=== PATIENT | female | born 1970 | race Two or more races ===

== ENCOUNTER 2024-07-10 20:30 | Inpatient (IN) | payer MEDICAID, SELFPAY ==
[2024-07-10 20:35] VITALS: PULSE 102; RESP 16; O2SAT 95
--- NOTE | 2024-07-10 20:35 | EKG_ITS ---
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1970 Requested By: ED Temporary Provider Order Number: [id number] Reading MD: ED Temporary Provider Measurements Intervals [place] Rate: 113 P: 130 [place]: 96 QRS: 246 QRSD: 108 T: 100 QT: 320 QTc: 439 Interpretive Statements SINUS TACHYCARDIA WITH SHORT [place] INTERVAL WITH OCCASIONAL VENTRICULAR PREMATURE COMPLEXES MARKED RIGHT AXIS DEVIATION [QRS AXIS > 100] LOW QRS VOLTAGE [QRS DEFLECTION < 0.5/1.0 mV IN LIMB/CHEST LEADS] POSSIBLE RIGHT VENTRICULAR CONDUCTION DELAY [RSR (QR) IN V1/V2] ANTEROLATERAL MYOCARDIAL INFARCTION , OF INDETERMINATE AGE [40+ ms Q WAVE IN I/aVL/V3-V6] Compared to ECG 06/23/2024 19:41:25 Short [place] interval now present Right-axis deviation now present Low QRS voltage now present First degree AV block no longer present Right bundle-branch block no longer present Myocardial infarct finding still present /store/S0/[id number].pdf
[2024-07-10 20:36] VITALS: BP 91/63; PULSE 102; RESP 20; TEMP 37.8; O2SAT 90
--- NOTE | 2024-07-10 20:39 | EKG_ITS ---
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1970 Requested By: Zeny Hernandez Order Number: [id number] Reading MD: Zeny Hernandez Measurements Intervals [place] Rate: 114 P: [place]: QRS: -76 QRSD: 146 T: 33 QT: 350 QTc: 482 Interpretive Statements ATRIAL FLUTTER/TACHYCARDIA WITH RAPID VENTRICULAR RESPONSE MARKED LEFT AXIS DEVIATION [QRS AXIS < -30] RIGHT BUNDLE BRANCH BLOCK [120+ ms QRS DURATION, UPRIGHT V1, 40+ ms S IN I/aVL/V4/V5/V6] ANTEROSEPTAL MYOCARDIAL INFARCTION , OF INDETERMINATE AGE [40+ ms Q WAVE IN V1-V4] Compared to ECG 07/10/2024 20:37:43 Left-axis deviation now present Right bundle-branch block now present Sinus tachycardia no longer present Ventricular premature complex(es) no longer present Short [place] interval no longer present Right-axis deviation no longer present Myocardial infarct finding still present /store/S0/[id number].pdf
[2024-07-10 20:40] VITALS: BMI 20.3
--- NOTE | 2024-07-10 20:40 | XR_ITS ---
Examination: AP chest single view Technique: AP portable upright chest single view Exam date and time: July 10, 2024 0906 hrs. Comparison 06/23/2024 Indications: Sepsis Findings: Significant CHF Enlarged cardiac contour with prominent vascular congestion Perihilar edema Superimposed bilateral pneumonia especially right upper lobe Prominent osteopenia Impression: Significant CHF Bilateral significant pneumonia
--- NOTE | 2024-07-10 20:40 | PC.NURSE ---
Pt BIB EMS with chief c/o of rectal bleeding that started today. Per EMT-P Adrian reports that family reported to him that they were cleaning the Pt after she has an episode of BM and noticed that the Pt was bleeding from the rectum. On assessment the Pt has a knowles catheter, +3 pitting edema noted to bilat lower extremities with good petal pules, and edema noted to Pt willy area. There are multiple bruises noted to Pt forearm bilat. Pt is a GCS of 15, A&O X3. Pt placed on cardiac cath lab radiology technologist. call light within reach.
[2024-07-10 20:41] VITALS: PULSE 104; PULSE 113; RESP 20; RESP 90; O2SAT 95
--- NOTE | 2024-07-10 20:45 | PD.EDGIBLD ---
ED GI Bleed RME/HPI General Chief complaint: GI Bleed Stated complaint: RECTAL BLEED Time Seen by Provider: 07/10/24 20:38 Arrival date/time: 07/10/24 20:30 RME / HPI RME / HPI Narrative: 53-year-old female patient with significant history of hypertension, diabetes mellitus, multiple embolic infarct, mural thrombus, anasarca, pleural effusion, choledocholithiasis, metabolic dysfunction associated steatotic liver disease, pneumonia, urinary retention was brought in by EMS for evaluation regarding bright red blood in the rectum. Onset of symptoms earlier today while changing the diaper. Patient is physically bedbound due to chronic debility after patient was hospitalized for 2 weeks.. She had a chronic Hernandez catheter also. She was initially seen here last June 24, and was transferred to [facility] for acute hepatic failure. In the triage patient was noted to be tachycardic and a fever of 100.1 sepsis alert was initiated right away. Related Data Home Medications ?Medication ?Instructions ?Recorded ?Confirmed calcium carbonate 600 mg-vitamin 1 tab PO QDAY 05/18/24 05/18/24 D3 20 mcg (800 unit) tablet (Caltrate with Vitamin D3) lisinopril 20 1 tab PO QDAY 05/18/24 05/18/24 mg-hydrochlorothiazide 25 mg tablet metformin 1,000 mg tablet 1,000 mg PO QDAY 05/18/24 05/18/24 amlodipine 10 mg tablet (Norvasc) 10 mg PO QDAY 05/19/24 05/19/24 Previous Rx's ?Medication ?Instructions ?Recorded blood sugar diagnostic (Blood #50 ea 05/22/24 Glucose Test strips) blood-glucose meter #1 ea 05/22/24 lancets 21 gauge #100 ea 05/22/24 methylprednisolone 4 mg tablets in 4 mg PO QDAY #21 tabs 05/22/24 a dose pack (Medrol (Sim)) midodrine 10 mg tablet 10 mg PO TID #10 tabs 05/22/24 Allergies Allergy/AdvReac Type Severity Reaction Status Date / Time No Known Allergies Allergy Verified 06/23/24 18:49 Review of Systems Review of Systems Narrative Review of Systems: Review of system reviewed and within normal limits except mentioned in HPI ED Exam Narrative Physical exam: VITAL SIGNS: Reviewed. GENERAL APPEARANCE: Alert and oriented x 2, slightly confused, no acute distress, HEAD AND FACE: Non-traumatic. ENT: PERRL, pale conjunctiva eyelid no trauma, Mucous membrane moist. NECK: Supple, nontender, no nuchal rigidity. CHEST: No tenderness, no crepitus, no paradoxical movement, no retractions. LUNGS: Clear, well ventilated, symmetric, no rales, no wheezing, no ronchi, no stridor, good breath sounds bilaterally. HEART: Regular rate, regular rhythm, no murmur, no gallops. ABDOMEN: Soft, positive bowel sounds, globular, no guarding, nontender, no rebound, no masses,+ +2 edema also noted on the lower abdomen and flank area RECTAL: Rectal exam was done by me. Female nurse around all the time, I did not notice any tarry stool or blood in the examining finger except that there is some abrasion excoriation on the perianal opening. At 12 o'clock position GENITAL: Deferred. NEUROLOGICAL: Gross motor function intact sensory function intact, Appropriate for age. MUSCULOSKELETAL: low back nontender, full range of motion. EXTREMITIES: Bilateral lower extremity edema,, full range of motion. SKIN: Color pale, dry, no rash, no lacerations, multiple bruising noted on the upper extremities LYMPHATICS: Deferred. Course Quality Measures none Orders Category Date Time Status Bedside COVID-19 Antigen Test NOW Care 07/10/24 23:21 Completed COVID-19 Screening Questionnaire NOW Care 07/10/24 23:01 Completed International Relations Teacher STAT Care 07/10/24 20:39 Active Continuous Pulse Oximetry STAT Care 07/10/24 20:39 Completed Decision to Admit X1 Care 07/10/24 23:01 Completed EKG (ED ONLY) *Do not use* NOW Care 07/10/24 20:35 Completed EKG (ED ONLY) *Do not use* NOW Care 07/10/24 20:39 Completed Insert IV NOW Care 07/10/24 20:39 Active NPO STAT Care 07/10/24 20:39 Active Occult Blood,Stool (Nursing) NOW Care 07/10/24 21:11 Active Strict Intake and Output Routine Care 07/10/24 20:39 Ordered EKG (ED Only) Stat Exams 07/10/24 20:35 Draft EKG (ED Only) Stat Exams 07/10/24 20:39 Draft XR chest 1V SEPSIS PROTOCOL Stat Exams 07/10/24 20:40 Completed Ammonia Stat Lab 07/10/24 23:17 Ordered B-Type Natriuretic Peptide Stat Lab 07/10/24 20:45 Completed Blood Culture (Lab) Stat Lab 07/10/24 20:45 Received CBC Stat Lab 07/10/24 20:45 Completed Comprehensive Metabolic Panel Stat Lab 07/10/24 20:45 Completed LDH (Lactate Dehydrogenase) Stat Lab 07/10/24 20:45 Completed Lactate (Lactic Acid) Stat Lab 07/10/24 20:45 Results Lipase Stat Lab 07/10/24 20:45 Completed Magnesium Stat Lab 07/10/24 20:45 Completed Occult Blood, Stool (LAB) Stat Lab 07/10/24 21:11 Completed Partial Thromboplastin Time Stat Lab 07/10/24 20:45 Completed Phosphorous Stat Lab 07/10/24 20:45 Completed Procalcitonin Stat Lab 07/10/24 20:45 Completed Prothrombin Time with INR Stat Lab 07/10/24 20:45 Completed Troponin I Stat Lab 07/10/24 20:45 Completed Type and Screen Stat Lab 07/10/24 20:52 Completed Urinalysis Stat Lab 07/10/24 21:21 Completed Urine Culture Stat Lab 07/10/24 21:21 Received Piper/Tazo 3.375 gm [Zosyn] Med 07/10/24 23:27 Active 3.375 gm in 50 ml IV X1 Ringers Lactated 500 ml [Lactated Ringers] 500 ml Med 07/10/24 21:51 Active IV 250 mls/hr Vancomycin/Ns 1 gm Ivpb 200 ml Med 07/10/24 23:27 Active IV X1 Oxygen Delivery NOW RT 07/10/24 20:39 Active Vital Signs Vital signs: Vital Signs Temperature 100.1 F 07/10/24 20:36 Pulse Rate 102 H 07/10/24 20:36 Respiratory Rate 20 07/10/24 20:36 Blood Pressure 91/63 07/10/24 20:36 Pulse Oximetry (%) 90 L 07/10/24 20:36 Oxygen Delivery Method Room Air 07/10/24 20:36 GI Bleed MDM Narrative MDM Narrative:: I did a rectal exam, with a female nurse around all the time, I did not notice any blood in the examining finger except for excoriation, on the perianal area which could be the reason for bleeding. Plan of care discussed with the family, and told me that they wanted the patient to be place in SNF or acute rehab hospital post admission. Discussed this case with Dr. Raymond, hospitalist, and admitted the patient. Patient data External records reviewed:: None Clinical information provided by:: patient and family Social determinants that could affect healthcare access:: none Patient has the following chronic illnesses:: Diabetes mellitus, hypertension, acute renal retention on chronic Hernandez catheter, anasarca, liver disease, pleural effusion, pneumonia, acute kidney injury, cholithiasis, mural thrombus, multiple embolic infarcts, recently discharged from the hospital 2 days ago. How is presenting disease/condition affected by chronic disease/condition?: exacerbated by Evaluation data The following diagnostics were reviewed and interpreted by me:: lab results, radiology exam(s) and EKG tracing(s) Lab and/or radiology exams considered but not ordered:: None Interpretation Summary: EKG as interpreted by me showed sinus tachycardia, ventricular to 114 bpm, no ST segment elevation depression noted. Chest x-ray showed as interpreted by me as significant congestive heart failure and bilateral pneumonia. CBC with no leukocytosis however patient's hemoglobin is noted to be 8.7 hematocrit of 28.1 creatinine was noted to be 1.8 BUN 47 lactic acid 3.9 total bili 2.4 AST 40 alkaline phosphatase of 131 lactic dehydrogenase of 397, patient's troponin was noted to be 0.22. None Medications / Prescriptions Medications or Prescriptions considered but not ordered:: None Medication administrations:: Medication Administration History Lactated Ringer's (Lactated Ringers) 500 mls @ 250 mls/hr IV .Q2H ONE Stop: 07/10/24 23:50 Last Admin: 07/10/24 21:58 Dose: 250 mls/hr Documented By: JOSE Vancomycin/Sodium Chloride (Vancomycin/Ns 1 Gm Ivpb) 200 mls @ 120 mls/hr IV X1 ONE Stop: 07/11/24 01:06 Piperacillin/Tazobactam/Dextrose (Zosyn) 3.375 gm in 50 mls @ 100 mls/hr IV X1 ONE Stop: 07/10/24 23:56 IV fluids for hydration, IV vancomycin and Zosyn was given Consultations Consultation(s) initiated? (list below): No Diagnosis GI bleed differential diagnosis: Lower gastrointestinal hemorrhage, hematochezia and other (Pneumonia, UTI, anasarca, liver disease, PHILL,) Most likely diagnosis given after review of the tests above:: Sepsis, rectal bleeding, pneumonia, anasarca, UTI, liver disease, cholithiasis, Admission Indicated Admission indicated?: indicated Explain why admission is indicated or not indicated:: For further management Admission Request Was there a request for admission?: Yes Admission Attestation Admission request attestation: Discussed case with [ Dr Raymond] from Hospitalist service regarding admission. Discussed patients ED course, exam findings, labs, and radiology results. The Hospitalist [agrees,] to accept the patient for admission. Disposition Plan Disposition Plan: Admit Discharge Plan Plan Patient Disposition: Admit Acute Care w/in Hospital Disposition Comment: Stable Prescriptions/Referrals Prescriptions/Med Rec: No Action metformin 1,000 mg Tablet 1,000 mg PO QDAY Hold Instructions: Resume on 06/30/24. Hold until evaluated by PCP to restart Rx Instructions: with meal lisinopril-hydrochlorothiazide 20-25 mg Tablet 1 tab PO QDAY Hold Instructions: Resume on 06/18/24. Hold until further evaluation by PCP calcium carbonate-vitamin D3 [Caltrate with Vitamin D3] 600 mg-20 mcg (800 unit) Tablet 1 tab PO QDAY amlodipine [Norvasc] 10 mg Tablet 10 mg PO QDAY Hold Instructions: Resume on 06/18/24. Hold until further evaluation by PCP (DME) blood-glucose meter Kit See Rx Instructions .Route Qty: 1 0RF Rx Instructions: Use once daily (DME) lancets 21 gauge misc See Rx Instructions .Route Qty: 100 2RF Rx Instructions: Use once daily (DME) Blood Glucose Test Strip See Rx Instructions .Route Qty: 50 2RF Rx Instructions: Use once daily midodrine 10 mg tablet 10 mg PO TID Qty: 10 0RF Rx Instructions: do not give last dose of day after 6PM or within 4 hrs of bedtime methylprednisolone [Medrol (Sim)] 4 mg tablets,dose pack 4 mg PO QDAY Qty: 21 0RF Rx Instructions: Take as directed Referrals: Chon Longo PA-C [Primary Care Provider] - In 1 week Problem List Clinical Impression: Rectal bleed, Pneumonia, Anasarca, History of multiple strokes, Mural thrombus of heart, Sepsis Patient/Caregiver Discharge Instructions Print Language: [place] Leone[place] Stand Alone Forms: [employer] Info., Patient Portal Info Letter
[2024-07-10 21:16] LABS: Lactate (Lactic Acid) 3.9 mMol/L (0.4-2.0)
[2024-07-10 21:27] LABS: Basophils % (Auto) 0 % (0-2.5); Eosinophils % (Auto) 0 % (0-10); Hematocrit 28.1 % (36.0-46.0); Immature Granulocytes % (Auto) 0 % (0-0); Immature Granulocytes Auto 0.04 Thou/mm3 (0.00-0.00); Lymphocytes # (Auto) 1.1 Thou/mm3 (1.0-4.8); Lymphocytes % (Auto) 10 % (10-50); Mean Corpuscular Hemoglobin 28.1 pg (25.0-35.0); Mean Corpuscular Volume 91 fL (80-100); Monocytes # (Auto) 0.4 Thou/mm3 (0.0-0.8); Monocytes % (Auto) 4 % (0-12); Neutrophils % (Auto) 86 % (37-80); Nucleated Red Blood Cell # 0.09 Thou/mm3 (0.00-0.00); Nucleated Red Blood Cell % 1 /100 WBC (0); Platelet Count 124 Thou/mm3 (140-440); RDW Standard Deviation 57.8 fL (36.4-46.3); White Blood Count 10.5 Thou/mm3 (3.6-11.0)
[2024-07-10 21:35] LABS: Hemoglobin 8.7 g/dL (12.0-16.0)
[2024-07-10 21:37] LABS: Collection Type, Urine Clean Catch
[2024-07-10 21:37] LABS: OBS Card Lot # 23001; OBS Developer Lot # 23003; OBS Performed By boted; OBS QC OK? Yes; Occult Blood, Stool Negative (Negative)
[2024-07-10 21:46] LABS: Bacteria,Urine 4+; Bilirubin,Urine Negative (Negative); Blood,Urine 3+ (Negative); Budding Yeast,Urine Present; Color,Urine Yellow (Lt Yel-Yel); Glucose, Urine Trace (Negative); Hyaline Casts,Urine 3 /hpf (0-1); Ketones,Urine Negative (Negative); Leukocyte Esterase,Urine Positive (Negative); Nitrite,Urine Negative (Negative); Protein,Urine 1+ (Neg - Trace); RBC,Urine 349 /hpf (0-3); Specific Gravity,Urine 1.017 (1.001-1.035); Squamous Epithelial Cell,Urine 4 /hpf (0-5); Urobilinogen,Urine Negative mg/dL (0.0-1.0); WBC,Urine 358 /hpf (0-5)
[2024-07-10 21:47] LABS: Clarity,Urine Turbid (Clear/Hazy)
[2024-07-10 21:54] LABS: INR 2.9 (0.9-1.3); Partial Thromboplastin Time 49.9 Seconds (22.0-36.0); Prothrombin Time 29.2 Seconds (9.0-12.2)
[2024-07-10] MEDS: RINGERS LACTATED 500 ML 500 ML 250 ML IV (21:58)
[2024-07-10 22:17] LABS: B-Type Natriuretic Peptide 740 pg/mL (0-100)
[2024-07-10 22:22] LABS: Alanine Aminotransferase 36 U/L (10-49); Albumin, Serum 3.1 gm/dL (3.5-5.0); Alkaline Phosphatase 131 U/L (46-116); Anion Gap 9 (7-16); Aspartate Amino Transferase 40 U/L (0-34); BUN/Creatinine Ratio 26 Ratio (12-20); Bilirubin,Total 2.4 mg/dL (0.3-1.2); Blood Urea Nitrogen 47 mg/dL (9-23); Calcium (Corrected) 9.7 mg/dL (8.5-10.1); Carbon Dioxide 21.6 mMol/L (20.0-31.0); Chloride 101 mMol/L (98-107); Creatinine (Component) 1.8 mg/dL (0.6-1.3); Estimated Creatinine Clearance 29.1 mL/min (>60); Globulin 3.1 gm/dL (2.3-3.5); Glucose 130 mg/dL (74-106); Lipase 88 U/L (12-53); Magnesium 1.9 mg/dL (1.6-2.6); Osmolality,Calculated 278 (275-295); Potassium 4.3 mMol/L (3.4-5.1); Procalcitonin 7.21 ng/ml (0.0-0.49); Sodium 132 mMol/L (136-145); Total Protein 6.2 gm/dL (5.7-8.2); eGFR 33 See Note
[2024-07-10 22:41] LABS: LDH (Lactate Dehydrogenase) 396 U/L (120-246)
[2024-07-10 22:51] LABS: Troponin I 0.222 ng/mL (0.0-0.045)
[2024-07-10 23:00] VITALS: BP 94/61; PULSE 113; RESP 18; TEMP 36.6; O2SAT 95
--- NOTE | 2024-07-10 23:47 | PD.EVENT ---
Documentation for date of: 07/10/24 Event Note Event Note: The patient was admitted to [facility] on 06/24 and discharged on 07/08. Discharge diagnoses included acute embolic stroke, acute kidney injury, amyloidosis, left ventricular mural thrombus, anasarca, choledocholithiasis, liver cirrhosis, pleural effusion, pneumonia, sepsis, diabetes mellitus, and urinary retention. She was discharged on Eliquis, empagliflozin, furosemide, and metoprolol. Her creatinine at discharge was 1.6, and bilirubin was 1.9. The patient presented to the emergency room today because her daughter was unable to care for her, as the patient is now almost fully dependent. The daughter noticed some blood while changing the patient's diaper today. Due to these concerns, the patient was brought in by ambulance. In the ER, her vital signs were: temperature 100.1?F, heart rate 102 bpm, respiratory rate 20 breaths/min, and blood pressure 91/63 mmHg. Laboratory results indicated significant congestive heart failure and bilateral pneumonia. Hemoglobin was 8.7 g/dL, platelets 124 x10^9/L, creatinine 1.8 mg/dL, lactic acid 3.9 mmol/L, total bilirubin 2.4 mg/dL, troponin 0.222 ng/mL, BNP 740 pg/mL, procalcitonin 7.21 ng/mL, and INR 2.9. The patient will be admitted for further treatment and will need nursing home facility placement. The family has requested full code status. Hold BP meds now.
--- NOTE | 2024-07-10 23:53 | ESHP_ITS ---
Documentation for date of: 07/10/24 HPI History of Present Illness History of present illness: 53-year-old female patient with significant medical history for DM2, left ventricle mural thrombus, embolic infarct, metabolic dysfunction associated steatotic liver disease (MASLD), liver cirrhosis, choledocholithiasis, urinary retention and amyloidosis was BIBA when daughter noticed blood per rectum while changing patient's diaper. Patient was transferred from [facility] to [facility] on 06/24/2024 for stroke and ERCP. Patient was discharged from [facility] on 07/08/2024 home on Eliquis, empagliflozin, Lasix and metoprolol. In May 2024 patient was admitted and upgraded to ICU at [facility] for hyponatremia and hypotension. Per daughter, patient started losing weight and become weak and hypotensive since the beginning of this year. Today, daughter states she is no longer able to care for her mother. In ED vitals were significant for HR 102, temp 100.1 F, RR 20 and BP of 91/63. Occult blood test was negative, chest x-ray is indicative of significant CHF and bilateral pneumonia. Urinalysis is indicative of UTI. CBC showed a Hgb of 8.7, PLT 124, THREAD DRESSER 1.8 (baseline 1.1), lactic acid 3.9, T. bili 2.4, Trope 0.222, BNP 740, Pro-Justice 7.21 and INR 2.9. Patient admitted for further management and SNF placement. Medical Hx: As HPI above Medication: Eliquis, empagliflozin, Lasix, metoprolol, Jardiance, midodrine Surgical Hx: Social Hx: Patient denies drinking alcohol, smoking tobacco or using illicit drugs Family Hx: Sister of liver cancer at age 55, other sister and child have thyroid cancer Allergies: NKDA CODE STATUS: Full code Review of Systems Review of Systems Systems Reviewed: All systems reviewed, normal except as documented Exam Vital Signs Temp Pulse Resp BP Pulse Ox O2 Del Method O2 Flow Rate 97.8 F 113 H 18 94/61 95 Nasal Cannula 2 07/10/24 23:00 07/10/24 23:00 07/10/24 23:00 07/10/24 23:00 07/10/24 23:00 07/10/24 23:00 07/10/24 23:00 Narrative Exam Constitutional: Fragile, older looking than chronological age female, in no acute distress, lying in bed. HEENT: NCAT, EOMI, reactive round pupils b/l, patent nares b/l, moist mucous membranes. Lung: Crackles of the lung bilaterally, no wheezing, no rhonchi, on 2 L nasal cannula. Heart: Regular S1S2, no murmurs, gallops, or rubs. Abdomen: Soft, non-distended, non-tender, bowel sounds present throughout. Extremities: No cyanosis or clubbing, anasarca present, 3+ LE edema, pulses present b/l. Neurologic: No focal sensory or motor deficits noted, AOx3, appropriate affect. Skin: Warm, dry, no lesions or rashes noted. Results: Labs 07/10/24 20:45 07/10/24 20:45 Labs: Short CBC 07/10/24 Range/Units 20:45 WBC 10.5 (3.6-11.0) Thou/mm3 Hgb 8.7 L (12.0-16.0) g/dL Hct 28.1 L (36.0-46.0) % Plt Count 124 L D (140-440) Thou/mm3 BMP 07/10/24 20:45 Sodium 132 L Potassium 4.3 Chloride 101 Carbon Dioxide 21.6 BUN 47 H Creatinine 1.8 H Glucose 130 H Calcium 9.0 Cardiac Enzymes 07/10/24 Range/Units 20:45 Troponin I 0.222 H* (0.0-0.045) ng/mL Liver Function 07/10/24 Range/Units 20:45 Total Bilirubin 2.4 H (0.3-1.2) mg/dL AST 40 H (0-34) U/L ALT 36 (10-49) U/L Alkaline Phosphatase 131 H (46-116) U/L Albumin 3.1 L (3.5-5.0) gm/dL Urine 07/10/24 Range/Units 21:21 Urine Color Yellow (Lt Yel-Yel) Urine Clarity Turbid A (Clear/Hazy) Urine pH 6.0 (5.0-7.0) Ur Specific [place] 1.017 (1.001-1.035) Urine Protein 1+ A (Neg - Trace) Urine Glucose (UA) Trace (Negative) Quality Measures Quality Measures none Medications Home Medications and Allergies Home Medications ?Medication ?Instructions ?Recorded ?Confirmed ?Type calcium carbonate 600 mg-vitamin 1 tab PO QDAY 05/18/24 05/18/24 History D3 20 mcg (800 unit) tablet (Caltrate with Vitamin D3) lisinopril 20 1 tab PO QDAY 05/18/24 05/18/24 History mg-hydrochlorothiazide 25 mg tablet metformin 1,000 mg tablet 1,000 mg PO QDAY 05/18/24 05/18/24 History amlodipine 10 mg tablet (Norvasc) 10 mg PO QDAY 05/19/24 05/19/24 History Allergies Allergy/AdvReac Type Severity Reaction Status Date / Time No Known Allergies Allergy Verified 06/23/24 18:49 Visit Medications Furosemide (Furosemide Inj 10 Mg/Ml Vial 2 Ml) 20 mg IVP QDAY SAVANNAH Stop: 08/10/24 08:59 Vancomycin/Sodium Chloride (Vancomycin/Ns 1 Gm Ivpb) 200 mls @ 120 mls/hr IV X1 ONE Stop: 07/11/24 01:06 Piperacillin/Tazobactam/Dextrose (Zosyn) 3.375 gm in 50 mls @ 100 mls/hr IV X1 ONE Stop: 07/10/24 23:56 Piperacillin Sod/Tazobactam (Sod 2.25 gm/ Sodium Chloride) 50 mls @ 100 mls/hr IV Q6HR SAVANNAH Stop: 07/17/24 23:34 Midodrine (Midodrine 5 Mg Tablet) 10 mg PO TID SAVANNAH Stop: 08/10/24 05:59 Pharmacy Consult (Pharmacy To Dose Vancomycin) 1 each IV QDAY SAVANNAH Stop: 08/10/24 08:59 Discontinued Medications Lactated Ringer's (Lactated Ringers) 500 mls @ 250 mls/hr IV .Q2H ONE Stop: 07/10/24 23:50 Last Infusion: 07/10/24 23:37 Dose: 0 mls/hr Assessment & Plan Plan 53-year-old female patient with significant medical history for DM2, left ventricle mural thrombus, embolic infarct, metabolic dysfunction associated steatotic liver disease (MASLD), liver cirrhosis, choledocholithiasis, urinary retention and amyloidosis was BIBA when daughter noticed blood per rectum while changing patient's diaper. FOBT negative, patient found to have moderate CHF, bilateral pneumonia, PHILL and UTI. #Bilateral pneumonia, hospital-acquired #Pleural effusion Patient recently discharged from [facility] on 07/08/2024 Chest x-ray indicative of pleural effusion/bilateral pneumonia Per daughter, patient has been having dry cough for the last few days Plan: ? Start Vanco and Zosyn ? Acetaminophen for fevers ? Cultures collected ? DuoNebs every 4 hours as needed ? Maintain oxygen saturation > 94% #Anasarca #Moderate CHF On admission patient with anasarca Patient requiring supplemental oxygen Chest x-ray indicative of mild to moderate CHF with BNP of 740 Physical exam significant for bilateral crackles Echocardiogram on 05/19/2024 indicative of mild to moderate TR with EF of 55% Plan: ? Strict ins and outs ? Lasix 20 mg daily ? 1800 cc fluid restrictions ? Low-salt diet ? Consider restarting home meds: Metoprolol and empagliflozin ? Keep Mag > 2 and K > 4 ? Cardiology Dr. Malone consulted, recommendations are greatly appreciated #Left ventricular mural thrombus #History of embolic stroke Patient with recent embolic stroke most likely secondary to mural thrombus Patient discharged from [facility] on Eliquis On admission patient complaining of blood per rectum with negative occult test in ED Admission labs significant for INR 2.9 Plan: ? Withhold Eliquis in setting of elevated INR and per rectum blood ? Cardiology Dr. Lico Morales consulted, recs are greatly appreciated ? ED sent request for full [facility] report ? Order echo if none was done at [facility] ? Consider consulting neurology #PHILL Most likely prerenal in setting of urinary retention, UTI, CHF exacerbation and pneumonia On admission patient with creatinine 1.8 (baseline 1.1, on discharge from [facility] THREAD DRESSER 1.6) Plan: ? Treat underlying illnesses ? Continue Zosyn and bank antibiotics ? No fluids in setting of moderate CHF and elevated BNP ? If no improvement consider consulting nephrology ? Follow-up CMP #Urinary tract infection Patient with history of urinary retention requiring Hernandez catheter On admission urinalysis indicative of UTI Plan: ? Hernandez catheter in place ? Continue antibiotics ? Urine cultures pending #Elevated troponin, most likely type II On admission labs indicated troponin of 0.222 Patient denies chest pain/pressure Plan: ? Trend troponin #Diabetes type 2 Most recent A1c of 5 on May 2024 Patient on multiple home med including Jardiance and metformin On admission patient with glucose of 130 Plan: ? Withhold home meds ? No medical management at this point ? Consider ISS if elevated glucose ? Maintain blood glucose of 140-180 #History of choledocholithiasis #Cirrhosis #Metabolic dysfunction associated steatotic liver disease (MASLD) #Hyperbilirubinemia, most likely secondary to hypovolemia Patient was transferred to [facility] where she underwent ERCP Admission labs significant for T. bili 2.4, ALP 131 and AST 40 Patient not complaining of abdominal pain Plan: ? Treat underlying illnesses ? Follow-up [facility] Health Maintenance Dispo: Patient admitted for further management of pneumonia, UTI, PHILL, on IV antibiotics and cardiology consulted Diet: Low-sodium, fluid restricted cardiac diet DVT/PPx: None GI ppx: Protonix Lines: PIV and Hernandez catheter Code Status: Full code This patient care was discussed with my attending Dr. Segundo Morales MD PGY-2 Disclaimer: Minor errors in support specialist may be present since this note was dictated by speech recognition software. Attending Provider Attestation/Addendum Pt was evaluated and plan formulated together with the housestaff team. I have reviewed the residents note above and agree with most of its content. Please refer to the residents note for additional details.
[2024-07-10] MEDS: PIPER/TAZO 3.375 GM 3.375 GM/50 ML BAG IV (23:57)
[2024-07-10] MEDS: VANCOMYCIN/NS 1 GM IVPB 200 ML IV (23:59)
[2024-07-11] VITALS (53 sets, daily range): BP systolic 64–108; BP diastolic 51–88; PULSE 67–116; RESP 7–88; TEMP 36.1–36.6; O2SAT 76–100
[2024-07-11 00:14] LABS: Reflex Lactate? Y
[2024-07-11 01:10] LABS: Ammonia < 10 uMol/L (11-32)
[2024-07-11 04:56] LABS: Basophils % (Auto) 0 % (0-2.5); Eosinophils % (Auto) 0 % (0-10); Hematocrit 26.8 % (36.0-46.0); Immature Granulocytes % (Auto) 1 % (0-0); Immature Granulocytes Auto 0.05 Thou/mm3 (0.00-0.00); Lymphocytes # (Auto) 1.1 Thou/mm3 (1.0-4.8); Lymphocytes % (Auto) 11 % (10-50); Mean Corpuscular HGB Conc 31.3 g/dl (31.0-37.0); Mean Corpuscular Hemoglobin 28.5 pg (25.0-35.0); Mean Corpuscular Volume 91 fL (80-100); Monocytes # (Auto) 0.4 Thou/mm3 (0.0-0.8); Monocytes % (Auto) 4 % (0-12); Neutrophils # (Auto) 8.4 Thou/mm3 (1.8-7.7); Neutrophils % (Auto) 85 % (37-80); Nucleated Red Blood Cell # 0.07 Thou/mm3 (0.00-0.00); Nucleated Red Blood Cell % 1 /100 WBC (0); Platelet Count 118 Thou/mm3 (140-440); RDW Standard Deviation 57.8 fL (36.4-46.3); Red Blood Count 2.95 Miln/mm3 (4.00-5.20); White Blood Count 9.9 Thou/mm3 (3.6-11.0)
[2024-07-11 05:02] LABS: Hemoglobin 8.4 g/dL (12.0-16.0)
[2024-07-11 05:23] LABS: Anion Gap 9 (7-16); BUN/Creatinine Ratio 29 Ratio (12-20); Blood Urea Nitrogen 53 mg/dL (9-23); Calcium 8.7 mg/dL (8.3-10.6); Carbon Dioxide 25.9 mMol/L (20.0-31.0); Chloride 99 mMol/L (98-107); Creatinine (Component) 1.8 mg/dL (0.6-1.3); Estimated Creatinine Clearance 29.1 mL/min (>60); Glucose 110 mg/dL (74-106); Osmolality,Calculated 283 (275-295); Potassium 4.2 mMol/L (3.4-5.1); Sodium 134 mMol/L (136-145); eGFR 33 See Note
[2024-07-11 05:26] LABS: Troponin I 0.253 ng/mL (0.0-0.045)
[2024-07-11] MEDS: MIDODRINE 5 MG TABLET 10 MG PO (06:06)
[2024-07-11] MEDS: PIPER/TAZO 3.375 GM 50 ML IV ×2 (08:05→22:51)
--- NOTE | 2024-07-11 08:42 | XR_ITS ---
Examination: Abdomen sonogram, complete Date and time of exam: July 11, 2024 0924 hrs. Indications: Elevated bilirubin on laboratory examination yesterday. Technique: Multiple real-time grayscale transabdominal sonographic images of the abdomen have been obtained. Findings: Contracted gallbladder with multiple stones Common bile duct 0.7 cm no definite stones Pancreatic head 2.4 cm Aorta not enlarged Fatty liver 12.9 cm Normal hepatopedal portal venous flow Patent IVC Right kidney 11.8 x 3.9 x 4.7 cm renal cortex 1.8 cm Mild right hydronephrosis Left kidney 8.2 x 3.6 x 4.7 cm cortex 1.4 cm Spleen 8.3 cm Impression: Cholelithiasis Enlarged common bile duct 0.7 cm, consider MRCP follow-up to exclude common bile duct stones and/or stricture Mild right hydronephrosis
[2024-07-11] MEDS: HYDROCORTISONE SOD SUCC INJ 100 MG VIAL IV ×3 (09:08→23:53)
[2024-07-11] MEDS: HEPARIN SOD INJ 5000 UNIT/ML VIAL 1550 UNIT IV (09:10)
[2024-07-11] MEDS: Heparin/D5w 25K 250 ML Ivpb 25,000 UNIT/250 ML BAG 6.26 UNIT IV ×2 (09:11→19:45)
[2024-07-11 10:03] LABS: Lactate (Lactic Acid) 2.1 mMol/L (0.4-2.0)
[2024-07-11 10:25] LABS: Basophils % (Auto) 0 % (0-2.5); Eosinophils % (Auto) 0 % (0-10); Hematocrit 27.3 % (36.0-46.0); Immature Granulocytes % (Auto) 1 % (0-0); Immature Granulocytes Auto 0.05 Thou/mm3 (0.00-0.00); Lymphocytes # (Auto) 1.1 Thou/mm3 (1.0-4.8); Lymphocytes % (Auto) 11 % (10-50); Mean Corpuscular HGB Conc 31.1 g/dl (31.0-37.0); Mean Corpuscular Hemoglobin 28.2 pg (25.0-35.0); Mean Corpuscular Volume 91 fL (80-100); Monocytes # (Auto) 0.4 Thou/mm3 (0.0-0.8); Monocytes % (Auto) 4 % (0-12); Neutrophils # (Auto) 8.8 Thou/mm3 (1.8-7.7); Neutrophils % (Auto) 85 % (37-80); Nucleated Red Blood Cell # 0.04 Thou/mm3 (0.00-0.00); Nucleated Red Blood Cell % 0 /100 WBC (0); Platelet Count 113 Thou/mm3 (140-440); RDW Standard Deviation 58.6 fL (36.4-46.3); Red Blood Count 3.01 Miln/mm3 (4.00-5.20); White Blood Count 10.3 Thou/mm3 (3.6-11.0)
[2024-07-11 10:26] LABS: Hemoglobin 8.5 g/dL (12.0-16.0)
[2024-07-11 10:36] LABS: Alanine Aminotransferase 25 U/L (10-49); Albumin, Serum 2.8 gm/dL (3.5-5.0); Albumin/Globulin Ratio 0.9 (1.2-2.2); Alkaline Phosphatase 119 U/L (46-116); Anion Gap 10 (7-16); Aspartate Amino Transferase 30 U/L (0-34); BUN/Creatinine Ratio 29 Ratio (12-20); Bilirubin,Total 2.4 mg/dL (0.3-1.2); Blood Urea Nitrogen 53 mg/dL (9-23); Calcium 8.5 mg/dL (8.3-10.6); Calcium (Corrected) 9.5 mg/dL (8.5-10.1); Carbon Dioxide 22.7 mMol/L (20.0-31.0); Chloride 100 mMol/L (98-107); Creatinine (Component) 1.8 mg/dL (0.6-1.3); Estimated Creatinine Clearance 29.1 mL/min (>60); Globulin 3.2 gm/dL (2.3-3.5); Glucose 134 mg/dL (74-106); Osmolality,Calculated 282 (275-295); Sodium 133 mMol/L (136-145); eGFR 33 See Note
[2024-07-11 10:38] LABS: Troponin I 0.254 ng/mL (0.0-0.045)
--- NOTE | 2024-07-11 10:46 | ECHO_ITS ---
Transthoracic Echo Report Ht (in): 63 Wt (lb): 115 Exam Location: Echo Lab Status: Inpatient Breakfast Server: Lizy Serrano Indications: Procedure Performed: BP: 89 / 69 HR: 67 MEASUREMENTS (Male / Female) Normal Values 2D ECHO LV Diastolic Diameter PLAX 3.7 cm 4.2 - 5.9 / 3.9 - 5.3 cm LV Systolic Diameter PLAX 3.2 cm IVS Diastolic Thickness 1.3 cm 0.6 - 1.0 / 0.6 - 0.9 cm LVPW Diastolic Thickness 1.3 cm 0.6 - 1.0 / 0.6 - 0.9 cm LV Relative Wall Thickness 0.7 LVOT Diameter 1.7 cm Aortic Root Diameter 2.2 cm LA Systolic Diameter LX 4.1 cm 3.0 - 4.0 / 2.7 - 3.8 cm LV Ejection Fraction MOD BP 57.8 % >= 55 % LV Cardiac Index MOD BP 2439.4 cm?/min?m? LV Ejection Fraction MOD 4C 67.5 % LV Cardiac Index MOD 4C 3240.8 cm?/min?m? LV Ejection Fraction 4C AL 68.6 % LV Cardiac Index 4C AL 3428.6 cm?/min?m? LV Ejection Fraction MOD 2C 30.7 % LV Cardiac Index MOD 2C 942.3 cm?/min?m? LV Ejection Fraction 2C AL 29.3 % LV Cardiac Index 2C AL 938.9 cm?/min?m? LA Volume Index 53.7 cm?/m? 16 - 28 cm?/m? DOPPLER AV Peak Velocity 96.1 cm/s AV Peak Gradient 3.7 mmHg AV Mean Gradient 2.0 mmHg AV Velocity Time Integral 11.4 cm AI Peak Velocity 229.0 cm/s AI Peak Gradient 21.0 mmHg AI Pressure Half Time 707.0 ms LVOT Peak Velocity 85.0 cm/s LVOT Peak Gradient 2.9 mmHg LVOT Velocity Time Integral 12.0 cm LVOT Cardiac Index 1199.3 cm?/min?m? AV Area Cont Eq vti 2.4 cm? AV Area Cont Eq pk 2.0 cm? MV Area PHT 5.2 cm? MR Peak Velocity 433.0 cm/s MR Peak Gradient 75.0 mmHg Mitral E Point Velocity 79.5 cm/s Mitral A Point Velocity 32.0 cm/s Mitral E to A Ratio 2.5 LV E' Lateral Velocity 10.7 cm/s Mitral E to LV E' Lateral Ratio 7.4 LV E' Septal Velocity 4.5 cm/s Mitral E to LV E' Septal Ratio 17.8 TR Peak Velocity 239.0 cm/s TR Peak Gradient 22.8 mmHg PV Peak Velocity 77.4 cm/s PV Peak Gradient 2.4 mmHg FINDINGS Left Ventricle Normal left ventricular size. Mild LVH. Global left ventricular systolic function is severely decrea sed. Normal left ventricular diastolic filling pattern for age. The ejection fraction is visually estimat ed at 25-30 %. A possible left ventricular mural thrombus is present. Right Ventricle The right ventricle is normal in size. The right ventricular systolic function is severely decreased . The estimated right ventricular systolic pressure, 39 mmHg including RAP 15mmHg. Left Atrium The left atrial cavity size is mildly increased. Right Atrium The right atrial cavity size is mildly increased. Atrial Septum The interatrial septum appears normal with no evidence of a shunt. Aorta The aorta is normal by two-dimensional, color flow and Doppler interrogation. Mitral Valve Mild mitral regurgitation. Aortic Valve Mild aortic valve regurgitation. Tricuspid Valve There is moderate tricuspid regurgitation. Pulmonic Valve The pulmonic valve is not well visualized. There is no significant pulmonic valve regurgitation. Vessels Dilated inferior vena cava. Pericardium Moderate sized pleural effusion visualized. CONCLUSIONS Indication: Hx Thrombus Normal LV size. Global LV systolic function is severely decreased. Estimated EF < 20%. Possible LV m ural thrombus is present 2.51 cm x 1.71 cm. Moderate hypertrophy with ground glass appearence - need ot r /o amyloid or other infiltartative diseases. diastolic dysfunction present but unable to grade as there is no E/A. atleast grade 2 and grade 3 RV is normal in size. RV systolic function is severely decreased. Estimated RVSP, 39 mmHg including RAP 15mmHg. Moderately dilated LA and RA. Mild to moderate MR. mild AI and Severe TR Dilated IVC and moderatre size pleural effusion. Lico Malone (Electronically Signed) Final Date: 12 July 2024 17:53
--- NOTE | 2024-07-11 11:50 | CHAP ---
Patient was visited by the Spiritual Care Volunteer who prayed for them. (Volunteer was in the hospital from 10:13-11:50).
[2024-07-11 12:35] LABS: Lactate (Lactic Acid) 3.1 mMol/L (0.4-2.0)
[2024-07-11 13:00] LABS: Reflex Lactate? Y
--- NOTE | 2024-07-11 13:57 | EVENTNT_ITS ---
<Statement entered by Khanh Wall MD - 07/12/24 17:48> Attending attestation: I reviewed above note and agree with findings and plans. I have also personally examined the patient with medicine team and went over assessment and plan with medical team including internet marketing manager and resident physician. Documentation for date of: 07/11/24 Event Note Event Note: Ms. 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 Patient was chronically hypotensive, with elevated lactate and acute kidney injury, and was started on hydrocortisone with no improvement in blood pressure, ICU team was consulted and patient was started on IV Albumin 3 times daily, Lasix drip to achieve the goal of urine output of 200 cc/h and octreotide GGT due to underlying concern of hepatorenal syndrome. Case was discussed in detail with ICU attending and team and patient will be upgraded to ICU for management of fluid overload and hepatorenal syndrome. Case discussed with Attending Dr. Wall. Micah Christopher PGY1
--- NOTE | 2024-07-11 14:17 | ESCONSULT_ITS ---
HPI Data of Consult Requesting Physician: Slade Raymond MD Admitting Provider: Slade Raymond MD Attending Provider: Slade Raymond MD Primary Care Provider: Chon Longo PA-C Consult Narrative History of present illness: Patient is a 53-year-old female with a past medical history of diabetes mellitus type 2, embolic CVA, LV mural thrombus, liver cirrhosis, and amyloidosis, who was brought into the emergency room due to concern for bright red bleeding per rectum. Patient started noted spots of bright red blood when changing the patient's diaper. Daughter reported, patient has become progressively too weak and bedbound following the stroke. They noted some bright red spots when changing the patient's diaper, and when cleaning her noticed bright light blood oozing out of her rectum. Denied having any black stools, or blood mixed with stools. Denied history of diarrhea, vomiting, fever. Patient was initially admitted to the medical floor, but later upgraded to ICU due to concern for hypotension, MAP in the low 60s. There was concern for adrenal insufficiency, patient was started on hydrocortisone with no improvement of blood pressure. Patient had normal cortisol and ACTH level on previous admission. Patient was transferred to [facility] recently for possible ERCP due to choledocholithiasis, pending medical records from [facility], unsure if ERCP was done, but discharge documents show that patient was discharged with Eliquis, empagliflozin, furosemide and metoprolol. ED course: Initial labs pertinent for normocytic anemia, mild hyponatremia sodium 132, PHILL, BUN 47, creatinine 1.8, EGFR 33, baseline GFR seems to be around 53, BUN/creatinine ratio more than 20, lactic acid 3.9, T. bili 2.4, AST 40, ALT 36, alk phos 131, ammonia less than 10, mild troponin elevation 0.222, BNP 740, elevated Pro-Justice 7.21, lipase 88. Urinalysis consistent with UTI, stool occult was negative. Imaging studies include chest x-ray which shows bilateral significant pneumonia, EKG shows a flutter with RVR and right bundle branch block, ultrasound abdomen shows cholelithiasis and enlarged common bile duct 0.7, of note patient has no abdominal/right upper quadrant symptoms including pain or tenderness. The patient was admitted to the medical floor, with upgraded to ICU. cc:: cc: Slade Raymond MD Review of Systems Review of Systems Systems Reviewed: All systems reviewed, normal except as documented Past Medical History Past Medical History NEUROLOGIC: Positive Cerebrovascular Accident CARDIAC: Positive Cardiac Disorders (Left ventricular mural thrombus) and Edema; Negative Congestive Heart Failure RESPIRATORY: Positive Respiratory Disorders (Pleural effusion) and Pneumonia; Negative Chronic Obstructive Pulmonary Disease (COPD) GASTROINTESTINAL: Positive Cirrhosis and Gall Bladder Disease GENITOURINARY: Positive Genitourinary Disorders (PHILL); Negative Renal Disease REPRODUCTIVE: Positive Previous Pregnancies ENDOCRINE: Positive Diabetes Mellitus Type 2; Negative Diabetes Mellitus Type 1 Social History SMOKING STATUS: Never smoker Exam Vital Signs Temp Pulse Resp BP Pulse Ox O2 Del Method O2 Flow Rate 97.3 F 115 H 22 H 83/62 L 85 L Room Air 2 07/11/24 10:13 07/11/24 10:13 07/11/24 10:13 07/11/24 10:13 07/11/24 10:13 07/11/24 10:13 07/11/24 10:13 Results Labs 07/11/24 22:23 07/11/24 09:58 Labs: Short CBC 07/10/24 07/11/24 07/11/24 Range/Units 20:45 04:41 09:58 WBC 10.5 9.9 10.3 (3.6-11.0) Thou/mm3 Hgb 8.7 L 8.4 L 8.5 L (12.0-16.0) g/dL Hct 28.1 L 26.8 L 27.3 L (36.0-46.0) % Plt Count 124 L D 118 L 113 L (140-440) Thou/mm3 BMP 07/10/24 07/11/24 07/11/24 20:45 04:41 09:58 Sodium 132 L 134 L 133 L Potassium 4.3 4.2 4.0 Chloride 101 99 100 Carbon Dioxide 21.6 25.9 22.7 BUN 47 H 53 H 53 H Creatinine 1.8 H 1.8 H 1.8 H Glucose 130 H 110 H 134 H Calcium 9.0 8.7 8.5 Cardiac Enzymes 07/10/24 07/11/24 07/11/24 Range/Units 20:45 02:06 04:41 Troponin I 0.222 H* 0.230 H* 0.253 H* (0.0-0.045) ng/mL 07/11/24 Range/Units 09:58 Troponin I 0.254 H* (0.0-0.045) ng/mL Liver Function 07/10/24 07/11/24 Range/Units 20:45 09:58 Total Bilirubin 2.4 H 2.4 H (0.3-1.2) mg/dL AST 40 H 30 (0-34) U/L ALT 36 25 (10-49) U/L Alkaline Phosphatase 131 H 119 H (46-116) U/L Albumin 3.1 L 2.8 L (3.5-5.0) gm/dL Urine 07/10/24 Range/Units 21:21 Urine Color Yellow (Lt Yel-Yel) Urine Clarity Turbid A (Clear/Hazy) Urine pH 6.0 (5.0-7.0) Ur Specific [place] 1.017 (1.001-1.035) Urine Protein 1+ A (Neg - Trace) Urine Glucose (UA) Trace (Negative) Quality Measures Quality Measures none Medications Home Medications and Allergies Home Medications ?Medication ?Instructions ?Recorded ?Confirmed ?Type apixaban 5 mg tablet (Eliquis) 5 mg PO BID 07/11/24 07/11/24 History furosemide 20 mg tablet 20 mg PO BID 07/11/24 07/11/24 History metoprolol succinate 25 mg 25 mg PO DAILY 07/11/24 07/11/24 History tablet,extended release 24 hr Allergies Allergy/AdvReac Type Severity Reaction Status Date / Time No Known Allergies Allergy Verified 06/23/24 18:49 Visit Medications Albuterol/Ipratropium (Albuterol/Ipratropium (Duoneb) Rt Dorcas 3 Ml Nebu) 3 ml INH Q4HRRT PRN PRN Reason: sob Stop: 08/10/24 02:59 Hydrocortisone Sodium Succinate (Hydrocortisone Sod Succ Inj 100 Mg Vial) 100 mg IV Q8H [facility] Stop: 08/10/24 08:44 Last Admin: 07/11/24 09:08 Dose: 100 mg Piperacillin/Tazobactam/Dextrose (Zosyn) 50 mls @ 12.5 mls/hr IV Q8HR [facility]; Protocol Stop: 07/18/24 06:29 Last Admin: 07/11/24 08:05 Dose: 12.5 mls/hr Vancomycin/Sodium Chloride (Vancomycin/Ns 750 Mg Ivpb) 750 mg in 150 mls @ 120 mls/hr IV QPM@2200 [facility]; Protocol Stop: 07/18/24 21:59 Azithromycin 500 mg/ Sodium (Chloride) 250 mls @ 250 mls/hr IV QDAY [facility] Stop: 07/18/24 08:34 Heparin Sodium/Dextrose (Heparin In D5w Ivpb) 25,000 unit in 250 mls @ 6.26 mls/hr IV .Q24H [facility]; Protocol Stop: 07/25/24 08:44 Last Admin: 07/11/24 09:11 Dose: 12 units/kg/hr, 6.26 mls/hr Furosemide 200 mg/ Sodium (Chloride) 100 mls @ 5 mls/hr IV .Q20H [facility] Stop: 08/10/24 12:45 Albumin Human (Albuminar-25 Ivpb) 25 gm in 100 mls @ 100 mls/hr IV TID [facility] Stop: 07/14/24 13:59 Octreotide Acetate 1,000 mcg/ (Sodium Chloride) 252 mls @ 12.6 mls/hr IV .Q20H [facility]; Protocol Stop: 07/16/24 12:48 Furosemide 200 mg/ Sodium (Chloride) 100 mls @ 5 mls/hr IV .Q20H [facility] Stop: 07/12/24 08:59 Octreotide Acetate 1,000 mcg/ (Sodium Chloride) 252 mls @ 12.6 mls/hr IV .Q20H [facility]; Protocol Stop: 07/12/24 08:59 Midodrine (Midodrine 5 Mg Tablet) 10 mg PO TID [facility] Stop: 08/10/24 05:59 Last Admin: 07/11/24 06:06 Dose: 10 mg Pantoprazole Sodium (Pantoprazole 20 Mg Tablet) 20 mg PO QDAY [facility] Stop: 08/10/24 08:59 Pharmacy Consult (Pharmacy To Dose Vancomycin) 1 each IV QDAY PRN PRN Reason: PROTOCOL Stop: 08/10/24 08:59 Discontinued Medications Furosemide (Furosemide Inj 10 Mg/Ml Vial 2 Ml) 20 mg IVP QDAY [facility] Stop: 08/10/24 08:59 Heparin Sodium (Porcine) (Heparin Sod Inj 5000 Unit/Ml Vial) 2,100 unit 40 unit/kg (2100 unit) IV X1 ONE; Protocol Stop: 07/11/24 08:38 Last Admin: 07/11/24 09:41 Dose: Not Given Heparin Sodium (Porcine) (Heparin Sod Inj 5000 Unit/Ml Vial) 1,550 unit 30 unit/kg (1550 unit) IV X1 ONE; Protocol Stop: 07/11/24 08:40 Last Admin: 07/11/24 09:10 Dose: 1,550 unit Lactated Ringer's (Lactated Ringers) 500 mls @ 250 mls/hr IV .Q2H ONE Stop: 07/10/24 23:50 Last Infusion: 07/10/24 23:37 Dose: 0 mls/hr Vancomycin/Sodium Chloride (Vancomycin/Ns 1 Gm Ivpb) 200 mls @ 120 mls/hr IV X1 ONE Stop: 07/11/24 01:06 Last Infusion: 07/11/24 01:44 Dose: Infused Piperacillin/Tazobactam/Dextrose (Zosyn) 3.375 gm in 50 mls @ 100 mls/hr IV X1 ONE Stop: 07/10/24 23:56 Last Infusion: 07/11/24 00:24 Dose: Infused Piperacillin Sod/Tazobactam (Sod 2.25 gm/ Sodium Chloride) 50 mls @ 100 mls/hr IV Q6HR [facility] Stop: 07/17/24 23:34 Last Admin: 07/11/24 06:25 Dose: Not Given Azithromycin 500 mg/ Sodium (Chloride) 250 mls @ 250 mls/hr IV X1 ONE Stop: 07/11/24 09:44 Assessment & Plan Plan Patient is a Latvian only speaker, 53-year-old female with a past medical history of diabetes mellitus type 2, embolic CVA, LV mural thrombus, liver cirrhosis, and amyloidosis, who was brought into the emergency room due to concern for bright red bleeding per rectum. Patient started noted spots of bright red blood when changing the patient's diaper. Daughter reported, patient has become progressively too weak and bedbound following the stroke. They noted some bright red spots when changing the patient's diaper, and when cleaning her noticed bright light blood oozing out of her rectum. Denied having any black stools, or blood mixed with stools. Denied history of diarrhea, vomiting, fever. Patient was initially admitted to the medical floor, but later upgraded to ICU due to concern for hypotension, MAP in the low 60s. There was concern for adrenal insufficiency, patient was started on hydrocortisone with no improvement of blood pressure. Patient had normal cortisol and ACTH level on previous admission. Patient was transferred to [facility] recently for possible ERCP due to choledocholithiasis, pending medical records from [facility], unsure if ERCP was done, but discharge documents show that patient was discharged with Eliquis, empagliflozin, furosemide and metoprolol. ED course: Initial labs pertinent for normocytic anemia, mild hyponatremia sodium 132, PHILL, BUN 47, creatinine 1.8, EGFR 33, baseline GFR seems to be around 53, BUN/creatinine ratio more than 20, lactic acid 3.9, T. bili 2.4, AST 40, ALT 36, alk phos 131, ammonia less than 10, mild troponin elevation 0.222, BNP 740, elevated Pro-Justice 7.21, lipase 88. Urinalysis consistent with UTI, stool occult was negative. Imaging studies include chest x-ray which shows bilateral significant pneumonia, EKG shows a flutter with RVR and right bundle branch block, ultrasound abdomen shows cholelithiasis and enlarged common bile duct 0.7, of note patient has no abdominal/right upper quadrant symptoms including pain or tenderness. The patient was admitted to the medical floor, with upgraded to ICU. 1.NEURO: #Encephalopathy #History of embolic stroke Patient is alert but disoriented, currently at baseline mental status per family, responding No to most questions about her symptoms. Possibly due to history of previous stroke leading to vascular dementia as well as concurrent pneumonia leading to encephalopathy. ? Currently on IV antibiotics Zosyn, azithromycin and vancomycin ? Continue heparin gtt. 2.CVS: #Hypotension #Concern for adrenal insufficiency #Differentials: Septic shock, hypovolemic shock, cirrhosis leading to third spacing of fluid, adrenal insufficiency, Patient had a history of low blood pressure, was on home midodrine 10 mg 3 times daily, there was also concern for Colt's disease, but patient cortisol and ACTH levels were normal during previous workup, she was given IV steroids during prior hospital stay and discharged on Medrol dose pack. Of note patient had a previous echocardiogram, EF more than 50%. ? IV fluid bolus 500 x 1 was given, avoided giving sepsis bolus due to anasarca and diastolic CHF ? midodrine 15 mg 3 times daily ? Hydrocortisone 100 mg every 8 hourly #A-fib/flutter?currently rate controlled #LV thrombus EKG shows a flutter with RVR, [id number] score 4, 4.8% annualized risk of stroke. ? Currently started on IV heparin gtt. ? Currently rate controlled, we will hold off on home medication metoprolol due to low blood pressure ? Netsuite Consultant Dr. Malone is consulted, appreciate recommendations #Type II NSTEMI Minimal troponin elevation 0.2030, currently on heparin drip but 3.PULM: #Pneumonia Chest x-ray shows pneumonia, procalcitonin 7.21, saturating well on 5 L O2 ? IV Zosyn ? IV vancomycin ? IV azithromycin 4.GI: #Concern for lower GI bleed Bright red bleeding per rectum, currently hemoglobin 8.5, hypotensive on arrival, stool occult was negative in the ER. Patient started on heparin drip due to LV mural thrombus and A-fib and was probably on anticoagulation with Eliquis at home. ? Cardiology is consulted, currently no evidence of active bleeding, will continue to monitor H&H, consider gastroenterology consult if active GI bleed or drop in hemoglobin ? Type and screen, transfuse if hemoglobin more than 7 #Cirrhosis Likely secondary to nonalcoholic steatohepatitis Associated hypoalbuminemia, and concern for hepatorenal syndrome, contributing to PHILL and anasarca. - See renal for details #Choledocholithiasis #Hyperbilirubinemia Prior medical history of Choledocholithiasis and transferred to [facility] for possible ERCP, pending medical records if ERCP with stenting was actually done, as patient was found to have LV mural thrombus and started on anticoagulation at [facility]. Currently patient has no right upper quadrant abdominal symptoms, but noted hyperbilirubinemia, T. bili 2.4, but normal AST and ALT, mild elevation of alkaline phosphatase 119. Ultrasound shows cholelithiasis with Enlarged common bile duct 0.7 cm Clinically no evidence of cholecystitis or acute cholangitis. ? Requesting medical records from [facility] 5.Renal: #PHILL, possibly hepatorenal syndrome #Anasarca Differential diagnosis include hepatorenal syndrome versus prerenal azotemia Baseline creatinine seems to be around 1.2, currently serum creatinine 1.8, BUN/creatinine ratio more than 20 Patient also has fluid overload anasarca likely secondary to hypoalbuminemia ? IV Albumin 3 times daily, ? Lasix drip, started 5 mg/h, uptitrate 2 mg/h to achieve the goal of urine output of 200 cc/h and ? Octreotide gtt. due to underlying concern of hepatorenal syndrome. ? Midodrine 15mg TID 6.ENDOCRINE: #Concern for adrenal insufficiency Patient had a history of low blood pressure, was on home midodrine 10 mg 3 times daily, there was also concern for Colt's disease, but patient cortisol and ACTH levels were normal during previous workup, she was given IV steroids during prior hospital stay and discharged on Medrol dose pack. Of note patient had a previous echocardiogram, EF more than 50%. ? IV fluid bolus 500 x 1 was given ? midodrine 15 mg 3 times daily ? Hydrocortisone 100 mg every 8 hourly #History of diabetes mellitus type 2 ? Sliding scale insulin, A1c level ? Hypoglycemia protocol in place 7.Infectious: #Sepsis with possible septic shock Secondary to pneumonia Chest x-ray shows pneumonia, procalcitonin 7.21, saturating well on room air ? IV Zosyn ? IV vancomycin ? IV azithromycin 8.Heme: #Normocytic anemia Disposition: DVT prophylaxis: Heparin gtt GI prophylaxis: protonix Diet: Clear liquid Lines: PIV CODE STATUS: Full Patient case discussed with attending Dr. Chaim Schwab PGY2
[2024-07-11 15:29] LABS: Reflex Lactate? Y
[2024-07-11] MEDS: FUROSEMIDE INJ 200 MG in SODIUM CHLORIDE 0.9% 80 ML IV (16:15)
[2024-07-11] MEDS: SODIUM CHLORIDE 0.9% IV (16:16)
[2024-07-11] MEDS: OCTREOTIDE ACET IV (16:16)
--- NOTE | 2024-07-11 17:13 | PD.IMPROG ---
Documentation for date of: 07/11/24 Exam Vital Signs Temp Pulse Resp BP Pulse Ox O2 Del Method O2 Flow Rate 97.5 F 96 20 91/67 97 Room Air 2 07/11/24 14:52 07/11/24 14:52 07/11/24 14:52 07/11/24 14:52 07/11/24 14:52 07/11/24 14:52 07/11/24 10:13 Objective Labs 07/11/24 09:58 07/11/24 09:58 Labs: Laboratory Results - last 24 hr 07/10/24 07/10/24 07/10/24 20:45 20:52 21:11 WBC 10.5 RBC 3.10 L Hgb 8.7 L Hct 28.1 L MCV 91 MCH 28.1 MCHC 31.0 RDW Std Deviation 57.8 H Plt Count 124 L D Neut % (Auto) 86 H Lymph % (Auto) 10 [place] % (Auto) 4 Eos % (Auto) 0 Baso % (Auto) 0 Neut # (Auto) 9.0 H Lymph # (Auto) 1.1 [place] # (Auto) 0.4 Eos # (Auto) 0.0 Baso # (Auto) 0.0 Immature Gran # (Auto) 0.04 H Absolute Nucleated RBC 0.09 H Immature Gran % 0 Nucleated RBC % 1 H PT 29.2 H D INR 2.9 H APTT 49.9 H D Sodium 132 L Potassium 4.3 Chloride 101 Carbon Dioxide 21.6 Anion Gap 9 BUN 47 H Creatinine 1.8 H Estim Creat Clear Calc 29.1 L eGFR 33 L BUN/Creatinine Ratio 26 H Glucose 130 H Calculated Osmolality 278 Lactic Acid 3.9 H Calcium 9.0 Corrected Calcium 9.7 Phosphorus 4.0 Magnesium 1.9 Total Bilirubin 2.4 H AST 40 H ALT 36 Alkaline Phosphatase 131 H Ammonia Lactate Dehydrogenase 396 H Troponin I 0.222 H* B-Natriuretic Peptide 740 H* Total Protein 6.2 Albumin 3.1 L Globulin 3.1 Albumin/Globulin Ratio 1.0 L Lipase 88 H Procalcitonin 7.21 H Ur Collection Type Urine Color Urine Clarity Urine pH Ur Specific [place] Urine Protein Urine Glucose (UA) Urine Ketones Urine Blood Urine Nitrite Urine Bilirubin Urine Urobilinogen (Auto) Ur Leukocyte Esterase Urine RBC Urine WBC Ur Squamous Epith Cells Urine Bacteria Hyaline Casts Urine Yeast (Budding) Stool Occult Blood Negative Blood Type A Positive Antibody Screen NEGATIVE Blood Bank Wristband ID Yes 07/10/24 07/11/24 07/11/24 21:21 00:15 00:32 WBC RBC Hgb Hct MCV MCH MCHC RDW Std Deviation Plt Count Neut % (Auto) Lymph % (Auto) [place] % (Auto) Eos % (Auto) Baso % (Auto) Neut # (Auto) Lymph # (Auto) [place] # (Auto) Eos # (Auto) Baso # (Auto) Immature Gran # (Auto) Absolute Nucleated RBC Immature Gran % Nucleated RBC % PT INR APTT Sodium Potassium Chloride Carbon Dioxide Anion Gap BUN Creatinine Estim Creat Clear Calc eGFR BUN/Creatinine Ratio Glucose Calculated Osmolality Lactic Acid 2.0 Calcium Corrected Calcium Phosphorus Magnesium Total Bilirubin AST ALT Alkaline Phosphatase Ammonia < 10 L Lactate Dehydrogenase Troponin I B-Natriuretic Peptide Total Protein Albumin Globulin Albumin/Globulin Ratio Lipase Procalcitonin Ur Collection Type Clean Catch Urine Color Yellow Urine Clarity Turbid A Urine pH 6.0 Ur Specific [place] 1.017 Urine Protein 1+ A Urine Glucose (UA) Trace Urine Ketones Negative Urine Blood 3+ A Urine Nitrite Negative Urine Bilirubin Negative Urine Urobilinogen (Auto) Negative Ur Leukocyte Esterase Positive Urine RBC 349 H Urine WBC 358 H Ur Squamous Epith Cells 4 Urine Bacteria 4+ A Hyaline Casts 3 H Urine Yeast (Budding) Present A Stool Occult Blood Blood Type Antibody Screen Blood Bank Wristband ID 07/11/24 07/11/24 07/11/24 02:06 04:41 09:58 WBC 9.9 10.3 RBC 2.95 L 3.01 L Hgb 8.4 L 8.5 L Hct 26.8 L 27.3 L MCV 91 91 MCH 28.5 28.2 MCHC 31.3 31.1 RDW Std Deviation 57.8 H 58.6 H Plt Count 118 L 113 L Neut % (Auto) 85 H 85 H Lymph % (Auto) 11 11 [place] % (Auto) 4 4 Eos % (Auto) 0 0 Baso % (Auto) 0 0 Neut # (Auto) 8.4 H 8.8 H Lymph # (Auto) 1.1 1.1 [place] # (Auto) 0.4 0.4 Eos # (Auto) 0.0 0.0 Baso # (Auto) 0.0 0.0 Immature Gran # (Auto) 0.05 H 0.05 H Absolute Nucleated RBC 0.07 H 0.04 H Immature Gran % 1 H 1 H Nucleated RBC % 1 H 0 PT INR APTT Sodium 134 L 133 L Potassium 4.2 4.0 Chloride 99 100 Carbon Dioxide 25.9 22.7 Anion Gap 9 10 BUN 53 H 53 H Creatinine 1.8 H 1.8 H Estim Creat Clear Calc 29.1 L 29.1 L eGFR 33 L 33 L BUN/Creatinine Ratio 29 H 29 H Glucose 110 H 134 H Calculated Osmolality 283 282 Lactic Acid 2.1 H Calcium 8.7 8.5 Corrected Calcium 9.5 Phosphorus Magnesium Total Bilirubin 2.4 H AST 30 ALT 25 Alkaline Phosphatase 119 H Ammonia Lactate Dehydrogenase Troponin I 0.230 H* 0.253 H* 0.254 H* B-Natriuretic Peptide Total Protein 6.0 Albumin 2.8 L Globulin 3.2 Albumin/Globulin Ratio 0.9 L Lipase Procalcitonin Ur Collection Type Urine Color Urine Clarity Urine pH Ur Specific [place] Urine Protein Urine Glucose (UA) Urine Ketones Urine Blood Urine Nitrite Urine Bilirubin Urine Urobilinogen (Auto) Ur Leukocyte Esterase Urine RBC Urine WBC Ur Squamous Epith Cells Urine Bacteria Hyaline Casts Urine Yeast (Budding) Stool Occult Blood Blood Type Antibody Screen Blood Bank Wristband ID 07/11/24 07/11/24 12:05 15:39 WBC RBC Hgb Hct MCV MCH MCHC RDW Std Deviation Plt Count Neut % (Auto) Lymph % (Auto) [place] % (Auto) Eos % (Auto) Baso % (Auto) Neut # (Auto) Lymph # (Auto) [place] # (Auto) Eos # (Auto) Baso # (Auto) Immature Gran # (Auto) Absolute Nucleated RBC Immature Gran % Nucleated RBC % PT INR APTT Sodium Potassium Chloride Carbon Dioxide Anion Gap BUN Creatinine Estim Creat Clear Calc eGFR BUN/Creatinine Ratio Glucose Calculated Osmolality Lactic Acid 3.1 H 2.0 Calcium Corrected Calcium Phosphorus Magnesium Total Bilirubin AST ALT Alkaline Phosphatase Ammonia Lactate Dehydrogenase Troponin I B-Natriuretic Peptide Total Protein Albumin Globulin Albumin/Globulin Ratio Lipase Procalcitonin Ur Collection Type Urine Color Urine Clarity Urine pH Ur Specific [place] Urine Protein Urine Glucose (UA) Urine Ketones Urine Blood Urine Nitrite Urine Bilirubin Urine Urobilinogen (Auto) Ur Leukocyte Esterase Urine RBC Urine WBC Ur Squamous Epith Cells Urine Bacteria Hyaline Casts Urine Yeast (Budding) Stool Occult Blood Blood Type Antibody Screen Blood Bank Wristband ID Assessment & Plan Time Spent With Patient Time: Total time spent is greater than 50% in coordination of care (as documented) at patient's floor/unit and/or counseling patient:
--- NOTE | 2024-07-11 18:54 | ESCONSULT_ITS ---
HPI Data of Consult Patient: new to practice Consult date: 07/11/24 Requesting Physician: Slade Raymond MD Primary Care Provider: Chon Longo PA-C Consult Narrative Reason for consult: LV thrombus, possible CHF and elevated troponins. 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 Patient does not provide much history but the niece is at the bedside and is only providing limited history. Most of the history was obtained from the chart review. Recommend the primary team to obtain the complete records from the [facility] in [place]. Patient actually was admitted twice here in May 2024 as well as in June 2024. Initially in May 2020 the patient was admitted after fall and weakness and was found to have hyponatremia and hypotension which was thought secondary to hydrochlorothiazide versus adrenal insufficiency and was sent home. Patient presented again in June with acute stroke with dysarthria and also with abdominal pain and was found to have choledocholithiasis. Patient was emergently transferred to [facility] and was just discharged on 07/08/2024 from the hospital less than 36 hours since discharge. Patient apparently was on home Eliquis along with Farxiga, Lasix and metoprolol. Patient was found to have fever along with tachycardia in the emergency department 800 1.1F as well as a heart rate of RN to per minute, blood pressure was 91/63 mmHg, respiratory rate 20/min, saturations of 90% on room air initial EKG showed sinus tachycardia with PVCs along with right bundle branch block and also occasional PACs. Rate was 130 bpm. Labs showed hemoglobin of 8.1, WBC of 10.5, platelets of 144, INR of 2.9 on arrival with a PT of 29.2 and a PTT of 49.9 sodium was 132 and a BUN of 47 creatinine was 1.8 glucose 130, lactic was 3.9 on arrival and bilirubin is 2.4 AST of 40 compared to levels in May and 1.5. June. Troponin was 0.22 and repeat troponins were flat at 0.25 and 0.23 BNP elevated at 440, mild lipase was elevated at 88 and procalcitonin was 1.21 In the emergency room the patient's blood patient was low and hypotensive at 80/40 mmHg and lactate was elevated along with a procalcitonin and acute kidney injury and hence ICU was consulted and patient being admitted to the ICU. Cardiology consulted LV thrombus, possible CHF and elevated troponins. PMH and PSH: As noted above Family history: Significant for significant liver disease in the family including her father, brother as well as sister. 20 sister with liver cirrhosis diagnosed recently as per the niece was at the bedside. They do not know of any significant family history of any liver disease previously. Family history of stroke present but denied any kind of heart disease. Hospitalizations: Recent multiple [place]24[place] [facility] [place] [facility] in July 2024 and discharged 2 days ago. Travel history: None recently Allergies: NKDA Social history: Lives with the family and denies any kind of alcohol fracture or any kind of smoking abuse. Daughter takes care of her. Niece at the bedside. cc:: cc: Slade Raymond MD Review of Systems Review of Systems Systems Reviewed: All systems reviewed, normal except as documented Past Medical History Past Medical History CARDIAC: Negative Congestive Heart Failure RESPIRATORY: Negative Chronic Obstructive Pulmonary Disease (COPD) GENITOURINARY: Negative Renal Disease ENDOCRINE: Positive Diabetes Mellitus Type 2; Negative Diabetes Mellitus Type 1 Social History SMOKING STATUS: Never smoker Meds Home Medications and Allergies Home Medications ?Medication ?Instructions ?Recorded ?Confirmed ?Type apixaban 5 mg tablet (Eliquis) 5 mg PO BID 07/11/24 07/11/24 History furosemide 20 mg tablet 20 mg PO BID 07/11/24 07/11/24 History metoprolol succinate 25 mg 25 mg PO DAILY 07/11/24 07/11/24 History tablet,extended release 24 hr Allergies Allergy/AdvReac Type Severity Reaction Status Date / Time No Known Allergies Allergy Verified 06/23/24 18:49 Exam Vital Signs Temp Pulse Resp BP Pulse Ox O2 Del Method O2 Flow Rate 97.5 F 96 20 91/67 97 Room Air 2 07/11/24 14:52 07/11/24 14:52 07/11/24 14:52 07/11/24 14:52 07/11/24 14:52 07/11/24 14:52 07/11/24 10:13 Narrative Exam General: Alert and oriented x3. Appears cachectic with significant loss of muscle and even in the temporal areas bilaterally Eyes: Pupils are equal and reactive to light bilaterally. HEENT: Atraumatic, normocephalic. No JVD noted. Mucosa moist. Cardiovascular: Normal S1 and S2. Tachycardic, occasionally irregular, 2 or 6 systolic murmur noted, 4+ peripheral leg edema noted Respiratory: No respiratory distress. Lungs are clear to auscultation bilaterally. No wheezing or crackles heard. Abdomen: Abdomen soft but distended, nontender Skin: No rash. Slightly cold to touch. Musculoskeletal: No gross injuries. Able to move all 4 extremities. Neuro: Alert and oriented x3. No focal neuro deficits. Psych: Normal affect and mood Results Labs 07/11/24 09:58 07/11/24 09:58 Labs: Short CBC 07/10/24 07/11/24 07/11/24 Range/Units 20:45 04:41 09:58 WBC 10.5 9.9 10.3 (3.6-11.0) Thou/mm3 Hgb 8.7 L 8.4 L 8.5 L (12.0-16.0) g/dL Hct 28.1 L 26.8 L 27.3 L (36.0-46.0) % Plt Count 124 L D 118 L 113 L (140-440) Thou/mm3 BMP 07/10/24 07/11/24 07/11/24 20:45 04:41 09:58 Sodium 132 L 134 L 133 L Potassium 4.3 4.2 4.0 Chloride 101 99 100 Carbon Dioxide 21.6 25.9 22.7 BUN 47 H 53 H 53 H Creatinine 1.8 H 1.8 H 1.8 H Glucose 130 H 110 H 134 H Calcium 9.0 8.7 8.5 Cardiac Enzymes 07/10/24 07/11/24 07/11/24 Range/Units 20:45 02:06 04:41 Troponin I 0.222 H* 0.230 H* 0.253 H* (0.0-0.045) ng/mL 07/11/24 07/11/24 Range/Units 09:58 15:39 Troponin I 0.254 H* 0.230 H* (0.0-0.045) ng/mL Liver Function 07/10/24 07/11/24 Range/Units 20:45 09:58 Total Bilirubin 2.4 H 2.4 H (0.3-1.2) mg/dL AST 40 H 30 (0-34) U/L ALT 36 25 (10-49) U/L Alkaline Phosphatase 131 H 119 H (46-116) U/L Albumin 3.1 L 2.8 L (3.5-5.0) gm/dL Urine 07/10/24 Range/Units 21:21 Urine Color Yellow (Lt Yel-Yel) Urine Clarity Turbid A (Clear/Hazy) Urine pH 6.0 (5.0-7.0) Ur Specific [place] 1.017 (1.001-1.035) Urine Protein 1+ A (Neg - Trace) Urine Glucose (UA) Trace (Negative) Assessment and Plan Additional Assessment & Plan Additional Plan: A 53-year-old female with a past medical history of recent acute stroke on 06/24/2024 thought to be secondary to embolic stroke from left ventricular mural thrombus diagnosed at [facility] and is on Eliquis, history of choledocholithiasis status post MRCP in June 2024, metabolic dysfunction 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 Cardiology consulted LV thrombus, possible CHF and elevated troponins. 1. Anasarca-mostly secondary to advanced liver disease and less likely from the CHF. 2. Mildly elevated troponins-NSTEMI type II in the setting of supply/demand mismatch 3. LV thrombus diagnosed at [facility] troponin 2023- 4. Likely secondary to possible bilateral pneumonia from HCAP 5. Acute hypoxic respiratory failure in the setting of pneumonia versus bilateral pleural effusions right greater than left and large 6. Cirrhosis of the liver secondary to CRAWFORD or MASLD 7. History of recent stroke in June 2024 secondary to possible embolic cardiac etiology and thought to be tubular thrombus diagnosed at [facility] 8. Acute kidney injury 9. Elevated lactate 10. Dabetes mellitus, uncontrolled 11. Choledocholithiasis 12. Cachexia with severe recent weight loss Patient presented with questionable blood staining on the diaper as per the daughter and the niece. Stool occult here was negative and hemoglobin appears to be stable at 8.7 on admission. Primary team to call GI for further evaluation as the patient also has hepatorenal syndrome with severe sepsis and possible septic shock. Patient is hypotensive as well as her high lactate and procalcitonin was elevated. Possible sepsis secondary to bilateral pneumonia versus UTI. Patient. To the ICU and further recommendations as per GI as well as ICU team. Patient is anasarca and is mostly secondary to her cirrhosis and liver disease but there could be some diastolic CHF component. Albumin was only 3.1 and HDL below normal. Bili is elevated at 2.4. Recent echocardiogram from May 2024 was reviewed which showed normal LV size and function with an approximate EF-60% and mild to moderate TR with no evidence of any regional wall motion abnormalities. Recommend to start the patient Lasix drip at at least 5 mg/h and continue strict control, daily weights and 2 g odium diet for now. Patient is mildly hypotensive and might need pressor support if required and hence patient transferred to the ICU. Patient troponins were mildly elevated at 0.222 and were flat between 0.25 as well as 0.23. Troponin elevation mostly secondary to supply/demand mismatch and or recommend no further troponins for now. Will check echocardiogram to rule out any kind of regional wall motion abnormalities and reevaluate the EF. EKG showed sinus tachycardia with nonspecific ST changes and frequent PVCs. Patient evidently had LV thrombus that was documented in [facility] and recommend obtaining the report from detail including the SANDIE, cardiac CT and MRI results. Patient should be on heparin drip as the patient also has a history of LV thrombus and there is no evidence of any GI bleed for now. Will need to review all the records and obtain all the records from the outside hospital-[facility]. Recommend to check TSH A1c as well as lipid panel for further cardiac risk stratification. Recommend potassium greater than 4 and magnesium greater than 2.0 at all times. Patient appears to have lost significant weight in the last 8 to 10 months and has significant temporal wasting and overall prognosis appears to be poor and this was explained to the family. There is a high probability of sudden, clinically significant or life threatening deterioration in the patient condition which required the highest level of physician preparedness to intervene urgently. I have personally spent 65 minutes of critical care time, exclusive of time spent on any procedures, in evaluation and management of this critically ill patient. Management of rest of the medical conditions as per primary team and other consultants. Thank you for the consult and allowing me to participate in the care of the patient. Cardiology will continue to follow. Lico Malone M.D. Interventional Cardiology
[2024-07-11] MEDS: PANTOPRAZOLE 20 MG TABLET PO (19:01)
[2024-07-11] MEDS: ALBUMIN HUMAN 25% IVPB 25 GM/100 ML BTL IV (19:45)
[2024-07-11] MEDS: AZITHROMYCIN INJ 500 MG in SODIUM CHLORIDE 0.9% 250 ML 250 ML 250 MG IV (20:06)
[2024-07-11] MEDS: MIDODRINE 5 MG TABLET 15 MG PO (20:14)
[2024-07-11] MEDS: HYDROmorphone INJ 2 MG/ML VIAL 1 MG IVP (21:34)
--- NOTE | 2024-07-11 22:02 | XR_ITS ---
Examination: AP chest single view Technique: AP portable semiupright chest single view Exam date and time: July 11, 2000 2410 0 8:00 PM Comparison July 10, 2024 Findings: Extensive bilateral lung opacity, edema and/or pneumonia Right internal jugular central line tip right atrium Mild enlargement cardiac contour Prominent osteopenia Impression: Right internal jugular central line tip right atrium No pneumothorax
--- NOTE | 2024-07-11 22:13 | ESOP_ITS ---
Procedures Procedure Date / Time 07/11/24 0331 Central Line Placement Right IJ: Indication(s): shock and poor, or inadequate peripheral venous access Informed consent obtained: from patient and obtained from surrogate decision maker Time out done, and the following verified: correct patient, side and site, procedure, patient position and implants and/or equipment Patient placed on monitor/pulse ox: Yes Hand Hygiene: soap & water Max Sterile Barrier Techniques used: cap, mask, sterile gown, sterile gloves and sterile full body drape Central line prep: Chlorhexidine scrub Local anesthesia used: lidocaine 1% Amount of anesthesia used (mL): 5 Ultrasound used for placement: Yes Sterile Technique if Ultrasound used, including sterile gel: yes Central line lumen inserted: triple Post procedure: sutured in place, good blood return, all ports aspirated, flushed, capped and sterile dressing applied Post procedure x-ray: tip of catheter in good position Patient tolerated procedure: well and no complications Procedure comment: Due to patient's MAP under [address] decision was made to place central line to start pressors. Consent obtained both from patient and daughter and bedside. Consent signed, nurse witness. The patient was placed in Trendelenburg position. The Right neck was prepped using chlorhexidine scrub and draped in sterile fashion. Using real-time ultrasound, with sterile probe cover and sterile gel, the introducer needle was inserted into the vein under direct ultrasound visualization. Venous blood was withdrawn. The syringe was removed and a guidewire was advanced into the intro ducer needle. The guidewire was visualized in the appropriate vein by ultrasound. A small incision was made at the skin surface with a scalpel and the introducer needle was exchanged for a dilator over the guidewire. After appropriate dilation was obtained, the dilator was exchanged over the wire for a central venous catheter. The wire was removed and the catheter was sutured in place. A biopatch was placed at the insertion site. A sterile op-site was placed over the catheter and biopatch. The patient tolerated the procedure without any hemodynamic compromise. At time of procedure completion, all ports aspirated and flushed properly. Chest X Ray afterwards, catheter in good position.
[2024-07-11] MEDS: INSULIN LISPRO (AdmeLOG) 1 UNIT/0.01 ML UNIT SC (22:19)
[2024-07-11 22:59] LABS: Allen Test Performed/OK; Base Excess -5 (-3-3); HCO3 23 mEq/L (20-26); Inspired O2, VO2 Liters 4 L/min; O2 Saturation 97 % (91-98); PCO2 53 mmHg (32.0-48.0); PO2 101 mmHg (83-108); Puncture Site Right Radial; pH, Arterial 7.24 (7.35-7.45)
[2024-07-11 23:19] LABS: Hematocrit 28.3 % (36.0-46.0)
[2024-07-11 23:28] LABS: Hemoglobin 8.6 g/dL (12.0-16.0)
[2024-07-12] VITALS (106 sets, daily range): BP systolic 77–108; BP diastolic 54–82; PULSE 36–124; RESP 4–33; TEMP 36–37; O2SAT 96–100; BMI 22.6
[2024-07-12 00:07] LABS: Partial Thromboplastin Time > 139.0 Seconds (22.0-36.0)
[2024-07-12] MEDS: VANCOMYCIN/NS 750 MG IVPB 750 MG/150 ML BAG 120 MG IV (00:19)
[2024-07-12 01:15] LABS: Base Excess -7 (-3-3); HCO3 22 mEq/L (20-26); Inspired O2, VO2 Liters 4 L/min; O2 Saturation 84 % (91-98); PCO2 61 mmHg (32.0-48.0); PO2 64 mmHg (83-108)
[2024-07-12 01:19] LABS: Allen Test Performed/OK; Puncture Site Right Radial; pH, Arterial 7.16 (7.35-7.45)
[2024-07-12] MEDS: ETOMIDATE INJ 2 MG/ML VIAL 10 ML 20 MG IVP (01:50)
[2024-07-12] MEDS: ROCURONIUM INJ 10 MG/ML VIAL 10 ML 25 MG IVP (01:51)
--- NOTE | 2024-07-12 01:55 | XR_ITS ---
Examination: AP chest single view TECHNIQUE: AP portable semiupright chest single view Exam date and time: July 12, 2024 0208 hours Comparison July 11, 2024 INDICATIONS: Hypoxic respiratory failure FINDINGS: Mild enlargement cardiac contour Prominent vascular congestion Extensive perihilar edema and pneumonia with layered pleural fluid Orogastric tube in the stomach satisfactory position Tracheal tube tip 3.5 cm above sophia Right internal jugular central line tip SVC satisfactory position IMPRESSION: Significant heart failure Bilateral significant pneumonia
--- NOTE | 2024-07-12 01:59 | PD.RESPROC ---
Procedures Procedure Date / Time 07/12/24 0159 Intubation Indication(s): acute Resp Failure and inability to protect airway Informed consent obtained: procedure done urgently Time out done, and the following verified: correct patient, side and site, procedure, patient position and implants and/or equipment Sedative: etomidate Mg given: 20 Paralytic: rocuronium Mg given: 20 Laryngoscope: fiber optic video scope Assist device used: fiber optic device ET tube size: 7 ET tube uncuffed: Yes Tube secured depth (cm): 22 Tube secured location: lips Tube placement confirmation: visualized tube passing through cords, equal breath sounds bilaterally, no breath sounds over epigastrium and confirmation by capnometry Patient tolerated procedure: well and no complications
--- NOTE | 2024-07-12 02:01 | PD.RESEVENT ---
Documentation for date of: 07/12/24 Event Note Event Note: Patient's RR droped to around 7, minimally responsive, ABG done which showed pH of 7.16, PCO2 61 and PO2 64, decision was made to emergenly intubate. Minimal urine output Patient's care discussed with attending physician, Dr Segundo Garay MD PGY3
[2024-07-12] MEDS: fentaNYL 2,500 MCG/250 ML BAG 2,500 MCG/250 ML BAG IV (02:10)
[2024-07-12] MEDS: PROPOFOL 1,000 MG IVPB 1,000 MG/100 ML VIAL 1.565 MG IV (02:10)
[2024-07-12 03:52] LABS: Base Excess -1 (-3-3); HCO3 24 mEq/L (20-26); Inspired Oxygen, FIO2 21 %; O2 Saturation 102 % (91-98); PCO2 34 mmHg (32.0-48.0); PO2 426 mmHg (83-108); pH, Arterial 7.44 (7.35-7.45)
[2024-07-12 04:02] LABS: Allen Test Performed/OK; Puncture Site Right Brachial
[2024-07-12] MEDS: PIPER/TAZO 3.375 GM 50 ML IV ×3 (05:06→22:06)
[2024-07-12] MEDS: ALBUMIN HUMAN 25% IVPB 25 GM/100 ML BTL IV ×3 (05:09→21:48)
[2024-07-12] MEDS: MIDODRINE 5 MG TABLET 15 MG PO ×3 (05:14→22:05)
[2024-07-12 06:34] LABS: Anion Gap 11 (7-16); BUN/Creatinine Ratio 28 Ratio (12-20); Blood Urea Nitrogen 51 mg/dL (9-23); Calcium 8.7 mg/dL (8.3-10.6); Carbon Dioxide 23.2 mMol/L (20.0-31.0); Chloride 100 mMol/L (98-107); Creatinine (Component) 1.8 mg/dL (0.6-1.3); Estimated Creatinine Clearance 29.2 mL/min (>60); Glucose 183 mg/dL (74-106); Osmolality,Calculated 286 (275-295); Potassium 3.7 mMol/L (3.4-5.1); Sodium 134 mMol/L (136-145); eGFR 33 See Note
[2024-07-12 06:45] LABS: Basophils % (Auto) 0 % (0-2.5); Eosinophils % (Auto) 0 % (0-10); Hematocrit 22.9 % (36.0-46.0); Immature Granulocytes % (Auto) 1 % (0-0); Immature Granulocytes Auto 0.05 Thou/mm3 (0.00-0.00); Lymphocytes # (Auto) 0.7 Thou/mm3 (1.0-4.8); Lymphocytes % (Auto) 8 % (10-50); Mean Corpuscular HGB Conc 30.6 g/dl (31.0-37.0); Mean Corpuscular Volume 92 fL (80-100); Monocytes # (Auto) 0.3 Thou/mm3 (0.0-0.8); Monocytes % (Auto) 4 % (0-12); Neutrophils # (Auto) 7.9 Thou/mm3 (1.8-7.7); Neutrophils % (Auto) 88 % (37-80); Nucleated Red Blood Cell # 0.05 Thou/mm3 (0.00-0.00); Nucleated Red Blood Cell % 1 /100 WBC (0); Platelet Count 85 Thou/mm3 (140-440); RDW Standard Deviation 59.6 fL (36.4-46.3)
[2024-07-12 06:59] LABS: Partial Thromboplastin Time > 139.0 Seconds (22.0-36.0)
[2024-07-12 07:10] LABS: Glucose Estimated Average 123 mg/dL (80-131); Hemoglobin A1C 5.9 % Hgb (4.8-6.0)
--- NOTE | 2024-07-12 07:16 | PC.NURSE ---
At around 2200 MD Raymond stated we can use central line. At 0130, patient has episodes of apnea and desaturation to low 80's. Patient became obtunded at this time. reported ABG 2nd result to oncall resident Garay. Patient got intubated at 0154 ET 7.0/21cm on teeth. MD Garay unable to call patient's point of contact Ladan.
[2024-07-12] MEDS: PANTOPRAZOLE INJ 40 MG VIAL IVP (08:52)
[2024-07-12] MEDS: HYDROCORTISONE SOD SUCC INJ 100 MG VIAL IV (08:52)
[2024-07-12] MEDS: ALBUMIN HUMAN 25% IVPB 12.5 GM/50 ML BTL IV (08:52)
--- NOTE | 2024-07-12 10:01 | ESPR_ITS ---
Documentation for date of: 07/12/24 Subjective Subjective Interval history: 07/12/2024: Patient examined in hospital bed; prognosis remains very poor patient had a echo done which showed presence of the left ventricular thrombus along with infiltrative disease as noted by thickened and characteristic left ventricular doe. Continue to treat patient with IV Bumex for anasarca secondary to likely advanced liver disease (infiltrative disease?) versus CHF. Continue treating with IV Zosyn for the patient's underlying pneumonia and acute hypoxic respiratory failure requiring mechanical ventilation. Exam Vital Signs Temp Pulse Resp BP Pulse Ox O2 Del Method O2 Flow Rate 97.3 F 67 18 89/69 L 100 Mechanical Ventilation 4 07/12/24 04:00 07/12/24 06:33 07/12/24 06:33 07/12/24 06:00 07/12/24 06:33 07/12/24 06:00 07/11/24 23:45 FiO2 40 07/12/24 06:33 Narrative Exam General: Ventilated and sedated. Appears cachectic with significant loss of muscle and even in the temporal areas bilaterally Eyes: Pupils are equal and reactive to light bilaterally. HEENT: Atraumatic, normocephalic. No JVD noted. Mucosa moist. Cardiovascular: Normal S1 and S2. Tachycardic, occasionally irregular, 2 or 6 systolic murmur noted, 4+ peripheral leg edema noted Respiratory: On mechanical ventilation lungs are clear to auscultation bilaterally. No wheezing or crackles heard. Abdomen: Abdomen soft but distended, nontender Skin: No rash. Slightly cold to touch. Musculoskeletal: No gross injuries. Neuro: Ventilated and sedated; unable to assess neurologic function Objective Labs 07/12/24 05:58 07/12/24 05:58 Labs: Laboratory Results - last 24 hr 07/11/24 07/11/24 07/11/24 09:58 12:05 15:39 WBC 10.3 RBC 3.01 L Hgb 8.5 L Hct 27.3 L MCV 91 MCH 28.2 MCHC 31.1 RDW Std Deviation 58.6 H Plt Count 113 L Neut % (Auto) 85 H Lymph % (Auto) 11 Cloud % (Auto) 4 Eos % (Auto) 0 Baso % (Auto) 0 Neut # (Auto) 8.8 H Lymph # (Auto) 1.1 Cloud # (Auto) 0.4 Eos # (Auto) 0.0 Baso # (Auto) 0.0 Immature Gran # (Auto) 0.05 H Absolute Nucleated RBC 0.04 H Immature Gran % 1 H Nucleated RBC % 0 APTT Puncture Site ABG pH ABG pCO2 ABG pO2 ABG HCO3 ABG O2 Saturation ABG Base Excess Oxygen Liter Flow FiO2 Sodium 133 L Potassium 4.0 Chloride 100 Carbon Dioxide 22.7 Anion Gap 10 BUN 53 H Creatinine 1.8 H Estim Creat Clear Calc 29.1 L eGFR 33 L BUN/Creatinine Ratio 29 H Glucose [address] Glu mg/dL Hemoglobin A1c Calculated Osmolality 282 Lactic Acid 2.1 H 3.1 H 2.0 Calcium 8.5 Corrected Calcium 9.5 Total Bilirubin 2.4 H AST 30 ALT 25 Alkaline Phosphatase 119 H Troponin I 0.254 H* 0.230 H* Total Protein 6.0 Albumin 2.8 L Globulin 3.2 Albumin/Globulin Ratio 0.9 L 07/11/24 07/11/24 07/12/24 22:23 22:53 01:05 WBC RBC Hgb 8.6 L Hct 28.3 L MCV MCH MCHC RDW Std Deviation Plt Count Neut % (Auto) Lymph % (Auto) Cloud % (Auto) Eos % (Auto) Baso % (Auto) Neut # (Auto) Lymph # (Auto) Cloud # (Auto) Eos # (Auto) Baso # (Auto) Immature Gran # (Auto) Absolute Nucleated RBC Immature Gran % Nucleated RBC % APTT > 139.0 H* D Puncture Site Right Radial Right Radial ABG pH 7.24 L 7.16 L* ABG pCO2 53 H 61 H ABG pO2 101 64 L D ABG HCO3 23 22 ABG O2 Saturation 97 84 L ABG Base Excess -5 L -7 L Oxygen Liter Flow 4 4 FiO2 Sodium Potassium Chloride Carbon Dioxide Anion Gap BUN Creatinine Estim Creat Clear Calc eGFR BUN/Creatinine Ratio Glucose Estimated Ave Glu mg/dL Hemoglobin A1c Calculated Osmolality Lactic Acid Calcium Corrected Calcium Total Bilirubin AST ALT Alkaline Phosphatase Troponin I Total Protein Albumin Globulin Albumin/Globulin Ratio 07/12/24 07/12/24 03:33 05:58 WBC 9.0 RBC 2.50 L Hgb 7.0 L Hct 22.9 L MCV 92 MCH 28.0 MCHC 30.6 L RDW Std Deviation 59.6 H Plt Count 85 L D Neut % (Auto) 88 H Lymph % (Auto) 8 L Cloud % (Auto) 4 Eos % (Auto) 0 Baso % (Auto) 0 Neut # (Auto) 7.9 H Lymph # (Auto) 0.7 L Cloud # (Auto) 0.3 Eos # (Auto) 0.0 Baso # (Auto) 0.0 Immature Gran # (Auto) 0.05 H Absolute Nucleated RBC 0.05 H Immature Gran % 1 H Nucleated RBC % 1 H APTT > 139.0 H* Puncture Site Right Brachial ABG pH 7.44 D ABG pCO2 34 D ABG pO2 426 H D ABG HCO3 24 ABG O2 Saturation 102 H ABG Base Excess -1 Oxygen Liter Flow FiO2 21 Sodium 134 L Potassium 3.7 Chloride 100 Carbon Dioxide 23.2 Anion Gap 11 BUN 51 H Creatinine 1.8 H Estim Creat Clear Calc 29.2 L eGFR 33 L BUN/Creatinine Ratio 28 H Glucose [address] Glu mg/dL 123 Hemoglobin A1c 5.9 Calculated Osmolality 286 Lactic Acid Calcium 8.7 Corrected Calcium Total Bilirubin AST ALT Alkaline Phosphatase Troponin I Total Protein Albumin Globulin Albumin/Globulin Ratio ABG Interpretation ABG results: 07/11/24 07/12/24 07/12/24 22:53 01:05 03:33 ABG pH 7.24 L 7.16 L* 7.44 D ABG pCO2 53 H 61 H 34 D ABG pO2 101 64 L D 426 H D ABG HCO3 23 22 24 ABG O2 Saturation 97 84 L 102 H ABG Base Excess -5 L -7 L -1 Quality Measures Quality Measures none Assessment & Plan Assessment Current Active Medications: Generic Name Dose Route Start Last Admin Trade Name Freq PRN Reason Stop Dose Admin Albuterol/Ipratropium 3 ml 07/11/24 00:55 Albuterol/Ipratropium (Duoneb) Rt Dorcas 3 Ml Nebu INH 08/10/24 02:59 Q4HRRT PRN sob Dextrose 25 ml 07/11/24 19:55 Dextrose 50%-Water Inj 50 Ml Syringe IV 08/10/24 19:54 Q15MIN PRN BG 50-70 responsive npo pt Dextrose 50 ml 07/11/24 19:55 Dextrose 50%-Water Inj 50 Ml Syringe IV 08/10/24 19:54 Q15MIN PRN BG <50 OR BG <70 & pt unresponsive Glucagon 1 mg 07/11/24 19:55 Glucagon Inj 1 Mg Vial IM Q15MIN PRN BG <70, and no IV access Piperacillin/Tazobactam/Dextrose 50 mls @ 12.5 mls/hr 07/11/24 06:30 07/12/24 05:06 Zosyn IV 07/18/24 06:29 12.5 mls/hr Q8HR SAVANNAH Administration Protocol Heparin Sodium/Dextrose 25,000 unit in 250 mls @ 6.26 mls/hr 07/11/24 08:45 07/12/24 09:04 Heparin In D5w Ivpb IV 07/25/24 08:44 6 units/kg/hr .Q24H SAVANNAH 3.13 mls/hr Titration Protocol 12 UNITS/KG/HR Octreotide Acetate 1,000 mcg/ 252 mls @ 12.6 mls/hr 07/12/24 09:00 Sodium Chloride IV 08/11/24 08:59 .Q20H SAVANNAH Protocol 50 MCG/HR Albumin Human 25 gm in 100 mls @ 100 mls/hr 07/11/24 18:45 07/12/24 05:09 Albuminar-25 Ivpb IV 07/14/24 18:44 100 mls/hr TID SAVANNAH Administration Fentanyl Citrate 2,500 mcg in 250 mls @ 2.5 mls/hr 07/12/24 01:57 07/12/24 09:00 Sublimaze Inj 2,500 Mcg/250 Ml Bag IV 07/17/24 01:56 25 mcg/hr .Q24H PRN 2.5 mls/hr PER PROTOCOL Titration Protocol 25 MCG/HR Propofol 1,000 mg in 100 mls @ 1.565 mls/hr 07/12/24 01:57 07/12/24 09:00 Diprivan Ivpb IV 08/11/24 01:56 5 mcg/kg/min .Q24H PRN 1.565 mls/hr PER PROTOCOL Titration Protocol 5 MCG/KG/MIN Norepinephrine/Dextrose 8 mg in 250 mls @ 4.89 mls/hr 07/12/24 03:56 Levophed In D5w 8mg/250ml IV 08/11/24 03:55 .Q24H PRN PER PROTOCOL Protocol 0.05 MCG/KG/MIN Bumetanide 20 mg/ IV 80 mls @ 8 mls/hr 07/12/24 09:00 Miscellaneous Supplies IV 07/13/24 04:59 .Q10H SAVANNAH 2 MG/HR Dobutamine HCl/Dextrose 500 mg in 250 mls @ 4.358 mls/hr 07/12/24 09:48 Dobutrex/D5w Ivpb IV 08/11/24 09:32 .Q24H PRN PER PROTOCOL Protocol 2.5 MCG/KG/MIN Insulin Human Lispro 0 unit 07/12/24 12:00 Insulin Lispro (Admelog) 1 Unit/0.01 Ml Unit SC 08/11/24 11:59 Q6HR SAVANNAH Protocol Midodrine 15 mg 07/11/24 19:00 07/12/24 05:14 Midodrine 5 Mg Tablet PO 08/10/24 18:59 15 mg TID SAVANNAH Administration Pantoprazole Sodium 40 mg 07/12/24 09:00 07/12/24 08:52 Pantoprazole Inj 40 Mg Vial IVP 08/11/24 08:59 40 mg QDAY SAVANNAH Administration Plan 53-year-old female with a past medical history of recent acute stroke on 06/24/2024 thought to be secondary to embolic stroke from left ventricular mural thrombus diagnosed at [facility] and is on Eliquis, history of choledocholithiasis status post MRCP in June 2024, metabolic dysfunction 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 Upgraded to ICU level of care. #Anasarca secondary to advanced liver disease and less likely from the CHF. Albumin was only 3.1 and HDL below normal Bili is elevated at 2.4. Echocardiogram from May 2024 was reviewed which showed normal LV size and function EF-60% and mild to moderate TR with no evidence of any regional wall motion abnormalities. Plan: Recommend to continue Bumex drip Strict I's and O's 2 g sodium diet when applicable Pressor support if required; dobutamine on #Possible infiltrative disease #NSTEMI type II in the setting of supply/demand mismatch Troponins plateaued at 0.2 EKG shows sinus tachycardia with nonspecific ST changes and frequent PVCs Plan: No further troponin trend Echo to reevaluate Keep potassium greater than 4 and magnesium greater than 2.0 at all times. Order lipid panel for restratification Echo shows thickened left ventricular wall characteristic of infiltrative disease Workup possible amyloidosis versus other infiltrative disease #LV thrombus As seen at [facility] Echo confirmed presence of left ventricular thrombus Plan: Obtain the study reports Patient on heparin drip; no evidence of GI bleed #Acute hypoxic respiratory failure #Severe sepsis #HCAP Patient is hypotensive as well as her high lactate and procalcitonin was elevated Secondary to pneumonia versus bilateral pleural effusions Plan: Continue Zosyn Vent management per ICU team #History of CVA June 2024 secondary to possible embolic cardiac etiology #Cirrhosis of the liver secondary to CRAWFORD or MASLD #Acute kidney injury #Type 2 diabetes, [id number] A1c of 5.9 #Choledocholithiasis #Cachexia with severe recent weight loss Rest of medical problems to be managed by the hospitalist team; cardiology following and will give recommendations. There is a high probability of sudden, clinically significant or life threatening deterioration in the patient condition which required the highest level of physician preparedness to intervene urgently. I have personally spent 65 minutes of critical care time, exclusive of time spent on any procedures, in evaluation and management of this critically ill patient. Patient seen and examined with attending Dr. Kira Jacobo, PGY-1 Attending Provider Attestation/Addendum I have personally seen and examined the patient separately on the above date of service and discussed the plan of care with the resident. I reviewed the resident consultation progress note and agree with the resident findings and plan in the note above and have also edited the documentation to reflect my findings and plan. Lico Malone M.D. Interventional Cardiology
[2024-07-12] MEDS: DOBUTamine/D5w 500 MG IVPB 500 MG/250 ML BAG IV (10:05)
[2024-07-12] MEDS: BUMETANIDE INJ 0.25 MG/ML VIAL 4 ML 2 MG IVP (10:15)
[2024-07-12] MEDS: BUMETANIDE INJ 20 MG in CONTAINER,EMPTY 50 ML 1 BAG 8 MG IV ×2 (10:22→17:24)
--- NOTE | 2024-07-12 10:31 | PC.DIETICIAN ---
Nutrition prescription Glucerna 1.2 at 20 ml/hr via OG tube by pump. Advance 10 ml every 8 hrs to goal rate of 50 ml/hr x 24 hrs. If no IV fluids, water flushes of 25 ml/hr (or per MD).
--- NOTE | 2024-07-12 11:06 | PC.SS ---
[employer] met with patient's daughter's Rachel Hunter and Gricelda Hunter . Both daughter's agreed that Gricelda Hunter is the patient's surrogate medical decision maker. Bedside nurse and ammunition storage superintendent updated.
--- NOTE | 2024-07-12 11:22 | ESPR_ITS ---
<Statement entered by Michelle Rucker MD - 07/13/24 13:21> TOTAL CC TIME: 45 MIN I saw and evaluated the patient. I reviewed the resident?s note and agree with findings and plan as documented in the resident?s note. Upon my evaluation, this patient had a high probability of imminent or life- threatening deterioration due to A-fib with RVR, multifactorial shock, hypoxic respiratory failure which required my direct attention, intervention, and personal management. This time is exclusive of time spent on procedures, which are documented separately if performed. Bilateral moderate to large pleural effusions progressively worse and likely related to severe hypoalbuminemia anemia as well as RV dysfunction from pulmonary hypertension Start albumin and Lasix drip if that does not help changed to Bumex Bedside echo performed by ICU team identifies severe reduction in left ventricular ejection fraction. Start low-dose dobutamine monitor for worsening A-fib Overall prognosis is poor Will have to continue anticoagulation due to the left ventricular thrombus Documentation for date of: 07/12/24 Subjective Subjective Interval history: Patient is a Lithuanian only speaker, 53-year-old female with a past medical history of diabetes mellitus type 2, embolic CVA, LV mural thrombus, liver cirrhosis, and amyloidosis, who was brought into the emergency room due to concern for bright red bleeding per rectum. Patient started noted spots of bright red blood when changing the patient's diaper. Daughter reported, patient has become progressively too weak and bedbound following the stroke. They noted some bright red spots when changing the patient's diaper, and when cleaning her noticed bright light blood oozing out of her rectum. Denied having any black stools, or blood mixed with stools. Denied history of diarrhea, vomiting, fever. Patient was initially admitted to the medical floor, but later upgraded to ICU due to concern for hypotension, MAP in the low 60s. There was concern for adrenal insufficiency, patient was started on hydrocortisone with no improvement of blood pressure. Patient had normal cortisol and ACTH level on previous admission. Patient was transferred to [facility] recently for possible ERCP due to choledocholithiasis, pending medical records from [facility], unsure if ERCP was done, but discharge documents show that patient was discharged with Eliquis, empagliflozin, furosemide and metoprolol. ED course: Initial labs pertinent for normocytic anemia, mild hyponatremia sodium 132, PHILL, BUN 47, creatinine 1.8, EGFR 33, baseline GFR seems to be around 53, BUN/creatinine ratio more than 20, lactic acid 3.9, T. bili 2.4, AST 40, ALT 36, alk phos 131, ammonia less than 10, mild troponin elevation 0.222, BNP 740, elevated Pro-Justice 7.21, lipase 88. Urinalysis consistent with UTI, stool occult was negative. Imaging studies include chest x-ray which shows bilateral significant pneumonia, EKG shows a flutter with RVR and right bundle branch block, ultrasound abdomen shows cholelithiasis and enlarged common bile duct 0.7, of note patient has no abdominal/right upper quadrant symptoms including pain or tenderness. The patient was admitted to the medical floor, with upgraded to ICU. 07/12/24 Patient evaluated bedside, labs unremarkable as reviewed, overnight patient was hypotensive and central line was placed for IV pressor support, but patient blood pressure improved, Levophed was withheld, patient also developed bradypnea following postprocedural sedation,, received 1 mg IV Dilaudid, respiratory rate decreased to 7/min along with hypoxia, requiring intubation and mechanical ventilation. This a.m. patient noted to be tolerating mechanical ventilation well, saturating at goal on 30% FiO2, PEEP of 5, will plan to continue with ventilation given patient's significant fluid overload, as patient may require reintubation due to significant pulmonary congestion in the setting of hepatorenal/cardiorenal syndrome. We will try to aggressively diurese the patient, last night patient had 1200 mL urine output despite Lasix drip, IV albumin 75 g and octreotide. Nephrology was consulted, nephro recommended switching to Bumex drip at 2 Mg per hour, vasopressor support to help with renal perfusion. Patient was started on dobutamine for inotropic support. Bedside echocardiogram was done which showed apical LV thrombus, global hypokinesis with severely reduced ejection fraction, cardiology recommended continuing heparin drip and continued aggressive IV diuresis. Repeat echocardiogram ordered. Exam Vital Signs Temp Pulse Resp BP Pulse Ox O2 Del Method O2 Flow Rate 98.6 F 78 18 97/71 100 Mechanical Ventilation 4 07/12/24 08:00 07/12/24 11:15 07/12/24 06:33 07/12/24 11:15 07/12/24 11:15 07/12/24 08:00 07/11/24 23:45 FiO2 30 07/12/24 10:43 Narrative Exam General: currently sedated and mechanically ventilated Skin: Intact, no cyanosis , anasarca noted. HEENT: Atraumatic/normocephalic, RUPINDER, neck supple Heart: irregular, S1 and S2 without clicks or murmurs Lungs: bilateral rhochi Abdomen: Soft, nontender. Bowel sounds present . Vascular: Peripheral pulses palpable Neuro: RAAS -2 Objective Labs 07/13/24 04:30 07/13/24 04:30 Labs: Laboratory Results - last 24 hr 07/11/24 07/11/24 07/11/24 12:05 15:39 22:23 WBC RBC Hgb 8.6 L Hct 28.3 L MCV MCH MCHC RDW Std Deviation Plt Count Neut % (Auto) Lymph % (Auto) [place] % (Auto) Eos % (Auto) Baso % (Auto) Neut # (Auto) Lymph # (Auto) [place] # (Auto) Eos # (Auto) Baso # (Auto) Immature Gran # (Auto) Absolute Nucleated RBC Immature Gran % Nucleated RBC % APTT > 139.0 H* D Puncture Site ABG pH ABG pCO2 ABG pO2 ABG HCO3 ABG O2 Saturation ABG Base Excess Oxygen Liter Flow FiO2 Sodium Potassium Chloride Carbon Dioxide Anion Gap BUN Creatinine Estim Creat Clear Calc eGFR BUN/Creatinine Ratio Glucose Estimated Ave Glu mg/dL Hemoglobin A1c Calculated Osmolality Lactic Acid 3.1 H 2.0 Calcium Troponin I 0.230 H* 07/11/24 07/12/24 07/12/24 22:53 01:05 03:33 WBC RBC Hgb Hct MCV MCH MCHC RDW Std Deviation Plt Count Neut % (Auto) Lymph % (Auto) [place] % (Auto) Eos % (Auto) Baso % (Auto) Neut # (Auto) Lymph # (Auto) [place] # (Auto) Eos # (Auto) Baso # (Auto) Immature Gran # (Auto) Absolute Nucleated RBC Immature Gran % Nucleated RBC % APTT Puncture Site Right Radial Right Radial Right Brachial ABG pH 7.24 L 7.16 L* 7.44 D ABG pCO2 53 H 61 H 34 D ABG pO2 101 64 L D 426 H D ABG HCO3 23 22 24 ABG O2 Saturation 97 84 L 102 H ABG Base Excess -5 L -7 L -1 Oxygen Liter Flow 4 4 FiO2 21 Sodium Potassium Chloride Carbon Dioxide Anion Gap BUN Creatinine Estim Creat Clear Calc eGFR BUN/Creatinine Ratio Glucose Estimated Ave Glu mg/dL Hemoglobin A1c Calculated Osmolality Lactic Acid Calcium Troponin I 07/12/24 05:58 WBC 9.0 RBC 2.50 L Hgb 7.0 L Hct 22.9 L MCV 92 MCH 28.0 MCHC 30.6 L RDW Std Deviation 59.6 H Plt Count 85 L D Neut % (Auto) 88 H Lymph % (Auto) 8 L [place] % (Auto) 4 Eos % (Auto) 0 Baso % (Auto) 0 Neut # (Auto) 7.9 H Lymph # (Auto) 0.7 L [place] # (Auto) 0.3 Eos # (Auto) 0.0 Baso # (Auto) 0.0 Immature Gran # (Auto) 0.05 H Absolute Nucleated RBC 0.05 H Immature Gran % 1 H Nucleated RBC % 1 H APTT > 139.0 H* Puncture Site ABG pH ABG pCO2 ABG pO2 ABG HCO3 ABG O2 Saturation ABG Base Excess Oxygen Liter Flow FiO2 Sodium 134 L Potassium 3.7 Chloride 100 Carbon Dioxide 23.2 Anion Gap 11 BUN 51 H Creatinine 1.8 H Estim Creat Clear Calc 29.2 L eGFR 33 L BUN/Creatinine Ratio 28 H Glucose [address] Glu mg/dL 123 Hemoglobin A1c 5.9 Calculated Osmolality 286 Lactic Acid Calcium 8.7 Troponin I ABG Interpretation ABG results: 07/11/24 07/12/24 07/12/24 22:53 01:05 03:33 ABG pH 7.24 L 7.16 L* 7.44 D ABG pCO2 53 H 61 H 34 D ABG pO2 101 64 L D 426 H D ABG HCO3 23 22 24 ABG O2 Saturation 97 84 L 102 H ABG Base Excess -5 L -7 L -1 Quality Measures Quality Measures none Assessment & Plan Assessment Current Active Medications: Generic Name Dose Route Start Last Admin Trade Name Freq PRN Reason Stop Dose Admin Albuterol/Ipratropium 3 ml 07/11/24 00:55 Albuterol/Ipratropium (Duoneb) Rt Dorcas 3 Ml Nebu INH 08/10/24 02:59 Q4HRRT PRN sob Dextrose 25 ml 07/11/24 19:55 Dextrose 50%-Water Inj 50 Ml Syringe IV 08/10/24 19:54 Q15MIN PRN BG 50-70 responsive npo pt Dextrose 50 ml 07/11/24 19:55 Dextrose 50%-Water Inj 50 Ml Syringe IV 08/10/24 19:54 Q15MIN PRN BG <50 OR BG <70 & pt unresponsive Glucagon 1 mg 07/11/24 19:55 Glucagon Inj 1 Mg Vial IM Q15MIN PRN BG <70, and no IV access Piperacillin/Tazobactam/Dextrose 50 mls @ 12.5 mls/hr 07/11/24 06:30 07/12/24 05:06 Zosyn IV 07/18/24 06:29 12.5 mls/hr Q8HR SAVANNAH Administration Protocol Heparin Sodium/Dextrose 25,000 unit in 250 mls @ 6.26 mls/hr 07/11/24 08:45 07/12/24 09:04 Heparin In D5w Ivpb IV 07/25/24 08:44 6 units/kg/hr .Q24H SAVANNAH 3.13 mls/hr Titration Protocol 12 UNITS/KG/HR Octreotide Acetate 1,000 mcg/ 252 mls @ 12.6 mls/hr 07/12/24 09:00 Sodium Chloride IV 08/11/24 08:59 .Q20H SAVANNAH Protocol 50 MCG/HR Albumin Human 25 gm in 100 mls @ 100 mls/hr 07/11/24 18:45 07/12/24 05:09 Albuminar-25 Ivpb IV 07/14/24 18:44 100 mls/hr TID SAVANNAH Administration Fentanyl Citrate 2,500 mcg in 250 mls @ 2.5 mls/hr 07/12/24 01:57 07/12/24 11:07 Sublimaze Inj 2,500 Mcg/250 Ml Bag IV 07/17/24 01:56 125 mcg/hr .Q24H PRN 12.5 mls/hr PER PROTOCOL Titration Protocol 25 MCG/HR Propofol 1,000 mg in 100 mls @ 1.565 mls/hr 07/12/24 01:57 07/12/24 09:04 Diprivan Ivpb IV 08/11/24 01:56 0 mcg/kg/min .Q24H PRN 0 mls/hr PER PROTOCOL Titration Protocol 5 MCG/KG/MIN Norepinephrine/Dextrose 8 mg in 250 mls @ 4.89 mls/hr 07/12/24 03:56 Levophed In D5w 8mg/250ml IV 08/11/24 03:55 .Q24H PRN PER PROTOCOL Protocol 0.05 MCG/KG/MIN Bumetanide 20 mg/ IV 80 mls @ 8 mls/hr 07/12/24 09:00 07/12/24 10:22 Miscellaneous Supplies IV 07/13/24 04:59 2 mg/hr .Q10H SAVANNAH 8 mls/hr Administration 2 MG/HR Dobutamine HCl/Dextrose 500 mg in 250 mls @ 4.358 mls/hr 07/12/24 09:48 07/12/24 10:05 Dobutrex/D5w Ivpb IV 08/11/24 09:32 2.5 mcg/kg/min .Q24H PRN 4.358 mls/hr PER PROTOCOL Administration Protocol 2.5 MCG/KG/MIN Dexmedetomidine/Sodium Chloride 400 mcg in 100 mls @ 2.905 mls/hr 07/12/24 10:35 Precedex Ivpb IV 08/11/24 10:34 .Q24H PRN Per PROTOCOL Protocol 0.2 MCG/KG/HR Insulin Human Lispro 0 unit 07/12/24 12:00 Insulin Lispro (Admelog) 1 Unit/0.01 Ml Unit SC 08/11/24 11:59 Q6HR SAVANNAH Protocol Midodrine 15 mg 07/11/24 19:00 07/12/24 05:14 Midodrine 5 Mg Tablet PO 08/10/24 18:59 15 mg TID SAVANNAH Administration Pantoprazole Sodium 40 mg 07/12/24 09:00 07/12/24 08:52 Pantoprazole Inj 40 Mg Vial IVP 08/11/24 08:59 40 mg QDAY SAVANNAH Administration Plan Patient is a Lithuanian only speaker, 53-year-old female with a past medical history of diabetes mellitus type 2, embolic CVA, LV mural thrombus, liver cirrhosis, and amyloidosis, who was brought into the emergency room due to concern for bright red bleeding per rectum. Patient started noted spots of bright red blood when changing the patient's diaper. Daughter reported, patient has become progressively too weak and bedbound following the stroke. They noted some bright red spots when changing the patient's diaper, and when cleaning her noticed bright light blood oozing out of her rectum. Denied having any black stools, or blood mixed with stools. Denied history of diarrhea, vomiting, fever. Patient was initially admitted to the medical floor, but later upgraded to ICU due to concern for hypotension, MAP in the low 60s. There was concern for adrenal insufficiency, patient was started on hydrocortisone with no improvement of blood pressure. Patient had normal cortisol and ACTH level on previous admission. Patient was transferred to [facility] recently for possible ERCP due to choledocholithiasis, pending medical records from [facility], unsure if ERCP was done, but discharge documents show that patient was discharged with Eliquis, empagliflozin, furosemide and metoprolol. 07/12/24 Patient evaluated bedside, labs unremarkable as reviewed, overnight patient was hypotensive and central line was placed for IV pressor support, but patient blood pressure improved, Levophed was withheld, patient also developed bradypnea following postprocedural sedation,, received 1 mg IV Dilaudid, respiratory rate decreased to 7/min along with hypoxia, requiring intubation and mechanical ventilation. This a.m. patient noted to be tolerating mechanical ventilation well, saturating at goal on 30% FiO2, PEEP of 5, will plan to continue with ventilation given patient's significant fluid overload, as patient may require reintubation due to significant pulmonary congestion in the setting of hepatorenal/cardiorenal syndrome. We will try to aggressively diurese the patient, last night patient had 1200 mL urine output despite Lasix drip, IV albumin 75 g and octreotide. Nephrology was consulted, nephro recommended switching to Bumex drip at 2 Mg per hour, vasopressor support to help with renal perfusion. Patient was started on dobutamine for inotropic support. Bedside echocardiogram was done which showed apical LV thrombus, global hypokinesis with severely reduced ejection fraction, cardiology recommended continuing heparin drip and continued aggressive IV diuresis. Repeat echocardiogram ordered. 1.NEURO: #Encephalopathy #History of embolic stroke Patient is alert but disoriented, currently at baseline mental status per family, responding No to most questions about her symptoms. Possibly due to history of previous stroke leading to vascular dementia as well as concurrent pneumonia leading to encephalopathy. ? Currently on IV antibiotics Zosyn, ? Continue heparin gtt. for Afib and LV thrombus 2.CVS: #Hypotension, Cardiogenic Shock #Differentials: Septic shock, Cardiogenic shock, cirrhosis leading to third spacing of fluid, adrenal insufficiency, Of note patient had a previous echocardiogram, estimated EF more than 55%, no intracardiac thrombus at that time, but now at the bedside echo, findings are concerning for Global hypokinesis, poor RV and LV contractility is evident with an apical LV thrombus, noted IVC at 2.0 cm and no change in size with cardiac contraction, congested portal and hepatic veins with reversal of flow in hepatic veins, VExUS scoe 3 shows severe congestion. ? IV fluid bolus 500 x 1 was given, avoided giving sepsis bolus due to anasarca and diastolic CHF ? midodrine 15 mg 3 times daily - Dobutamine 2.5 mcg started for inotropic support #Concern for adrenal insufficiency - ruled out Patient had a history of low blood pressure, was on home midodrine 10 mg 3 times daily, there was also concern for Marianna's disease, but patient cortisol and ACTH levels were normal during previous workup, she was given IV steroids during prior hospital stay and discharged on Medrol dose pack. Cortisol levels around 12, wnl, Hydrocortisone is discontinued. #A-fib/flutter?currently rate controlled #LV thrombus EKG shows a flutter with RVR, [id number] score 4, 4.8% annualized risk of stroke, LV thrombus now found when pt was transferred to [facility] recently, possibly Post silent myocardial infarction LV thrombus formation. ? Currently started on IV heparin gtt. ? Currently rate controlled, with transient bradycaradia, we will hold off on home medication metoprolol due to low blood pressure ? Therapeutic Program Worker Dr. Malone is consulted, appreciate recommendations #Type II NSTEMI Minimal troponin elevation 0.2030, currently on heparin drip 3.PULM: #Mechanical Ventilation #Possible Pneumonia vs Pulmonary edema Chest x-ray shows pneumonia, procalcitonin 7.21, saturating well on 5 L O2 ? Continue IV Zosyn ? IV Diuresis on bumex drip . 4.GI: #Concern for lower GI bleed Bright red bleeding per rectum, currently hemoglobin 8.5, hypotensive on arrival, stool occult was negative in the ER. Patient started on heparin drip due to LV mural thrombus and A-fib and was probably on anticoagulation with Eliquis at home. ? Cardiology is consulted, currently no evidence of active bleeding, will continue to monitor H&H, consider gastroenterology consult if active GI bleed or drop in hemoglobin ? Type and screen, transfuse if hemoglobin more than 7 #Cirrhosis Likely secondary to nonalcoholic steatohepatitis Associated hypoalbuminemia, and concern for hepatorenal syndrome, contributing to PHILL and anasarca. - See renal for details #Choledocholithiasis #Hyperbilirubinemia Prior medical history of Choledocholithiasis and transferred to [facility] for possible ERCP, pending medical records if ERCP with stenting was actually done, as patient was found to have LV mural thrombus and started on anticoagulation at [facility]. Currently patient has no right upper quadrant abdominal symptoms, but noted hyperbilirubinemia, T. bili 2.4, but normal AST and ALT, mild elevation of alkaline phosphatase 119. Ultrasound shows cholelithiasis with Enlarged common bile duct 0.7 cm Clinically no evidence of cholecystitis or acute cholangitis. ? Requesting medical records from [facility] 5.Renal: #PHILL, hepatorenal syndrome vs cardiorenal syndrome #Anasarca Differential diagnosis include hepatorenal syndrome versus cardiorenal syndrome Baseline creatinine seems to be around 1.2, currently serum creatinine 1.8, BUN/creatinine ratio more than 20 Patient also has fluid overload anasarca likely secondary to hypoalbuminemia ? IV Albumin 3 times daily, ? Bumex drip at 2 Mg per hour, vasopressor support to help with renal perfusion. Patient was started on dobutamine for inotropic support. ? Octreotide gtt. due to underlying concern of hepatorenal syndrome. ? Midodrine 15mg TID 6.ENDOCRINE: #Concern for adrenal insufficiency- ruled out #History of diabetes mellitus type 2 ? Sliding scale insulin, A1c level ? Hypoglycemia protocol in place 7.Infectious: #Possible Pneumonia Chest x-ray shows pneumonia, procalcitonin 7.21, saturating well on room air ? IV Zosyn 8.Heme: #Normocytic anemia Disposition: DVT prophylaxis: Heparin gtt GI prophylaxis: protonix Diet: Tube feeds Lines: PIV CODE STATUS: DNR Patient case discussed with attending Dr. Chaim Schwab PGY2
[2024-07-12] MEDS: MIDAZOLAM INJ 1 MG/ML VIAL 2 ML 2 MG IV (12:22)
[2024-07-12] MEDS: INSULIN LISPRO (AdmeLOG) 1 UNIT/0.01 ML UNIT SC ×2 (12:23→17:29)
[2024-07-12] MEDS: SODIUM CHLORIDE 0.9% IV (14:16)
[2024-07-12] MEDS: OCTREOTIDE ACET IV (14:16)
--- NOTE | 2024-07-12 16:03 | PD.RESCONSUL ---
[facility] Data of Consult Consult date: 07/12/24 Requesting Physician: Slade Raymond MD Admitting Provider: Slade Raymond MD Attending Provider: Slade Raymond MD Primary Care Provider: Chon Longo PA-C Consult Narrative Reason for consult: ARF History of present illness: RE: Aidee Atkins : 1970 Date of Consultation: 07/12/2024 Location of this patient is 257 bed A REASON FOR CONSULTATION: Hepato-renal syndrome ESTABLISHED DIAGNOSES: 1. History of Non insulin dependent diabetes mellitus type 2 2. History of embolic CVA. 3. History of LV mural thrombus 4. [facility] HISTORY OF PRESENT ILLNESS : Patient is currently intubated and mechanically ventilated. History obtained from chart review Patient is a 53-year-old female with a past medical history of NIDDM, embolic CVA, LV mural thrombus and decompensated cirrhosis with portal hypertension. Patient was BIBA by her daughter who noticed bright red blood per rectum upon changing her diaper. Patient was admitted for workup and management of hypotension and generalized weakness. Last month patient presented to the ED with difficulty standing, slurred speech, facial droop and was diagnosed with an embolic stroke. Incidentally a CBD stone was identified on imaging. Patient was transferred from the ED to [facility] for possible ERCP. Patient also had previous admission to [facility] for hyponatremia and hypotension with ICU stay. Patient's baseline is bedbound, but able to verbalize. ED course: Patient was hypotensive and tachycardic on presentation BP 86/65, MAP 72 HR 102. Labs were significant for normocytic anemia, CR 1.8, BUN 47. Urinalysis was significant for 1+ protein, 3+ blood, LE positive, WBC 358 On imaging Abd US: Fatty liver 12.9 cm Nephrology was consulted for anasarca secondary to hepatorenal syndrome. HOME MEDICATIONS: 1. Apixaban 5 mg p.o. twice daily 2. Furosemide 20 mg p.o. twice daily 3. Medrol pack 4. Metoprolol succinate 25 mg p.o. daily 5. Midodrine 10 mg p.o. 3 times daily PHYSICAL EXAMINATION Constitutional Intubated and mechanically ventilated. Anasarca HEENT Trachea midline. Respiratory Right IJ catheter insitu. B/L crackles auscultated Cardiovascular S1 and S2 audible, RRR. No murmurs or carotid bruit. No gross JVD. Abdominal Distended and edematous. Musculoskeletal Decreased tone throughout. 2+ LE pitting edema Neurological Patient sedated and mechanically ventillated LABS: Labs were significant for normocytic anemia, CR 1.8, BUN 47. Urinalysis was significant for 1+ protein, 3+ blood, LE positive, WBC 358. Albumin 2.8 IMAGING : Abd US: Fatty liver 12.9 cm IMPRESSION: 1. 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 Hepatorenal syndrome-most likely 3. PHILL 4. Normocytic anemia 5. Thrombocytopenia 6. GI bleed for investigation 7. UTI 8. NIDDM 9. History of embolic CVA 10. LV mural thrombus RECOMMENDATION: Bumex infusion. IV vasopressors. Midodrine. Octreotide infusion. Albumin replacement Thank you for allowing us to participate in patient's care. Plan of care discussed with attending [employer], Dr Caren Egan MD PGY 1 cc:: cc: Slade Raymond MD Exam Vital Signs Temp Pulse Resp BP Pulse Ox O2 Del Method O2 Flow Rate 96.8 F 100 18 89/72 L 99 Mechanical Ventilation 4 07/12/24 12:01 07/12/24 15:45 07/12/24 06:33 07/12/24 15:45 07/12/24 15:45 07/12/24 08:00 07/11/24 23:45 FiO2 25 07/12/24 12:00 Results Labs 07/12/24 05:58 07/12/24 05:58 Labs: Short CBC 07/11/24 07/12/24 Range/Units 22:23 05:58 WBC 9.0 (3.6-11.0) Thou/mm3 Hgb 8.6 L 7.0 L (12.0-16.0) g/dL Hct 28.3 L 22.9 L (36.0-46.0) % Plt Count 85 L D (140-440) Thou/mm3 BMP 07/12/24 05:58 Sodium 134 L Potassium 3.7 Chloride 100 Carbon Dioxide 23.2 BUN 51 H Creatinine 1.8 H Glucose 183 H Calcium 8.7 Cardiac Enzymes 07/11/24 Range/Units 15:39 Troponin I 0.230 H* (0.0-0.045) ng/mL ABG Interpretation ABG results: 07/11/24 07/12/24 07/12/24 22:53 01:05 03:33 ABG pH 7.24 L 7.16 L* 7.44 D ABG pCO2 53 H 61 H 34 D ABG pO2 101 64 L D 426 H D ABG HCO3 23 22 24 ABG O2 Saturation 97 84 L 102 H ABG Base Excess -5 L -7 L -1 Quality Measures Quality Measures none Medications Home Medications and Allergies Home Medications ?Medication ?Instructions ?Recorded ?Confirmed ?Type apixaban 5 mg tablet (Eliquis) 5 mg PO BID 07/11/24 07/11/24 History furosemide 20 mg tablet 20 mg PO BID 07/11/24 07/11/24 History metoprolol succinate 25 mg 25 mg PO DAILY 07/11/24 07/11/24 History tablet,extended release 24 hr Allergies Allergy/AdvReac Type Severity Reaction Status Date / Time No Known Allergies Allergy Verified 06/23/24 18:49 Visit Medications Albuterol/Ipratropium (Albuterol/Ipratropium (Duoneb) Rt Dorcas 3 Ml Nebu) 3 ml INH Q4HRRT PRN PRN Reason: sob Stop: 08/10/24 02:59 Dextrose (Dextrose 50%-Water Inj 50 Ml Syringe) 25 ml IV Q15MIN PRN PRN Reason: BG 50-70 responsive npo pt Stop: 08/10/24 19:54 Dextrose (Dextrose 50%-Water Inj 50 Ml Syringe) 50 ml IV Q15MIN PRN PRN Reason: BG <50 OR BG <70 & pt unresponsive Stop: 08/10/24 19:54 Glucagon (Glucagon Inj 1 Mg Vial) 1 mg IM Q15MIN PRN PRN Reason: BG <70, and no IV access Piperacillin/Tazobactam/Dextrose (Zosyn) 50 mls @ 12.5 mls/hr IV Q8HR [facility]; Protocol Stop: 07/18/24 06:29 Last Admin: 07/12/24 14:17 Dose: 12.5 mls/hr Heparin Sodium/Dextrose (Heparin In D5w Ivpb) 25,000 unit in 250 mls @ 6.26 mls/hr IV .Q24H [facility]; Protocol Stop: 07/25/24 08:44 Last Titration: 07/12/24 09:04 Dose: 6 units/kg/hr, 3.13 mls/hr Octreotide Acetate 1,000 mcg/ (Sodium Chloride) 252 mls @ 12.6 mls/hr IV .Q20H [facility]; Protocol Stop: 08/11/24 08:59 Last Admin: 07/12/24 14:16 Dose: 50 mcg/hr, 12.6 mls/hr Albumin Human (Albuminar-25 Ivpb) 25 gm in 100 mls @ 100 mls/hr IV TID [facility] Stop: 07/14/24 18:44 Last Admin: 07/12/24 14:17 Dose: 100 mls/hr Fentanyl Citrate (Sublimaze Inj 2,500 Mcg/250 Ml Bag) 2,500 mcg in 250 mls @ 2.5 mls/hr IV .Q24H PRN; Protocol PRN Reason: PER PROTOCOL Stop: 07/17/24 01:56 Last Titration: 07/12/24 14:35 Dose: 125 mcg/hr, 12.5 mls/hr Propofol (Diprivan Ivpb) 1,000 mg in 100 mls @ 1.565 mls/hr IV .Q24H PRN; Protocol PRN Reason: PER PROTOCOL Stop: 08/11/24 01:56 Last Titration: 07/12/24 09:04 Dose: 0 mcg/kg/min, 0 mls/hr Norepinephrine/Dextrose (Levophed In D5w 8mg/250ml) 8 mg in 250 mls @ 4.89 mls/hr IV .Q24H PRN; Protocol PRN Reason: PER PROTOCOL Stop: 08/11/24 03:55 Bumetanide 20 mg/ IV (Miscellaneous Supplies) 80 mls @ 8 mls/hr IV .Q10H [facility] Stop: 07/13/24 04:59 Last Admin: 07/12/24 10:22 Dose: 2 mg/hr, 8 mls/hr Dobutamine HCl/Dextrose (Dobutrex/D5w Ivpb) 500 mg in 250 mls @ 4.358 mls/hr IV .Q24H PRN; Protocol PRN Reason: PER PROTOCOL Stop: 08/11/24 09:32 Last Admin: 07/12/24 10:05 Dose: 2.5 mcg/kg/min, 4.358 mls/hr Dexmedetomidine/Sodium Chloride (Precedex Ivpb) 400 mcg in 100 mls @ 2.905 mls/hr IV .Q24H PRN; Protocol PRN Reason: Per PROTOCOL Stop: 08/11/24 10:34 Insulin Human Lispro (Insulin Lispro (Admelog) 1 Unit/0.01 Ml Unit) 0 unit SC Q6HR [facility]; Protocol Stop: 08/11/24 11:59 Last Admin: 07/12/24 12:23 Dose: 1 unit Midazolam HCl (Midazolam Inj 1 Mg/Ml Vial 2 Ml) 2 mg IV Q1HR PRN PRN Reason: AGITATION OR ANXIETY Stop: 07/17/24 12:02 Last Admin: 07/12/24 12:22 Dose: 2 mg Midodrine (Midodrine 5 Mg Tablet) 15 mg PO TID [facility] Stop: 08/10/24 18:59 Last Admin: 07/12/24 14:16 Dose: 15 mg Pantoprazole Sodium (Pantoprazole Inj 40 Mg Vial) 40 mg IVP QDAY [facility] Stop: 08/11/24 08:59 Last Admin: 07/12/24 08:52 Dose: 40 mg Discontinued Medications Bumetanide (Bumetanide Inj 0.25 Mg/Ml Vial 4 Ml) 2 mg IVP X1 ONE Stop: 07/12/24 08:59 Last Admin: 07/12/24 10:15 Dose: 2 mg Etomidate (Etomidate Inj 2 Mg/Ml Vial 10 Ml) 20 mg IVP X1 ONE Stop: 07/12/24 01:59 Last Admin: 07/12/24 01:50 Dose: 20 mg Furosemide (Furosemide Inj 10 Mg/Ml Vial 2 Ml) 20 mg IVP QDAY [facility] Stop: 08/10/24 08:59 Heparin Sodium (Porcine) (Heparin Sod Inj 5000 Unit/Ml Vial) 2,100 unit 40 unit/kg (2100 unit) IV X1 ONE; Protocol Stop: 07/11/24 08:38 Last Admin: 07/11/24 09:41 Dose: Not Given Heparin Sodium (Porcine) (Heparin Sod Inj 5000 Unit/Ml Vial) 1,550 unit 30 unit/kg (1550 unit) IV X1 ONE; Protocol Stop: 07/11/24 08:40 Last Admin: 07/11/24 09:10 Dose: 1,550 unit Hydrocortisone Sodium Succinate (Hydrocortisone Sod Succ Inj 100 Mg Vial) 100 mg IV Q8H [facility] Stop: 08/10/24 08:44 Last Admin: 07/12/24 08:52 Dose: 100 mg Hydrocortisone Sodium Succinate (Hydrocortisone Sod Succ Inj 100 Mg Vial) 50 mg IV Q6HR [facility] Stop: 08/11/24 11:59 Hydromorphone HCl (Hydromorphone Inj 2 Mg/Ml Vial) 1 mg IVP X1 ONE Stop: 07/11/24 21:11 Last Admin: 07/11/24 21:34 Dose: 1 mg Lactated Ringer's (Lactated Ringers) 500 mls @ 250 mls/hr IV .Q2H ONE Stop: 07/10/24 23:50 Last Infusion: 07/10/24 23:37 Dose: 0 mls/hr Vancomycin/Sodium Chloride (Vancomycin/Ns 1 Gm Ivpb) 200 mls @ 120 mls/hr IV X1 ONE Stop: 07/11/24 01:06 Last Infusion: 07/11/24 01:44 Dose: Infused Piperacillin/Tazobactam/Dextrose (Zosyn) 3.375 gm in 50 mls @ 100 mls/hr IV X1 ONE Stop: 07/10/24 23:56 Last Infusion: 07/11/24 00:24 Dose: Infused Piperacillin Sod/Tazobactam (Sod 2.25 gm/ Sodium Chloride) 50 mls @ 100 mls/hr IV Q6HR [facility] Stop: 07/17/24 23:34 Last Admin: 07/11/24 06:25 Dose: Not Given Vancomycin/Sodium Chloride (Vancomycin/Ns 750 Mg Ivpb) 750 mg in 150 mls @ 120 mls/hr IV QPM@2200 [facility]; Protocol Stop: 07/18/24 21:59 Last Admin: 07/12/24 00:19 Dose: 120 mls/hr Azithromycin 500 mg/ Sodium (Chloride) 250 mls @ 250 mls/hr IV QD@2000 [facility] Stop: 07/19/24 19:59 Furosemide 200 mg/ Sodium (Chloride) 100 mls @ 5 mls/hr IV .Q20H [facility] Stop: 08/11/24 08:59 Furosemide 200 mg/ Sodium (Chloride) 100 mls @ 5 mls/hr IV .Q20H [facility] Stop: 07/12/24 08:59 Last Infusion: 07/12/24 09:04 Dose: 0 mls/hr Octreotide Acetate 1,000 mcg/ (Sodium Chloride) 252 mls @ 12.6 mls/hr IV .Q20H [facility]; Protocol Stop: 07/12/24 08:59 Last Admin: 07/11/24 16:16 Dose: 50 mcg/hr, 12.6 mls/hr Azithromycin 500 mg/ Sodium (Chloride) 250 mls @ 250 mls/hr IV X1 ONE Stop: 07/11/24 19:44 Last Admin: 07/11/24 20:06 Dose: 250 mls/hr Norepinephrine Bitartrate (Levophed In Ns 16mg/250ml) 16 mg in 250 mls @ 2.445 mls/hr IV .Q24H PRN; Protocol PRN Reason: PER protocol Stop: 08/11/24 03:50 Albumin Human (Albuminar-25 Ivpb) 12.5 gm in 50 mls @ 50 mls/hr IV X1 ONE Stop: 07/12/24 08:47 Last Admin: 07/12/24 08:52 Dose: 50 mls/hr Vasopressin/Sodium Chloride (Vasostrict/Ns Ivpb) 20 unit in 100 mls @ 9 mls/hr IV .Q11H7M PRN; Protocol PRN Reason: PER PROTOCOL Stop: 08/11/24 09:01 Dobutamine HCl/Dextrose (Dobutrex/D5w Ivpb) 500 mg in 250 mls @ 1.743 mls/hr IV .Q24H PRN; Protocol PRN Reason: PER PROTOCOL Stop: 08/11/24 09:32 Dobutamine HCl/Dextrose (Dobutrex/D5w Ivpb) 500 mg in 250 mls @ 1.743 mls/hr IV .Q24H PRN; Protocol PRN Reason: PER PROTOCOL Stop: 08/11/24 09:32 Insulin Human Lispro (Insulin Lispro (Admelog) 1 Unit/0.01 Ml Unit) 0 unit SC ACHS [facility]; Protocol Stop: 08/10/24 20:59 Last Admin: 07/12/24 12:58 Dose: Not Given Midodrine (Midodrine 5 Mg Tablet) 10 mg PO TID [facility] Stop: 08/10/24 05:59 Last Admin: 07/11/24 06:06 Dose: 10 mg Pantoprazole Sodium (Pantoprazole 20 Mg Tablet) 20 mg PO QDAY [facility] Stop: 08/10/24 18:44 Last Admin: 07/11/24 19:01 Dose: 20 mg Pharmacy Consult (Pharmacy To Dose Vancomycin) 1 each IV QDAY PRN PRN Reason: PROTOCOL Stop: 08/10/24 08:59 Rocuronium [place] (Rocuronium Inj 10 Mg/Ml Vial 10 Ml) 25 mg IVP X1 ONE Stop: 07/12/24 01:59 Last Admin: 07/12/24 01:51 Dose: 25 mg Assessment & Plan Plan Patient is a 53-year-old female with a past medical history of NIDDM, embolic CVA, LV mural thrombus and decompensated cirrhosis with portal hypertension. Patient was BIBA by her daughter who noticed bright red blood per rectum upon changing her diaper. Patient was admitted for workup and management of hypotension and generalized weakness. Nephrology was consulted for anasarca secondary to hepatorenal syndrome. 1. Hepatorenal syndrome Likely type II as patient has diuretic resistant ascites Patient has history of decompensated cirrhosis with ascites. On presentation patient was hypotensive with MAP in low 60s and required upgrade to ICU for vaso pressors Abdo ultrasound confirms fatty liver 12.9 cm Plan: - Strict I/O ? Continue albumin infusion ? Continue Bumex infusion for diuresis ? Continue vasopressor support [terlipressin not available in [place]] ? Continue midodrine for blood pressure support ? Continue octreotide infusion for splanchnic vasoconstriction ? Thank you for the opportunity to participate in patient's care. ? Nephrology will closely monitor this case. 2. PHILL Likely prerenal secondary to hypoperfusion Patient was hypotensive on admission with MAP in low 60s Plan: ? Blood pressure support to maintain adequate perfusion of kidney 3. 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 bili 2.4 Normocytic anemia Thrombocytopenia GI bleed for investigation UTI History of embolic CVA NIDDM LV mural thrombus Plan: ? Continue management as per primary team Plan of care discussed with attending [employer], Dr Caren Egan MD PGY 1 Attending Provider Attestation/Addendum Patient seen and examined with resident physician Dr. Sinanan. Note reviewed, agree with findings and recommendations. Patient currently seen in ICU. Patient looks older than her stated age. Significant anasarca noted. No improvement in urine output with the Lasix drip. Will try albumin, midodrine, octreotide, Bumex drip. Hope urine output trial starts to improve. Will monitor closely. No need for renal replacement therapy at this point. Thank you Dr. Rucker for allowing me to participate in the care of Ms. Atkins.
[2024-07-12 16:41] LABS: Partial Thromboplastin Time 106.8 Seconds (22.0-36.0)
[2024-07-13] VITALS (112 sets, daily range): BP systolic 75–109; BP diastolic 57–80; PULSE 75–148; RESP 5–33; TEMP 35.7–36.9; O2SAT 59–100
[2024-07-13 01:49] LABS: Partial Thromboplastin Time 81.5 Seconds (22.0-36.0)
[2024-07-13] MEDS: INSULIN LISPRO (AdmeLOG) 1 UNIT/0.01 ML UNIT SC ×4 (02:03→17:27)
[2024-07-13] MEDS: fentaNYL 2,500 MCG/250 ML BAG 2,500 MCG/250 ML BAG 12.5 MCG IV (04:22)
[2024-07-13] MEDS: MIDAZOLAM INJ 1 MG/ML VIAL 2 ML 2 MG IV ×2 (05:06→15:31)
--- NOTE | 2024-07-13 05:11 | EKG_ITS ---
[facility] Test Date: 2024-07-13 Pat Name: VALENTINE CUMMINGS [facility] Preparation Supervisor Freezing: JOHNNY : 1970 Requested By: Cat Garay Order Number: [id number] Reading MD: Cat Garay Measurements Intervals Roberta Rate: 135 P: VT: QRS: -88 QRSD: 139 T: 42 QT: 332 QTc: 499 Interpretive Statements ATRIAL FIBRILLATION WITH RAPID VENTRICULAR RESPONSE WITH ABERRANT CONDUCTION OR VENTRICULAR PREMATURE COMPLEXES MARKED LEFT AXIS DEVIATION RIGHT BUNDLE BRANCH BLOCK POSSIBLE ANTERIOR MYOCARDIAL INFARCTION , OF INDETERMINATE AGE Compared to ECG 07/10/2024 21:07:11 Ventricular premature complex(es) now present Aberrant conduction of supraventricular beat(s) now present Atrial flutter no longer present Myocardial infarct finding still present /store/S0/[id number].pdf
--- NOTE | 2024-07-13 05:30 | PC.RT ---
as I was going to attempt abg, pt started waking up, shaking her left arm, started bitting on ett tube stopped attempt, became tachycardic, spo2 dropped to the 50s, increased fio2 to 100% and started titrating down to 25%, spo2 improved to 100%, hr in the 100s, RT Lou made aware.
[2024-07-13 05:32] LABS: Base Excess 3 (-3-3); HCO3 27 mEq/L (20-26); Inspired Oxygen, FIO2 25 %; O2 Saturation 99 % (91-98); PCO2 38 mmHg (32.0-48.0); PO2 100 mmHg (83-108); pH, Arterial 7.46 (7.35-7.45)
[2024-07-13 05:33] LABS: Puncture Site Left Radial
[2024-07-13 05:34] LABS: Allen Test Performed/OK
[2024-07-13] MEDS: ALBUMIN HUMAN 25% IVPB 25 GM/100 ML BTL IV ×3 (05:36→21:26)
[2024-07-13 05:38] LABS: Basophils % (Auto) 0 % (0-2.5); Eosinophils % (Auto) 0 % (0-10); Hematocrit 22.4 % (36.0-46.0); Immature Granulocytes % (Auto) 0 % (0-0); Immature Granulocytes Auto 0.02 Thou/mm3 (0.00-0.00); Lymphocytes # (Auto) 0.4 Thou/mm3 (1.0-4.8); Lymphocytes % (Auto) 5 % (10-50); Mean Corpuscular HGB Conc 31.3 g/dl (31.0-37.0); Mean Corpuscular Hemoglobin 28.1 pg (25.0-35.0); Mean Corpuscular Volume 90 fL (80-100); Monocytes # (Auto) 0.2 Thou/mm3 (0.0-0.8); Monocytes % (Auto) 2 % (0-12); Neutrophils # (Auto) 7.1 Thou/mm3 (1.8-7.7); Neutrophils % (Auto) 92 % (37-80); Nucleated Red Blood Cell # 0.03 Thou/mm3 (0.00-0.00); Nucleated Red Blood Cell % 0 /100 WBC (0); RDW Standard Deviation 57.8 fL (36.4-46.3); Red Blood Count 2.49 Miln/mm3 (4.00-5.20); White Blood Count 7.7 Thou/mm3 (3.6-11.0)
[2024-07-13 05:49] LABS: Platelet Count 77 Thou/mm3 (140-440)
[2024-07-13 06:21] LABS: Anion Gap 11 (7-16); BUN/Creatinine Ratio 31 Ratio (12-20); Blood Urea Nitrogen 49 mg/dL (9-23); Calcium 8.6 mg/dL (8.3-10.6); Chloride 99 mMol/L (98-107); Creatinine (Component) 1.6 mg/dL (0.6-1.3); Estimated Creatinine Clearance 31.4 mL/min (>60); Glucose 171 mg/dL (74-106); Osmolality,Calculated 290 (275-295); Sodium 137 mMol/L (136-145); eGFR 38 See Note
[2024-07-13 06:25] LABS: Potassium 2.7 mMol/L (3.4-5.1)
[2024-07-13] MEDS: MIDODRINE 5 MG TABLET 15 MG PO (06:40)
[2024-07-13] MEDS: PIPER/TAZO 3.375 GM 50 ML IV (06:40)
[2024-07-13] MEDS: POTASSIUM CHL 20 mEq IVPB 20 MEQ/100 ML BAG 50 MEQ IV ×3 (06:52→10:48)
[2024-07-13] MEDS: POTASSIUM CHL 20 mEq IVPB 20 MEQ/100 ML BAG 100 MEQ IV (08:14)
[2024-07-13] MEDS: POTASSIUM CHLORIDE 10% 20 MEQ/15 ML UDC 40 MEQ GT (08:15)
[2024-07-13] MEDS: PANTOPRAZOLE INJ 40 MG VIAL IVP (08:15)
--- NOTE | 2024-07-13 08:27 | ESPR_ITS ---
Documentation for date of: 07/13/24 Subjective Subjective Interval history: 07/13/2024: Patient examined in hospital bed; ICU team is starting process to wean patient off ventilator; however, prognosis remains very poor patient had a echo done which showed presence of the left ventricular thrombus along with infiltrative disease as noted by thickened and characteristic left ventricular doe. Patient developed atrial fibrillation when started on dobutamine gtt for cardiorenal sydrome; gtt was discontinued and patient was started on levophed. Patient did not pass SBT and ICU team will reattempt to wean off sedation at a later day. Continue to treat patient with IV Bumex for anasarca secondary to likely advanced liver disease (infiltrative disease?) versus CHF. Patient's family made aware of likely infiltrative disease; which will need workup is she ever makes recovery and is extubated. Exam Vital Signs Temp Pulse Resp BP Pulse Ox O2 Del Method O2 Flow Rate 97.1 F 86 18 101/74 99 Mechanical Ventilation 4 07/13/24 05:30 07/13/24 07:30 07/12/24 18:56 07/13/24 07:30 07/13/24 07:30 07/13/24 04:00 07/11/24 23:45 FiO2 25 07/13/24 06:44 Narrative Exam General: Ventilated and sedated. Appears cachectic with significant loss of muscle and even in the temporal areas bilaterally Eyes: Pupils are equal and reactive to light bilaterally. HEENT: Atraumatic, normocephalic. No JVD noted. Mucosa moist. Cardiovascular: Normal S1 and S2. Tachycardic, occasionally irregular, 2 or 6 systolic murmur noted, 4+ peripheral leg edema noted Respiratory: On mechanical ventilation lungs are clear to auscultation bilaterally. No wheezing or crackles heard. Abdomen: Abdomen soft but distended, nontender Skin: No rash. Slightly cold to touch. Musculoskeletal: No gross injuries. Neuro: Ventilated and sedated; unable to assess neurologic function Objective Labs 07/13/24 04:30 07/13/24 11:33 Labs: Laboratory Results - last 24 hr 07/12/24 07/13/24 07/13/24 15:30 00:33 04:30 WBC 7.7 RBC 2.49 L Hgb 7.0 L Hct 22.4 L MCV 90 MCH 28.1 MCHC 31.3 RDW Std Deviation 57.8 H Plt Count 77 L Neut % (Auto) 92 H Lymph % (Auto) 5 L Laurel % (Auto) 2 Eos % (Auto) 0 Baso % (Auto) 0 Neut # (Auto) 7.1 Lymph # (Auto) 0.4 L [place] # (Auto) 0.2 Eos # (Auto) 0.0 Baso # (Auto) 0.0 Immature Gran # (Auto) 0.02 H Absolute Nucleated RBC 0.03 H Immature Gran % 0 Nucleated RBC % 0 APTT 106.8 H* D 81.5 H D Puncture Site ABG pH ABG pCO2 ABG pO2 ABG HCO3 ABG O2 Saturation ABG Base Excess FiO2 Sodium 137 Potassium 2.7 L* D Chloride 99 Carbon Dioxide 27.0 Anion Gap 11 BUN 49 H Creatinine 1.6 H Estim Creat Clear Calc 31.4 L eGFR 38 L BUN/Creatinine Ratio 31 H Glucose 171 H Calculated Osmolality 290 Calcium 8.6 07/13/24 05:22 WBC RBC Hgb Hct MCV MCH MCHC RDW Std Deviation Plt Count Neut % (Auto) Lymph % (Auto) Laurel % (Auto) Eos % (Auto) Baso % (Auto) Neut # (Auto) Lymph # (Auto) Laurel # (Auto) Eos # (Auto) Baso # (Auto) Immature Gran # (Auto) Absolute Nucleated RBC Immature Gran % Nucleated RBC % APTT Puncture Site Left Radial ABG pH 7.46 H ABG pCO2 38 ABG pO2 100 D ABG HCO3 27 H ABG O2 Saturation 99 H ABG Base Excess 3 FiO2 25 Sodium Potassium Chloride Carbon Dioxide Anion Gap BUN Creatinine Estim Creat Clear Calc eGFR BUN/Creatinine Ratio Glucose Calculated Osmolality Calcium ABG Interpretation ABG results: 07/11/24 07/12/24 07/12/24 22:53 01:05 03:33 ABG pH 7.24 L 7.16 L* 7.44 D ABG pCO2 53 H 61 H 34 D ABG pO2 101 64 L D 426 H D ABG HCO3 23 22 24 ABG O2 Saturation 97 84 L 102 H ABG Base Excess -5 L -7 L -1 07/13/24 05:22 ABG pH 7.46 H ABG pCO2 38 ABG pO2 100 D ABG HCO3 27 H ABG O2 Saturation 99 H ABG Base Excess 3 Quality Measures Quality Measures none Assessment & Plan Assessment Current Active Medications: Generic Name Dose Route Start Last Admin Trade Name Freq PRN Reason Stop Dose Admin Dextrose 25 ml 07/11/24 19:55 Dextrose 50%-Water Inj 50 Ml Syringe IV 08/10/24 19:54 Q15MIN PRN BG 50-70 responsive npo pt Dextrose 50 ml 07/11/24 19:55 Dextrose 50%-Water Inj 50 Ml Syringe IV 08/10/24 19:54 Q15MIN PRN BG <50 OR BG <70 & pt unresponsive Glucagon 1 mg 07/11/24 19:55 Glucagon Inj 1 Mg Vial IM Q15MIN PRN BG <70, and no IV access Piperacillin/Tazobactam/Dextrose 50 mls @ 12.5 mls/hr 07/11/24 06:30 07/13/24 06:40 Zosyn IV 07/18/24 06:29 12.5 mls/hr Q8HR SAVANNAH Administration Protocol Heparin Sodium/Dextrose 25,000 unit in 250 mls @ 6.26 mls/hr 07/11/24 08:45 07/13/24 06:45 Heparin In D5w Ivpb IV 07/25/24 08:44 1 units/kg/hr .Q24H SAVANNAH 0.522 mls/hr Titration Protocol 12 UNITS/KG/HR Octreotide Acetate 1,000 mcg/ 252 mls @ 12.6 mls/hr 07/12/24 09:00 07/13/24 04:16 Sodium Chloride IV 08/11/24 08:59 50 mcg/hr .Q20H SAVANNAH 12.6 mls/hr Infusion Protocol 50 MCG/HR Albumin Human 25 gm in 100 mls @ 100 mls/hr 07/11/24 18:45 07/13/24 05:36 Albuminar-25 Ivpb IV 07/14/24 18:44 100 mls/hr TID SAVANNAH Administration Fentanyl Citrate 2,500 mcg in 250 mls @ 2.5 mls/hr 07/12/24 01:57 07/13/24 06:00 Sublimaze Inj 2,500 Mcg/250 Ml Bag IV 07/17/24 01:56 175 mcg/hr .Q24H PRN 17.5 mls/hr PER PROTOCOL Titration Protocol 25 MCG/HR Propofol 1,000 mg in 100 mls @ 1.565 mls/hr 07/12/24 01:57 07/12/24 09:04 Diprivan Ivpb IV 08/11/24 01:56 0 mcg/kg/min .Q24H PRN 0 mls/hr PER PROTOCOL Titration Protocol 5 MCG/KG/MIN Norepinephrine/Dextrose 8 mg in 250 mls @ 4.89 mls/hr 07/12/24 03:56 Levophed In D5w 8mg/250ml IV 08/11/24 03:55 .Q24H PRN PER PROTOCOL Protocol 0.05 MCG/KG/MIN Dobutamine HCl/Dextrose 500 mg in 250 mls @ 4.358 mls/hr 07/12/24 09:48 07/13/24 06:00 Dobutrex/D5w Ivpb IV 08/11/24 09:32 2.5 mcg/kg/min .Q24H PRN 4.358 mls/hr PER PROTOCOL Titration Protocol 2.5 MCG/KG/MIN Dexmedetomidine/Sodium Chloride 400 mcg in 100 mls @ 2.905 mls/hr 07/12/24 10:35 Precedex Ivpb IV 08/11/24 10:34 .Q24H PRN Per PROTOCOL Protocol 0.2 MCG/KG/HR Potassium Chloride 20 meq in 100 mls @ 50 mls/hr 07/13/24 08:30 Kcl Ivpb IV 07/13/24 12:29 Q2H SAVANNAH Insulin Human Lispro 0 unit 07/12/24 12:00 07/13/24 06:42 Insulin Lispro (Admelog) 1 Unit/0.01 Ml Unit SC 08/11/24 11:59 2 unit Q6HR SAVANNAH Administration Protocol Midazolam HCl 2 mg 07/12/24 12:03 07/13/24 05:06 Midazolam Inj 1 Mg/Ml Vial 2 Ml IV 07/17/24 12:02 2 mg Q1HR PRN Administration AGITATION OR ANXIETY Midodrine 15 mg 07/11/24 19:00 07/13/24 06:40 Midodrine 5 Mg Tablet PO 08/10/24 18:59 15 mg TID SAVANNAH Administration Pantoprazole Sodium 40 mg 07/12/24 09:00 07/13/24 08:15 Pantoprazole Inj 40 Mg Vial IVP 08/11/24 08:59 40 mg QDAY SAVANNAH Administration Plan 53-year-old female with a past medical history of recent acute stroke on 06/24/2024 thought to be secondary to embolic stroke from left ventricular mural thrombus diagnosed at [facility] and is on Eliquis, history of choledocholithiasis status post MRCP in June 2024, metabolic dysfunction 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 Upgraded to ICU level of care. #Anasarca secondary to advanced liver disease and less likely from the CHF. Albumin was only 3.1 and HDL below normal Bili is elevated at 2.4. Echocardiogram from May 2024 was reviewed which showed normal LV size and function EF-60% and mild to moderate TR with no evidence of any regional wall motion abnormalities Plan: Recommend to continue Bumex drip Strict I's and O's 2 g sodium diet when applicable Pressor support if required; dobutamine on #Likely infiltrative disease #NSTEMI type II in the setting of supply/demand mismatch Troponins plateaued at 0.2 EKG shows sinus tachycardia with nonspecific ST changes and frequent PVCs Plan: No further troponin trend Echo to reevaluate Keep potassium greater than 4 and magnesium greater than 2.0 at all times. Order lipid panel for restratification Echo shows thickened left ventricular wall characteristic of infiltrative disease Workup possible amyloidosis versus other infiltrative disease #LV thrombus As seen at [facility] Echo confirmed presence of left ventricular thrombus Plan: Obtain the study reports Patient on heparin drip; no evidence of GI bleed #Atrial Fibrillation Nonsustained Developed afib when started on Dobutamine for cardiorenal syndrome Dobutamine discontinued Patient put on levophed Plan: Continue to monitor; patient sinus currently #Acute hypoxic respiratory failure #Severe sepsis #HCAP Patient is hypotensive as well as her high lactate and procalcitonin was elevated Secondary to pneumonia versus bilateral pleural effusions Plan: Continue Zosyn Vent management per ICU team #History of CVA June 2024 secondary to possible embolic cardiac etiology #Cirrhosis of the liver secondary to CRAWFORD or MASLD #Acute kidney injury #Type 2 diabetes, [id number] A1c of 5.9 #Choledocholithiasis #Cachexia with severe recent weight loss Rest of medical problems to be managed by the hospitalist team; cardiology following and will give recommendations. There is a high probability of sudden, clinically significant or life threatening deterioration in the patient condition which required the highest level of physician preparedness to intervene urgently. I have personally spent 65 minutes of critical care time, exclusive of time spent on any procedures, in evaluation and management of this critically ill patient. Patient seen and examined with attending Dr. Kira Jacobo, PGY-1 Attending Provider Attestation/Addendum I have personally seen and examined the patient separately on the above date of service and discussed the plan of care with the resident. I reviewed the resident consultation progress note and agree with the resident findings and plan in the note above and have also edited the documentation to reflect my findings and plan. 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 Cardiology consulted LV thrombus, possible CHF and elevated troponins. 1. Anasarca-mostly secondary to advanced liver disease and less likely from the CHF. 2. Acute hypoxic respiratory failure s/p mechanical ventilation is mostly secondary to the volume overload and possible pneumonia 3. Acute on chronic severe biventricular failure with an LVEF less than 20% along with severe RV dysfunction and stage III diastolic dysfunction 4. Mildly elevated troponins-NSTEMI type II in the setting of supply/demand mismatch 5. LV thrombus diagnosed at [facility] troponin 2023- 6. Cirrhosis of the liver secondary to CRAWFORD or MASLD 7. History of recent stroke in June 2024 secondary to possible embolic cardiac etiology and thought to be tubular thrombus diagnosed at [facility] 8. Acute kidney injury 9. Elevated lactate 10. Dabetes mellitus, uncontrolled 11. Choledocholithiasis 12. Cachexia with severe recent weight loss Patient presented with questionable blood staining on the diaper as per the daughter and the niece. Stool occult here was negative and hemoglobin appears to be stable at 8.7 on admission. Primary team to call GI for further evaluation as the patient also has hepatorenal syndrome with severe sepsis and possible septic shock. Patient is hypotensive as well as her high lactate and procalcitonin was elevated. Possible sepsis secondary to bilateral pneumonia versus UTI. Patient. To the ICU and further recommendations as per GI as well as ICU team. Patient is anasarca and is mostly secondary to her cirrhosis and liver disease but there could be some diastolic CHF component. Albumin was only 3.1 and HDL below normal. Bili is elevated at 2.4. Recent echocardiogram from May 2024 was reviewed which showed normal LV size and function with an approximate EF-60% and mild to moderate TR with no evidence of any regional wall motion abnormalities. Recommend to start the patient Lasix drip at at least 5 mg/h and continue strict control, daily weights and 2 g odium diet for now. Patient is mildly hypotensive and might need pressor support if required and hence patient transferred to the ICU. Patient troponins were mildly elevated at 0.222 and were flat between 0.25 as well as 0.23. Troponin elevation mostly secondary to supply/demand mismatch and or recommend no further troponins for now. Will check echocardiogram to rule out any kind of regional wall motion abnormalities and reevaluate the EF. EKG showed sinus tachycardia with nonspecific ST changes and frequent PVCs. Patient evidently had LV thrombus that was documented in [facility] and recommend obtaining the report from detail including the SANDIE, cardiac CT and MRI results. Patient should be on heparin drip as the patient also has a history of LV thrombus and there is no evidence of any GI bleed for now. Will need to review all the records and obtain all the records from the outside hospital-[facility]. Recommend to check TSH A1c as well as lipid panel for further cardiac risk stratification. Recommend potassium greater than 4 and magnesium greater than 2.0 at all times. Patient appears to have lost significant weight in the last 8 to 10 months and has significant temporal wasting and overall prognosis appears to be poor and this was explained to the family. 07/13/2024: Echo performed on 07/12/2024 showed Normal LV size. Global LV systolic function is severely decreased. Estimated EF < 20%. LV mural thrombus is present 2.51 cm x 1.71 cm. Moderate hypertrophy with ground glass appearence - need ot r/o amyloid or other infiltartative diseases. diastolic dysfunction present but unable to grade as there is no E/A. atleast grade 2 and grade 3 RV is normal in size. RV systolic function is severely decreased. Estimated RVSP, 39 mmHg including RAP 15mmHg. Moderately dilated LA and RA. Mild to moderate MR. mild AI and Severe TR. Dilated IVC and moderatre size pleural effusion Patient was unable to protect airway and was intubated and mechanically ventilated overnight on 07/11/2024. Given the patient fluid overload patient was started on Bumex IV drip at as she has been tolerating well and diuresing well with the Bumex drip. Patient started on dobutamine drip for inotropic support given her borderline low blood pressure in the setting of severe LV and RV dysfunction. Also on IV amiodarone for paroxysmal atrial fibrillation continue to check QTc. Keep potassium greater than 4 magnesium greater than 2.0. Explained echocardiogram findings with the family and the severe LV as well as RV dysfunction and possible end-stage heart disease with the presence of LV thrombus to the family in detail. Daughter was at the bedside today and also previously yesterday and were the possibility of infiltrative disease of heart possibly also liver but the patient appears to be end-stage at the present point of time with severe temporal wasting as noted above. Patient is not a good candidate for any advanced heart failure therapies including LVAD given the presence of LV thrombus and is not a transplant candidate. Overall poor prognosis and patient still is continues to be in critical condition at the present point of time. There is a high probability of sudden, clinically significant or life threatening deterioration in the patient condition which required the highest level of physician preparedness to intervene urgently. I have personally spent 65 minutes of critical care time, exclusive of time spent on any procedures, in evaluation and management of this critically ill patient. Management of rest of the medical conditions as per primary team and other consultants. Thank you for the consult and allowing me to participate in the care of the patient. Cardiology will continue to follow. Lico Malone M.D. Interventional Cardiology
[2024-07-13 09:11] LABS: Partial Thromboplastin Time 65.4 Seconds (22.0-36.0)
[2024-07-13 09:51] LABS: Slide Review Platelets confirmed
[2024-07-13] MEDS: Heparin/D5w 25K 250 ML Ivpb 25,000 UNIT/250 ML BAG 0.522 UNIT IV (09:54)
[2024-07-13] MEDS: OCTREOTIDE ACET IV (09:54)
[2024-07-13] MEDS: SODIUM CHLORIDE 0.9% IV ×2 (09:54→15:24)
[2024-07-13] MEDS: AMIODARONE 150 MG IVPB 150 MG/100 ML BAG 600 MG IV (10:48)
[2024-07-13] MEDS: AMIODARONE 360 MG IVPB 360 MG/200 ML BAG 33.333 MG IV (11:00)
[2024-07-13] MEDS: BUMETANIDE INJ 10 MG in CONTAINER,EMPTY 50 ML 1 BAG 2 MG IV (11:37)
[2024-07-13 12:00] LABS: Albumin, Serum 3.9 gm/dL (3.5-5.0); Anion Gap 11 (7-16); BUN/Creatinine Ratio 31 Ratio (12-20); Blood Urea Nitrogen 50 mg/dL (9-23); Calcium 8.5 mg/dL (8.3-10.6); Calcium (Corrected) 8.6 mg/dL (8.5-10.1); Carbon Dioxide 24.7 mMol/L (20.0-31.0); Chloride 99 mMol/L (98-107); Creatinine (Component) 1.6 mg/dL (0.6-1.3); Estimated Creatinine Clearance 31.4 mL/min (>60); Glucose 213 mg/dL (74-106); Osmolality,Calculated 289 (275-295); Phosphorous 3.5 mg/dL (2.4-5.1); Potassium 4.6 mMol/L (3.4-5.1); Sodium 135 mMol/L (136-145); eGFR 38 See Note
--- NOTE | 2024-07-13 12:02 | ESPR_ITS ---
<Statement entered by Michelle Rucker MD - 07/14/24 13:51> TOTAL CC TIME: 45 MIN I saw and evaluated the patient. I reviewed the resident?s note and agree with findings and plan as documented in the resident?s note. Upon my evaluation, this patient had a high probability of imminent or life- threatening deterioration due to multisystem organ failure due to advanced cirrhosis, possible hepatorenal syndrome, severe systolic congestive heart failure which required my direct attention, intervention, and personal management. This time is exclusive of time spent on procedures, which are documented separately if performed. Documentation for date of: 07/13/24 Subjective Subjective Interval history: Patient is a Citizen Of [place] only speaker, 53-year-old female with a past medical history of diabetes mellitus type 2, embolic CVA, LV mural thrombus, liver cirrhosis, and amyloidosis, who was brought into the emergency room due to concern for bright red bleeding per rectum. Patient started noted spots of bright red blood when changing the patient's diaper. Daughter reported, patient has become progressively too weak and bedbound following the stroke. They noted some bright red spots when changing the patient's diaper, and when cleaning her noticed bright light blood oozing out of her rectum. Denied having any black stools, or blood mixed with stools. Denied history of diarrhea, vomiting, fever. Patient was initially admitted to the medical floor, but later upgraded to ICU due to concern for hypotension, MAP in the low 60s. There was concern for adrenal insufficiency, patient was started on hydrocortisone with no improvement of blood pressure. Patient had normal cortisol and ACTH level on previous admission. Patient was transferred to [facility] recently for possible ERCP due to choledocholithiasis, pending medical records from [facility], unsure if ERCP was done, but discharge documents show that patient was discharged with Eliquis, empagliflozin, furosemide and metoprolol. ED course: Initial labs pertinent for normocytic anemia, mild hyponatremia sodium 132, PHILL, BUN 47, creatinine 1.8, EGFR 33, baseline GFR seems to be around 53, BUN/creatinine ratio more than 20, lactic acid 3.9, T. bili 2.4, AST 40, ALT 36, alk phos 131, ammonia less than 10, mild troponin elevation 0.222, BNP 740, elevated Pro-Justice 7.21, lipase 88. Urinalysis consistent with UTI, stool occult was negative. Imaging studies include chest x-ray which shows bilateral significant pneumonia, EKG shows a flutter with RVR and right bundle branch block, ultrasound abdomen shows cholelithiasis and enlarged common bile duct 0.7, of note patient has no abdominal/right upper quadrant symptoms including pain or tenderness. The patient was admitted to the medical floor, with upgraded to ICU. 07/12/24 Patient evaluated bedside, labs and overnight events as reviewed, overnight patient was hypotensive and central line was placed for IV pressor support, but patient blood pressure improved, Levophed was withheld, patient also developed bradypnea following postprocedural sedation,, received 1 mg IV Dilaudid, respiratory rate decreased to 7/min along with hypoxia, requiring intubation and mechanical ventilation. This a.m. patient noted to be tolerating mechanical ventilation well, saturating at goal on 30% FiO2, PEEP of 5, will plan to continue with ventilation given patient's significant fluid overload, as patient may require reintubation due to significant pulmonary congestion in the setting of hepatorenal/cardiorenal syndrome. We will try to aggressively diurese the patient, last night patient had 1200 mL urine output despite Lasix drip, IV albumin 75 g and octreotide. Nephrology was consulted, nephro recommended switching to Bumex drip at 2 Mg per hour, vasopressor support to help with renal perfusion. Patient was started on dobutamine for inotropic support. Bedside echocardiogram was done which showed apical LV thrombus, global hypokinesis with severely reduced ejection fraction, cardiology recommended continuing heparin drip and continued aggressive IV diuresis. Repeat echocardiogram ordered. 07/13/24 patient evaluated bedside, RASS of -2, sedation was titrated down patient was able to wake up and move both upper limbs spontaneously, but unable to comply with instructions also respiratory rate low, continued on sedation for continued mechanical ventilation, patient not ready for extubation today. Patient was started on dobutamine for cardiorenal syndrome, but developed tachycardia heart rate in the 140s A-fib RVR, dobutamine was discontinued. Started on IV phenylephrine, but due to continued hypotension, vasopressor was changed to Levophed to help with improving blood pressure as well as renal perfusion, as patient is currently on Bumex drip but urine output less than goal 100 cc an hour. IV amiodarone started for A-fib RVR. Family updated about guarded prognosis. Exam Vital Signs Temp Pulse Resp BP Pulse Ox O2 Del Method O2 Flow Rate 98.2 F 105 H 18 93/68 96 Mechanical Ventilation 4 07/13/24 08:00 07/13/24 11:37 07/12/24 18:56 07/13/24 11:37 07/13/24 11:00 07/13/24 04:00 07/11/24 23:45 FiO2 25 07/13/24 08:00 Narrative Exam General: currently sedated and mechanically ventilated Skin: Intact, no cyanosis , anasarca noted. HEENT: Atraumatic/normocephalic, RUPINDER, neck supple Heart: irregular, S1 and S2 without clicks or murmurs Lungs: bilateral rhochi Abdomen: Soft, nontender. Bowel sounds present . Vascular: Peripheral pulses palpable Neuro: RAAS -2 Objective Labs 07/13/24 04:30 07/13/24 11:33 Labs: Laboratory Results - last 24 hr 07/12/24 07/13/24 07/13/24 15:30 00:33 04:30 WBC 7.7 RBC 2.49 L Hgb 7.0 L Hct 22.4 L MCV 90 MCH 28.1 MCHC 31.3 RDW Std Deviation 57.8 H Plt Count 77 L Neut % (Auto) 92 H Lymph % (Auto) 5 L Callaway % (Auto) 2 Eos % (Auto) 0 Baso % (Auto) 0 Neut # (Auto) 7.1 Lymph # (Auto) 0.4 L Callaway # (Auto) 0.2 Eos # (Auto) 0.0 Baso # (Auto) 0.0 Immature Gran # (Auto) 0.02 H Absolute Nucleated RBC 0.03 H Immature Gran % 0 Nucleated RBC % 0 APTT 106.8 H* D 81.5 H D Puncture Site ABG pH ABG pCO2 ABG pO2 ABG HCO3 ABG O2 Saturation ABG Base Excess FiO2 Sodium 137 Potassium 2.7 L* D Chloride 99 Carbon Dioxide 27.0 Anion Gap 11 BUN 49 H Creatinine 1.6 H Estim Creat Clear Calc 31.4 L eGFR 38 L BUN/Creatinine Ratio 31 H Glucose 171 H Calculated Osmolality 290 Calcium 8.6 Misc Test Result Platelets confirmed 07/13/24 07/13/24 05:22 08:16 WBC RBC Hgb Hct MCV MCH MCHC RDW Std Deviation Plt Count Neut % (Auto) Lymph % (Auto) Callaway % (Auto) Eos % (Auto) Baso % (Auto) Neut # (Auto) Lymph # (Auto) Callaway # (Auto) Eos # (Auto) Baso # (Auto) Immature Gran # (Auto) Absolute Nucleated RBC Immature Gran % Nucleated RBC % APTT 65.4 H D Puncture Site Left Radial ABG pH 7.46 H ABG pCO2 38 ABG pO2 100 D ABG HCO3 27 H ABG O2 Saturation 99 H ABG Base Excess 3 FiO2 25 Sodium Potassium Chloride Carbon Dioxide Anion Gap BUN Creatinine Estim Creat Clear Calc eGFR BUN/Creatinine Ratio Glucose Calculated Osmolality Calcium Misc Test Result ABG Interpretation ABG results: 07/11/24 07/12/24 07/12/24 22:53 01:05 03:33 ABG pH 7.24 L 7.16 L* 7.44 D ABG pCO2 53 H 61 H 34 D ABG pO2 101 64 L D 426 H D ABG HCO3 23 22 24 ABG O2 Saturation 97 84 L 102 H ABG Base Excess -5 L -7 L -1 07/13/24 05:22 ABG pH 7.46 H ABG pCO2 38 ABG pO2 100 D ABG HCO3 27 H ABG O2 Saturation 99 H ABG Base Excess 3 Quality Measures Quality Measures none Assessment & Plan Assessment Current Active Medications: Generic Name Dose Route Start Last Admin Trade Name Freq PRN Reason Stop Dose Admin Dextrose 25 ml 07/11/24 19:55 Dextrose 50%-Water Inj 50 Ml Syringe IV 08/10/24 19:54 Q15MIN PRN BG 50-70 responsive npo pt Dextrose 50 ml 07/11/24 19:55 Dextrose 50%-Water Inj 50 Ml Syringe IV 08/10/24 19:54 Q15MIN PRN BG <50 OR BG <70 & pt unresponsive Glucagon 1 mg 07/11/24 19:55 Glucagon Inj 1 Mg Vial IM Q15MIN PRN BG <70, and no IV access Heparin Sodium/Dextrose 25,000 unit in 250 mls @ 6.26 mls/hr 07/11/24 08:45 07/13/24 09:54 Heparin In D5w Ivpb IV 07/25/24 08:44 1 units/kg/hr .Q24H SAVANNAH 0.522 mls/hr Administration Protocol 12 UNITS/KG/HR Albumin Human 25 gm in 100 mls @ 100 mls/hr 07/11/24 18:45 07/13/24 05:36 Albuminar-25 Ivpb IV 07/14/24 18:44 100 mls/hr TID SAVANNAH Administration Fentanyl Citrate 2,500 mcg in 250 mls @ 2.5 mls/hr 07/12/24 01:57 07/13/24 06:00 Sublimaze Inj 2,500 Mcg/250 Ml Bag IV 07/17/24 01:56 175 mcg/hr .Q24H PRN 17.5 mls/hr PER PROTOCOL Titration Protocol 25 MCG/HR Propofol 1,000 mg in 100 mls @ 1.565 mls/hr 07/12/24 01:57 07/12/24 09:04 Diprivan Ivpb IV 08/11/24 01:56 0 mcg/kg/min .Q24H PRN 0 mls/hr PER PROTOCOL Titration Protocol 5 MCG/KG/MIN Norepinephrine/Dextrose 8 mg in 250 mls @ 4.89 mls/hr 07/12/24 03:56 Levophed In D5w 8mg/250ml IV 08/11/24 03:55 .Q24H PRN PER PROTOCOL Protocol 0.05 MCG/KG/MIN Dobutamine HCl/Dextrose 500 mg in 250 mls @ 4.358 mls/hr 07/12/24 09:48 07/13/24 06:00 Dobutrex/D5w Ivpb IV 08/11/24 09:32 2.5 mcg/kg/min .Q24H PRN 4.358 mls/hr PER PROTOCOL Titration Protocol 2.5 MCG/KG/MIN Dexmedetomidine/Sodium Chloride 400 mcg in 100 mls @ 2.905 mls/hr 07/12/24 10:35 Precedex Ivpb IV 08/11/24 10:34 .Q24H PRN Per PROTOCOL Protocol 0.2 MCG/KG/HR Potassium Chloride 20 meq in 100 mls @ 50 mls/hr 07/13/24 08:30 07/13/24 10:48 Kcl Ivpb IV 07/13/24 12:29 50 mls/hr Q2H SAVANNAH Administration Octreotide Acetate 1,000 mcg/ 252 mls @ 12.6 mls/hr 07/13/24 09:15 07/13/24 09:54 Sodium Chloride IV 08/12/24 09:14 50 mcg/hr .Q20H SAVANNAH 12.6 mls/hr Administration Protocol 50 MCG/HR Amiodarone HCl/Dextrose 360 mg in 200 mls @ 33.333 mls/hr 07/13/24 10:40 07/13/24 11:00 Nexterone Ivpb IV 07/13/24 16:39 33.333 mls/hr .Q6H ONE Administration Amiodarone HCl/Dextrose 360 mg in 200 mls @ 16.667 mls/hr 07/13/24 16:40 Nexterone Ivpb IV 07/14/24 16:39 .Q12H SAVANNAH Bumetanide 10 mg/ IV 40 mls @ 2 mls/hr 07/13/24 11:00 07/13/24 11:37 Miscellaneous Supplies IV 07/14/24 06:59 0.5 mg/hr .Q20H SAVANNAH 2 mls/hr Administration 0.5 MG/HR Insulin Human Lispro 0 unit 07/12/24 12:00 07/13/24 06:42 Insulin Lispro (Admelog) 1 Unit/0.01 Ml Unit SC 08/11/24 11:59 2 unit Q6HR SAVANNAH Administration Protocol Midazolam HCl 2 mg 07/12/24 12:03 07/13/24 05:06 Midazolam Inj 1 Mg/Ml Vial 2 Ml IV 07/17/24 12:02 2 mg Q1HR PRN Administration AGITATION OR ANXIETY Midodrine 10 mg 07/13/24 14:00 Midodrine 5 Mg Tablet PO 08/12/24 13:59 TID SAVANNAH Pantoprazole Sodium 40 mg 07/12/24 09:00 07/13/24 08:15 Pantoprazole Inj 40 Mg Vial IVP 08/11/24 08:59 40 mg QDAY SAVANNAH Administration Plan Patient is a Citizen Of [place] only speaker, 53-year-old female with a past medical history of diabetes mellitus type 2, embolic CVA, LV mural thrombus, liver cirrhosis, and amyloidosis, who was brought into the emergency room due to concern for bright red bleeding per rectum. Patient started noted spots of bright red blood when changing the patient's diaper. Daughter reported, patient has become progressively too weak and bedbound following the stroke. They noted some bright red spots when changing the patient's diaper, and when cleaning her noticed bright light blood oozing out of her rectum. Denied having any black stools, or blood mixed with stools. Denied history of diarrhea, vomiting, fever. Patient was initially admitted to the medical floor, but later upgraded to ICU due to concern for hypotension, MAP in the low 60s. There was concern for adrenal insufficiency, patient was started on hydrocortisone with no improvement of blood pressure. Patient had normal cortisol and ACTH level on previous admission. Patient was transferred to [facility] recently for possible ERCP due to choledocholithiasis, pending medical records from [facility], unsure if ERCP was done, but discharge documents show that patient was discharged with Eliquis, empagliflozin, furosemide and metoprolol. 1.NEURO: #Encephalopathy #History of embolic stroke Patient is alert but disoriented, currently at baseline mental status per family, responding No to most questions about her symptoms. Possibly due to history of previous stroke leading to vascular dementia as well as concurrent pneumonia leading to encephalopathy. RASS of -2, sedation was titrated down patient was able to wake up and move both upper limbs spontaneously, but unable to comply with instructions also respiratory rate low, continued on sedation for continued mechanical ventilation, patient not ready for extubation today. 2.CVS: #A-fib/flutter with RVR #LV thrombus EKG shows a flutter with RVR, [id number] score 4, 4.8% annualized risk of stroke, LV thrombus now found when pt was transferred to [facility] recently, possibly Post silent myocardial infarction LV thrombus formation. Patient was started on dobutamine for cardiorenal syndrome, but developed tachycardia heart rate in the 140s A-fib RVR, dobutamine was discontinued. ? IV heparin gtt. ? IV amiodarone gtt. ? Screen Printing Press Operator Dr. Malone is consulted, appreciate recommendations #Hypotension, Cardiogenic Shock #Differentials: Septic shock, Cardiogenic shock, cirrhosis leading to third spacing of fluid, adrenal insufficiency, Of note patient had a previous echocardiogram, estimated EF more than 55%, no intracardiac thrombus at that time, but now at the bedside echo, findings are concerning for Global hypokinesis, poor RV and LV contractility is evident with an apical LV thrombus, noted IVC at 2.0 cm and no change in size with cardiac contraction, congested portal and hepatic veins with reversal of flow in hepatic veins, VExUS scoe 3 shows severe congestion. ? IV fluid bolus 500 x 1 was given, avoided giving sepsis bolus due to anasarca and diastolic CHF ? midodrine 15 mg 3 times daily ? Initiated Levophed as patient developed A-fib RVR from dobutamine drip, and was hypotensive on phenylephrine #Concern for adrenal insufficiency - ruled out Patient had a history of low blood pressure, was on home midodrine 10 mg 3 times daily, there was also concern for Walker's disease, but patient cortisol and ACTH levels were normal during previous workup, she was given IV steroids during prior hospital stay and discharged on Medrol dose pack. Cortisol levels around 12, wnl, Hydrocortisone is discontinued. #Type II NSTEMI Minimal troponin elevation 0.2030, currently on heparin drip 3.PULM: #Mechanical Ventilation Patient has fairly low oxygen requirements FiO2 25%, 5, driving pressure 14, peak pressure 29. But when sedation stopped transiently, and she failed spontaneous breathing trial, plan to continue with mechanical ventilation and continue with IV diuresis to relieve pulmonary congestion . ?Spontaneous breathing tomorrow # Pulmonary edema In the setting of severely low EF 20% and cardiomyopathy, we discontinued antibiotics as pulmonary imaging and clinical condition shows consolidation and congestion more suggestive of fluid overload than infectious process. ? IV Diuresis on bumex drip . 4.GI: #Concern for lower GI bleed Bright red bleeding per rectum, stable hemoglobin at 7 hypotensive on arrival, stool occult was negative in the ER. Patient started on heparin drip due to LV mural thrombus and A-fib and was probably on anticoagulation with Eliquis at home. ? Cardiology is consulted, currently no evidence of active bleeding, will continue to monitor H&H, consider gastroenterology consult if active GI bleed or drop in hemoglobin ? Type and screen, transfuse if hemoglobin less than 7 #Cirrhosis, Likely secondary to metabolic dysfunction associated steatotic liver disease, MSLT Associated hypoalbuminemia, and concern for hepatorenal syndrome, contributing to PHILL and anasarca. - See renal for details #Choledocholithiasis #Hyperbilirubinemia Prior medical history of Choledocholithiasis and transferred to [facility] for possible ERCP, medical records from [facility] were obtained, reported patient had a repeat MRCP at [facility] which showed no stones in the bile duct, possibly passage of stones had already occurred. No ERCP was performed. ? Imaging findings concerning for CBD dilation, but given extensive workup at [facility] no further intervention is indicated at this point ?Continue supportive treatment 5.Renal: #PHILL, hepatorenal syndrome vs cardiorenal syndrome #Anasarca Differential diagnosis include hepatorenal syndrome versus cardiorenal syndrome Baseline creatinine seems to be around 1.2, currently serum creatinine 1.8, BUN/creatinine ratio more than 20 Patient also has fluid overload anasarca likely secondary to hypoalbuminemia ? IV Albumin 25 g 3 times daily, ? Bumex drip at 1 Mg per hour, vasopressor support to help with renal perfusion. Patient was started on Levophed for inotropic support. ? Octreotide gtt. due to underlying concern of hepatorenal syndrome. ? Midodrine 15mg TID 6.ENDOCRINE: #Concern for adrenal insufficiency- ruled out #History of diabetes mellitus type 2 ? Sliding scale insulin, A1c level ? Hypoglycemia protocol in place 7.Infectious: Stable 8.Heme: #Normocytic anemia Hemoglobin stable at 7.0, concern for GI bleed, continue to monitor H&H Disposition: Guarded prognosis explained to family, will continue with IV diuresis, patient has fairly low ventilatory requirements, will give patient trial with aggressive diuresis in the setting of end-stage heart failure, if possible to wean off ventilator. DVT prophylaxis: Heparin gtt GI prophylaxis: protonix Diet: Tube feeds Lines: PIV CODE STATUS: DNR Patient case discussed with attending Dr. Chaim Schwab PGY2
[2024-07-13] MEDS: MIDODRINE 5 MG TABLET 10 MG PO ×2 (13:05→21:26)
[2024-07-13] MEDS: DOBUTamine/D5w 500 MG IVPB 500 MG/250 ML BAG IV (14:41)
--- NOTE | 2024-07-13 14:44 | CHAP ---
9:30 AM Visited by spiritual care volunteer Provided prayer for Patient.
--- NOTE | 2024-07-13 14:50 | XR_ITS ---
Examination: AP chest single view Technique one AP portable supine chest single view Exam date and time: July 13, 2024 1503 hours Comparison July 12, 2024 INDICATIONS: Hypoxia this week hypoxic respiratory failure postintubation FINDINGS: Again noted heart failure pattern with cardiomegaly vascular congestion and perihilar edema Consider superimposed significant bilateral pneumonia Tracheal tube tip 5.3 cm above sophia Orogastric tube tip distal stomach Right internal jugular central line tip right atrium IMPRESSION: Significant heart failure Likely superimposed bilateral pneumonia
[2024-07-13] MEDS: PHENYLEPHRINE HCL IV (15:24)
--- NOTE | 2024-07-13 16:02 | PC.SS ---
ETL DEVELOPER conducted initial assessment with patient?s daughter, Rachel Hunter. Patient currently in ICU and intubated. Patient resides at home with family. Prior to admission patient utilized a walker to assist with ambulation. Patient did not utilize home oxygen. Patient requires assistance with completion of ADL?s. Patient?s medical surrogate decision maker is daughter, Gricelda Hunter . Patient?s PCP is Chon Longo. Patient recently discharged from [facility] approximately 3 days prior. creative services manager will discuss discharge needs at an appropriate future time. No further intervention required at this time, social security assessor will be available to address any further concerns. Next of Kin: Gricelda Dale D/C Plan: Pending
[2024-07-13 16:08] LABS: Partial Thromboplastin Time 58.1 Seconds (22.0-36.0)
[2024-07-13] MEDS: Norepinephrine/D5W 8mg/250ml 8 MG/250 ML BAG 5.456 MG IV (17:04)
--- NOTE | 2024-07-13 17:32 | ESPR_ITS ---
Documentation for date of: 07/13/24 Subjective Subjective Interval history: Patient is a 53-year-old female with a past medical history of NIDDM, embolic CVA, LV mural thrombus and decompensated cirrhosis with portal hypertension. Patient was BIBA by her daughter who noticed bright red blood per rectum upon changing her diaper. Patient was admitted for workup and management of hypotension and generalized weakness. Last month patient presented to the ED with difficulty standing, slurred speech, facial droop and was diagnosed with an embolic stroke. Incidentally a CBD stone was identified on imaging. Patient was transferred from the ED to [facility] for possible ERCP. Patient also had previous admission to [facility] for hyponatremia and hypotension with ICU stay. Patient's baseline is bedbound, but able to verbalize. ED course: Patient was hypotensive and tachycardic on presentation BP 86/65, MAP 72 HR 102. Labs were significant for normocytic anemia, CR 1.8, BUN 47. Urinalysis was significant for 1+ protein, 3+ blood, LE positive, WBC 358 On imaging Abd US: Fatty liver 12.9 cm Nephrology was consulted for anasarca secondary to likely hepatorenal syndrome. 07/13/2024 Patient seen and examined in ICU this a.m. Patient's sedated, intubated and mechanically ventilated. Patient is on dobutamine, noradrenaline infusion, albumin IV, octreotide infusion. I 1536 cc O 2155 cc Balance -618 cc Recommend Bumex IV. Guarded prognosis Exam Vital Signs Temp Pulse Resp BP Pulse Ox O2 Del Method O2 Flow Rate 98.5 F 98 18 80/63 L 98 Mechanical Ventilation 4 07/13/24 12:00 07/13/24 17:04 07/12/24 18:56 07/13/24 17:04 07/13/24 17:00 07/13/24 17:00 07/11/24 23:45 FiO2 40 07/13/24 17:00 Narrative Exam Constitutional Intubated and mechanically ventilated. Anasarca HEENT Trachea midline. Respiratory Right IJ catheter insitu. B/L crackles auscultated Cardiovascular S1 and S2 audible, RRR. No murmurs or carotid bruit. No gross JVD. Abdominal Distended and edematous. Musculoskeletal Decreased tone throughout. Neurological Patient sedated and mechanically ventillated Objective Labs 07/14/24 04:54 07/13/24 11:33 Labs: Laboratory Results - last 24 hr 07/13/24 07/13/24 07/13/24 00:33 04:30 05:22 WBC 7.7 RBC 2.49 L Hgb 7.0 L Hct 22.4 L MCV 90 MCH 28.1 MCHC 31.3 RDW Std Deviation 57.8 H Plt Count 77 L Neut % (Auto) 92 H Lymph % (Auto) 5 L [place] % (Auto) 2 Eos % (Auto) 0 Baso % (Auto) 0 Neut # (Auto) 7.1 Lymph # (Auto) 0.4 L [place] # (Auto) 0.2 Eos # (Auto) 0.0 Baso # (Auto) 0.0 Immature Gran # (Auto) 0.02 H Absolute Nucleated RBC 0.03 H Immature Gran % 0 Nucleated RBC % 0 APTT 81.5 H D Puncture Site Left Radial ABG pH 7.46 H ABG pCO2 38 ABG pO2 100 D ABG HCO3 27 H ABG O2 Saturation 99 H ABG Base Excess 3 FiO2 25 Sodium 137 Potassium 2.7 L* D Chloride 99 Carbon Dioxide 27.0 Anion Gap 11 BUN 49 H Creatinine 1.6 H Estim Creat Clear Calc 31.4 L eGFR 38 L BUN/Creatinine Ratio 31 H Glucose 171 H Calculated Osmolality 290 Calcium 8.6 Corrected Calcium Phosphorus Albumin Misc Test Result Platelets confirmed 07/13/24 07/13/24 07/13/24 08:16 11:33 15:18 WBC RBC Hgb Hct MCV MCH MCHC RDW Std Deviation Plt Count Neut % (Auto) Lymph % (Auto) [place] % (Auto) Eos % (Auto) Baso % (Auto) Neut # (Auto) Lymph # (Auto) [place] # (Auto) Eos # (Auto) Baso # (Auto) Immature Gran # (Auto) Absolute Nucleated RBC Immature Gran % Nucleated RBC % APTT 65.4 H D 58.1 H Puncture Site ABG pH ABG pCO2 ABG pO2 ABG HCO3 ABG O2 Saturation ABG Base Excess FiO2 Sodium 135 L Potassium 4.6 D Chloride 99 Carbon Dioxide 24.7 Anion Gap 11 BUN 50 H Creatinine 1.6 H Estim Creat Clear Calc 31.4 L eGFR 38 L BUN/Creatinine Ratio 31 H Glucose 213 H Calculated Osmolality 289 Calcium 8.5 Corrected Calcium 8.6 Phosphorus 3.5 Albumin 3.9 D Misc Test Result ABG Interpretation ABG results: 07/11/24 07/12/24 07/12/24 22:53 01:05 03:33 ABG pH 7.24 L 7.16 L* 7.44 D ABG pCO2 53 H 61 H 34 D ABG pO2 101 64 L D 426 H D ABG HCO3 23 22 24 ABG O2 Saturation 97 84 L 102 H ABG Base Excess -5 L -7 L -1 07/13/24 05:22 ABG pH 7.46 H ABG pCO2 38 ABG pO2 100 D ABG HCO3 27 H ABG O2 Saturation 99 H ABG Base Excess 3 Quality Measures Quality Measures none Assessment & Plan Assessment Current Active Medications: Generic Name Dose Route Start Last Admin Trade Name Freq PRN Reason Stop Dose Admin Dextrose 25 ml 07/11/24 19:55 Dextrose 50%-Water Inj 50 Ml Syringe IV 08/10/24 19:54 Q15MIN PRN BG 50-70 responsive npo pt Dextrose 50 ml 07/11/24 19:55 Dextrose 50%-Water Inj 50 Ml Syringe IV 08/10/24 19:54 Q15MIN PRN BG <50 OR BG <70 & pt unresponsive Glucagon 1 mg 07/11/24 19:55 Glucagon Inj 1 Mg Vial IM Q15MIN PRN BG <70, and no IV access Heparin Sodium/Dextrose 25,000 unit in 250 mls @ 6.26 mls/hr 07/11/24 08:45 07/13/24 16:21 Heparin In D5w Ivpb IV 07/25/24 08:44 1 units/kg/hr .Q24H SAVANNAH 0.522 mls/hr Titration Protocol 12 UNITS/KG/HR Albumin Human 25 gm in 100 mls @ 100 mls/hr 07/11/24 18:45 07/13/24 13:08 Albuminar-25 Ivpb IV 07/14/24 18:44 100 mls/hr TID SAVANNAH Administration Fentanyl Citrate 2,500 mcg in 250 mls @ 2.5 mls/hr 07/12/24 01:57 07/13/24 16:00 Sublimaze Inj 2,500 Mcg/250 Ml Bag IV 07/17/24 01:56 25 mcg/hr .Q24H PRN 2.5 mls/hr PER PROTOCOL Titration Protocol 25 MCG/HR Propofol 1,000 mg in 100 mls @ 1.565 mls/hr 07/12/24 01:57 07/12/24 09:04 Diprivan Ivpb IV 08/11/24 01:56 0 mcg/kg/min .Q24H PRN 0 mls/hr PER PROTOCOL Titration Protocol 5 MCG/KG/MIN Norepinephrine/Dextrose 8 mg in 250 mls @ 4.89 mls/hr 07/12/24 03:56 Levophed In D5w 8mg/250ml IV 08/11/24 03:55 .Q24H PRN PER PROTOCOL Protocol 0.05 MCG/KG/MIN Dobutamine HCl/Dextrose 500 mg in 250 mls @ 4.358 mls/hr 07/12/24 09:48 07/13/24 15:00 Dobutrex/D5w Ivpb IV 08/11/24 09:32 0 mcg/kg/min .Q24H PRN 0 mls/hr PER PROTOCOL Titration Protocol 2.5 MCG/KG/MIN Dexmedetomidine/Sodium Chloride 400 mcg in 100 mls @ 2.905 mls/hr 07/12/24 10:35 Precedex Ivpb IV 08/11/24 10:34 .Q24H PRN Per PROTOCOL Protocol 0.2 MCG/KG/HR Octreotide Acetate 1,000 mcg/ 252 mls @ 12.6 mls/hr 07/13/24 09:15 07/13/24 09:54 Sodium Chloride IV 08/12/24 09:14 50 mcg/hr .Q20H SAVANNAH 12.6 mls/hr Administration Protocol 50 MCG/HR Amiodarone HCl/Dextrose 360 mg in 200 mls @ 16.667 mls/hr 07/13/24 16:40 Nexterone Ivpb IV 07/14/24 16:39 .Q12H SAVANNAH Bumetanide 10 mg/ IV 40 mls @ 4 mls/hr 07/13/24 18:00 Miscellaneous Supplies IV 07/14/24 03:59 .Q10H SAVANNAH 1 MG/HR Norepinephrine/Dextrose 8 mg in 250 mls @ 5.456 mls/hr 07/13/24 16:53 07/13/24 17:16 Levophed In D5w 8mg/250ml IV 08/12/24 16:52 0.07 mcg/kg/min .Q24H PRN 7.639 mls/hr PER PROTOCOL Titration Protocol 0.05 MCG/KG/MIN Insulin Human Lispro 0 unit 07/12/24 12:00 07/13/24 17:27 Insulin Lispro (Admelog) 1 Unit/0.01 Ml Unit SC 08/11/24 11:59 2 unit Q6HR SAVANNAH Administration Protocol Midazolam HCl 2 mg 07/12/24 12:03 07/13/24 15:31 Midazolam Inj 1 Mg/Ml Vial 2 Ml IV 07/17/24 12:02 2 mg Q1HR PRN Administration AGITATION OR ANXIETY Midodrine 10 mg 07/13/24 14:00 07/13/24 13:05 Midodrine 5 Mg Tablet PO 08/12/24 13:59 10 mg TID SAVANNAH Administration Pantoprazole Sodium 40 mg 07/12/24 09:00 07/13/24 08:15 Pantoprazole Inj 40 Mg Vial IVP 08/11/24 08:59 40 mg QDAY SAVANNAH Administration Plan Patient is a 53-year-old female with a past medical history of NIDDM, embolic CVA, LV mural thrombus and decompensated cirrhosis with portal hypertension. Patient was BIBA by her daughter who noticed bright red blood per rectum upon changing her diaper. Patient was admitted for workup and management of hypotension and generalized weakness. Nephrology was consulted for anasarca secondary to hepatorenal syndrome. 1. Hepatorenal syndrome Likely type II as patient has diuretic resistant ascites Patient has history of decompensated cirrhosis with ascites. On presentation patient was hypotensive with MAP in low 60s and required upgrade to ICU for vaso pressors Echocardiogram showed ejection fraction 20%- Dr. Yunier Sorto. Patient was started on dobutamine after improvement in urine output Currently BP 80/63 MAP 68 on Dobutamine and Norad Infusion Abdo ultrasound confirms fatty liver 12.9 cm I 1536 cc O 2155 cc Balance -618 cc Plan: - Strict I/O ? Continue albumin infusion ? Continue Bumex infusion for diuresis ? Continue vasopressor support [terlipressin not available in [place]] ? Continue midodrine for blood pressure support ? Continue octreotide infusion for splanchnic vasoconstriction ? Thank you for the opportunity to participate in patient's care. ? Nephrology will closely monitor this case. 2. PHILL - improving Likely prerenal secondary to hypoperfusion Patient was hypotensive on admission with MAP in low 60s [07/12] Cr 1.8 BUN 51 ----> [07/12 Cr 1.6 BUN 50 Plan: ? Blood pressure support to maintain adequate perfusion of kidney 3. 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 bili 2.4 Normocytic anemia Thrombocytopenia GI bleed for investigation UTI History of embolic CVA NIDDM LV mural thrombus-on heparin drip. Plan: ? Continue management as per primary team Thank you for allowing us to participate in this patient's care. Plan of care discussed with attending Watch Technician, Dr Caren Egan MD PGY 1 Attending Provider Attestation/Addendum Patient seen and examined with resident physician Dr. Egan. Note reviewed, agree with findings and recommendations. Patient currently seen in ICU Continue with Bumex today along with dobutamine and pressors. Critical care time spent more than 35 minutes regarding plan of care and disease management. Spoke to family. Plan of care discussed with ICU team. Prognosis still remains guarded.
[2024-07-13] MEDS: BUMETANIDE INJ 10 MG in CONTAINER,EMPTY 50 ML 1 BAG 4 MG IV (17:37)
[2024-07-13] MEDS: AMIODARONE 360 MG IVPB 360 MG/200 ML BAG 16.667 MG IV (18:10)
--- NOTE | 2024-07-13 18:16 | PC.NURSE ---
Dr. Roman aware of low U/O. 10 ml last two hours
--- NOTE | 2024-07-13 19:01 | PC.NURSE ---
1700 Md Carey made aware that the patient output dropped to 30 cc and less an hour. stated he will review the patients chart and make changes
--- NOTE | 2024-07-13 22:26 | PC.NURSE ---
MD MARK made aware of low urine output. is already aware of the trending low urine output and no new orders were given at this time.
[2024-07-14] VITALS (103 sets, daily range): BP systolic 87–111; BP diastolic 63–75; PULSE 69–113; RESP 12–94; TEMP 36.6–37.2; O2SAT 94–100; BMI 22.9
[2024-07-14] MEDS: INSULIN LISPRO (AdmeLOG) 1 UNIT/0.01 ML UNIT SC ×2 (00:24→05:32)
[2024-07-14] MEDS: BUMETANIDE INJ 10 MG in CONTAINER,EMPTY 50 ML 1 BAG 2 MG IV (04:45)
[2024-07-14 04:47] LABS: Base Excess -2 (-3-3); HCO3 23 mEq/L (20-26); Inspired Oxygen, FIO2 30 %; O2 Saturation 89 % (91-98); PCO2 37 mmHg (32.0-48.0)
[2024-07-14 04:50] LABS: Allen Test Performed/OK; PO2 58 mmHg (83-108); Puncture Site Right Radial
[2024-07-14] MEDS: MIDODRINE 5 MG TABLET 10 MG PO ×3 (05:07→21:04)
[2024-07-14] MEDS: ALBUMIN HUMAN 25% IVPB 25 GM/100 ML BTL IV ×2 (05:08→14:37)
[2024-07-14 05:24] LABS: Basophils % (Auto) 0 % (0-2.5); Eosinophils % (Auto) 0 % (0-10); Hematocrit 25.9 % (36.0-46.0); Immature Granulocytes % (Auto) 1 % (0-0); Immature Granulocytes Auto 0.06 Thou/mm3 (0.00-0.00); Lymphocytes # (Auto) 1.2 Thou/mm3 (1.0-4.8); Lymphocytes % (Auto) 9 % (10-50); Mean Corpuscular HGB Conc 29.7 g/dl (31.0-37.0); Mean Corpuscular Volume 94 fL (80-100); Monocytes # (Auto) 0.7 Thou/mm3 (0.0-0.8); Monocytes % (Auto) 6 % (0-12); Neutrophils # (Auto) 10.4 Thou/mm3 (1.8-7.7); Neutrophils % (Auto) 84 % (37-80); Nucleated Red Blood Cell # 0.16 Thou/mm3 (0.00-0.00); Nucleated Red Blood Cell % 1 /100 WBC (0); Platelet Count 100 Thou/mm3 (140-440); Red Blood Count 2.75 Miln/mm3 (4.00-5.20); White Blood Count 12.3 Thou/mm3 (3.6-11.0)
[2024-07-14 05:25] LABS: Hemoglobin 7.7 g/dL (12.0-16.0)
[2024-07-14 05:51] LABS: Partial Thromboplastin Time 57.1 Seconds (22.0-36.0)
--- NOTE | 2024-07-14 06:00 | XR_ITS ---
Examination: AP chest single view Technique one AP portable supine chest single view Exam date and time: July 14, 2024 0605 hrs. Comparison July 13, 2024 Indications: Hypoxic respiratory failure, pneumonia ARDS this week post intubation Findings: Enlarged cardiac contour with prominent vascular congestion and extensive edema and/or pneumonia bilaterally Layered significant right pleural fluid Endotracheal tube tip 5 cm above sophia Orogastric tube in the stomach Right internal jugular central line tip SVC no pneumothorax Impression: Prominent heart failure Extensive pneumonia and edema bilaterally with layered right pleural fluid
[2024-07-14 06:19] LABS: Alanine Aminotransferase 17 U/L (10-49); Albumin/Globulin Ratio 1.8 (1.2-2.2); Alkaline Phosphatase 93 U/L (46-116); Anion Gap 16 (7-16); Aspartate Amino Transferase 15 U/L (0-34); BUN/Creatinine Ratio 28 Ratio (12-20); Bilirubin,Total 1.9 mg/dL (0.3-1.2); Blood Urea Nitrogen 50 mg/dL (9-23); Calcium 8.6 mg/dL (8.3-10.6); Calcium (Corrected) 8.6 mg/dL (8.5-10.1); Carbon Dioxide 19.5 mMol/L (20.0-31.0); Chloride 100 mMol/L (98-107); Creatinine (Component) 1.8 mg/dL (0.6-1.3); Estimated Creatinine Clearance 29.2 mL/min (>60); Globulin 2.2 gm/dL (2.3-3.5); Glucose 176 mg/dL (74-106); Magnesium 1.8 mg/dL (1.6-2.6); Osmolality,Calculated 287 (275-295); Potassium 4.8 mMol/L (3.4-5.1); Sodium 135 mMol/L (136-145); Total Protein 6.2 gm/dL (5.7-8.2); eGFR 33 See Note
[2024-07-14] MEDS: OCTREOTIDE ACET IV (08:19)
[2024-07-14] MEDS: SODIUM CHLORIDE 0.9% IV (08:19)
[2024-07-14] MEDS: AMIODARONE 360 MG IVPB 360 MG/200 ML BAG 16.667 MG IV (08:20)
[2024-07-14] MEDS: PANTOPRAZOLE INJ 40 MG VIAL IVP (08:20)
--- NOTE | 2024-07-14 08:41 | ESPR_ITS ---
Documentation for date of: 07/14/24 Subjective Subjective Interval history: Patient is a 53-year-old female with a past medical history of NIDDM, embolic CVA, LV mural thrombus and decompensated cirrhosis with portal hypertension. Patient was BIBA by her daughter who noticed bright red blood per rectum upon changing her diaper. Patient was admitted for workup and management of hypotension and generalized weakness. Last month patient presented to the ED with difficulty standing, slurred speech, facial droop and was diagnosed with an embolic stroke. Incidentally a CBD stone was identified on imaging. Patient was transferred from the ED to [facility] for possible ERCP. Patient also had previous admission to [facility] for hyponatremia and hypotension with ICU stay. Patient's baseline is bedbound, but able to verbalize. ED course: Patient was hypotensive and tachycardic on presentation BP 86/65, MAP 72 HR 102. Labs were significant for normocytic anemia, CR 1.8, BUN 47. Urinalysis was significant for 1+ protein, 3+ blood, LE positive, WBC 358 On imaging Abd US: Fatty liver 12.9 cm Nephrology was consulted for anasarca secondary to likely hepatorenal syndrome. 07/13/2024 Patient seen and examined in ICU this a.m. Patient's sedated, intubated and mechanically ventilated. Patient is on dobutamine, noradrenaline infusion, albumin IV, octreotide infusion. I 1536 cc O 2155 cc Balance -618 cc Recommend Bumex IV. Guarded prognosis 07/14/2024 Patient seen and examined in ICU this a.m. Patient's sedated, intubated and mechanically ventilated. Patient is on dobutamine, noradrenaline infusion, albumin IV, octreotide infusion. I 2397 cc O 980 cc Balance +1417 cc For Goals of care discussion with family today. Guarded prognosis To continue Diuretic Challenge, Can possibly attempt Low flow Dialysis. Exam Vital Signs Temp Pulse Resp BP Pulse Ox O2 Del Method O2 Flow Rate 98.6 F 106 H 18 94/70 99 Mechanical Ventilation 4 07/14/24 08:00 07/14/24 08:30 07/12/24 18:56 07/14/24 08:30 07/14/24 08:30 07/13/24 18:00 07/11/24 23:45 FiO2 30 07/14/24 07:50 Narrative Exam Constitutional Intubated and mechanically ventilated. HEENT Trachea midline. Respiratory Right IJ catheter insitu. B/L crackles auscultated Cardiovascular S1 and S2 audible, RRR. No murmurs or carotid bruit. No gross JVD. Abdominal Distended and edematous - improving Musculoskeletal Decreased tone throughout. 3+ LE edema Neurological Patient sedated and mechanically ventillated Objective Labs 07/15/24 05:00 07/15/24 05:00 Labs: Laboratory Results - last 24 hr 07/13/24 07/13/24 07/13/24 04:30 08:16 11:33 WBC RBC Hgb Hct MCV MCH MCHC RDW Std Deviation Plt Count Neut % (Auto) Lymph % (Auto) [place] % (Auto) Eos % (Auto) Baso % (Auto) Neut # (Auto) Lymph # (Auto) [place] # (Auto) Eos # (Auto) Baso # (Auto) Immature Gran # (Auto) Absolute Nucleated RBC Immature Gran % Nucleated RBC % APTT 65.4 H D Puncture Site ABG pH ABG pCO2 ABG pO2 ABG HCO3 ABG O2 Saturation ABG Base Excess FiO2 Sodium 135 L Potassium 4.6 D Chloride 99 Carbon Dioxide 24.7 Anion Gap 11 BUN 50 H Creatinine 1.6 H Estim Creat Clear Calc 31.4 L eGFR 38 L BUN/Creatinine Ratio 31 H Glucose 213 H Calculated Osmolality 289 Calcium 8.5 Corrected Calcium 8.6 Phosphorus 3.5 Magnesium Total Bilirubin AST ALT Alkaline Phosphatase Total Protein Albumin 3.9 D Globulin Albumin/Globulin Ratio Misc Test Result Platelets confirmed 07/13/24 07/14/24 07/14/24 15:18 04:33 04:54 WBC 12.3 H D RBC 2.75 L Hgb 7.7 L Hct 25.9 L MCV 94 MCH 28.0 MCHC 29.7 L RDW Std Deviation 63.0 H Plt Count 100 L D Neut % (Auto) 84 H Lymph % (Auto) 9 L [place] % (Auto) 6 Eos % (Auto) 0 Baso % (Auto) 0 Neut # (Auto) 10.4 H Lymph # (Auto) 1.2 [place] # (Auto) 0.7 Eos # (Auto) 0.0 Baso # (Auto) 0.0 Immature Gran # (Auto) 0.06 H Absolute Nucleated RBC 0.16 H Immature Gran % 1 H Nucleated RBC % 1 H APTT 58.1 H 57.1 H Puncture Site Right Radial ABG pH 7.40 ABG pCO2 37 ABG pO2 58 L* D ABG HCO3 23 ABG O2 Saturation 89 L ABG Base Excess -2 FiO2 30 Sodium 135 L Potassium 4.8 Chloride 100 Carbon Dioxide 19.5 L Anion Gap 16 BUN 50 H Creatinine 1.8 H Estim Creat Clear Calc 29.2 L eGFR 33 L BUN/Creatinine Ratio 28 H Glucose 176 H Calculated Osmolality 287 Calcium 8.6 Corrected Calcium 8.6 Phosphorus 4.0 Magnesium 1.8 Total Bilirubin 1.9 H D AST 15 ALT 17 Alkaline Phosphatase 93 D Total Protein 6.2 Albumin 4.0 Globulin 2.2 L Albumin/Globulin Ratio 1.8 Misc Test Result ABG Interpretation ABG results: 07/11/24 07/12/24 07/12/24 22:53 01:05 03:33 ABG pH 7.24 L 7.16 L* 7.44 D ABG pCO2 53 H 61 H 34 D ABG pO2 101 64 L D 426 H D ABG HCO3 23 22 24 ABG O2 Saturation 97 84 L 102 H ABG Base Excess -5 L -7 L -1 07/13/24 07/14/24 05:22 04:33 ABG pH 7.46 H 7.40 ABG pCO2 38 37 ABG pO2 100 D 58 L* D ABG HCO3 27 H 23 ABG O2 Saturation 99 H 89 L ABG Base Excess 3 -2 Quality Measures Quality Measures none Assessment & Plan Assessment Current Active Medications: Generic Name Dose Route Start Last Admin Trade Name Freddieq PRN Reason Stop Dose Admin Dextrose 25 ml 07/11/24 19:55 Dextrose 50%-Water Inj 50 Ml Syringe IV 08/10/24 19:54 Q15MIN PRN BG 50-70 responsive npo pt Dextrose 50 ml 07/11/24 19:55 Dextrose 50%-Water Inj 50 Ml Syringe IV 08/10/24 19:54 Q15MIN PRN BG <50 OR BG <70 & pt unresponsive Glucagon 1 mg 07/11/24 19:55 Glucagon Inj 1 Mg Vial IM Q15MIN PRN BG <70, and no IV access Heparin Sodium/Dextrose 25,000 unit in 250 mls @ 6.26 mls/hr 07/11/24 08:45 07/14/24 08:31 Heparin In D5w Ivpb IV 07/25/24 08:44 Not Given .Q24H SAVANNAH Protocol 12 UNITS/KG/HR Albumin Human 25 gm in 100 mls @ 100 mls/hr 07/11/24 18:45 07/14/24 05:08 Albuminar-25 Ivpb IV 07/14/24 18:44 100 mls/hr TID SAVANNAH Administration Fentanyl Citrate 2,500 mcg in 250 mls @ 2.5 mls/hr 07/12/24 01:57 07/14/24 06:45 Sublimaze Inj 2,500 Mcg/250 Ml Bag IV 07/17/24 01:56 0 mcg/hr .Q24H PRN 0 mls/hr PER PROTOCOL Titration Protocol 25 MCG/HR Propofol 1,000 mg in 100 mls @ 1.565 mls/hr 07/12/24 01:57 07/12/24 09:04 Diprivan Ivpb IV 08/11/24 01:56 0 mcg/kg/min .Q24H PRN 0 mls/hr PER PROTOCOL Titration Protocol 5 MCG/KG/MIN Dobutamine HCl/Dextrose 500 mg in 250 mls @ 4.358 mls/hr 07/12/24 09:48 07/13/24 15:00 Dobutrex/D5w Ivpb IV 08/11/24 09:32 0 mcg/kg/min .Q24H PRN 0 mls/hr PER PROTOCOL Titration Protocol 2.5 MCG/KG/MIN Dexmedetomidine/Sodium Chloride 400 mcg in 100 mls @ 2.905 mls/hr 07/12/24 10:35 Precedex Ivpb IV 08/11/24 10:34 .Q24H PRN Per PROTOCOL Protocol 0.2 MCG/KG/HR Octreotide Acetate 1,000 mcg/ 252 mls @ 12.6 mls/hr 07/13/24 09:15 07/14/24 08:19 Sodium Chloride IV 08/12/24 09:14 50 mcg/hr .Q20H SAVANNAH 12.6 mls/hr Administration Protocol 50 MCG/HR Amiodarone HCl/Dextrose 360 mg in 200 mls @ 16.667 mls/hr 07/13/24 16:40 07/14/24 08:20 Nexterone Ivpb IV 07/14/24 16:39 16.667 mls/hr .Q12H SAVANNAH Administration Norepinephrine/Dextrose 8 mg in 250 mls @ 5.456 mls/hr 07/13/24 16:53 07/14/24 06:00 Levophed In D5w 8mg/250ml IV 08/12/24 16:52 0.05 mcg/kg/min .Q24H PRN 5.456 mls/hr PER PROTOCOL Titration Protocol 0.05 MCG/KG/MIN Bumetanide 10 mg/ IV 40 mls @ 2 mls/hr 07/14/24 04:21 07/14/24 04:45 Miscellaneous Supplies IV 07/15/24 00:20 0.5 mg/hr .Q20H SAVANNAH 2 mls/hr Administration 0.5 MG/HR Insulin Human Lispro 0 unit 07/12/24 12:00 07/14/24 05:32 Insulin Lispro (Admelog) 1 Unit/0.01 Ml Unit SC 08/11/24 11:59 2 unit Q6HR SAVANNAH Administration Protocol Midazolam HCl 2 mg 07/12/24 12:03 07/13/24 15:31 Midazolam Inj 1 Mg/Ml Vial 2 Ml IV 07/17/24 12:02 2 mg Q1HR PRN Administration AGITATION OR ANXIETY Midodrine 10 mg 07/13/24 14:00 07/14/24 05:07 Midodrine 5 Mg Tablet PO 08/12/24 13:59 10 mg TID SAVANNAH Administration Pantoprazole Sodium 40 mg 07/12/24 09:00 07/14/24 08:20 Pantoprazole Inj 40 Mg Vial IVP 08/11/24 08:59 40 mg QDAY SAVANNAH Administration Plan Patient is a 53-year-old female with a past medical history of NIDDM, embolic CVA, LV mural thrombus and decompensated cirrhosis with portal hypertension. Patient was BIBA by her daughter who noticed bright red blood per rectum upon changing her diaper. Patient was admitted for workup and management of hypotension and generalized weakness. Nephrology was consulted for anasarca secondary to hepatorenal syndrome. 1. Hepatorenal syndrome Likely type II as patient has diuretic resistant ascites Patient has history of decompensated cirrhosis with ascites. On presentation patient was hypotensive with MAP in low 60s and required upgrade to ICU for vaso pressors Echocardiogram showed ejection fraction 20%- Dr. Yunier Sorto. Patient was started on dobutamine after improvement in urine output Currently BP 87/67 MAP 73 on Dobutamine and Norad Infusion Ddx : Cardiorenal syndrome Abdo ultrasound confirms fatty liver 12.9 cm I 2397 cc O 980 cc Balance +1417 cc Plan: - Strict I/O ? Continue albumin infusion ? Continue Bumex infusion for diuresis ? Continue vasopressor support [terlipressin not available in [place]] ? Continue midodrine for blood pressure support ? Continue octreotide infusion for splanchnic vasoconstriction - Possible Low flow dialysis pending goals of care discussion with family ? Thank you for the opportunity to participate in patient's care. ? Nephrology will closely monitor this case. 2. PHILL - worsening Likely prerenal secondary to hypoperfusion Patient was hypotensive on admission with MAP in low 60s [07/12] Cr 1.8 BUN 51 ----> [07/13] Cr 1.8 BUN 50 Plan: ? Blood pressure support to maintain adequate perfusion of kidney 3. 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 bili 2.4 Normocytic anemia Thrombocytopenia GI bleed for investigation UTI History of embolic CVA NIDDM LV mural thrombus-on heparin drip. Plan: ? Continue management as per primary team Thank you for allowing us to participate in this patient's care. Plan of care discussed with attending [place] Press Operator, Dr Caren Egan MD PGY 1 Attending Provider Attestation/Addendum Patient seen and examined with resident physician Dr. Egan. Note reviewed, agree with findings and recommendations. Despite Bumex drip her urine output seems to be declining. Noted family discussion for goals of care scheduled today. Prognosis remains poor. Family requesting all aggressive measures-will try low flow dialysis/ultrafiltration as patient remains in fluid overload/anasarca.
--- NOTE | 2024-07-14 09:36 | ESPR_ITS ---
<Statement entered by Michelle Rucker MD - 07/15/24 13:59> TOTAL CC TIME: 45 MIN I saw and evaluated the patient. I reviewed the resident?s note and agree with findings and plan as documented in the resident?s note. Upon my evaluation, this patient had a high probability of imminent or life- threatening deterioration due to multisystem organ dysfunction including cirrhosis, renal failure, respiratory failure, pulmonary edema, severe systolic congestive heart failure which required my direct attention, intervention, and personal management. This time is exclusive of time spent on procedures, which are documented separately if performed. Critical care interventions include mechanical ventilation, Bumex drip, vasopressor medication delivery Documentation for date of: 07/14/24 Subjective Subjective Interval history: Patient is a Andorran only speaker, 53-year-old female with a past medical history of diabetes mellitus type 2, embolic CVA, LV mural thrombus, liver cirrhosis, and amyloidosis, who was brought into the emergency room due to concern for bright red bleeding per rectum. Patient started noted spots of bright red blood when changing the patient's diaper. Daughter reported, patient has become progressively too weak and bedbound following the stroke. They noted some bright red spots when changing the patient's diaper, and when cleaning her noticed bright light blood oozing out of her rectum. Denied having any black stools, or blood mixed with stools. Denied history of diarrhea, vomiting, fever. Patient was initially admitted to the medical floor, but later upgraded to ICU due to concern for hypotension, MAP in the low 60s. There was concern for adrenal insufficiency, patient was started on hydrocortisone with no improvement of blood pressure. Patient had normal cortisol and ACTH level on previous admission. Patient was transferred to [facility] recently for possible ERCP due to choledocholithiasis, pending medical records from [facility], unsure if ERCP was done, but discharge documents show that patient was discharged with Eliquis, empagliflozin, furosemide and metoprolol. ED course: Initial labs pertinent for normocytic anemia, mild hyponatremia sodium 132, PHILL, BUN 47, creatinine 1.8, EGFR 33, baseline GFR seems to be around 53, BUN/creatinine ratio more than 20, lactic acid 3.9, T. bili 2.4, AST 40, ALT 36, alk phos 131, ammonia less than 10, mild troponin elevation 0.222, BNP 740, elevated Pro-Justice 7.21, lipase 88. Urinalysis consistent with UTI, stool occult was negative. Imaging studies include chest x-ray which shows bilateral significant pneumonia, EKG shows a flutter with RVR and right bundle branch block, ultrasound abdomen shows cholelithiasis and enlarged common bile duct 0.7, of note patient has no abdominal/right upper quadrant symptoms including pain or tenderness. The patient was admitted to the medical floor, with upgraded to ICU. 07/12/24 Patient evaluated bedside, labs and overnight events as reviewed, overnight patient was hypotensive and central line was placed for IV pressor support, but patient blood pressure improved, Levophed was withheld, patient also developed bradypnea following postprocedural sedation,, received 1 mg IV Dilaudid, respiratory rate decreased to 7/min along with hypoxia, requiring intubation and mechanical ventilation. This a.m. patient noted to be tolerating mechanical ventilation well, saturating at goal on 30% FiO2, PEEP of 5, will plan to continue with ventilation given patient's significant fluid overload, as patient may require reintubation due to significant pulmonary congestion in the setting of hepatorenal/cardiorenal syndrome. We will try to aggressively diurese the patient, last night patient had 1200 mL urine output despite Lasix drip, IV albumin 75 g and octreotide. Nephrology was consulted, nephro recommended switching to Bumex drip at 2 Mg per hour, vasopressor support to help with renal perfusion. Patient was started on dobutamine for inotropic support. Bedside echocardiogram was done which showed apical LV thrombus, global hypokinesis with severely reduced ejection fraction, cardiology recommended continuing heparin drip and continued aggressive IV diuresis. Repeat echocardiogram ordered. 07/13/24 patient evaluated bedside, RASS of -2, sedation was titrated down patient was able to wake up and move both upper limbs spontaneously, but unable to comply with instructions also respiratory rate low, continued on sedation for continued mechanical ventilation, patient not ready for extubation today. Patient was started on dobutamine for cardiorenal syndrome, but developed tachycardia heart rate in the 140s A-fib RVR, dobutamine was discontinued. Started on IV phenylephrine, but due to continued hypotension, vasopressor was changed to Levophed to help with improving blood pressure as well as renal perfusion, as patient is currently on Bumex drip but urine output less than goal 100 cc an hour. IV amiodarone started for A-fib RVR. Family updated about guarded prognosis. 07/14/24 Sedation was turned off, spontaneous breathing trial was done, goals of care discussion with family was done in the setting of end-stage liver disease and severe cardiomyopathy with inadequete urine production. Guarded prognosis of patient, possibility of aggressive intervention with hemodialysis/ultrafiltration, risks of prolonged sedation with intubation and mechanical ventilation, risk of line infections and discomfort, were explained. Their questions and concerns were answered. Family was explained that patient may be able to be weaned off ventilator, but risk of immediate reintubation is high due to end-stage organ failures, and complications of treatment. Patient's daughter Rachel was decided to be the decision-maker by the family, and new POLST form was signed. Patient continues to be DNR status, selective treatment only no chest compressions. Family decided that they would like to wait on their son who was in the and will be here on Friday, before extubation. Family's wishes were respected and patient is resumed on sedation and mechanical ventilation. Family decided against Hemodialysis, Will continue with Bumex drip for continued diuresis as possible, continue with amiodarone for rate control and Levophed to improve cardiac output. Exam Vital Signs Temp Pulse Resp BP Pulse Ox O2 Del Method O2 Flow Rate 98.6 F 106 H 18 91/66 99 Mechanical Ventilation 4 07/14/24 08:00 07/14/24 09:00 07/12/24 18:56 07/14/24 09:00 07/14/24 09:00 07/13/24 18:00 07/11/24 23:45 FiO2 30 07/14/24 07:50 Narrative Exam General: currently sedated and mechanically ventilated Skin: Intact, no cyanosis , anasarca noted. HEENT: Atraumatic/normocephalic, RUPINDER, neck supple Heart: irregular, S1 and S2 without clicks or murmurs Lungs: bilateral rhochi Abdomen: Soft, nontender. Bowel sounds present . Vascular: Peripheral pulses palpable Neuro: RAAS -2 Objective Labs 07/14/24 04:54 07/14/24 04:54 Labs: Laboratory Results - last 24 hr 07/13/24 07/13/24 07/13/24 04:30 11:33 15:18 WBC RBC Hgb Hct MCV MCH MCHC RDW Std Deviation Plt Count Neut % (Auto) Lymph % (Auto) [place] % (Auto) Eos % (Auto) Baso % (Auto) Neut # (Auto) Lymph # (Auto) [place] # (Auto) Eos # (Auto) Baso # (Auto) Immature Gran # (Auto) Absolute Nucleated RBC Immature Gran % Nucleated RBC % APTT 58.1 H Puncture Site ABG pH ABG pCO2 ABG pO2 ABG HCO3 ABG O2 Saturation ABG Base Excess FiO2 Sodium 135 L Potassium 4.6 D Chloride 99 Carbon Dioxide 24.7 Anion Gap 11 BUN 50 H Creatinine 1.6 H Estim Creat Clear Calc 31.4 L eGFR 38 L BUN/Creatinine Ratio 31 H Glucose 213 H Calculated Osmolality 289 Calcium 8.5 Corrected Calcium 8.6 Phosphorus 3.5 Magnesium Total Bilirubin AST ALT Alkaline Phosphatase Total Protein Albumin 3.9 D Globulin Albumin/Globulin Ratio Misc Test Result Platelets confirmed 07/14/24 07/14/24 04:33 04:54 WBC 12.3 H D RBC 2.75 L Hgb 7.7 L Hct 25.9 L MCV 94 MCH 28.0 MCHC 29.7 L RDW Std Deviation 63.0 H Plt Count 100 L D Neut % (Auto) 84 H Lymph % (Auto) 9 L [place] % (Auto) 6 Eos % (Auto) 0 Baso % (Auto) 0 Neut # (Auto) 10.4 H Lymph # (Auto) 1.2 [place] # (Auto) 0.7 Eos # (Auto) 0.0 Baso # (Auto) 0.0 Immature Gran # (Auto) 0.06 H Absolute Nucleated RBC 0.16 H Immature Gran % 1 H Nucleated RBC % 1 H APTT 57.1 H Puncture Site Right Radial ABG pH 7.40 ABG pCO2 37 ABG pO2 58 L* D ABG HCO3 23 ABG O2 Saturation 89 L ABG Base Excess -2 FiO2 30 Sodium 135 L Potassium 4.8 Chloride 100 Carbon Dioxide 19.5 L Anion Gap 16 BUN 50 H Creatinine 1.8 H Estim Creat Clear Calc 29.2 L eGFR 33 L BUN/Creatinine Ratio 28 H Glucose 176 H Calculated Osmolality 287 Calcium 8.6 Corrected Calcium 8.6 Phosphorus 4.0 Magnesium 1.8 Total Bilirubin 1.9 H D AST 15 ALT 17 Alkaline Phosphatase 93 D Total Protein 6.2 Albumin 4.0 Globulin 2.2 L Albumin/Globulin Ratio 1.8 Misc Test Result ABG Interpretation ABG results: 07/11/24 07/12/24 07/12/24 22:53 01:05 03:33 ABG pH 7.24 L 7.16 L* 7.44 D ABG pCO2 53 H 61 H 34 D ABG pO2 101 64 L D 426 H D ABG HCO3 23 22 24 ABG O2 Saturation 97 84 L 102 H ABG Base Excess -5 L -7 L -1 07/13/24 07/14/24 05:22 04:33 ABG pH 7.46 H 7.40 ABG pCO2 38 37 ABG pO2 100 D 58 L* D ABG HCO3 27 H 23 ABG O2 Saturation 99 H 89 L ABG Base Excess 3 -2 Quality Measures Quality Measures none Assessment & Plan Assessment Current Active Medications: Generic Name Dose Route Start Last Admin Trade Name Freq PRN Reason Stop Dose Admin Dextrose 25 ml 07/11/24 19:55 Dextrose 50%-Water Inj 50 Ml Syringe IV 08/10/24 19:54 Q15MIN PRN BG 50-70 responsive npo pt Dextrose 50 ml 07/11/24 19:55 Dextrose 50%-Water Inj 50 Ml Syringe IV 08/10/24 19:54 Q15MIN PRN BG <50 OR BG <70 & pt unresponsive Glucagon 1 mg 07/11/24 19:55 Glucagon Inj 1 Mg Vial IM Q15MIN PRN BG <70, and no IV access Heparin Sodium/Dextrose 25,000 unit in 250 mls @ 6.26 mls/hr 07/11/24 08:45 07/14/24 08:31 Heparin In D5w Ivpb IV 07/25/24 08:44 Not Given .Q24H SAVANNAH Protocol 12 UNITS/KG/HR Albumin Human 25 gm in 100 mls @ 100 mls/hr 07/11/24 18:45 07/14/24 05:08 Albuminar-25 Ivpb IV 07/14/24 18:44 100 mls/hr TID SAVANNAH Administration Fentanyl Citrate 2,500 mcg in 250 mls @ 2.5 mls/hr 07/12/24 01:57 07/14/24 06:45 Sublimaze Inj 2,500 Mcg/250 Ml Bag IV 07/17/24 01:56 0 mcg/hr .Q24H PRN 0 mls/hr PER PROTOCOL Titration Protocol 25 MCG/HR Propofol 1,000 mg in 100 mls @ 1.565 mls/hr 07/12/24 01:57 07/12/24 09:04 Diprivan Ivpb IV 08/11/24 01:56 0 mcg/kg/min .Q24H PRN 0 mls/hr PER PROTOCOL Titration Protocol 5 MCG/KG/MIN Dobutamine HCl/Dextrose 500 mg in 250 mls @ 4.358 mls/hr 07/12/24 09:48 07/13/24 15:00 Dobutrex/D5w Ivpb IV 08/11/24 09:32 0 mcg/kg/min .Q24H PRN 0 mls/hr PER PROTOCOL Titration Protocol 2.5 MCG/KG/MIN Dexmedetomidine/Sodium Chloride 400 mcg in 100 mls @ 2.905 mls/hr 07/12/24 10:35 Precedex Ivpb IV 08/11/24 10:34 .Q24H PRN Per PROTOCOL Protocol 0.2 MCG/KG/HR Octreotide Acetate 1,000 mcg/ 252 mls @ 12.6 mls/hr 07/13/24 09:15 07/14/24 08:19 Sodium Chloride IV 08/12/24 09:14 50 mcg/hr .Q20H SAVANNAH 12.6 mls/hr Administration Protocol 50 MCG/HR Amiodarone HCl/Dextrose 360 mg in 200 mls @ 16.667 mls/hr 07/13/24 16:40 07/14/24 08:20 Nexterone Ivpb IV 07/14/24 16:39 16.667 mls/hr .Q12H SAVANNAH Administration Norepinephrine/Dextrose 8 mg in 250 mls @ 5.456 mls/hr 07/13/24 16:53 07/14/24 06:00 Levophed In D5w 8mg/250ml IV 08/12/24 16:52 0.05 mcg/kg/min .Q24H PRN 5.456 mls/hr PER PROTOCOL Titration Protocol 0.05 MCG/KG/MIN Bumetanide 10 mg/ IV 40 mls @ 2 mls/hr 07/14/24 04:21 07/14/24 04:45 Miscellaneous Supplies IV 07/15/24 00:20 0.5 mg/hr .Q20H SAVANNAH 2 mls/hr Administration 0.5 MG/HR Insulin Human Lispro 0 unit 07/12/24 12:00 07/14/24 05:32 Insulin Lispro (Admelog) 1 Unit/0.01 Ml Unit SC 08/11/24 11:59 2 unit Q6HR SAVANNAH Administration Protocol Midazolam HCl 2 mg 07/12/24 12:03 07/13/24 15:31 Midazolam Inj 1 Mg/Ml Vial 2 Ml IV 07/17/24 12:02 2 mg Q1HR PRN Administration AGITATION OR ANXIETY Midodrine 10 mg 07/13/24 14:00 07/14/24 05:07 Midodrine 5 Mg Tablet PO 08/12/24 13:59 10 mg TID SAVANNAH Administration Pantoprazole Sodium 40 mg 07/12/24 09:00 07/14/24 08:20 Pantoprazole Inj 40 Mg Vial IVP 08/11/24 08:59 40 mg QDAY SAVANNAH Administration Plan Patient is a Andorran only speaker, 53-year-old female with a past medical history of diabetes mellitus type 2, embolic CVA, LV mural thrombus, liver cirrhosis, and amyloidosis, who was brought into the emergency room due to concern for bright red bleeding per rectum. Patient started noted spots of bright red blood when changing the patient's diaper. Daughter reported, patient has become progressively too weak and bedbound following the stroke. They noted some bright red spots when changing the patient's diaper, and when cleaning her noticed bright light blood oozing out of her rectum. Denied having any black stools, or blood mixed with stools. Denied history of diarrhea, vomiting, fever. Patient was initially admitted to the medical floor, but later upgraded to ICU due to concern for hypotension, MAP in the low 60s. There was concern for adrenal insufficiency, patient was started on hydrocortisone with no improvement of blood pressure. Patient had normal cortisol and ACTH level on previous admission. Patient was transferred to [facility] recently for possible ERCP due to choledocholithiasis, pending medical records from [facility], unsure if ERCP was done, but discharge documents show that patient was discharged with Eliquis, empagliflozin, furosemide and metoprolol. GOALS OF CARE: Sedation was turned off, spontaneous breathing trial was done, goals of care discussion with family was done in the setting of end-stage liver disease and severe cardiomyopathy with inadequete urine production. Guarded prognosis of patient, possibility of aggressive intervention with hemodialysis/ultrafiltration, risks of prolonged sedation with intubation and mechanical ventilation, risk of line infections and discomfort, were explained. Their questions and concerns were answered. Family was explained that patient may be able to be weaned off ventilator, but risk of immediate reintubation is high due to end-stage organ failures, and complications of treatment. Patient's daughter Rachel was decided to be the decision-maker by the family, and new POLST form was signed. Patient continues to be DNR status, selective treatment only no chest compressions. Family decided that they would like to wait on their son who was in the and will be here on Friday, before extubation. Family's wishes were respected and patient is resumed on sedation and mechanical ventilation. Family decided against Hemodialysis, Will continue with Bumex drip for continued diuresis as possible, continue with amiodarone for rate control and Levophed to improve cardiac output. 1.NEURO: #Encephalopathy #History of embolic stroke Sedation was down-titrated and discontinued for a while, patient was arousable, but uncomfortable due to ET tube, unable to follow commands, after goals of care discussion with the family, sedation was resumed, patient will have Next Spontaneous breathing trial and sedation ordered on Friday. 2.CVS: #A-fib/flutter -rate controlled #LV thrombus EKG shows a flutter with RVR, [id number] score 4, 4.8% annualized risk of stroke, LV thrombus now found when pt was transferred to [facility] recently, possibly Post silent myocardial infarction LV thrombus formation. Patient was started on dobutamine for cardiorenal syndrome, but developed tachycardia heart rate in the 140s A-fib RVR, dobutamine was discontinued. ? IV heparin gtt. ? IV amiodarone gtt. ? Link Trainer Maintenance Man Dr. Malone is consulted, appreciate recommendations #Hypotension, Cardiogenic Shock #Differentials: Septic shock, Cardiogenic shock, cirrhosis leading to third spacing of fluid, adrenal insufficiency, Of note patient had a previous echocardiogram, estimated EF more than 55%, no intracardiac thrombus at that time, but now at the bedside echo, findings are concerning for Global hypokinesis, poor RV and LV contractility is evident with an apical LV thrombus, noted IVC at 2.0 cm and no change in size with cardiac contraction, congested portal and hepatic veins with reversal of flow in hepatic veins, VExUS scoe 3 shows severe congestion. ? IV fluid bolus 500 x 1 was given, avoided giving sepsis bolus due to anasarca and diastolic CHF ? midodrine 15 mg 3 times daily ? Initiated Levophed as patient developed A-fib RVR from dobutamine drip, and was hypotensive on phenylephrine #Concern for adrenal insufficiency - ruled out Patient had a history of low blood pressure, was on home midodrine 10 mg 3 times daily, there was also concern for [place]'s disease, but patient cortisol and ACTH levels were normal during previous workup, she was given IV steroids during prior hospital stay and discharged on Medrol dose pack. Cortisol levels around 12, wnl, Hydrocortisone is discontinued. #Type II NSTEMI Minimal troponin elevation 0.2030, currently on heparin drip 3.PULM: #Mechanical Ventilation Patient has fairly low oxygen requirements FiO2 25%, PEEP 5, pt is matching her Ventilation and oxygenation goals. SBT was done ? To be continued on mechanical ventilation until Friday, as per Goals of care discussion, pt is high risk for extubation failure and reintubation, respecting family's wishes we would continue sedation and mechanical ventilation until Friday, and proceed with extubation # Pulmonary edema In the setting of severely low EF 20% and cardiomyopathy, we discontinued antibiotics as pulmonary imaging and clinical condition shows consolidation and congestion more suggestive of fluid overload than infectious process. ? IV Diuresis on bumex drip at 1mg/hr , urine output below goal, proir attempts to increase cardiac output with dobutamine resulted in afib with rvr. currently on levophed. 4.GI: #Concern for lower GI bleed- ruled out Bright red bleeding per rectum, stable hemoglobin at 7 hypotensive on arrival, stool occult was negative in the ER. Patient started on heparin drip due to LV mural thrombus and A-fib and was probably on anticoagulation with Eliquis at home. No per rectal bleed noted during ICU stay ? Cardiology is consulted, currently no evidence of active bleeding, will continue to monitor H&H, consider gastroenterology consult if active GI bleed or drop in hemoglobin ? Type and screen, transfuse if hemoglobin less than 7 #Cirrhosis, Likely secondary to metabolic dysfunction associated steatotic liver disease, MASLD Associated hypoalbuminemia, and hepatorenal syndrome, contributing to PHILL and anasarca. - See renal for details #Choledocholithiasis #Hyperbilirubinemia Prior medical history of Choledocholithiasis and transferred to [facility] for possible ERCP, medical records from [facility] were obtained, reported patient had a repeat MRCP at [facility] which showed no stones in the bile duct, possibly passage of stones had already occurred. No ERCP was performed. ? Imaging findings concerning for CBD dilation, but given extensive workup at [facility] no further intervention is indicated at this point ? Continue supportive treatment 5.Renal: #PHILL, hepatorenal syndrome vs cardiorenal syndrome #Anasarca Differential diagnosis include hepatorenal syndrome versus cardiorenal syndrome Baseline creatinine seems to be around 1.2, currently serum creatinine 1.8, BUN/creatinine ratio more than 20 Patient also has fluid overload anasarca likely secondary to hypoalbuminemia ? IV Albumin 25 g 3 times daily, ? Bumex drip at 1 Mg per hour, vasopressor support to help with renal perfusion. Patient was started on Levophed for inotropic support. ? Octreotide gtt. due to underlying concern of hepatorenal syndrome. ? Midodrine 15mg TID 6.ENDOCRINE: #Concern for adrenal insufficiency- ruled out #History of diabetes mellitus type 2 ? Sliding scale insulin, A1c level ? Hypoglycemia protocol in place 7.Infectious: Stable 8.Heme: #Normocytic anemia Hemoglobin stable at 7.7, continue to monitor H&H, transfuse if Hb <7 Disposition: see goals of care discussion DVT prophylaxis: Heparin gtt GI prophylaxis: protonix Diet: Tube feeds Lines: PIV CODE STATUS: DNR Patient case discussed with attending Dr. Chaim Schwab PGY2
--- NOTE | 2024-07-14 10:43 | PC.SS ---
LOWERATOR OPERATOR met with patient's daughters, Rachel and Gricelda; at patient's bedside. Daughters want to switch medical surrogate decision maker to patient's daughter, Rachel Hunter. Resident confirmed request. POLST form completed confirming patient's DNR status. POLST signed by patient's daughter, Rachel Hunter.
--- NOTE | 2024-07-14 13:26 | ESPR_ITS ---
Documentation for date of: 07/14/24 Subjective Subjective Interval history: 07/14/2024: Patient examined in hospital bed; ICU team turned off sedation for attempted spontaneous breathing trial which was not successful. Patient's family had goals of care discussion ICU team explained that there is high likelihood of reintubation as the patient has pretty extensive endorgan damage. During discussions, patient's daughter Rachel was decided to be the decision- maker by the family, and new POLST form was signed. Family would like to wait for patient's son to be present before taking any further decisions; he is expected to be at the hospital Friday. Family decided against hemodialysis; will continue treatment with IV Bumex for anasarca secondary to likely advanced liver disease. Cardiology continue to follow the case; continue to control atrial fibrillation with rhythm control IV amiodarone, and pressor support. Exam Vital Signs Temp Pulse Resp BP Pulse Ox O2 Del Method O2 Flow Rate 97.8 F 69 18 87/67 L 99 Mechanical Ventilation 4 07/14/24 12:00 07/14/24 12:00 07/12/24 18:56 07/14/24 12:00 07/14/24 12:00 07/13/24 18:00 07/11/24 23:45 FiO2 25 07/14/24 10:07 Narrative Exam General: Ventilated and sedated. Appears cachectic with significant loss of muscle and even in the temporal areas bilaterally Eyes: PERRLA, EOMI, anicteric sclera HEENT: Atraumatic, normocephalic. No JVD noted. MMM Cardiovascular: Normal S1 and S2. +2 pitting peripheral edema to lower extremities Respiratory: On mechanical ventilation lungs are clear to auscultation bilaterally. No wheezing or crackles heard. Abdomen: Abdomen soft but distended, nontender Skin: No rash. Slightly cold to touch. Neuro: Ventilated and sedated; unable to assess neurologic function Objective Labs 07/14/24 04:54 07/14/24 04:54 Labs: Laboratory Results - last 24 hr 07/13/24 07/14/24 07/14/24 15:18 04:33 04:54 WBC 12.3 H D RBC 2.75 L Hgb 7.7 L Hct 25.9 L MCV 94 MCH 28.0 MCHC 29.7 L RDW Std Deviation 63.0 H Plt Count 100 L D Neut % (Auto) 84 H Lymph % (Auto) 9 L [place] % (Auto) 6 Eos % (Auto) 0 Baso % (Auto) 0 Neut # (Auto) 10.4 H Lymph # (Auto) 1.2 [place] # (Auto) 0.7 Eos # (Auto) 0.0 Baso # (Auto) 0.0 Immature Gran # (Auto) 0.06 H Absolute Nucleated RBC 0.16 H Immature Gran % 1 H Nucleated RBC % 1 H APTT 58.1 H 57.1 H Puncture Site Right Radial ABG pH 7.40 ABG pCO2 37 ABG pO2 58 L* D ABG HCO3 23 ABG O2 Saturation 89 L ABG Base Excess -2 FiO2 30 Sodium 135 L Potassium 4.8 Chloride 100 Carbon Dioxide 19.5 L Anion Gap 16 BUN 50 H Creatinine 1.8 H Estim Creat Clear Calc 29.2 L eGFR 33 L BUN/Creatinine Ratio 28 H Glucose 176 H Calculated Osmolality 287 Calcium 8.6 Corrected Calcium 8.6 Phosphorus 4.0 Magnesium 1.8 Total Bilirubin 1.9 H D AST 15 ALT 17 Alkaline Phosphatase 93 D Total Protein 6.2 Albumin 4.0 Globulin 2.2 L Albumin/Globulin Ratio 1.8 ABG Interpretation ABG results: 07/11/24 07/12/24 07/12/24 22:53 01:05 03:33 ABG pH 7.24 L 7.16 L* 7.44 D ABG pCO2 53 H 61 H 34 D ABG pO2 101 64 L D 426 H D ABG HCO3 23 22 24 ABG O2 Saturation 97 84 L 102 H ABG Base Excess -5 L -7 L -1 07/13/24 07/14/24 05:22 04:33 ABG pH 7.46 H 7.40 ABG pCO2 38 37 ABG pO2 100 D 58 L* D ABG HCO3 27 H 23 ABG O2 Saturation 99 H 89 L ABG Base Excess 3 -2 Quality Measures Quality Measures none Assessment & Plan Assessment Current Active Medications: Generic Name Dose Route Start Last Admin Trade Name Freq PRN Reason Stop Dose Admin Dextrose 25 ml 07/11/24 19:55 Dextrose 50%-Water Inj 50 Ml Syringe IV 08/10/24 19:54 Q15MIN PRN BG 50-70 responsive npo pt Dextrose 50 ml 07/11/24 19:55 Dextrose 50%-Water Inj 50 Ml Syringe IV 08/10/24 19:54 Q15MIN PRN BG <50 OR BG <70 & pt unresponsive Glucagon 1 mg 07/11/24 19:55 Glucagon Inj 1 Mg Vial IM Q15MIN PRN BG <70, and no IV access Heparin Sodium/Dextrose 25,000 unit in 250 mls @ 6.26 mls/hr 07/11/24 08:45 07/14/24 08:31 Heparin In D5w Ivpb IV 07/25/24 08:44 Not Given .Q24H SAVANNAH Protocol 12 UNITS/KG/HR Albumin Human 25 gm in 100 mls @ 100 mls/hr 07/11/24 18:45 07/14/24 05:08 Albuminar-25 Ivpb IV 07/14/24 18:44 100 mls/hr TID SAVANNAH Administration Fentanyl Citrate 2,500 mcg in 250 mls @ 2.5 mls/hr 07/12/24 01:57 07/14/24 10:30 Sublimaze Inj 2,500 Mcg/250 Ml Bag IV 07/17/24 01:56 25 mcg/hr .Q24H PRN 2.5 mls/hr PER PROTOCOL Titration Protocol 25 MCG/HR Propofol 1,000 mg in 100 mls @ 1.565 mls/hr 07/12/24 01:57 07/12/24 09:04 Diprivan Ivpb IV 08/11/24 01:56 0 mcg/kg/min .Q24H PRN 0 mls/hr PER PROTOCOL Titration Protocol 5 MCG/KG/MIN Dobutamine HCl/Dextrose 500 mg in 250 mls @ 4.358 mls/hr 07/12/24 09:48 07/13/24 15:00 Dobutrex/D5w Ivpb IV 08/11/24 09:32 0 mcg/kg/min .Q24H PRN 0 mls/hr PER PROTOCOL Titration Protocol 2.5 MCG/KG/MIN Dexmedetomidine/Sodium Chloride 400 mcg in 100 mls @ 2.905 mls/hr 07/12/24 10:35 Precedex Ivpb IV 08/11/24 10:34 .Q24H PRN Per PROTOCOL Protocol 0.2 MCG/KG/HR Octreotide Acetate 1,000 mcg/ 252 mls @ 12.6 mls/hr 07/13/24 09:15 07/14/24 08:19 Sodium Chloride IV 08/12/24 09:14 50 mcg/hr .Q20H SAVANNAH 12.6 mls/hr Administration Protocol 50 MCG/HR Amiodarone HCl/Dextrose 360 mg in 200 mls @ 16.667 mls/hr 07/13/24 16:40 07/14/24 08:20 Nexterone Ivpb IV 07/14/24 16:39 16.667 mls/hr .Q12H SAVANNAH Administration Norepinephrine/Dextrose 8 mg in 250 mls @ 5.456 mls/hr 07/13/24 16:53 07/14/24 12:00 Levophed In D5w 8mg/250ml IV 08/12/24 16:52 0.05 mcg/kg/min .Q24H PRN 5.456 mls/hr PER PROTOCOL Titration Protocol 0.05 MCG/KG/MIN Bumetanide 10 mg/ IV 40 mls @ 2 mls/hr 07/14/24 04:21 07/14/24 04:45 Miscellaneous Supplies IV 07/15/24 00:20 0.5 mg/hr .Q20H SAVANNAH 2 mls/hr Administration 0.5 MG/HR Insulin Human Lispro 0 unit 07/12/24 12:00 07/14/24 12:43 Insulin Lispro (Admelog) 1 Unit/0.01 Ml Unit SC 08/11/24 11:59 Not Given Q6HR SAVANNAH Protocol Midazolam HCl 2 mg 07/12/24 12:03 07/13/24 15:31 Midazolam Inj 1 Mg/Ml Vial 2 Ml IV 07/17/24 12:02 2 mg Q1HR PRN Administration AGITATION OR ANXIETY Midodrine 10 mg 07/13/24 14:00 07/14/24 05:07 Midodrine 5 Mg Tablet PO 08/12/24 13:59 10 mg TID SAVANNAH Administration Pantoprazole Sodium 40 mg 07/12/24 09:00 07/14/24 08:20 Pantoprazole Inj 40 Mg Vial IVP 08/11/24 08:59 40 mg QDAY SAVANNAH Administration Plan 53-year-old female with a past medical history of recent acute stroke on 06/24/2024 thought to be secondary to embolic stroke from left ventricular mural thrombus diagnosed at [facility] and is on Eliquis, history of choledocholithiasis status post MRCP in June 2024, metabolic dysfunction 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 Upgraded to ICU level of care. #Atrial Fibrillation #QTc prolongation Nonsustained Developed afib when started on Dobutamine for cardiorenal syndrome Dobutamine discontinued Patient put on levophed QTc 499 Plan: Continue to monitor; patient sinus currently Continue IV amiodarone Serial EKGs, QTc prolongation Keep potassium greater than 4 magnesium greater than 2.0 #Systolic and Diastolic Acute Heart Failure (EF >20%) #Likely infiltrative disease #Anasarca #NSTEMI type II in the setting of supply/demand mismatch Troponins plateaued at 0.2 EKG shows sinus tachycardia with nonspecific ST changes and frequent PVCs Echo from 07/12 shows Normal LV size. Global LV systolic function is severely decreased. Estimated EF < 20%. LV mural Moderate hypertrophy with ground glass appearance of the left ventricular wall RV systolic function is severely decreased. Estimated RVSP, 39 mmHg including RAP 15mmHg. Moderately dilated LA and RA. Mild to moderate MR. mild AI and Severe TR. Dilated IVC Plan: Recommend to continue Bumex drip Strict I's and O's 2 g sodium diet when applicable Continue Levophed No further troponin trend Keep potassium greater than 4 and magnesium greater than 2.0 at all times. Workup possible amyloidosis versus other infiltrative disease, if patient makes any substantial recovery #LV thrombus As seen at [facility] Echo confirmed presence of left ventricular thrombus Plan: Obtain the study reports Patient on heparin drip; no evidence of GI bleed #Acute respiratory failure #Mechanically Ventilated for Airway Protection Patient unable to protect airway due to disease progression; end-organ dysfunction Intubated and sedated Plan: Vent management per ICU team #History of CVA June 2024 secondary to possible embolic cardiac etiology #Cirrhosis of the liver secondary to CRAWFORD or MASLD #Acute kidney injury #Type 2 diabetes, [id number] A1c of 5.9 #Choledocholithiasis #Cachexia with severe recent weight loss Rest of medical problems to be managed by the hospitalist team; cardiology following and will give recommendations. Patient seen and examined with attending Dr. Kira Jacobo, PGY-1 There is a high probability of sudden, clinically significant or life threatening deterioration in the patient condition which required the highest level of physician preparedness to intervene urgently. I have personally spent 38 minutes of critical care time, exclusive of time spent on any procedures, in evaluation and management of this critically ill patient. Attending Provider Attestation/Addendum I have personally seen and examined the patient separately on the above date of service and discussed the plan of care with the resident. I reviewed the resident consultation progress note and agree with the resident findings and plan in the note above and have also edited the documentation to reflect my findings and plan. Lico Malone M.D. Interventional Cardiology
--- NOTE | 2024-07-14 13:28 | CHAP ---
10:30 AM Visited by spiritual care volunteer Provided prayer for Patient.
[2024-07-14 16:42] LABS: Ammonia 14 uMol/L (11-32)
[2024-07-14] MEDS: LACTULOSE SYRUP 20 GM/30 ML UDC PO ×2 (17:20→21:04)
[2024-07-14] MEDS: Heparin/D5w 25K 250 ML Ivpb 25,000 UNIT/250 ML BAG 0.522 UNIT IV (21:46)
[2024-07-15] VITALS (105 sets, daily range): BP systolic 71–112; BP diastolic 54–77; PULSE 50–110; RESP 7–98; TEMP 36.2–37.1; O2SAT 91–100
[2024-07-15] MEDS: BUMETANIDE INJ 10 MG in CONTAINER,EMPTY 50 ML 1 BAG 2 MG IV (02:26)
--- NOTE | 2024-07-15 05:32 | PC.RT ---
ETT bite block put in place due to pt biting on tube. Pt is awake and alert. Anchorfast also changed out. RN Yfn aware. Pt michelle well.
[2024-07-15 05:34] LABS: Basophils % (Auto) 0 % (0-2.5); Eosinophils % (Auto) 0 % (0-10); Hematocrit 22.8 % (36.0-46.0); Immature Granulocytes % (Auto) 0 % (0-0); Immature Granulocytes Auto 0.02 Thou/mm3 (0.00-0.00); Lymphocytes # (Auto) 0.8 Thou/mm3 (1.0-4.8); Lymphocytes % (Auto) 9 % (10-50); Mean Corpuscular HGB Conc 32.5 g/dl (31.0-37.0); Mean Corpuscular Hemoglobin 28.6 pg (25.0-35.0); Mean Corpuscular Volume 88 fL (80-100); Monocytes # (Auto) 0.1 Thou/mm3 (0.0-0.8); Monocytes % (Auto) 2 % (0-12); Neutrophils # (Auto) 7.3 Thou/mm3 (1.8-7.7); Neutrophils % (Auto) 89 % (37-80); Nucleated Red Blood Cell # 0.06 Thou/mm3 (0.00-0.00); Nucleated Red Blood Cell % 1 /100 WBC (0); Platelet Count 83 Thou/mm3 (140-440); RDW Standard Deviation 58.3 fL (36.4-46.3); Red Blood Count 2.59 Miln/mm3 (4.00-5.20); White Blood Count 8.2 Thou/mm3 (3.6-11.0)
[2024-07-15 05:37] LABS: Hemoglobin 7.4 g/dL (12.0-16.0)
[2024-07-15 06:00] LABS: Partial Thromboplastin Time 60.7 Seconds (22.0-36.0)
[2024-07-15] MEDS: LACTULOSE SYRUP 20 GM/30 ML UDC PO ×3 (06:03→21:15)
[2024-07-15] MEDS: MIDODRINE 5 MG TABLET 10 MG PO ×3 (06:03→21:15)
[2024-07-15 06:23] LABS: Alanine Aminotransferase 19 U/L (10-49); Albumin, Serum 3.7 gm/dL (3.5-5.0); Albumin/Globulin Ratio 1.9 (1.2-2.2); Alkaline Phosphatase 86 U/L (46-116); Anion Gap 14 (7-16); Aspartate Amino Transferase 14 U/L (0-34); BUN/Creatinine Ratio 34 Ratio (12-20); Bilirubin,Total 2.2 mg/dL (0.3-1.2); Blood Urea Nitrogen 62 mg/dL (9-23); Calcium 8.7 mg/dL (8.3-10.6); Calcium (Corrected) 8.9 mg/dL (8.5-10.1); Carbon Dioxide 22.9 mMol/L (20.0-31.0); Chloride 102 mMol/L (98-107); Creatinine (Component) 1.8 mg/dL (0.6-1.3); Estimated Creatinine Clearance 29.2 mL/min (>60); Glucose 104 mg/dL (74-106); Magnesium 1.7 mg/dL (1.6-2.6); Osmolality,Calculated 295 (275-295); Phosphorous 3.6 mg/dL (2.4-5.1); Sodium 139 mMol/L (136-145); Total Protein 5.7 gm/dL (5.7-8.2); eGFR 33 See Note
[2024-07-15] MEDS: OCTREOTIDE ACET IV (07:40)
[2024-07-15] MEDS: SODIUM CHLORIDE 0.9% IV (07:40)
--- NOTE | 2024-07-15 08:39 | PD.RESPRO ---
Documentation for date of: 07/15/24 Subjective Subjective Interval history: 07/15/2024: No acute overnight events to report. Patient and examined this a.m. remains intubated; however, sedation was weaned off and the patient able to track with eyes and respond with some head motion/nodding. Patient remains volume overloaded as evidenced by +2 pitting edema up to shins bilaterally. Patient has 24 hour urine output of 1.6 L; net fluid balance since hospital stay is +500 cc. Continue treating with IV Bumex drip, and patient has been transitioned to p.o. Amio 200 mg for atrial fibrillation. Blood pressures remains soft; patient is on Levophed drip and midodrine p.o. cardiology will continue following patient and provide recommendations. Patient's long-term prognosis remains poor and goals of care discussions are ongoing with the family. Exam Vital Signs Temp Pulse Resp BP Pulse Ox O2 Del Method O2 Flow Rate 98.0 F 83 18 96/61 100 Mechanical Ventilation 4 07/15/24 00:00 07/15/24 07:45 07/12/24 18:56 07/15/24 07:45 07/15/24 07:45 07/15/24 07:00 07/11/24 23:45 FiO2 25 07/15/24 08:00 Narrative Exam General: Ventilated and sedated. Appears cachectic with significant loss of muscle and even in the temporal areas bilaterally Eyes: PERRLA, EOMI, anicteric sclera HEENT: Atraumatic, normocephalic. No JVD noted. MMM Cardiovascular: Normal S1 and S2. +2 pitting peripheral edema to lower extremities Respiratory: On mechanical ventilation lungs are clear to auscultation bilaterally. No wheezing or crackles heard. Abdomen: Abdomen soft but distended, nontender Skin: No rash. Slightly cold to touch. Neuro: Ventilated and sedated; unable to assess neurologic function Objective Labs 07/15/24 05:00 07/15/24 05:00 Labs: Laboratory Results - last 24 hr 07/14/24 07/15/24 16:11 05:00 WBC 8.2 RBC 2.59 L Hgb 7.4 L Hct 22.8 L MCV 88 MCH 28.6 MCHC 32.5 RDW Std Deviation 58.3 H Plt Count 83 L Neut % (Auto) 89 H Lymph % (Auto) 9 L [place] % (Auto) 2 Eos % (Auto) 0 Baso % (Auto) 0 Neut # (Auto) 7.3 Lymph # (Auto) 0.8 L [place] # (Auto) 0.1 Eos # (Auto) 0.0 Baso # (Auto) 0.0 Immature Gran # (Auto) 0.02 H Absolute Nucleated RBC 0.06 H Immature Gran % 0 Nucleated RBC % 1 H APTT 60.7 H Sodium 139 Potassium 3.0 L D Chloride 102 Carbon Dioxide 22.9 Anion Gap 14 BUN 62 H Creatinine 1.8 H Estim Creat Clear Calc 29.2 L eGFR 33 L BUN/Creatinine Ratio 34 H Glucose 104 D Calculated Osmolality 295 Calcium 8.7 Corrected Calcium 8.9 Phosphorus 3.6 Magnesium 1.7 Total Bilirubin 2.2 H AST 14 ALT 19 Alkaline Phosphatase 86 Ammonia 14 Total Protein 5.7 Albumin 3.7 Globulin 2.0 L Albumin/Globulin Ratio 1.9 ABG Interpretation ABG results: 07/11/24 07/12/24 07/12/24 22:53 01:05 03:33 ABG pH 7.24 L 7.16 L* 7.44 D ABG pCO2 53 H 61 H 34 D ABG pO2 101 64 L D 426 H D ABG HCO3 23 22 24 ABG O2 Saturation 97 84 L 102 H ABG Base Excess -5 L -7 L -1 07/13/24 07/14/24 05:22 04:33 ABG pH 7.46 H 7.40 ABG pCO2 38 37 ABG pO2 100 D 58 L* D ABG HCO3 27 H 23 ABG O2 Saturation 99 H 89 L ABG Base Excess 3 -2 Quality Measures Quality Measures none Assessment & Plan Assessment Current Active Medications: Generic Name Dose Route Start Last Admin Trade Name Freq PRN Reason Stop Dose Admin Amiodarone HCl 200 mg 07/15/24 09:00 Amiodarone Hcl 200 Mg Tablet PO 08/14/24 08:59 BID SAVANNAH Dextrose 25 ml 07/11/24 19:55 Dextrose 50%-Water Inj 50 Ml Syringe IV 08/10/24 19:54 Q15MIN PRN BG 50-70 responsive npo pt Dextrose 50 ml 07/11/24 19:55 Dextrose 50%-Water Inj 50 Ml Syringe IV 08/10/24 19:54 Q15MIN PRN BG <50 OR BG <70 & pt unresponsive Glucagon 1 mg 07/11/24 19:55 Glucagon Inj 1 Mg Vial IM Q15MIN PRN BG <70, and no IV access Heparin Sodium/Dextrose 25,000 unit in 250 mls @ 6.26 mls/hr 07/11/24 08:45 07/14/24 21:46 Heparin In D5w Ivpb IV 07/25/24 08:44 1 units/kg/hr .Q24H SAVANNAH 0.522 mls/hr Administration Protocol 12 UNITS/KG/HR Fentanyl Citrate 2,500 mcg in 250 mls @ 2.5 mls/hr 07/12/24 01:57 07/15/24 06:45 Sublimaze Inj 2,500 Mcg/250 Ml Bag IV 07/17/24 01:56 75 mcg/hr .Q24H PRN 7.5 mls/hr PER PROTOCOL Titration Protocol 25 MCG/HR Propofol 1,000 mg in 100 mls @ 1.565 mls/hr 07/12/24 01:57 07/12/24 09:04 Diprivan Ivpb IV 08/11/24 01:56 0 mcg/kg/min .Q24H PRN 0 mls/hr PER PROTOCOL Titration Protocol 5 MCG/KG/MIN Dexmedetomidine/Sodium Chloride 400 mcg in 100 mls @ 2.905 mls/hr 07/12/24 10:35 Precedex Ivpb IV 08/11/24 10:34 .Q24H PRN Per PROTOCOL Protocol 0.2 MCG/KG/HR Octreotide Acetate 1,000 mcg/ 252 mls @ 12.6 mls/hr 07/13/24 09:15 07/15/24 07:40 Sodium Chloride IV 08/12/24 09:14 50 mcg/hr .Q20H SAVANNAH 12.6 mls/hr Administration Protocol 50 MCG/HR Norepinephrine/Dextrose 8 mg in 250 mls @ 5.456 mls/hr 07/13/24 16:53 07/15/24 06:00 Levophed In D5w 8mg/250ml IV 08/12/24 16:52 0.01 mcg/kg/min .Q24H PRN 1.091 mls/hr PER PROTOCOL Titration Protocol 0.05 MCG/KG/MIN Bumetanide 10 mg/ IV 40 mls @ 2 mls/hr 07/15/24 02:08 07/15/24 02:26 Miscellaneous Supplies IV 07/15/24 22:07 0.5 mg/hr .Q20H SAVANNAH 2 mls/hr Administration 0.5 MG/HR Insulin Human Lispro 0 unit 07/12/24 12:00 07/15/24 05:07 Insulin Lispro (Admelog) 1 Unit/0.01 Ml Unit SC 08/11/24 11:59 Not Given Q6HR SAVANNAH Protocol Lactulose 20 gm 07/14/24 15:45 07/15/24 06:03 Lactulose Syrup 20 Gm/30 Ml Udc PO 08/13/24 15:44 20 gm TID SAVANNAH Administration Protocol Midazolam HCl 2 mg 07/12/24 12:03 07/13/24 15:31 Midazolam Inj 1 Mg/Ml Vial 2 Ml IV 07/17/24 12:02 2 mg Q1HR PRN Administration AGITATION OR ANXIETY Midodrine 10 mg 07/13/24 14:00 07/15/24 06:03 Midodrine 5 Mg Tablet PO 08/12/24 13:59 10 mg TID SAVANNAH Administration Pantoprazole Sodium 40 mg 07/12/24 09:00 07/14/24 08:20 Pantoprazole Inj 40 Mg Vial IVP 08/11/24 08:59 40 mg QDAY SAVANNAH Administration Plan 53-year-old female with a past medical history of recent acute stroke on 06/24/2024 thought to be secondary to embolic stroke from left ventricular mural thrombus diagnosed at [facility] and is on Eliquis, history of choledocholithiasis status post MRCP in June 2024, metabolic dysfunction 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 Upgraded to ICU level of care. 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 Global LV systolic function is severely decreased. Estimated EF < 20%. LV mural Moderate hypertrophy with ground glass appearance of the left ventricular wall RV systolic function is severely decreased. Estimated RVSP, 39 mmHg including RAP 15mmHg. Moderately dilated LA and RA. Mild to moderate MR. mild AI and Severe TR. Dilated IVC Plan: Recommend to change to bumex IV 1 mg bid or 2 mg daily creatinine increased to 1.8 and BUN is rising at 62 output 1.5 liters and net negative at 500 ml Strict I's and O's 2 g sodium diet when applicable Continue Levophed No further troponin trend Keep potassium greater than 4 and magnesium greater than 2.0 at all times. Workup possible amyloidosis versus other infiltrative disease, if patient makes any substantial recovery #LV thrombus As seen at [facility] Echo confirmed presence of left ventricular thrombus Plan: Obtain the study reports Patient on heparin drip; no evidence of GI bleed #Acute respiratory failure #Mechanically Ventilated for Airway Protection Patient unable to protect airway due to disease progression; end-organ dysfunction Intubated and sedated Plan: Vent management per ICU team #History of CVA June 2024 secondary to possible embolic cardiac etiology #Cirrhosis of the liver secondary to CRAWFORD or MASLD #Acute kidney injury #Type 2 diabetes, [id number] A1c of 5.9 #Choledocholithiasis #Cachexia with severe recent weight loss #Ebony tropicalis in urine Rest of medical problems to be managed by the ICU team; cardiology following and will give recommendations. Patient seen and examined with attending Dr. Kira Jacobo, PGY-1 There is a high probability of sudden, clinically significant or life threatening deterioration in the patient condition which required the highest level of physician preparedness to intervene urgently. I have personally spent 38 minutes of critical care time, exclusive of time spent on any procedures, in evaluation and management of this critically ill patient. Attending Provider Attestation/Addendum I have personally seen and examined the patient separately on the above date of service and discussed the plan of care with the resident. I reviewed the resident consultation progress note and agree with the resident findings and plan in the note above and have also edited the documentation to reflect my findings and plan. Lico Malone M.D. Interventional Cardiology
[2024-07-15] MEDS: AMIODARONE HCL 200 MG TABLET PO ×2 (08:44→21:15)
[2024-07-15] MEDS: PANTOPRAZOLE INJ 40 MG VIAL IVP (08:45)
[2024-07-15] MEDS: fentaNYL 2,500 MCG/250 ML BAG 2,500 MCG/250 ML BAG 12.5 MCG IV (09:01)
--- NOTE | 2024-07-15 09:42 | PD.RESPRO ---
Documentation for date of: 07/15/24 Subjective Subjective Interval history: Patient is a 53-year-old female with a past medical history of NIDDM, embolic CVA, LV mural thrombus and decompensated cirrhosis with portal hypertension. Patient was BIBA by her daughter who noticed bright red blood per rectum upon changing her diaper. Patient was admitted for workup and management of hypotension and generalized weakness. Last month patient presented to the ED with difficulty standing, slurred speech, facial droop and was diagnosed with an embolic stroke. Incidentally a CBD stone was identified on imaging. Patient was transferred [facility] the [facility]. Patient also had previous admission to [facility] for hyponatremia and hypotension with ICU stay. Patient's baseline is bedbound, but able to verbalize. ED course: Patient was hypotensive and tachycardic on presentation BP 86/65, MAP 72 HR 102. Labs were significant for normocytic anemia, CR 1.8, BUN 47. Urinalysis was significant for 1+ protein, 3+ blood, LE positive, WBC 358 On imaging Abd US: Fatty liver 12.9 cm Nephrology was consulted for anasarca secondary to likely hepatorenal syndrome. 07/13/2024 Patient seen and examined in ICU this a.m. Patient's sedated, intubated and mechanically ventilated. Patient is on dobutamine, noradrenaline infusion, albumin IV, octreotide infusion. I 1536 cc O 2155 cc Balance -618 cc Recommend Bumex IV. Guarded prognosis 07/14/2024 Patient seen and examined in ICU this a.m. Patient's sedated, intubated and mechanically ventilated. Patient is on dobutamine, noradrenaline infusion, albumin IV, octreotide infusion. I 2397 cc O 980 cc Balance +1417 cc For Goals of care discussion with family today. Guarded prognosis To continue Diuretic Challenge, Can possibly attempt Low flow Dialysis. 07/15/2024 Patient seen and examined in ICU this a.m. Patient is more active today, intubated and mechanically ventilated. Patient is on noradrenaline infusion @ 1ml/hr, octreotide infusion and Bumex Infusion I 1092 cc O 1750 cc Balance -657 cc Rest of patient's family to visit tomorrow 07/16, to decide on comfort vs hospice .Guarded prognosis Blood pressure is improved with MAP in 70's on Norad @ 1ml/hr, can discontinue pressors and continue Midodrine Patient is now producing urine, will hold on dialysis for now Exam Vital Signs Temp Pulse Resp BP Pulse Ox O2 Del Method O2 Flow Rate 98.0 F 75 18 98/61 100 Mechanical Ventilation 4 07/15/24 08:00 07/15/24 09:27 07/12/24 18:56 07/15/24 09:27 07/15/24 09:27 07/15/24 09:00 07/11/24 23:45 FiO2 25 07/15/24 09:27 Narrative Exam Constitutional Intubated and mechanically ventilated. HEENT Trachea midline. Respiratory Right IJ catheter insitu. B/L crackles auscultated Cardiovascular S1 and S2 audible, RRR. No murmurs or carotid bruit. No gross JVD. Abdominal Distended and edematous - improving Musculoskeletal Decreased tone throughout. 3+ LE edema Neurological Patient sedated and mechanically ventillated Objective Labs 07/15/24 05:00 07/15/24 05:00 Labs: Laboratory Results - last 24 hr 07/14/24 07/15/24 16:11 05:00 WBC 8.2 RBC 2.59 L Hgb 7.4 L Hct 22.8 L MCV 88 MCH 28.6 MCHC 32.5 RDW Std Deviation 58.3 H Plt Count 83 L Neut % (Auto) 89 H Lymph % (Auto) 9 L Foster % (Auto) 2 Eos % (Auto) 0 Baso % (Auto) 0 Neut # (Auto) 7.3 Lymph # (Auto) 0.8 L Foster # (Auto) 0.1 Eos # (Auto) 0.0 Baso # (Auto) 0.0 Immature Gran # (Auto) 0.02 H Absolute Nucleated RBC 0.06 H Immature Gran % 0 Nucleated RBC % 1 H APTT 60.7 H Sodium 139 Potassium 3.0 L D Chloride 102 Carbon Dioxide 22.9 Anion Gap 14 BUN 62 H Creatinine 1.8 H Estim Creat Clear Calc 29.2 L eGFR 33 L BUN/Creatinine Ratio 34 H Glucose 104 D Calculated Osmolality 295 Calcium 8.7 Corrected Calcium 8.9 Phosphorus 3.6 Magnesium 1.7 Total Bilirubin 2.2 H AST 14 ALT 19 Alkaline Phosphatase 86 Ammonia 14 Total Protein 5.7 Albumin 3.7 Globulin 2.0 L Albumin/Globulin Ratio 1.9 ABG Interpretation ABG results: 07/11/24 07/12/24 07/12/24 22:53 01:05 03:33 ABG pH 7.24 L 7.16 L* 7.44 D ABG pCO2 53 H 61 H 34 D ABG pO2 101 64 L D 426 H D ABG HCO3 23 22 24 ABG O2 Saturation 97 84 L 102 H ABG Base Excess -5 L -7 L -1 07/13/24 07/14/24 05:22 04:33 ABG pH 7.46 H 7.40 ABG pCO2 38 37 ABG pO2 100 D 58 L* D ABG HCO3 27 H 23 ABG O2 Saturation 99 H 89 L ABG Base Excess 3 -2 Quality Measures Quality Measures none Assessment & Plan Assessment Current Active Medications: Generic Name Dose Route Start Last Admin Trade Name Freq PRN Reason Stop Dose Admin Amiodarone HCl 200 mg 07/15/24 09:00 07/15/24 08:44 Amiodarone Hcl 200 Mg Tablet PO 08/14/24 08:59 200 mg BID SAVANNAH Administration Dextrose 25 ml 07/11/24 19:55 Dextrose 50%-Water Inj 50 Ml Syringe IV 08/10/24 19:54 Q15MIN PRN BG 50-70 responsive npo pt Dextrose 50 ml 07/11/24 19:55 Dextrose 50%-Water Inj 50 Ml Syringe IV 08/10/24 19:54 Q15MIN PRN BG <50 OR BG <70 & pt unresponsive Glucagon 1 mg 07/11/24 19:55 Glucagon Inj 1 Mg Vial IM Q15MIN PRN BG <70, and no IV access Heparin Sodium/Dextrose 25,000 unit in 250 mls @ 6.26 mls/hr 07/11/24 08:45 07/14/24 21:46 Heparin In D5w Ivpb IV 07/25/24 08:44 1 units/kg/hr .Q24H SAVANNAH 0.522 mls/hr Administration Protocol 12 UNITS/KG/HR Fentanyl Citrate 2,500 mcg in 250 mls @ 2.5 mls/hr 07/12/24 01:57 07/15/24 09:01 Sublimaze Inj 2,500 Mcg/250 Ml Bag IV 07/17/24 01:56 125 mcg/hr .Q24H PRN 12.5 mls/hr PER PROTOCOL Administration Protocol 25 MCG/HR Propofol 1,000 mg in 100 mls @ 1.565 mls/hr 07/12/24 01:57 07/12/24 09:04 Diprivan Ivpb IV 08/11/24 01:56 0 mcg/kg/min .Q24H PRN 0 mls/hr PER PROTOCOL Titration Protocol 5 MCG/KG/MIN Dexmedetomidine/Sodium Chloride 400 mcg in 100 mls @ 2.905 mls/hr 07/12/24 10:35 Precedex Ivpb IV 08/11/24 10:34 .Q24H PRN Per PROTOCOL Protocol 0.2 MCG/KG/HR Octreotide Acetate 1,000 mcg/ 252 mls @ 12.6 mls/hr 07/13/24 09:15 07/15/24 07:40 Sodium Chloride IV 08/12/24 09:14 50 mcg/hr .Q20H SAVANNAH 12.6 mls/hr Administration Protocol 50 MCG/HR Norepinephrine/Dextrose 8 mg in 250 mls @ 5.456 mls/hr 07/13/24 16:53 07/15/24 06:00 Levophed In D5w 8mg/250ml IV 08/12/24 16:52 0.01 mcg/kg/min .Q24H PRN 1.091 mls/hr PER PROTOCOL Titration Protocol 0.05 MCG/KG/MIN Bumetanide 10 mg/ IV 40 mls @ 2 mls/hr 07/15/24 02:08 07/15/24 02:26 Miscellaneous Supplies IV 07/15/24 22:07 0.5 mg/hr .Q20H SAVANNAH 2 mls/hr Administration 0.5 MG/HR Insulin Human Lispro 0 unit 07/12/24 12:00 07/15/24 05:07 Insulin Lispro (Admelog) 1 Unit/0.01 Ml Unit SC 08/11/24 11:59 Not Given Q6HR SAVANNAH Protocol Lactulose 20 gm 07/14/24 15:45 07/15/24 06:03 Lactulose Syrup 20 Gm/30 Ml Udc PO 08/13/24 15:44 20 gm TID SAVANNAH Administration Protocol Midazolam HCl 2 mg 07/12/24 12:03 07/13/24 15:31 Midazolam Inj 1 Mg/Ml Vial 2 Ml IV 07/17/24 12:02 2 mg Q1HR PRN Administration AGITATION OR ANXIETY Midodrine 10 mg 07/13/24 14:00 07/15/24 06:03 Midodrine 5 Mg Tablet PO 08/12/24 13:59 10 mg TID SAVANNAH Administration Pantoprazole Sodium 40 mg 07/12/24 09:00 07/15/24 08:45 Pantoprazole Inj 40 Mg Vial IVP 08/11/24 08:59 40 mg QDAY SAVANNAH Administration Plan Patient is a 53-year-old female with a past medical history of NIDDM, embolic CVA, LV mural thrombus and decompensated cirrhosis with portal hypertension. Patient was BIBA by her daughter who noticed bright red blood per rectum upon changing her diaper. Patient was admitted for workup and management of hypotension and generalized weakness. Nephrology was consulted for anasarca secondary to hepatorenal syndrome. 1. Hepatorenal syndrome Likely type II as patient has diuretic resistant ascites Patient has history of decompensated cirrhosis with ascites. On presentation patient was hypotensive with MAP in low 60s and required upgrade to ICU for vaso pressors Echocardiogram showed ejection fraction 20%- Dr. Yunier Sorto. Patient was started on dobutamine after improvement in urine output Currently BP 96/64 MAP 74 on Norad Infusion @ 1 ml/hr Ddx : Cardiorenal syndrome Abdo ultrasound confirms fatty liver 12.9 cm I 1092 cc O 1750 cc Balance -657 cc Plan: - Strict I/O ? Continue albumin infusion ? Continue Bumex infusion for diuresis ? Consider discontinuing pressor support as MAP is improved ? Continue midodrine 10 mg po TID for blood pressure support ? Continue octreotide infusion for splanchnic vasoconstriction - For Goals of Care tomorrow with rest of family to decide on comfort care vs hospice. ? Thank you for the opportunity to participate in patient's care. ? Nephrology will closely monitor this case. 2. PHILL Likely prerenal secondary to hypoperfusion Patient was hypotensive on admission with MAP in low 60s [07/12] Cr 1.8 BUN 51 ----> [07/14] Cr 1.8 BUN 50 Plan: ? Blood pressure support to maintain adequate perfusion of kidney 3. 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 bili 2.4 Normocytic anemia Thrombocytopenia GI bleed for investigation UTI History of embolic CVA NIDDM LV mural thrombus-on heparin drip. Plan: ? Continue management as per primary team Thank you for allowing us to participate in this patient's care. Plan of care discussed with attending Compounding And Finishing Supervisor, Dr Caren Egan MD PGY 1 Attending Provider Attestation/Addendum Patient seen and examined with resident physician Dr. Egan. Note reviewed, agree with findings and recommendations. Noted family requested DNR. Today patient seems to be more alert and awake. Continue with Bumex drip. Hopefully can be extubated. Overall prognosis remains guarded
[2024-07-15] MEDS: POTASSIUM CHL 10 mEq IVPB 10 MEQ/100 ML BAG 100 MEQ IV ×4 (09:52→13:15)
[2024-07-15] MEDS: POTASSIUM CHLORIDE 10% 20 MEQ/15 ML UDC 40 MEQ GT (12:14)
--- NOTE | 2024-07-15 12:52 | PC.NURSE ---
NOTIFIED DR MENDIOLA PATIENT CONTINUOUSLY GOING APNEIC ON SPONTANEOUS, ORDERS GIVEN TO PLACE PATIENT BACK ON AC MODE. RT NOTIFIED
--- NOTE | 2024-07-15 13:12 | PC.RT ---
RT informed via phone call that pt was placed on spontaneous mode and is not tolerating, pt placed back on volume control by RT Gregorio.
[2024-07-15] MEDS: PROPOFOL 1,000 MG IVPB 1,000 MG/100 ML VIAL 1.565 MG IV (14:49)
--- NOTE | 2024-07-15 16:50 | ESPR_ITS ---
<Statement entered by Michelle Rucker MD - 08/01/24 12:12> TOTAL TIME: 45MINUTES ON DIRECT MEDICAL CARE, MANAGEMENT - COORDINATION AND COUNSELING > 50% OF TOTAL TIME I saw and evaluated the patient. I reviewed the resident?s note and agree with findings and plan as documented in the resident?s note. glad to see improved cognition limit to sedation to minimum required to keep comfortable on MV still hoping to extubate on friday - per family - no reintubation NIPPV may be of benefit cont to monitor renal fx closely Documentation for date of: 07/15/24 Subjective Subjective Interval history: 53-year-old female with a past medical history of diabetes mellitus type 2, embolic CVA, LV mural thrombus, liver cirrhosis, and amyloidosis, who was brought into the emergency room due to concern for bright red bleeding per rectum. Patient started noted spots of bright red blood when changing the patient's diaper. Daughter reported, patient has become progressively too weak and bedbound following the stroke. They noted some bright red spots when changing the patient's diaper, and when cleaning her noticed bright light blood oozing out of her rectum. Denied having any black stools, or blood mixed with stools. Denied history of diarrhea, vomiting, fever. Patient was initially admitted to the medical floor, but later upgraded to ICU due to concern for hypotension, MAP in the low 60s. There was concern for adrenal insufficiency, patient was started on hydrocortisone with no improvement of blood pressure. Patient had normal cortisol and ACTH level on previous admission. Patient was transferred to [facility] recently for possible ERCP due to choledocholithiasis, pending medical records from [facility], unsure if ERCP was done, but discharge documents show that patient was discharged with Eliquis, empagliflozin, furosemide and metoprolol. ED course: Initial labs pertinent for normocytic anemia, mild hyponatremia sodium 132, PHILL, BUN 47, creatinine 1.8, EGFR 33, baseline GFR seems to be around 53, BUN/creatinine ratio more than 20, lactic acid 3.9, T. bili 2.4, AST 40, ALT 36, alk phos 131, ammonia less than 10, mild troponin elevation 0.222, BNP 740, elevated Pro-Justice 7.21, lipase 88. Urinalysis consistent with UTI, stool occult was negative. Imaging studies include chest x-ray which shows bilateral significant pneumonia, EKG shows a flutter with RVR and right bundle branch block, ultrasound abdomen shows cholelithiasis and enlarged common bile duct 0.7, of note patient has no abdominal/right upper quadrant symptoms including pain or tenderness. The patient was admitted to the medical floor, with upgraded to ICU. 07/12/24 Patient evaluated bedside, labs and overnight events as reviewed, overnight patient was hypotensive and central line was placed for IV pressor support, but patient blood pressure improved, Levophed was withheld, patient also developed bradypnea following postprocedural sedation,, received 1 mg IV Dilaudid, respiratory rate decreased to 7/min along with hypoxia, requiring intubation and mechanical ventilation. This a.m. patient noted to be tolerating mechanical ventilation well, saturating at goal on 30% FiO2, PEEP of 5, will plan to continue with ventilation given patient's significant fluid overload, as patient may require reintubation due to significant pulmonary congestion in the setting of hepatorenal/cardiorenal syndrome. We will try to aggressively diurese the patient, last night patient had 1200 mL urine output despite Lasix drip, IV albumin 75 g and octreotide. Nephrology was consulted, nephro recommended switching to Bumex drip at 2 Mg per hour, vasopressor support to help with renal perfusion. Patient was started on dobutamine for inotropic support. Bedside echocardiogram was done which showed apical LV thrombus, global hypokinesis with severely reduced ejection fraction, cardiology recommended continuing heparin drip and continued aggressive IV diuresis. Repeat echocardiogram ordered. 07/13/24 patient evaluated bedside, RASS of -2, sedation was titrated down patient was able to wake up and move both upper limbs spontaneously, but unable to comply with instructions also respiratory rate low, continued on sedation for continued mechanical ventilation, patient not ready for extubation today. Patient was started on dobutamine for cardiorenal syndrome, but developed tachycardia heart rate in the 140s A-fib RVR, dobutamine was discontinued. Started on IV phenylephrine, but due to continued hypotension, vasopressor was changed to Levophed to help with improving blood pressure as well as renal perfusion, as patient is currently on Bumex drip but urine output less than goal 100 cc an hour. IV amiodarone started for A-fib RVR. Family updated about guarded prognosis. 07/14/24 Sedation was turned off, spontaneous breathing trial was done, goals of care discussion with family was done in the setting of end-stage liver disease and severe cardiomyopathy with inadequete urine production. Guarded prognosis of patient, possibility of aggressive intervention with hemodialysis/ultrafiltration, risks of prolonged sedation with intubation and mechanical ventilation, risk of line infections and discomfort, were explained. Their questions and concerns were answered. Family was explained that patient may be able to be weaned off ventilator, but risk of immediate reintubation is high due to end-stage organ failures, and complications of treatment. Patient's daughter Rachel was decided to be the decision-maker by the family, and new POLST form was signed. Patient continues to be DNR status, selective treatment only no chest compressions. Family decided that they would like to wait on their son who was in the and will be here on Friday, before extubation. Family's wishes were respected and patient is resumed on sedation and mechanical ventilation. Family decided against Hemodialysis, Will continue with Bumex drip for continued diuresis as possible, continue with amiodarone for rate control and Levophed to improve cardiac output. 07/15/2024: Patient seen today at the bedside. Vitals significant for BP of 88/58, on mechanical ventilation with a negative fluid balance. Sedation was weaned to off and provided spontaneous breathing trial. Patient became restless and sedation had to be turned back on. Continues on Bumex drip for diuresis as tolerated. Prognosis seems to be very poor. Family decided that they would like to wait on their son who was in the and will be here on Friday, before extubation. Family's wishes were respected and patient is resumed on sedation and mechanical ventilation. Exam Vital Signs Temp Pulse Resp BP Pulse Ox O2 Del Method O2 Flow Rate 98.1 F 75 18 88/58 L 100 Mechanical Ventilation 4 07/15/24 12:00 07/15/24 15:00 07/12/24 18:56 07/15/24 15:00 07/15/24 15:00 07/15/24 15:00 07/11/24 23:45 FiO2 25 07/15/24 15:00 Narrative Exam Physical Exam: General: currently sedated and mechanically ventilated Skin: Intact, no cyanosis , anasarca noted. HEENT: Atraumatic/normocephalic, RUPINDER, neck supple Heart: irregular, S1 and S2 without clicks or murmurs Lungs: bilateral rhochi Abdomen: Soft, nontender. Bowel sounds present . Vascular: Peripheral pulses palpable Neuro: RAAS -2 Objective Labs 07/15/24 05:00 07/15/24 05:00 Labs: Laboratory Results - last 24 hr 07/15/24 05:00 WBC 8.2 RBC 2.59 L Hgb 7.4 L Hct 22.8 L MCV 88 MCH 28.6 MCHC 32.5 RDW Std Deviation 58.3 H Plt Count 83 L Neut % (Auto) 89 H Lymph % (Auto) 9 L Ashley % (Auto) 2 Eos % (Auto) 0 Baso % (Auto) 0 Neut # (Auto) 7.3 Lymph # (Auto) 0.8 L Ashley # (Auto) 0.1 Eos # (Auto) 0.0 Baso # (Auto) 0.0 Immature Gran # (Auto) 0.02 H Absolute Nucleated RBC 0.06 H Immature Gran % 0 Nucleated RBC % 1 H APTT 60.7 H Sodium 139 Potassium 3.0 L D Chloride 102 Carbon Dioxide 22.9 Anion Gap 14 BUN 62 H Creatinine 1.8 H Estim Creat Clear Calc 29.2 L eGFR 33 L BUN/Creatinine Ratio 34 H Glucose 104 D Calculated Osmolality 295 Calcium 8.7 Corrected Calcium 8.9 Phosphorus 3.6 Magnesium 1.7 Total Bilirubin 2.2 H AST 14 ALT 19 Alkaline Phosphatase 86 Total Protein 5.7 Albumin 3.7 Globulin 2.0 L Albumin/Globulin Ratio 1.9 ABG Interpretation ABG results: 07/11/24 07/12/24 07/12/24 22:53 01:05 03:33 ABG pH 7.24 L 7.16 L* 7.44 D ABG pCO2 53 H 61 H 34 D ABG pO2 101 64 L D 426 H D ABG HCO3 23 22 24 ABG O2 Saturation 97 84 L 102 H ABG Base Excess -5 L -7 L -1 07/13/24 07/14/24 05:22 04:33 ABG pH 7.46 H 7.40 ABG pCO2 38 37 ABG pO2 100 D 58 L* D ABG HCO3 27 H 23 ABG O2 Saturation 99 H 89 L ABG Base Excess 3 -2 Quality Measures Quality Measures none Assessment & Plan Assessment Current Active Medications: Generic Name Dose Route Start Last Admin Trade Name Freq PRN Reason Stop Dose Admin Amiodarone HCl 200 mg 07/15/24 09:00 07/15/24 08:44 Amiodarone Hcl 200 Mg Tablet PO 08/14/24 08:59 200 mg BID SAVANNAH Administration Dextrose 25 ml 07/11/24 19:55 Dextrose 50%-Water Inj 50 Ml Syringe IV 08/10/24 19:54 Q15MIN PRN BG 50-70 responsive npo pt Dextrose 50 ml 07/11/24 19:55 Dextrose 50%-Water Inj 50 Ml Syringe IV 08/10/24 19:54 Q15MIN PRN BG <50 OR BG <70 & pt unresponsive Glucagon 1 mg 07/11/24 19:55 Glucagon Inj 1 Mg Vial IM Q15MIN PRN BG <70, and no IV access Heparin Sodium/Dextrose 25,000 unit in 250 mls @ 6.26 mls/hr 07/11/24 08:45 07/14/24 21:46 Heparin In D5w Ivpb IV 07/25/24 08:44 1 units/kg/hr .Q24H SAVANNAH 0.522 mls/hr Administration Protocol 12 UNITS/KG/HR Fentanyl Citrate 2,500 mcg in 250 mls @ 2.5 mls/hr 07/12/24 01:57 07/15/24 16:00 Sublimaze Inj 2,500 Mcg/250 Ml Bag IV 07/17/24 01:56 175 mcg/hr .Q24H PRN 17.5 mls/hr PER PROTOCOL Titration Protocol 25 MCG/HR Propofol 1,000 mg in 100 mls @ 1.565 mls/hr 07/12/24 01:57 07/15/24 16:00 Diprivan Ivpb IV 08/11/24 01:56 10 mcg/kg/min .Q24H PRN 3.13 mls/hr PER PROTOCOL Titration Protocol 5 MCG/KG/MIN Dexmedetomidine/Sodium Chloride 400 mcg in 100 mls @ 2.905 mls/hr 07/12/24 10:35 Precedex Ivpb IV 08/11/24 10:34 .Q24H PRN Per PROTOCOL Protocol 0.2 MCG/KG/HR Octreotide Acetate 1,000 mcg/ 252 mls @ 12.6 mls/hr 07/13/24 09:15 07/15/24 07:40 Sodium Chloride IV 08/12/24 09:14 50 mcg/hr .Q20H SAVANNAH 12.6 mls/hr Administration Protocol 50 MCG/HR Norepinephrine/Dextrose 8 mg in 250 mls @ 5.456 mls/hr 07/13/24 16:53 07/15/24 16:00 Levophed In D5w 8mg/250ml IV 08/12/24 16:52 0.05 mcg/kg/min .Q24H PRN 5.456 mls/hr PER PROTOCOL Titration Protocol 0.05 MCG/KG/MIN Bumetanide 10 mg/ IV 40 mls @ 2 mls/hr 07/15/24 02:08 07/15/24 02:26 Miscellaneous Supplies IV 07/15/24 22:07 0.5 mg/hr .Q20H SAVANNAH 2 mls/hr Administration 0.5 MG/HR Insulin Human Lispro 0 unit 07/12/24 12:00 07/15/24 11:19 Insulin Lispro (Admelog) 1 Unit/0.01 Ml Unit SC 08/11/24 11:59 Not Given Q6HR [facility] Protocol Lactulose 20 gm 07/14/24 15:45 07/15/24 13:55 Lactulose Syrup 20 Gm/30 Ml Udc PO 08/13/24 15:44 20 gm TID SAVANNAH Administration Protocol Midazolam HCl 2 mg 07/12/24 12:03 07/13/24 15:31 Midazolam Inj 1 Mg/Ml Vial 2 Ml IV 07/17/24 12:02 2 mg Q1HR PRN Administration AGITATION OR ANXIETY Midodrine 10 mg 07/13/24 14:00 07/15/24 13:55 Midodrine 5 Mg Tablet PO 08/12/24 13:59 10 mg TID SAVNANAH Administration Pantoprazole Sodium 40 mg 07/12/24 09:00 07/15/24 08:45 Pantoprazole Inj 40 Mg Vial IVP 08/11/24 08:59 40 mg QDAY SAVANNAH Administration Plan 53-year-old female with a past medical history of diabetes mellitus type 2, embolic CVA, LV mural thrombus, liver cirrhosis, and amyloidosis, who was brought into the emergency room due to concern for bright red bleeding per rectum. Patient started noted spots of bright red blood when changing the patient's diaper. Daughter reported, patient has become progressively too weak and bedbound following the stroke. They noted some bright red spots when changing the patient's diaper, and when cleaning her noticed bright light blood oozing out of her rectum. Denied having any black stools, or blood mixed with stools. Denied history of diarrhea, vomiting, fever. Patient was initially admitted to the medical floor, but later upgraded to ICU due to concern for hypotension, MAP in the low 60s. There was concern for adrenal insufficiency, patient was started on hydrocortisone with no improvement of blood pressure. Patient had normal cortisol and ACTH level on previous admission. Patient was transferred to [facility] recently for possible ERCP due to choledocholithiasis, pending medical records from [facility], unsure if ERCP was done, but discharge documents show that patient was discharged with Eliquis, empagliflozin, furosemide and metoprolol. GOALS OF CARE: Sedation was turned off, spontaneous breathing trial was done, goals of care discussion with family was done in the setting of end-stage liver disease and severe cardiomyopathy with inadequete urine production. Guarded prognosis of patient, possibility of aggressive intervention with hemodialysis/ultrafiltration, risks of prolonged sedation with intubation and mechanical ventilation, risk of line infections and discomfort, were explained. Their questions and concerns were answered. Family was explained that patient may be able to be weaned off ventilator, but risk of immediate reintubation is high due to end-stage organ failures, and complications of treatment. Patient's daughter Rachel was decided to be the decision-maker by the family, and new POLST form was signed. Patient continues to be DNR status, selective treatment only no chest compressions. Family decided that they would like to wait on their son who was in the and will be here on Friday, before extubation. Family's wishes were respected and patient is resumed on sedation and mechanical ventilation. Family decided against Hemodialysis, Will continue with Bumex drip for continued diuresis as possible, continue with amiodarone for rate control and Levophed to improve cardiac output. DOCUMENTATION IMPROVEMENT SPECIALIST: #Encephalopathy #History of embolic stroke Sedation was down-titrated and discontinued for a while, patient was arousable, but uncomfortable due to ET tube, unable to follow commands, after goals of care discussion with the family, sedation was resumed, patient will have Next Spontaneous breathing trial and sedation ordered on Friday. CVS: #Atrial fibrillation-rate controlled # Left ventricular thrombus EKG shows a flutter with RVR [id number] score 4, 4.8% annualized risk of stroke, LV thrombus now found when pt was transferred to [facility] recently, possibly Post silent myocardial infarction LV thrombus formation. Patient was started on dobutamine for cardiorenal syndrome, but developed tachycardia heart rate in the 140s A-fib RVR, dobutamine was discontinued. ? IV heparin gtt. ? IV amiodarone gtt. ? Account Manager Dr. Malone is consulted, appreciate recommendations #Hypotension, Cardiogenic Shock DDx: Septic shock, Cardiogenic shock, cirrhosis leading to third spacing of fluid, adrenal insufficiency, Of note patient had a previous echocardiogram, estimated EF more than 55%, no intracardiac thrombus at that time, but now at the bedside echo, findings are concerning for Global hypokinesis, poor RV and LV contractility is evident with an apical LV thrombus, noted IVC at 2.0 cm and no change in size with cardiac contraction, congested portal and hepatic veins with reversal of flow in hepatic veins, VExUS scoe 3 shows severe congestion. ? Avoided giving sepsis bolus due to anasarca and diastolic CHF ? Midodrine 15 mg TID ? Initiated Levophed as patient developed A-fib RVR from dobutamine drip, and was hypotensive on phenylephrine #Concern for adrenal insufficiency - ruled out Patient had a history of low blood pressure, was on home midodrine 10 mg 3 times daily, there was also concern for [place]'s disease, but patient cortisol and ACTH levels were normal during previous workup, she was given IV steroids during prior hospital stay and discharged on Medrol dose pack. Cortisol levels around 12, wnl, Hydrocortisone is discontinued. #Type II NSTEMI Minimal troponin elevation 0.2030, currently on heparin drip Resp: #Mechanical Ventilation Patient has fairly low oxygen requirements FiO2 25%, PEEP 5, pt is matching her Ventilation and oxygenation goals. SBT was done ? To be continued on mechanical ventilation until Friday, as per Goals of care discussion, pt is high risk for extubation failure and reintubation, respecting family's wishes we would continue sedation and mechanical ventilation until Friday, and proceed with extubation # Pulmonary edema In the setting of severely low EF 20% and cardiomyopathy, we discontinued antibiotics as pulmonary imaging and clinical condition shows consolidation and congestion more suggestive of fluid overload than infectious process. ? D/c bumex drip and started Bumex 2mg IV BID , urine output below goal, proir attempts to increase cardiac output with dobutamine resulted in afib with rvr. currently on levophed. GI: #Concern for lower GI bleed- ruled out Bright red bleeding per rectum, stable hemoglobin at 7 hypotensive on arrival, stool occult was negative in the ER. Patient started on heparin drip due to LV mural thrombus and A-fib and was probably on anticoagulation with Eliquis at home. No per rectal bleed noted during ICU stay ? Cardiology is consulted, currently no evidence of active bleeding, will continue to monitor H&H, consider gastroenterology consult if active GI bleed or drop in hemoglobin ? Type and screen, transfuse if hemoglobin less than 7 #Cirrhosis, Likely secondary to metabolic dysfunction associated steatotic liver disease, MASLD Associated hypoalbuminemia, and hepatorenal syndrome, contributing to PHILL and anasarca. - See renal for details #Choledocholithiasis #Hyperbilirubinemia Prior medical history of Choledocholithiasis and transferred to [facility] for possible ERCP, medical records from [facility] were obtained, reported patient had a repeat MRCP at [facility] which showed no stones in the bile duct, possibly passage of stones had already occurred. No ERCP was performed. ? Imaging findings concerning for CBD dilation, but given extensive workup at [facility] no further intervention is indicated at this point ? Continue supportive treatment Renal: #PHILL, hepatorenal syndrome vs cardiorenal syndrome #Anasarca DDx: Hepatorenal syndrome versus cardiorenal syndrome Baseline creatinine seems to be around 1.2, currently serum creatinine 1.8, BUN/creatinine ratio more than 20 Patient also has fluid overload anasarca likely secondary to hypoalbuminemia ? IV Albumin 25 g 3 times daily, ? Bumex drip discontiues, started Bumex 2mg IV BID, vasopressor support to help with renal perfusion. Patient was started on Levophed for inotropic support. ? Octreotide gtt. due to underlying concern of hepatorenal syndrome. ? Midodrine 15mg TID Endo: #Concern for adrenal insufficiency- ruled out #History of diabetes mellitus type 2 ? Sliding scale insulin, A1c level ? Hypoglycemia protocol in place ID: Stable Heme: #Normocytic anemia Hemoglobin stable at 7.7 continue to monitor H&H transfuse if Hb <7 Disposition: see goals of care discussion DVT prophylaxis: Heparin gtt GI prophylaxis: protonix Diet: Tube feeds Lines: PIV CODE STATUS: DNR Case discussed with attending Dr. Chaim Pichardo MD PGY-1
[2024-07-15] MEDS: Norepinephrine/D5W 8mg/250ml 8 MG/250 ML BAG 5.456 MG IV (17:20)
[2024-07-15] MEDS: INSULIN LISPRO (AdmeLOG) 1 UNIT/0.01 ML UNIT SC (17:49)
[2024-07-15] MEDS: BUMETANIDE INJ 0.25 MG/ML VIAL 4 ML 2 MG IVP (21:16)
[2024-07-16] VITALS (110 sets, daily range): BP systolic 77–107; BP diastolic 34–79; PULSE 72–122; RESP 0–56; TEMP 36.1–37.2; O2SAT 92–106; BMI 24.4
[2024-07-16] MEDS: fentaNYL 2,500 MCG/250 ML BAG 2,500 MCG/250 ML BAG 17.5 MCG IV (00:07)
[2024-07-16] MEDS: INSULIN LISPRO (AdmeLOG) 1 UNIT/0.01 ML UNIT SC ×3 (00:14→12:20)
[2024-07-16] MEDS: OCTREOTIDE ACET IV ×2 (03:40→18:14)
[2024-07-16] MEDS: SODIUM CHLORIDE 0.9% IV ×2 (03:40→18:14)
[2024-07-16] MEDS: PROPOFOL 1,000 MG IVPB 1,000 MG/100 ML VIAL 3.13 MG IV (03:59)
[2024-07-16] MEDS: LACTULOSE SYRUP 20 GM/30 ML UDC PO ×2 (05:12→21:08)
[2024-07-16] MEDS: MIDODRINE 5 MG TABLET 10 MG PO ×2 (05:13→21:07)
[2024-07-16 05:37] LABS: Partial Thromboplastin Time 48.1 Seconds (22.0-36.0)
[2024-07-16 06:07] LABS: Alanine Aminotransferase 20 U/L (10-49); Albumin, Serum 3.4 gm/dL (3.5-5.0); Albumin/Globulin Ratio 1.5 (1.2-2.2); Alkaline Phosphatase 109 U/L (46-116); Anion Gap 11 (7-16); Aspartate Amino Transferase 18 U/L (0-34); BUN/Creatinine Ratio 33 Ratio (12-20); Blood Urea Nitrogen 56 mg/dL (9-23); Calcium 8.8 mg/dL (8.3-10.6); Calcium (Corrected) 9.3 mg/dL (8.5-10.1); Carbon Dioxide 27.5 mMol/L (20.0-31.0); Chloride 103 mMol/L (98-107); Creatinine (Component) 1.7 mg/dL (0.6-1.3); Estimated Creatinine Clearance 30.9 mL/min (>60); Globulin 2.3 gm/dL (2.3-3.5); Glucose 140 mg/dL (74-106); Magnesium 1.6 mg/dL (1.6-2.6); Osmolality,Calculated 298 (275-295); Phosphorous 3.1 mg/dL (2.4-5.1); Potassium 2.8 mMol/L (3.4-5.1); Sodium 141 mMol/L (136-145); Total Protein 5.7 gm/dL (5.7-8.2); eGFR 35 See Note
--- NOTE | 2024-07-16 07:21 | XR_ITS ---
Examination: AP chest single view Technique one AP portable semiupright chest single view Exam date and time: July 16, 2024 0744 hours Comparison July 14, 2024 INDICATIONS: Inpatient with heart failure, hypoxic respiratory failure, pneumonia FINDINGS: [id number] heart failure Mild enlargement cardiac contour Prominent vascular congestion with perihilar edema Pneumonia in the right upper lobe Mild linear right pleural fluid Tracheal tube tip 5.6 cm above sophia Right internal jugular central line tip SVC, no pneumothorax Orogastric tube in the stomach, the tip below the level of the film IMPRESSION: [id number] heart failure Significant pneumonia right upper lobe
[2024-07-16 07:43] LABS: Basophils % (Auto) 0 % (0-2.5); Eosinophils # (Auto) 0.1 Thou/mm3 (0.0-0.5); Eosinophils % (Auto) 1 % (0-10); Hematocrit 25.1 % (36.0-46.0); Immature Granulocytes % (Auto) 0 % (0-0); Immature Granulocytes Auto 0.01 Thou/mm3 (0.00-0.00); Lymphocytes % (Auto) 13 % (10-50); Mean Corpuscular HGB Conc 31.5 g/dl (31.0-37.0); Mean Corpuscular Hemoglobin 28.5 pg (25.0-35.0); Mean Corpuscular Volume 91 fL (80-100); Monocytes # (Auto) 0.1 Thou/mm3 (0.0-0.8); Monocytes % (Auto) 2 % (0-12); Neutrophils # (Auto) 6.1 Thou/mm3 (1.8-7.7); Neutrophils % (Auto) 84 % (37-80); Nucleated Red Blood Cell # 0.05 Thou/mm3 (0.00-0.00); Nucleated Red Blood Cell % 1 /100 WBC (0); Platelet Count 74 Thou/mm3 (140-440); RDW Standard Deviation 63.9 fL (36.4-46.3); Red Blood Count 2.77 Miln/mm3 (4.00-5.20); White Blood Count 7.2 Thou/mm3 (3.6-11.0)
[2024-07-16 07:45] LABS: Base Excess 5 (-3-3); HCO3 28 mEq/L (20-26); Inspired Oxygen, FIO2 25 %; O2 Saturation 100 % (91-98); PCO2 38 mmHg (32.0-48.0); PO2 106 mmHg (83-108); pH, Arterial 7.49 (7.35-7.45)
[2024-07-16 07:45] LABS: Hemoglobin 7.9 g/dL (12.0-16.0)
[2024-07-16 07:46] LABS: Allen Test Not Performed; Puncture Site Left Radial
[2024-07-16] MEDS: HEPARIN SOD INJ 5000 UNIT/ML VIAL 1900 UNIT IVP (07:48)
[2024-07-16] MEDS: POTASSIUM CHLORIDE 10% 20 MEQ/15 ML UDC 40 MEQ GT (07:48)
[2024-07-16] MEDS: POTASSIUM CHL 20 mEq IVPB 20 MEQ/100 ML BAG 50 MEQ IV ×2 (07:50→10:16)
[2024-07-16 08:05] LABS: Alanine Aminotransferase 20 U/L (10-49); Albumin, Serum 3.3 gm/dL (3.5-5.0); Albumin/Globulin Ratio 1.4 (1.2-2.2); Alkaline Phosphatase 113 U/L (46-116); Anion Gap 10 (7-16); Aspartate Amino Transferase 24 U/L (0-34); BUN/Creatinine Ratio 32 Ratio (12-20); Bilirubin,Total 1.9 mg/dL (0.3-1.2); Blood Urea Nitrogen 55 mg/dL (9-23); Calcium 8.7 mg/dL (8.3-10.6); Calcium (Corrected) 9.3 mg/dL (8.5-10.1); Carbon Dioxide 28.4 mMol/L (20.0-31.0); Chloride 103 mMol/L (98-107); Creatinine (Component) 1.7 mg/dL (0.6-1.3); Estimated Creatinine Clearance 30.9 mL/min (>60); Globulin 2.4 gm/dL (2.3-3.5); Glucose 150 mg/dL (74-106); Magnesium 1.6 mg/dL (1.6-2.6); Osmolality,Calculated 299 (275-295); Potassium 2.8 mMol/L (3.4-5.1); Sodium 141 mMol/L (136-145); Total Protein 5.7 gm/dL (5.7-8.2); eGFR 35 See Note
[2024-07-16] MEDS: PANTOPRAZOLE INJ 40 MG VIAL IVP (08:32)
[2024-07-16] MEDS: BUMETANIDE INJ 0.25 MG/ML VIAL 4 ML 2 MG IVP ×3 (08:32→21:08)
[2024-07-16] MEDS: AMIODARONE HCL 200 MG TABLET PO ×2 (08:34→20:54)
--- NOTE | 2024-07-16 08:49 | ESPR_ITS ---
Documentation for date of: 07/16/24 Subjective Subjective Interval history: 07/16/2024: No acute overnight events to report. Patient seen and examined in hospital bed initially ventilated and sedated; however, extubation orders were put into place and patient was successfully extubated to 3L NC. Patient's bumex dose adjusted to 2mg every 8 hours to increase urine output as patient remained peripherally volume overloaded clinically. Patient's son arriving today and further goals of care discussions are ongoing. Patient's long-term prognosis remains very poor and the family is aware and all questions were answered. Exam Vital Signs Temp Pulse Resp BP Pulse Ox O2 Del Method O2 Flow Rate 97.0 F 81 18 77/58 L 100 Mechanical Ventilation 4 07/16/24 04:00 07/16/24 08:34 07/12/24 18:56 07/16/24 08:34 07/16/24 06:24 07/15/24 18:00 07/11/24 23:45 FiO2 29 07/16/24 06:24 Narrative Exam General: On 3L NC. Appears cachectic with significant loss of muscle and even in the temporal areas bilaterally Eyes: PERRLA, EOMI, anicteric sclera HEENT: Atraumatic, normocephalic. No JVD noted. MMM Cardiovascular: Normal S1 and S2. +2 pitting peripheral edema to lower extremities Respiratory: On mechanical ventilation lungs are clear to auscultation bilaterally. No wheezing or crackles heard. Abdomen: Abdomen soft but distended, nontender Skin: No rash. Slightly cold to touch. Neuro: Eyes tracking, nods head to questioning, moves extremities spontaneously Objective Labs 07/16/24 04:14 07/16/24 07:30 Labs: Laboratory Results - last 24 hr 07/16/24 07/16/24 07/16/24 04:14 07:30 07:35 WBC 7.2 RBC 2.77 L Hgb 7.9 L Hct 25.1 L MCV 91 MCH 28.5 MCHC 31.5 RDW Std Deviation 63.9 H Plt Count 74 L Neut % (Auto) 84 H Lymph % (Auto) 13 [place] % (Auto) 2 Eos % (Auto) 1 Baso % (Auto) 0 Neut # (Auto) 6.1 Lymph # (Auto) 1.0 [place] # (Auto) 0.1 Eos # (Auto) 0.1 Baso # (Auto) 0.0 Immature Gran # (Auto) 0.01 H Absolute Nucleated RBC 0.05 H Immature Gran % 0 Nucleated RBC % 1 H APTT 48.1 H D Puncture Site Left Radial ABG pH 7.49 H ABG pCO2 38 ABG pO2 106 D ABG HCO3 28 H ABG O2 Saturation 100 H ABG Base Excess 5 H FiO2 25 Sodium 141 141 Potassium 2.8 L 2.8 L Chloride 103 103 Carbon Dioxide 27.5 28.4 Anion Gap 11 10 BUN 56 H 55 H Creatinine 1.7 H 1.7 H Estim Creat Clear Calc 30.9 L 30.9 L eGFR 35 L 35 L BUN/Creatinine Ratio 33 H 32 H Glucose 140 H 150 H Calculated Osmolality 298 H 299 H Calcium 8.8 8.7 Corrected Calcium 9.3 9.3 Phosphorus 3.1 Magnesium 1.6 1.6 Total Bilirubin 2.0 H 1.9 H AST 18 24 ALT 20 20 Alkaline Phosphatase 109 D 113 Total Protein 5.7 5.7 Albumin 3.4 L 3.3 L Globulin 2.3 2.4 Albumin/Globulin Ratio 1.5 1.4 ABG Interpretation ABG results: 07/11/24 07/12/24 07/12/24 22:53 01:05 03:33 ABG pH 7.24 L 7.16 L* 7.44 D ABG pCO2 53 H 61 H 34 D ABG pO2 101 64 L D 426 H D ABG HCO3 23 22 24 ABG O2 Saturation 97 84 L 102 H ABG Base Excess -5 L -7 L -1 07/13/24 07/14/24 07/16/24 05:22 04:33 07:35 ABG pH 7.46 H 7.40 7.49 H ABG pCO2 38 37 38 ABG pO2 100 D 58 L* D 106 D ABG HCO3 27 H 23 28 H ABG O2 Saturation 99 H 89 L 100 H ABG Base Excess 3 -2 5 H Quality Measures Quality Measures none Assessment & Plan Assessment Current Active Medications: Generic Name Dose Route Start Last Admin Trade Name Freq PRN Reason Stop Dose Admin Amiodarone HCl 200 mg 07/15/24 09:00 07/16/24 08:34 Amiodarone Hcl 200 Mg Tablet PO 08/14/24 08:59 200 mg BID SAVANNAH Administration Bumetanide 2 mg 07/15/24 21:00 07/16/24 08:32 Bumetanide Inj 0.25 Mg/Ml Vial 4 Ml IVP 08/14/24 20:59 2 mg BID SAVANNAH Administration Dextrose 25 ml 07/11/24 19:55 Dextrose 50%-Water Inj 50 Ml Syringe IV 08/10/24 19:54 Q15MIN PRN BG 50-70 responsive npo pt Dextrose 50 ml 07/11/24 19:55 Dextrose 50%-Water Inj 50 Ml Syringe IV 08/10/24 19:54 Q15MIN PRN BG <50 OR BG <70 & pt unresponsive Glucagon 1 mg 07/11/24 19:55 Glucagon Inj 1 Mg Vial IM Q15MIN PRN BG <70, and no IV access Heparin Sodium/Dextrose 25,000 unit in 250 mls @ 6.26 mls/hr 07/11/24 08:45 07/16/24 08:26 Heparin In D5w Ivpb IV 07/25/24 08:44 Not Given .Q24H SAVANNAH Protocol 12 UNITS/KG/HR Fentanyl Citrate 2,500 mcg in 250 mls @ 2.5 mls/hr 07/12/24 01:57 07/16/24 06:00 Sublimaze Inj 2,500 Mcg/250 Ml Bag IV 07/17/24 01:56 175 mcg/hr .Q24H PRN 17.5 mls/hr PER PROTOCOL Titration Protocol 25 MCG/HR Propofol 1,000 mg in 100 mls @ 1.565 mls/hr 07/12/24 01:57 07/16/24 06:00 Diprivan Ivpb IV 08/11/24 01:56 10 mcg/kg/min .Q24H PRN 3.13 mls/hr PER PROTOCOL Titration Protocol 5 MCG/KG/MIN Dexmedetomidine/Sodium Chloride 400 mcg in 100 mls @ 2.905 mls/hr 07/12/24 10:35 Precedex Ivpb IV 08/11/24 10:34 .Q24H PRN Per PROTOCOL Protocol 0.2 MCG/KG/HR Octreotide Acetate 1,000 mcg/ 252 mls @ 12.6 mls/hr 07/13/24 09:15 07/16/24 03:40 Sodium Chloride IV 08/12/24 09:14 50 mcg/hr .Q20H SAVANNAH 12.6 mls/hr Administration Protocol 50 MCG/HR Norepinephrine/Dextrose 8 mg in 250 mls @ 5.456 mls/hr 07/13/24 16:53 07/16/24 06:00 Levophed In D5w 8mg/250ml IV 08/12/24 16:52 0.05 mcg/kg/min .Q24H PRN 5.456 mls/hr PER PROTOCOL Titration Protocol 0.05 MCG/KG/MIN Potassium Chloride 20 meq in 100 mls @ 50 mls/hr 07/16/24 07:43 07/16/24 07:50 Kcl Ivpb IV 07/16/24 11:42 50 mls/hr Q2H SAVANNAH Administration Insulin Human Lispro 0 unit 07/12/24 12:00 07/16/24 05:33 Insulin Lispro (Admelog) 1 Unit/0.01 Ml Unit SC 08/11/24 11:59 1 unit Q6HR SAVANNAH Administration Protocol Lactulose 20 gm 07/14/24 15:45 07/16/24 05:12 Lactulose Syrup 20 Gm/30 Ml Udc PO 08/13/24 15:44 20 gm TID SAVANNAH Administration Protocol Midazolam HCl 2 mg 07/12/24 12:03 07/13/24 15:31 Midazolam Inj 1 Mg/Ml Vial 2 Ml IV 07/17/24 12:02 2 mg Q1HR PRN Administration AGITATION OR ANXIETY Midodrine 10 mg 07/13/24 14:00 07/16/24 05:13 Midodrine 5 Mg Tablet PO 08/12/24 13:59 10 mg TID SAVANNAH Administration Pantoprazole Sodium 40 mg 07/12/24 09:00 07/16/24 08:32 Pantoprazole Inj 40 Mg Vial IVP 08/11/24 08:59 40 mg QDAY SAVANNAH Administration Plan 53-year-old female with a past medical history of recent acute stroke on 06/24/2024 thought to be secondary to embolic stroke from left ventricular mural thrombus diagnosed at [facility] and is on Eliquis, history of choledocholithiasis status post MRCP in June 2024, metabolic dysfunction 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 Upgraded to ICU level of care. 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 Global LV systolic function is severely decreased. Estimated EF < 20%. LV mural Moderate hypertrophy with ground glass appearance of the left ventricular wall RV systolic function is severely decreased. Estimated RVSP, 39 mmHg including RAP 15mmHg. Moderately dilated LA and RA. Mild to moderate MR. mild AI and Severe TR. Dilated IVC Plan: Continue Bumex 2mg at q8h creatinine downtrending to 1.7 and BUN 55 output 2.3 liters/24 hours and net negative even Strict I's and O's 2 g sodium diet when applicable Continue Levophed No further troponin trend Keep potassium greater than 4.0 and magnesium greater than 2.0 at all times. Workup possible amyloidosis versus other infiltrative disease, if patient makes any substantial recovery #LV thrombus As seen at [facility] Echo confirmed presence of left ventricular thrombus Plan: Obtain the study reports Patient on heparin drip; no evidence of GI bleed #Acute respiratory failure #Mechanically Ventilated for Airway Protection Patient unable to protect airway due to disease progression; end-organ dysfunction Intubated and sedated Plan: Vent management per ICU team #History of CVA June 2024 secondary to possible embolic cardiac etiology #Cirrhosis of the liver secondary to [place] or MASLD #Acute kidney injury #Type 2 diabetes, [id number] A1c of 5.9 #Choledocholithiasis #Cachexia with severe recent weight loss #Ebony tropicalis in urine Rest of medical problems to be managed by the ICU team; cardiology following and will give recommendations. Patient seen and examined with attending Dr. Kira Jacobo, PGY-1 There is a high probability of sudden, clinically significant or life threatening deterioration in the patient condition which required the highest level of physician preparedness to intervene urgently. I have personally spent 40 minutes of critical care time, exclusive of time spent on any procedures, in evaluation and management of this critically ill patient. Attending Provider Attestation/Addendum I have personally seen and examined the patient separately on the above date of service and discussed the plan of care with the resident. I reviewed the resident consultation progress note and agree with the resident findings and plan in the note above and have also edited the documentation to reflect my findings and plan. Lico Malone M.D. Interventional Cardiology
[2024-07-16 10:12] LABS: Slide Review Platelets confirmed
--- NOTE | 2024-07-16 11:26 | ESPR_ITS ---
Documentation for date of: 07/16/24 Subjective Subjective Interval history: 53-year-old female with a past medical history of diabetes mellitus type 2, embolic CVA, LV mural thrombus, liver cirrhosis, and amyloidosis, who was brought into the emergency room due to concern for bright red bleeding per rectum. Patient started noted spots of bright red blood when changing the patient's diaper. Daughter reported, patient has become progressively too weak and bedbound following the stroke. They noted some bright red spots when changing the patient's diaper, and when cleaning her noticed bright light blood oozing out of her rectum. Denied having any black stools, or blood mixed with stools. Denied history of diarrhea, vomiting, fever. Patient was initially admitted to the medical floor, but later upgraded to ICU due to concern for hypotension, MAP in the low 60s. There was concern for adrenal insufficiency, patient was started on hydrocortisone with no improvement of blood pressure. Patient had normal cortisol and ACTH level on previous admission. Patient was transferred to [facility] recently for possible ERCP due to choledocholithiasis, pending medical records from [facility], unsure if ERCP was done, but discharge documents show that patient was discharged with Eliquis, empagliflozin, furosemide and metoprolol. ED course: Initial labs pertinent for normocytic anemia, mild hyponatremia sodium 132, PHILL, BUN 47, creatinine 1.8, EGFR 33, baseline GFR seems to be around 53, BUN/creatinine ratio more than 20, lactic acid 3.9, T. bili 2.4, AST 40, ALT 36, alk phos 131, ammonia less than 10, mild troponin elevation 0.222, BNP 740, elevated Pro-Justice 7.21, lipase 88. Urinalysis consistent with UTI, stool occult was negative. Imaging studies include chest x-ray which shows bilateral significant pneumonia, EKG shows a flutter with RVR and right bundle branch block, ultrasound abdomen shows cholelithiasis and enlarged common bile duct 0.7, of note patient has no abdominal/right upper quadrant symptoms including pain or tenderness. The patient was admitted to the medical floor, with upgraded to ICU. 07/12/24 Patient evaluated bedside, labs and overnight events as reviewed, overnight patient was hypotensive and central line was placed for IV pressor support, but patient blood pressure improved, Levophed was withheld, patient also developed bradypnea following postprocedural sedation,, received 1 mg IV Dilaudid, respiratory rate decreased to 7/min along with hypoxia, requiring intubation and mechanical ventilation. This a.m. patient noted to be tolerating mechanical ventilation well, saturating at goal on 30% FiO2, PEEP of 5, will plan to continue with ventilation given patient's significant fluid overload, as patient may require reintubation due to significant pulmonary congestion in the setting of hepatorenal/cardiorenal syndrome. We will try to aggressively diurese the patient, last night patient had 1200 mL urine output despite Lasix drip, IV albumin 75 g and octreotide. Nephrology was consulted, nephro recommended switching to Bumex drip at 2 Mg per hour, vasopressor support to help with renal perfusion. Patient was started on dobutamine for inotropic support. Bedside echocardiogram was done which showed apical LV thrombus, global hypokinesis with severely reduced ejection fraction, cardiology recommended continuing heparin drip and continued aggressive IV diuresis. Repeat echocardiogram ordered. 07/13/24 patient evaluated bedside, RASS of -2, sedation was titrated down patient was able to wake up and move both upper limbs spontaneously, but unable to comply with instructions also respiratory rate low, continued on sedation for continued mechanical ventilation, patient not ready for extubation today. Patient was started on dobutamine for cardiorenal syndrome, but developed tachycardia heart rate in the 140s A-fib RVR, dobutamine was discontinued. Started on IV phenylephrine, but due to continued hypotension, vasopressor was changed to Levophed to help with improving blood pressure as well as renal perfusion, as patient is currently on Bumex drip but urine output less than goal 100 cc an hour. IV amiodarone started for A-fib RVR. Family updated about guarded prognosis. 07/14/24 Sedation was turned off, spontaneous breathing trial was done, goals of care discussion with family was done in the setting of end-stage liver disease and severe cardiomyopathy with inadequete urine production. Guarded prognosis of patient, possibility of aggressive intervention with hemodialysis/ultrafiltration, risks of prolonged sedation with intubation and mechanical ventilation, risk of line infections and discomfort, were explained. Their questions and concerns were answered. Family was explained that patient may be able to be weaned off ventilator, but risk of immediate reintubation is high due to end-stage organ failures, and complications of treatment. Patient's daughter Rachel was decided to be the decision-maker by the family, and new POLST form was signed. Patient continues to be DNR status, selective treatment only no chest compressions. Family decided that they would like to wait on their son who was in the and will be here on Friday, before extubation. Family's wishes were respected and patient is resumed on sedation and mechanical ventilation. Family decided against Hemodialysis, Will continue with Bumex drip for continued diuresis as possible, continue with amiodarone for rate control and Levophed to improve cardiac output. 07/15/2024: Patient seen today at the bedside. Vitals significant for BP of 88/58, on mechanical ventilation with a negative fluid balance. Sedation was weaned to off and provided spontaneous breathing trial. Patient became restless and sedation had to be turned back on. Continues on Bumex drip for diuresis as tolerated. Prognosis seems to be very poor. Family decided that they would like to wait on their son who was in the and will be here on Friday, before extubation. Family's wishes were respected and patient is resumed on sedation and mechanical ventilation. 07/16/2024: Patient seen today at the bedside. Vital signs significant for blood pressure 105/70, tachycardia 118 beats per minute, on mechanical ventilation. Patient is meeting's oxygenation and ventilation goals. Plan today is to wean off sedation and provide spontaneous breathing trial and extubate patient, will monitor for adequate toleration. Urine output has remained minimal and not to goal currently on Bumex 2 mg every 8 hours will add metolazone 5 mg twice daily. Plan was discussed with the family and POA and agreed that due to the patient's overall poor prognosis should patient's condition deteriorate we will not pursue reintubation. Patient is DNR/DNI. Exam Vital Signs Temp Pulse Resp BP Pulse Ox O2 Del Method O2 Flow Rate 97.3 F 118 H 18 105/70 100 Mechanical Ventilation 4 07/16/24 08:00 07/16/24 10:14 07/12/24 18:56 07/16/24 10:14 07/16/24 10:14 07/15/24 18:00 07/11/24 23:45 FiO2 25 07/16/24 10:14 Narrative Exam Physical Exam: General: frail, cachectic, temporal wasting HEENT: Atraumatic/normocephalic, RUPINDER, neck supple, able to open eyes, dry mucosa, Rt IJ CL, ETT in place Heart: irregular, S1 and S2 without clicks or murmurs Lungs: bilateral rhochi, on mechanical ventilation Abdomen: Soft, nontender. Bowel sounds present . Vascular: Peripheral pulses palpable Skin: Intact, no cyanosis, anasarca noted. Neuro: RAAS 0, Objective Labs 07/16/24 04:14 07/16/24 07:30 Labs: Laboratory Results - last 24 hr 07/16/24 07/16/24 07/16/24 04:14 07:30 07:35 WBC 7.2 RBC 2.77 L Hgb 7.9 L Hct 25.1 L MCV 91 MCH 28.5 MCHC 31.5 RDW Std Deviation 63.9 H Plt Count 74 L Neut % (Auto) 84 H Lymph % (Auto) 13 [place] % (Auto) 2 Eos % (Auto) 1 Baso % (Auto) 0 Neut # (Auto) 6.1 Lymph # (Auto) 1.0 [place] # (Auto) 0.1 Eos # (Auto) 0.1 Baso # (Auto) 0.0 Immature Gran # (Auto) 0.01 H Absolute Nucleated RBC 0.05 H Immature Gran % 0 Nucleated RBC % 1 H APTT 48.1 H D Puncture Site Left Radial ABG pH 7.49 H ABG pCO2 38 ABG pO2 106 D ABG HCO3 28 H ABG O2 Saturation 100 H ABG Base Excess 5 H FiO2 25 Sodium 141 141 Potassium 2.8 L 2.8 L Chloride 103 103 Carbon Dioxide 27.5 28.4 Anion Gap 11 10 BUN 56 H 55 H Creatinine 1.7 H 1.7 H Estim Creat Clear Calc 30.9 L 30.9 L eGFR 35 L 35 L BUN/Creatinine Ratio 33 H 32 H Glucose 140 H 150 H Calculated Osmolality 298 H 299 H Calcium 8.8 8.7 Corrected Calcium 9.3 9.3 Phosphorus 3.1 Magnesium 1.6 1.6 Total Bilirubin 2.0 H 1.9 H AST 18 24 ALT 20 20 Alkaline Phosphatase 109 D 113 Total Protein 5.7 5.7 Albumin 3.4 L 3.3 L Globulin 2.3 2.4 Albumin/Globulin Ratio 1.5 1.4 Misc Test Result Platelets confirmed ABG Interpretation ABG results: 07/11/24 07/12/24 07/12/24 22:53 01:05 03:33 ABG pH 7.24 L 7.16 L* 7.44 D ABG pCO2 53 H 61 H 34 D ABG pO2 101 64 L D 426 H D ABG HCO3 23 22 24 ABG O2 Saturation 97 84 L 102 H ABG Base Excess -5 L -7 L -1 07/13/24 07/14/24 07/16/24 05:22 04:33 07:35 ABG pH 7.46 H 7.40 7.49 H ABG pCO2 38 37 38 ABG pO2 100 D 58 L* D 106 D ABG HCO3 27 H 23 28 H ABG O2 Saturation 99 H 89 L 100 H ABG Base Excess 3 -2 5 H Quality Measures Quality Measures none Assessment & Plan Assessment Current Active Medications: Generic Name Dose Route Start Last Admin Trade Name Freq PRN Reason Stop Dose Admin Amiodarone HCl 200 mg 07/15/24 09:00 07/16/24 08:34 Amiodarone Hcl 200 Mg Tablet PO 08/14/24 08:59 200 mg BID SAVANNAH Administration Bumetanide 2 mg 07/16/24 14:00 Bumetanide Inj 0.25 Mg/Ml Vial 4 Ml IVP 08/15/24 13:59 Q8HR SAVANNAH Dextrose 25 ml 07/11/24 19:55 Dextrose 50%-Water Inj 50 Ml Syringe IV 08/10/24 19:54 Q15MIN PRN BG 50-70 responsive npo pt Dextrose 50 ml 07/11/24 19:55 Dextrose 50%-Water Inj 50 Ml Syringe IV 08/10/24 19:54 Q15MIN PRN BG <50 OR BG <70 & pt unresponsive Glucagon 1 mg 07/11/24 19:55 Glucagon Inj 1 Mg Vial IM Q15MIN PRN BG <70, and no IV access Heparin Sodium/Dextrose 25,000 unit in 250 mls @ 6.26 mls/hr 07/11/24 08:45 07/16/24 08:26 Heparin In D5w Ivpb IV 07/25/24 08:44 Not Given .Q24H SAVANNAH Protocol 12 UNITS/KG/HR Fentanyl Citrate 2,500 mcg in 250 mls @ 2.5 mls/hr 07/12/24 01:57 07/16/24 10:00 Sublimaze Inj 2,500 Mcg/250 Ml Bag IV 07/17/24 01:56 25 mcg/hr .Q24H PRN 2.5 mls/hr PER PROTOCOL Titration Protocol 25 MCG/HR Propofol 1,000 mg in 100 mls @ 1.565 mls/hr 07/12/24 01:57 07/16/24 08:22 Diprivan Ivpb IV 08/11/24 01:56 0 mcg/kg/min .Q24H PRN 0 mls/hr PER PROTOCOL Titration Protocol 5 MCG/KG/MIN Dexmedetomidine/Sodium Chloride 400 mcg in 100 mls @ 2.905 mls/hr 07/12/24 10:35 Precedex Ivpb IV 08/11/24 10:34 .Q24H PRN Per PROTOCOL Protocol 0.2 MCG/KG/HR Octreotide Acetate 1,000 mcg/ 252 mls @ 12.6 mls/hr 07/13/24 09:15 07/16/24 03:40 Sodium Chloride IV 08/12/24 09:14 50 mcg/hr .Q20H SAVANNAH 12.6 mls/hr Administration Protocol 50 MCG/HR Norepinephrine/Dextrose 8 mg in 250 mls @ 5.456 mls/hr 07/13/24 16:53 07/16/24 06:00 Levophed In D5w 8mg/250ml IV 08/12/24 16:52 0.05 mcg/kg/min .Q24H PRN 5.456 mls/hr PER PROTOCOL Titration Protocol 0.05 MCG/KG/MIN Potassium Chloride 20 meq in 100 mls @ 50 mls/hr 07/16/24 07:43 07/16/24 10:16 Kcl Ivpb IV 07/16/24 11:42 50 mls/hr Q2H SAVANNAH Administration Insulin Human Lispro 0 unit 07/12/24 12:00 07/16/24 05:33 Insulin Lispro (Admelog) 1 Unit/0.01 Ml Unit SC 08/11/24 11:59 1 unit Q6HR SAVANNAH Administration Protocol Lactulose 20 gm 07/14/24 15:45 07/16/24 05:12 Lactulose Syrup 20 Gm/30 Ml Udc PO 08/13/24 15:44 20 gm TID SAVANNAH Administration Protocol Midazolam HCl 2 mg 07/12/24 12:03 07/13/24 15:31 Midazolam Inj 1 Mg/Ml Vial 2 Ml IV 07/17/24 12:02 2 mg Q1HR PRN Administration AGITATION OR ANXIETY Midodrine 10 mg 07/13/24 14:00 07/16/24 05:13 Midodrine 5 Mg Tablet PO 08/12/24 13:59 10 mg TID SAVANNAH Administration Pantoprazole Sodium 40 mg 07/12/24 09:00 07/16/24 08:32 Pantoprazole Inj 40 Mg Vial IVP 08/11/24 08:59 40 mg QDAY SAVANNAH Administration Plan 53-year-old female with a past medical history of diabetes mellitus type 2, embolic CVA, LV mural thrombus, liver cirrhosis, and amyloidosis, who was brought into the emergency room due to concern for bright red bleeding per rectum. Patient started noted spots of bright red blood when changing the patient's diaper. Daughter reported, patient has become progressively too weak and bedbound following the stroke. They noted some bright red spots when changing the patient's diaper, and when cleaning her noticed bright light blood oozing out of her rectum. Denied having any black stools, or blood mixed with stools. Denied history of diarrhea, vomiting, fever. Patient was initially admitted to the medical floor, but later upgraded to ICU due to concern for hypotension, MAP in the low 60s. There was concern for adrenal insufficiency, patient was started on hydrocortisone with no improvement of blood pressure. Patient had normal cortisol and ACTH level on previous admission. Patient was transferred to [facility] recently for possible ERCP due to choledocholithiasis, pending medical records from [facility], unsure if ERCP was done, but discharge documents show that patient was discharged with Eliquis, empagliflozin, furosemide and metoprolol. GOALS OF CARE: Sedation was turned off, spontaneous breathing trial was done, goals of care discussion with family was done in the setting of end-stage liver disease and severe cardiomyopathy with inadequete urine production. Guarded prognosis of patient, possibility of aggressive intervention with hemodialysis/ultrafiltration, risks of prolonged sedation with intubation and mechanical ventilation, risk of line infections and discomfort, were explained. Their questions and concerns were answered. Family was explained that patient may be able to be weaned off ventilator, but risk of immediate reintubation is high due to end-stage organ failures, and complications of treatment. Patient's daughter Rachel was decided to be the decision-maker by the family, and new POLST form was signed. Patient continues to be DNR status, selective treatment only no chest compressions. Family decided that they would like to wait on their son who was in the and will be here on Friday, before extubation. Family's wishes were respected and patient is resumed on sedation and mechanical ventilation. Family decided against Hemodialysis, Will continue with Bumex drip for continued diuresis as possible, continue with amiodarone for rate control and Levophed to improve cardiac output. 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 Patient was started on dobutamine for cardiorenal syndrome, but developed tachycardia heart rate in the 140s A-fib RVR, dobutamine was discontinued. ? on IV heparin drip ? Amiodarone 200 mg p.o. twice daily ? [employer] Education Tutor Dr. Malone on case, appreciate recommendations #Hypotension, Cardiogenic Shock DDx: Septic shock, Cardiogenic shock, cirrhosis leading to third spacing of fluid Of note patient had a previous echocardiogram, estimated EF more than 55%, no intracardiac thrombus at that time, but now at the bedside echo, findings are concerning for Global hypokinesis, poor RV and LV contractility is evident with an apical LV thrombus, noted IVC at 2.0 cm and no change in size with cardiac contraction, congested portal and hepatic veins with reversal of flow in hepatic veins, VExUS scoe 3 shows severe congestion. ? Avoided giving sepsis bolus due to anasarca and diastolic CHF ? Midodrine 15 mg TID ?On Levophed as patient developed A-fib RVR from dobutamine drip, and was hypotensive on phenylephrine #Type II NSTEMI Minimal troponin elevation 0.2030, currently on heparin drip Resp: #Mechanical Ventilation-resolved Patient has fairly low oxygen requirements FiO2 25%, PEEP 5, pt is matching her Ventilation and oxygenation goals. ? Spontaneous breathing trial provided, after 1 hour patient successfully extubated, will monitor for toleration, of note patient is DNR/DNI and should patient condition deteriorate will not be reintubated # Pulmonary edema In the setting of severely low EF 20% and cardiomyopathy, we discontinued antibiotics as pulmonary imaging and clinical condition shows consolidation and congestion more suggestive of fluid overload than infectious process. ? D/c bumex drip and started Bumex 2mg IV BID, urine output below goal, added metolazone 5 mg twice daily GI: #Concern for lower GI bleed- ruled out Bright red bleeding per rectum, stable hemoglobin at 7 hypotensive on arrival, stool occult was negative in the ER. Patient started on heparin drip due to LV mural thrombus and A-fib and was probably on anticoagulation with Eliquis at home. No per rectal bleed noted during ICU stay ? Cardiology is consulted, currently no evidence of active bleeding, will continue to monitor H&H, consider gastroenterology consult if active GI bleed or drop in hemoglobin ? Type and screen, transfuse if hemoglobin less than 7 #Cirrhosis, Likely secondary to metabolic dysfunction associated steatotic liver disease, MASLD Associated hypoalbuminemia, and hepatorenal syndrome, contributing to PHILL and anasarca. - See renal for details #Choledocholithiasis #Hyperbilirubinemia Prior medical history of Choledocholithiasis and transferred to [facility] for possible ERCP, medical records from [facility] were obtained, reported patient had a repeat MRCP at [facility] which showed no stones in the bile duct, possibly passage of stones had already occurred. No ERCP was performed. ? Imaging findings concerning for CBD dilation, but given extensive workup at [facility] no further intervention is indicated at this point ? Continue supportive treatment Renal: #PHILL, hepatorenal syndrome vs cardiorenal syndrome #Anasarca DDx: Hepatorenal syndrome versus cardiorenal syndrome Baseline creatinine seems to be around 1.2, currently serum creatinine 1.8, BUN/creatinine ratio more than 20 Patient also has fluid overload anasarca likely secondary to hypoalbuminemia ? IV Albumin 25 g qday ? on Bumex 2mg IV BID, added metolazone 5mg BID, vasopressor support to help with renal perfusion. ? Octreotide drip, due to underlying concern of hepatorenal syndrome. ? Midodrine 15mg TID Endo: #Concern for adrenal insufficiency- ruled out #History of diabetes mellitus type 2 ? Sliding scale insulin, A1c level ? Hypoglycemia protocol in place ID: Stable Heme: #Normocytic anemia Hemoglobin stable at 7.7 continue to monitor H&H transfuse if Hb <7 Disposition: ICU, extubated possible downgrade in 24 hours DVT prophylaxis: Heparin gtt GI prophylaxis: protonix Diet: Tube feeds Lines: PIV CODE STATUS: DNR Case discussed with attending Dr. João Pichardo MD PGY-1
--- NOTE | 2024-07-16 11:45 | PC.SS ---
Update: Plan is to extubate patient today. Patient's son arriving today.
--- NOTE | 2024-07-16 11:50 | CHAP ---
Patient was visited by the Spiritual Care Volunteer who also prayed for them. (Volunteer was in the hospital from 10:17-11:50).
--- NOTE | 2024-07-16 15:42 | PD.RESPRO ---
Documentation for date of: 07/16/24 Subjective Subjective Interval history: Interval history: Patient is a 53-year-old female with a past medical history of NIDDM, embolic CVA, LV mural thrombus and decompensated cirrhosis with portal hypertension. Patient was BIBA by her daughter who noticed bright red blood per rectum upon changing her diaper. Patient was admitted for workup and management of hypotension and generalized weakness. Last month patient presented to the ED with difficulty standing, slurred speech, facial droop and was diagnosed with an embolic stroke. Incidentally a CBD stone was identified on imaging. Patient was transferred from the ED to [facility] for possible ERCP. Patient also had previous admission to [facility] for hyponatremia and hypotension with ICU stay. Patient's baseline is bedbound, but able to verbalize. ED course: Patient was hypotensive and tachycardic on presentation BP 86/65, MAP 72 HR 102. Labs were significant for normocytic anemia, CR 1.8, BUN 47. Urinalysis was significant for 1+ protein, 3+ blood, LE positive, WBC 358 On imaging Abd US: Fatty liver 12.9 cm Nephrology was consulted for anasarca secondary to likely hepatorenal syndrome. 07/13/2024 Patient seen and examined in ICU this a.m. Patient's sedated, intubated and mechanically ventilated. Patient is on dobutamine, noradrenaline infusion, albumin IV, octreotide infusion. I 1536 cc O 2155 cc Balance -618 cc Recommend Bumex IV. Guarded prognosis 07/14/2024 Patient seen and examined in ICU this a.m. Patient's sedated, intubated and mechanically ventilated. Patient is on dobutamine, noradrenaline infusion, albumin IV, octreotide infusion. I 2397 cc O 980 cc Balance +1417 cc For Goals of care discussion with family today. Guarded prognosis To continue Diuretic Challenge, Can possibly attempt Low flow Dialysis. 07/15/2024 Patient seen and examined in ICU this a.m. Patient is more active today, intubated and mechanically ventilated. Patient is on noradrenaline infusion @ 1ml/hr, octreotide infusion and Bumex Infusion I 1092 cc O 1750 cc Balance -657 cc Rest of patient's family to visit tomorrow 07/16, to decide on comfort vs hospice .Guarded prognosis Blood pressure is improved with MAP in 70's on Norad @ 1ml/hr, can discontinue pressors and continue Midodrine Patient is now producing urine, will hold on dialysis for now 07/16/2024 Patient is seen and examined bedside in the ICU. Patient condition still remained the same. Yesterday the ICU team tried to extubate the patient but unsuccessful and patient is still on mechanical ventilator. The patient was successfully extubated in the afternoon. Goals of care are discussed with the family and patient was on DNR/DNI. Blood pressures are maintained well maintained without I.V vasopressor (LEVOPHED) support. On examination the patient appears to be less swollen from yesterday. Bumex infusion is changed to IV push 2 Mg 8 hourly. As the patient is able to maintain adequate urine output, no need of dialysis as of now. Goals of care discussion is pending today. Exam Vital Signs Temp Pulse Resp BP Pulse Ox O2 Del Method O2 Flow Rate 97.3 F 117 H 20 95/69 100 Mechanical Ventilation 4 07/16/24 12:00 07/16/24 14:21 07/16/24 12:45 07/16/24 14:21 07/16/24 14:00 07/15/24 18:00 07/11/24 23:45 FiO2 25 07/16/24 12:45 Narrative Exam General: Alert and awake. Feeling well. Appears chronically malnourished. HEENT: Normocephalic, atraumatic, mucous membranes moist. Heart: Regular rate and rhythm, no murmurs. Lungs: Clear to auscultation with no wheezing or crackles. Abdomen: Soft, nondistended, nontender, positive bowel sounds. Pitting edema present in the abdominal wall. No guarding or rebound tenderness. Neurologic: Alert and oriented x3, no gross neurological deficit, and patient able to move all 4 extremities. Extremities: Anasarca. Skin: No rash or ecchymoses. Objective Labs 07/16/24 04:14 07/16/24 07:30 Labs: Laboratory Results - last 24 hr 07/16/24 07/16/24 07/16/24 04:14 07:30 07:35 WBC 7.2 RBC 2.77 L Hgb 7.9 L Hct 25.1 L MCV 91 MCH 28.5 MCHC 31.5 RDW Std Deviation 63.9 H Plt Count 74 L Neut % (Auto) 84 H Lymph % (Auto) 13 [place] % (Auto) 2 Eos % (Auto) 1 Baso % (Auto) 0 Neut # (Auto) 6.1 Lymph # (Auto) 1.0 [place] # (Auto) 0.1 Eos # (Auto) 0.1 Baso # (Auto) 0.0 Immature Gran # (Auto) 0.01 H Absolute Nucleated RBC 0.05 H Immature Gran % 0 Nucleated RBC % 1 H APTT 48.1 H D Puncture Site Left Radial ABG pH 7.49 H ABG pCO2 38 ABG pO2 106 D ABG HCO3 28 H ABG O2 Saturation 100 H ABG Base Excess 5 H FiO2 25 Sodium 141 141 Potassium 2.8 L 2.8 L Chloride 103 103 Carbon Dioxide 27.5 28.4 Anion Gap 11 10 BUN 56 H 55 H Creatinine 1.7 H 1.7 H Estim Creat Clear Calc 30.9 L 30.9 L eGFR 35 L 35 L BUN/Creatinine Ratio 33 H 32 H Glucose 140 H 150 H Calculated Osmolality 298 H 299 H Calcium 8.8 8.7 Corrected Calcium 9.3 9.3 Phosphorus 3.1 Magnesium 1.6 1.6 Total Bilirubin 2.0 H 1.9 H AST 18 24 ALT 20 20 Alkaline Phosphatase 109 D 113 Total Protein 5.7 5.7 Albumin 3.4 L 3.3 L Globulin 2.3 2.4 Albumin/Globulin Ratio 1.5 1.4 Misc Test Result Platelets confirmed ABG Interpretation ABG results: 07/11/24 07/12/24 07/12/24 22:53 01:05 03:33 ABG pH 7.24 L 7.16 L* 7.44 D ABG pCO2 53 H 61 H 34 D ABG pO2 101 64 L D 426 H D ABG HCO3 23 22 24 ABG O2 Saturation 97 84 L 102 H ABG Base Excess -5 L -7 L -1 07/13/24 07/14/24 07/16/24 05:22 04:33 07:35 ABG pH 7.46 H 7.40 7.49 H ABG pCO2 38 37 38 ABG pO2 100 D 58 L* D 106 D ABG HCO3 27 H 23 28 H ABG O2 Saturation 99 H 89 L 100 H ABG Base Excess 3 -2 5 H Quality Measures Quality Measures none Assessment & Plan Assessment Current Active Medications: Generic Name Dose Route Start Last Admin Trade Name Freq PRN Reason Stop Dose Admin Amiodarone HCl 200 mg 07/15/24 09:00 07/16/24 08:34 Amiodarone Hcl 200 Mg Tablet PO 08/14/24 08:59 200 mg BID SAVANNAH Administration Bumetanide 2 mg 07/16/24 14:00 07/16/24 14:21 Bumetanide Inj 0.25 Mg/Ml Vial 4 Ml IVP 08/15/24 13:59 2 mg Q8HR SAVANNAH Administration Dextrose 25 ml 07/11/24 19:55 Dextrose 50%-Water Inj 50 Ml Syringe IV 08/10/24 19:54 Q15MIN PRN BG 50-70 responsive npo pt Dextrose 50 ml 07/11/24 19:55 Dextrose 50%-Water Inj 50 Ml Syringe IV 08/10/24 19:54 Q15MIN PRN BG <50 OR BG <70 & pt unresponsive Glucagon 1 mg 07/11/24 19:55 Glucagon Inj 1 Mg Vial IM Q15MIN PRN BG <70, and no IV access Heparin Sodium/Dextrose 25,000 unit in 250 mls @ 6.26 mls/hr 07/11/24 08:45 07/16/24 08:26 Heparin In D5w Ivpb IV 07/25/24 08:44 Not Given .Q24H SAVANNAH Protocol 12 UNITS/KG/HR Fentanyl Citrate 2,500 mcg in 250 mls @ 2.5 mls/hr 07/12/24 01:57 07/16/24 13:00 Sublimaze Inj 2,500 Mcg/250 Ml Bag IV 07/17/24 01:56 0 mcg/hr .Q24H PRN 0 mls/hr PER PROTOCOL Titration Protocol 25 MCG/HR Propofol 1,000 mg in 100 mls @ 1.565 mls/hr 07/12/24 01:57 07/16/24 08:22 Diprivan Ivpb IV 08/11/24 01:56 0 mcg/kg/min .Q24H PRN 0 mls/hr PER PROTOCOL Titration Protocol 5 MCG/KG/MIN Dexmedetomidine/Sodium Chloride 400 mcg in 100 mls @ 2.905 mls/hr 07/12/24 10:35 Precedex Ivpb IV 08/11/24 10:34 .Q24H PRN Per PROTOCOL Protocol 0.2 MCG/KG/HR Octreotide Acetate 1,000 mcg/ 252 mls @ 12.6 mls/hr 07/13/24 09:15 07/16/24 03:40 Sodium Chloride IV 08/12/24 09:14 50 mcg/hr .Q20H SAVANNAH 12.6 mls/hr Administration Protocol 50 MCG/HR Norepinephrine/Dextrose 8 mg in 250 mls @ 5.456 mls/hr 07/13/24 16:53 07/16/24 14:00 Levophed In D5w 8mg/250ml IV 08/12/24 16:52 0.05 mcg/kg/min .Q24H PRN 5.456 mls/hr PER PROTOCOL Titration Protocol 0.05 MCG/KG/MIN Insulin Human Lispro 0 unit 07/12/24 12:00 07/16/24 12:20 Insulin Lispro (Admelog) 1 Unit/0.01 Ml Unit SC 08/11/24 11:59 1 unit Q6HR SAVANNAH Administration Protocol Lactulose 20 gm 07/14/24 15:45 07/16/24 14:04 Lactulose Syrup 20 Gm/30 Ml Udc PO 08/13/24 15:44 Not Given TID [facility] Protocol Midazolam HCl 2 mg 07/12/24 12:03 07/13/24 15:31 Midazolam Inj 1 Mg/Ml Vial 2 Ml IV 07/17/24 12:02 2 mg Q1HR PRN Administration AGITATION OR ANXIETY Midodrine 10 mg 07/13/24 14:00 07/16/24 14:06 Midodrine 5 Mg Tablet PO 08/12/24 13:59 Not Given TID SAVANNAH Pantoprazole Sodium 40 mg 07/12/24 09:00 07/16/24 08:32 Pantoprazole Inj 40 Mg Vial IVP 08/11/24 08:59 40 mg QDAY SAVANNAH Administration Plan Patient is a 53-year-old female with a past medical history of NIDDM, embolic CVA, LV mural thrombus and decompensated cirrhosis with portal hypertension. Patient was BIBA by her daughter who noticed bright red blood per rectum upon changing her diaper. Patient was admitted for workup and management of hypotension and generalized weakness. Nephrology was consulted for anasarca secondary to hepatorenal syndrome. 1. Hepatorenal syndrome Likely type II as patient has diuretic resistant ascites Patient has history of decompensated cirrhosis with ascites. On presentation patient was hypotensive with MAP in low 60s and required upgrade to ICU for vaso pressors Echocardiogram showed ejection fraction 20%- Dr. Yunier Sorto. Patient was started on dobutamine after improvement in urine output Currently BP 95/69 MAP 78 on midodrine Ddx : Cardiorenal syndrome Abdo ultrasound confirms fatty liver 12.9 cm I 1935 cc O 2250 cc Balance -314 cc Plan: - Strict I/O ? Continue Bumex 2 Mg IV push Q8 hourly. ? Continue midodrine 10 mg po TID for blood pressure support ? Continue octreotide infusion for splanchnic vasoconstriction - For Goals of Care discussion today with rest of family to decide on comfort care vs hospice. ? Thank you for the opportunity to participate in patient's care. ? Nephrology will closely monitor this case. 2. PHILL Likely prerenal secondary to hypoperfusion Patient was hypotensive on admission with MAP in low 60s [07/12] Cr 1.8 BUN 51 ----> [07/16 K.] Cr 1.7 BUN 55. Plan: ? Blood pressure support to maintain adequate perfusion of kidney 3. 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 bili 2.4 Normocytic anemia Thrombocytopenia GI bleed for investigation UTI History of embolic CVA NIDDM LV mural thrombus-on heparin drip. Plan: ? Continue management as per primary team Thank you for allowing us to participate in this patient's care. Plan of care discussed with attending Bucket Operator, Dr Caren Mendez, PGY1 Attending Provider Attestation/Addendum Patient seen and examined with resident physician Dr. Mendez. Note reviewed, agree with findings and recommendations. Plan of care discussed with critical care team.
--- NOTE | 2024-07-16 15:55 | PC.SS ---
Patient has been extubated. Family at bedside.
--- NOTE | 2024-07-16 16:09 | ESPR_ITS ---
Documentation for date of: 07/16/24 Subjective Subjective Interval history: 53-year-old female with a past medical history of diabetes mellitus type 2, embolic CVA, LV mural thrombus, liver cirrhosis, and amyloidosis, who was brought into the emergency room due to concern for bright red bleeding per rectum. Patient started noted spots of bright red blood when changing the patient's diaper. Daughter reported, patient has become progressively too weak and bedbound following the stroke. They noted some bright red spots when changing the patient's diaper, and when cleaning her noticed bright light blood oozing out of her rectum. Denied having any black stools, or blood mixed with stools. Denied history of diarrhea, vomiting, fever. Patient was initially admitted to the medical floor, but later upgraded to ICU due to concern for hypotension, MAP in the low 60s. There was concern for adrenal insufficiency, patient was started on hydrocortisone with no improvement of blood pressure. Patient had normal cortisol and ACTH level on previous admission. Patient was transferred to [facility] recently for possible ERCP due to choledocholithiasis, pending medical records from [facility], unsure if ERCP was done, but discharge documents show that patient was discharged with Eliquis, empagliflozin, furosemide and metoprolol. ED course: Initial labs pertinent for normocytic anemia, mild hyponatremia sodium 132, PHILL, BUN 47, creatinine 1.8, EGFR 33, baseline GFR seems to be around 53, BUN/creatinine ratio more than 20, lactic acid 3.9, T. bili 2.4, AST 40, ALT 36, alk phos 131, ammonia less than 10, mild troponin elevation 0.222, BNP 740, elevated Pro-Justice 7.21, lipase 88. Urinalysis consistent with UTI, stool occult was negative. Imaging studies include chest x-ray which shows bilateral significant pneumonia, EKG shows a flutter with RVR and right bundle branch block, ultrasound abdomen shows cholelithiasis and enlarged common bile duct 0.7, of note patient has no abdominal/right upper quadrant symptoms including pain or tenderness. The patient was admitted to the medical floor, with upgraded to ICU. 07/12/24 Patient evaluated bedside, labs and overnight events as reviewed, overnight patient was hypotensive and central line was placed for IV pressor support, but patient blood pressure improved, Levophed was withheld, patient also developed bradypnea following postprocedural sedation,, received 1 mg IV Dilaudid, respiratory rate decreased to 7/min along with hypoxia, requiring intubation and mechanical ventilation. This a.m. patient noted to be tolerating mechanical ventilation well, saturating at goal on 30% FiO2, PEEP of 5, will plan to continue with ventilation given patient's significant fluid overload, as patient may require reintubation due to significant pulmonary congestion in the setting of hepatorenal/cardiorenal syndrome. We will try to aggressively diurese the patient, last night patient had 1200 mL urine output despite Lasix drip, IV albumin 75 g and octreotide. Nephrology was consulted, nephro recommended switching to Bumex drip at 2 Mg per hour, vasopressor support to help with renal perfusion. Patient was started on dobutamine for inotropic support. Bedside echocardiogram was done which showed apical LV thrombus, global hypokinesis with severely reduced ejection fraction, cardiology recommended continuing heparin drip and continued aggressive IV diuresis. Repeat echocardiogram ordered. 07/13/24 patient evaluated bedside, RASS of -2, sedation was titrated down patient was able to wake up and move both upper limbs spontaneously, but unable to comply with instructions also respiratory rate low, continued on sedation for continued mechanical ventilation, patient not ready for extubation today. Patient was started on dobutamine for cardiorenal syndrome, but developed tachycardia heart rate in the 140s A-fib RVR, dobutamine was discontinued. Started on IV phenylephrine, but due to continued hypotension, vasopressor was changed to Levophed to help with improving blood pressure as well as renal perfusion, as patient is currently on Bumex drip but urine output less than goal 100 cc an hour. IV amiodarone started for A-fib RVR. Family updated about guarded prognosis. 07/14/24 Sedation was turned off, spontaneous breathing trial was done, goals of care discussion with family was done in the setting of end-stage liver disease and severe cardiomyopathy with inadequete urine production. Guarded prognosis of patient, possibility of aggressive intervention with hemodialysis/ultrafiltration, risks of prolonged sedation with intubation and mechanical ventilation, risk of line infections and discomfort, were explained. Their questions and concerns were answered. Family was explained that patient may be able to be weaned off ventilator, but risk of immediate reintubation is high due to end-stage organ failures, and complications of treatment. Patient's daughter Rachel was decided to be the decision-maker by the family, and new POLST form was signed. Patient continues to be DNR status, selective treatment only no chest compressions. Family decided that they would like to wait on their son who was in the and will be here on Friday, before extubation. Family's wishes were respected and patient is resumed on sedation and mechanical ventilation. Family decided against Hemodialysis, Will continue with Bumex drip for continued diuresis as possible, continue with amiodarone for rate control and Levophed to improve cardiac output. 07/15/2024: Patient seen today at the bedside. Vitals significant for BP of 88/58, on mechanical ventilation with a negative fluid balance. Sedation was weaned to off and provided spontaneous breathing trial. Patient became restless and sedation had to be turned back on. Continues on Bumex drip for diuresis as tolerated. Prognosis seems to be very poor. Family decided that they would like to wait on their son who was in the and will be here on Friday, before extubation. Family's wishes were respected and patient is resumed on sedation and mechanical ventilation. 07/16- no acute overnight events, afebrile, has started to make some UOP and is net neg overnight, pt wakes up and follows commands with sedation vacation. Critical Care Note Critical care time (min.): 45 Exam Vital Signs Temp Pulse Resp BP Pulse Ox O2 Del Method O2 Flow Rate 97.3 F 117 H 20 95/69 100 Mechanical Ventilation 4 07/16/24 12:00 07/16/24 14:21 07/16/24 12:45 07/16/24 14:21 07/16/24 14:00 07/15/24 18:00 07/11/24 23:45 FiO2 25 07/16/24 12:45 Narrative Exam Gen- NAD, intubated, min sedation, nl body habitus, cachexia with musc wasting noted as well as anasarca HEENT- NC/AT, mucosa hydrated, ETT/OGT in place, Chest- LCTAB, HRIR, no increase in WOB Abd- s/nt/bs+, pitting edema of abd wall noted along with some scattered petechiae Ext- 3 + pitting edema throughout, no clubbing, no mottling, pulses palp Vent AC VC Drips fent prop octreotide levo Physical Exam Completion Physical Exam Complete?: Yes Objective - Extrusion Die Coordinator Labs 07/17/24 04:29 07/17/24 04:29 Labs: Laboratory Results - last 24 hr 07/16/24 07/16/24 07/16/24 04:14 07:30 07:35 WBC 7.2 RBC 2.77 L Hgb 7.9 L Hct 25.1 L MCV 91 MCH 28.5 MCHC 31.5 RDW Std Deviation 63.9 H Plt Count 74 L Neut % (Auto) 84 H Lymph % (Auto) 13 [place] % (Auto) 2 Eos % (Auto) 1 Baso % (Auto) 0 Neut # (Auto) 6.1 Lymph # (Auto) 1.0 [place] # (Auto) 0.1 Eos # (Auto) 0.1 Baso # (Auto) 0.0 Immature Gran # (Auto) 0.01 H Absolute Nucleated RBC 0.05 H Immature Gran % 0 Nucleated RBC % 1 H APTT 48.1 H D Puncture Site Left Radial ABG pH 7.49 H ABG pCO2 38 ABG pO2 106 D ABG HCO3 28 H ABG O2 Saturation 100 H ABG Base Excess 5 H FiO2 25 Sodium 141 141 Potassium 2.8 L 2.8 L Chloride 103 103 Carbon Dioxide 27.5 28.4 Anion Gap 11 10 BUN 56 H 55 H Creatinine 1.7 H 1.7 H Estim Creat Clear Calc 30.9 L 30.9 L eGFR 35 L 35 L BUN/Creatinine Ratio 33 H 32 H Glucose 140 H 150 H Calculated Osmolality 298 H 299 H Calcium 8.8 8.7 Corrected Calcium 9.3 9.3 Phosphorus 3.1 Magnesium 1.6 1.6 Total Bilirubin 2.0 H 1.9 H AST 18 24 ALT 20 20 Alkaline Phosphatase 109 D 113 Total Protein 5.7 5.7 Albumin 3.4 L 3.3 L Globulin 2.3 2.4 Albumin/Globulin Ratio 1.5 1.4 Misc Test Result Platelets confirmed Assessment & Plan Additional Assessment Additional Assessment: In summary this is a 53yo F admitted to the ICU with acute resp failure and shock along with a h/o liver dz and severe cardiomyopathy a/p HEAD BELLHOP CAPTAIN on sedation, follows commands with sedation vacation CV Shock- unclear if cardiogenic or distributive in nature, has had decreasing levo needs - on midodrine 10mg q8 - EF on echo of <20% Afib- rate controlled, on AC Cardiomyopathy- unclear etiology - pt with nl EF on 05/19 which dropped to <20% by 07/11 - needs additional workup once stable - cardiology following LV thrombus- currently on heparin gtt Resp Acute Hypoxic resp failure- intubated and on MV - improved FiO2 needs - ABG and CXR noted - tolerates PSV well - extubated to NC - still has some pulm edema as seen on CXR Renal PHILL- near baseline over past few days - seen by nephrology and suspected to have hepatorenal synd - has had poor UOP however improving over past 12hrs - bumex changed to q8hrs HypoK- replete IV and PO GI GI proph- ppi Liver dz- on lactulose Endo DM- SSI fsq6h Heme DVT proph- on heparin gtt 2/2 thrombus Anemia- slow drift down, check iron panel, did have some BRBPR on arrival however this has resolved Thrombocytopenia- no active bleeding at this time, monitor, no suspicion of HIT at this time ID stable case d/w ICU team and nephrology labs, imaging, records reviewed d/w family at bedside regarding GOC and plan for reintubation if needed . family would like to proceed with DNR/DNI status and are ok for extubation today ~45ccmin required for eval, exam, review, intervention, discussion and formulation of POC for this critically ill pt with shock on vasopressor support Provider Notation Provider Notation: Although this document has been carefully reviewed, there may still be some phonetic and other typographical errors. These errors are purely grammatical due to imperfections in the software program and should not be construed in any way to compromise the substance of the patient's medical care during this visit. Thank you for the opportunity and privilege in assisting you with this patient's care and management.
--- NOTE | 2024-07-16 16:24 | PC.NURSE ---
1600 family at bedside, mouth care done family by family and family swabbing patients mouth with a lemon swab and patient tooth fell out. and son at bedside and made aware that what came out of the patient mouth was a tooth. Family stated to throw away the tooth. MD Pastor and Charge Nurse made aware.
--- NOTE | 2024-07-16 17:14 | XR_ITS ---
Examination: AP chest single view Portable AP semiupright chest single view Exam date and time: July 16, 2024 1724 hrs. Comparison July 11, 2024 Indications: Post orogastric tube placement Findings: Orogastric tube projects in the stomach satisfactory position Moderate enlargement cardiac contour with prominent edema and/or pneumonia Right internal jugular central line tip satisfactory position Layered right pleural fluid Impression: Orogastric tube in the stomach satisfactory position
[2024-07-16] MEDS: ALBUMIN HUMAN 25% IVPB 25 GM/100 ML BTL IV (18:22)
[2024-07-16] MEDS: DEXTROSE 50%-WATER INJ 50 ML SYRINGE IV (18:22)
[2024-07-16] MEDS: metOLazone 2.5 MG TABLET 5 MG PO (20:55)
[2024-07-17] VITALS (109 sets, daily range): BP systolic 69–110; BP diastolic 47–70; PULSE 87–115; RESP 16–20; TEMP 36.1–37.6; O2SAT 87–100; BMI 25.6
[2024-07-17] MEDS: INSULIN LISPRO (AdmeLOG) 1 UNIT/0.01 ML UNIT SC ×2 (00:26→05:57)
[2024-07-17 05:08] LABS: Basophils % (Auto) 0 % (0-2.5); Eosinophils % (Auto) 0 % (0-10); Mean Corpuscular Volume 94 fL (80-100); Monocytes # (Auto) 0.3 Thou/mm3 (0.0-0.8); Monocytes % (Auto) 4 % (0-12); Neutrophils # (Auto) 5.6 Thou/mm3 (1.8-7.7)
[2024-07-17 05:09] LABS: Hematocrit 23.3 % (36.0-46.0); Immature Granulocytes % (Auto) 1 % (0-0); Immature Granulocytes Auto 0.03 Thou/mm3 (0.00-0.00); Lymphocytes # (Auto) 0.6 Thou/mm3 (1.0-4.8); Lymphocytes % (Auto) 9 % (10-50); Mean Corpuscular Hemoglobin 28.2 pg (25.0-35.0); Neutrophils % (Auto) 86 % (37-80); Nucleated Red Blood Cell # 0.08 Thou/mm3 (0.00-0.00); Nucleated Red Blood Cell % 1 /100 WBC (0); RDW Standard Deviation 67.7 fL (36.4-46.3); Red Blood Count 2.48 Miln/mm3 (4.00-5.20); White Blood Count 6.4 Thou/mm3 (3.6-11.0)
[2024-07-17 05:18] LABS: Platelet Count 74 Thou/mm3 (140-440)
[2024-07-17 05:20] LABS: Slide Review Platelets confirmed
[2024-07-17 05:30] LABS: Alanine Aminotransferase 27 U/L (10-49); Albumin, Serum 3.7 gm/dL (3.5-5.0); Albumin/Globulin Ratio 1.5 (1.2-2.2); Alkaline Phosphatase 200 U/L (46-116); Anion Gap 14 (7-16); Aspartate Amino Transferase 37 U/L (0-34); BUN/Creatinine Ratio 32 Ratio (12-20); Bilirubin,Total 2.2 mg/dL (0.3-1.2); Blood Urea Nitrogen 61 mg/dL (9-23); Calcium 9.2 mg/dL (8.3-10.6); Calcium (Corrected) 9.4 mg/dL (8.5-10.1); Carbon Dioxide 23.4 mMol/L (20.0-31.0); Chloride 103 mMol/L (98-107); Creatinine (Component) 1.9 mg/dL (0.6-1.3); Estimated Creatinine Clearance 29.1 mL/min (>60); Globulin 2.4 gm/dL (2.3-3.5); Glucose 145 mg/dL (74-106); Magnesium 1.8 mg/dL (1.6-2.6); Osmolality,Calculated 299 (275-295); Potassium 4.4 mMol/L (3.4-5.1); Sodium 140 mMol/L (136-145); Total Protein 6.1 gm/dL (5.7-8.2); eGFR 31 See Note
[2024-07-17] MEDS: MIDODRINE 5 MG TABLET 10 MG PO ×3 (05:30→21:34)
[2024-07-17] MEDS: BUMETANIDE INJ 0.25 MG/ML VIAL 4 ML 2 MG IVP ×3 (05:30→21:35)
[2024-07-17] MEDS: LACTULOSE SYRUP 20 GM/30 ML UDC PO ×3 (05:30→21:29)
[2024-07-17 06:18] LABS: Total Iron Binding Capacity 143 mcg/dL (250-425)
[2024-07-17 06:29] LABS: Iron 17 mcg/dL (50-170); Percent Iron Saturation 11 % (20-55); Unsaturated Iron Binding 126 (225-295)
[2024-07-17] MEDS: AMIODARONE HCL 200 MG TABLET PO ×2 (08:28→21:35)
[2024-07-17] MEDS: ALBUMIN HUMAN 25% IVPB 25 GM/100 ML BTL IV (08:28)
[2024-07-17] MEDS: metOLazone 2.5 MG TABLET 5 MG PO ×2 (08:28→21:29)
[2024-07-17] MEDS: PANTOPRAZOLE INJ 40 MG VIAL IVP (08:28)
--- NOTE | 2024-07-17 10:03 | PCS.ST ---
clinical swallow eval completed. continue NPO with tube feeds. SUPERVISOR STATEMENT CLERKS will continue to follow
--- NOTE | 2024-07-17 11:55 | ESPR_ITS ---
Documentation for date of: 07/17/24 Subjective Subjective Interval history: 53-year-old female with a past medical history of diabetes mellitus type 2, embolic CVA, LV mural thrombus, liver cirrhosis, and amyloidosis, who was brought into the emergency room due to concern for bright red bleeding per rectum. Patient started noted spots of bright red blood when changing the patient's diaper. Daughter reported, patient has become progressively too weak and bedbound following the stroke. They noted some bright red spots when changing the patient's diaper, and when cleaning her noticed bright light blood oozing out of her rectum. Denied having any black stools, or blood mixed with stools. Denied history of diarrhea, vomiting, fever. Patient was initially admitted to the medical floor, but later upgraded to ICU due to concern for hypotension, MAP in the low 60s. There was concern for adrenal insufficiency, patient was started on hydrocortisone with no improvement of blood pressure. Patient had normal cortisol and ACTH level on previous admission. Patient was transferred to [facility] recently for possible ERCP due to choledocholithiasis, pending medical records from [facility], unsure if ERCP was done, but discharge documents show that patient was discharged with Eliquis, empagliflozin, furosemide and metoprolol. ED course: Initial labs pertinent for normocytic anemia, mild hyponatremia sodium 132, PHILL, BUN 47, creatinine 1.8, EGFR 33, baseline GFR seems to be around 53, BUN/creatinine ratio more than 20, lactic acid 3.9, T. bili 2.4, AST 40, ALT 36, alk phos 131, ammonia less than 10, mild troponin elevation 0.222, BNP 740, elevated Pro-Justice 7.21, lipase 88. Urinalysis consistent with UTI, stool occult was negative. Imaging studies include chest x-ray which shows bilateral significant pneumonia, EKG shows a flutter with RVR and right bundle branch block, ultrasound abdomen shows cholelithiasis and enlarged common bile duct 0.7, of note patient has no abdominal/right upper quadrant symptoms including pain or tenderness. The patient was admitted to the medical floor, with upgraded to ICU. 07/12/24 Patient evaluated bedside, labs and overnight events as reviewed, overnight patient was hypotensive and central line was placed for IV pressor support, but patient blood pressure improved, Levophed was withheld, patient also developed bradypnea following postprocedural sedation,, received 1 mg IV Dilaudid, respiratory rate decreased to 7/min along with hypoxia, requiring intubation and mechanical ventilation. This a.m. patient noted to be tolerating mechanical ventilation well, saturating at goal on 30% FiO2, PEEP of 5, will plan to continue with ventilation given patient's significant fluid overload, as patient may require reintubation due to significant pulmonary congestion in the setting of hepatorenal/cardiorenal syndrome. We will try to aggressively diurese the patient, last night patient had 1200 mL urine output despite Lasix drip, IV albumin 75 g and octreotide. Nephrology was consulted, nephro recommended switching to Bumex drip at 2 Mg per hour, vasopressor support to help with renal perfusion. Patient was started on dobutamine for inotropic support. Bedside echocardiogram was done which showed apical LV thrombus, global hypokinesis with severely reduced ejection fraction, cardiology recommended continuing heparin drip and continued aggressive IV diuresis. Repeat echocardiogram ordered. 07/13/24 patient evaluated bedside, RASS of -2, sedation was titrated down patient was able to wake up and move both upper limbs spontaneously, but unable to comply with instructions also respiratory rate low, continued on sedation for continued mechanical ventilation, patient not ready for extubation today. Patient was started on dobutamine for cardiorenal syndrome, but developed tachycardia heart rate in the 140s A-fib RVR, dobutamine was discontinued. Started on IV phenylephrine, but due to continued hypotension, vasopressor was changed to Levophed to help with improving blood pressure as well as renal perfusion, as patient is currently on Bumex drip but urine output less than goal 100 cc an hour. IV amiodarone started for A-fib RVR. Family updated about guarded prognosis. 07/14/24 Sedation was turned off, spontaneous breathing trial was done, goals of care discussion with family was done in the setting of end-stage liver disease and severe cardiomyopathy with inadequete urine production. Guarded prognosis of patient, possibility of aggressive intervention with hemodialysis/ultrafiltration, risks of prolonged sedation with intubation and mechanical ventilation, risk of line infections and discomfort, were explained. Their questions and concerns were answered. Family was explained that patient may be able to be weaned off ventilator, but risk of immediate reintubation is high due to end-stage organ failures, and complications of treatment. Patient's daughter Rachel was decided to be the decision-maker by the family, and new POLST form was signed. Patient continues to be DNR status, selective treatment only no chest compressions. Family decided that they would like to wait on their son who was in the and will be here on Friday, before extubation. Family's wishes were respected and patient is resumed on sedation and mechanical ventilation. Family decided against Hemodialysis, Will continue with Bumex drip for continued diuresis as possible, continue with amiodarone for rate control and Levophed to improve cardiac output. 07/15/2024: Patient seen today at the bedside. Vitals significant for BP of 88/58, on mechanical ventilation with a negative fluid balance. Sedation was weaned to off and provided spontaneous breathing trial. Patient became restless and sedation had to be turned back on. Continues on Bumex drip for diuresis as tolerated. Prognosis seems to be very poor. Family decided that they would like to wait on their son who was in the and will be here on Friday, before extubation. Family's wishes were respected and patient is resumed on sedation and mechanical ventilation. 07/16/2024: Patient seen today at the bedside. Vital signs significant for blood pressure 105/70, tachycardia 118 beats per minute, on mechanical ventilation. Patient is meeting's oxygenation and ventilation goals. Plan today is to wean off sedation and provide spontaneous breathing trial and extubate patient, will monitor for adequate toleration. Urine output has remained minimal and not to goal currently on Bumex 2 mg every 8 hours will add metolazone 5 mg twice daily. Plan was discussed with the family and POA and agreed that due to the patient's overall poor prognosis should patient's condition deteriorate we will not pursue reintubation. Patient is DNR/DNI. 07/17/2024: patient evaluated at bedside, off sedation, patient was extubated yesterday, currently AO x 2, she is able to follow simple commands, saturating well on room air, NG tube in place, patient had failed swallow eval , pertinent for hemoglobin 7.0, no active GI bleed noted during ICU stay, labs pertinent for iron deficiency, also noted thrombocytopenia, of note patient's platelets have been on the lower side since June, probably after starting anticoagulation for LV thrombus. BUN 61, creatinine 1.9, after discussion with family, poor response to IV Bumex and metolazone, plan to proceed with hemodialysis. Technical Support Coordinator Dr Fabian is on board, dialysis catheter placed, hemodialysis initiated. Started on low-dose Levophed as patient blood pressure on the softer side, will titrate to keep MAP more than 60 during hemodialysis. Exam Vital Signs Temp Pulse Resp BP Pulse Ox O2 Del Method O2 Flow Rate 98.1 F 107 H 18 69/58 L 96 Mechanical Ventilation 4 07/17/24 08:00 07/17/24 11:15 07/17/24 07:18 07/17/24 11:15 07/17/24 11:15 07/15/24 18:00 07/11/24 23:45 FiO2 25 07/16/24 12:45 Narrative Exam General: Alert and awake, oriented x 2. Feeling well. Appears chronically malnourished. HEENT: Normocephalic, atraumatic, mucous membranes moist. Heart: Regular rate and rhythm, no murmurs. Lungs: Clear to auscultation with no wheezing or crackles. Abdomen: Soft, nondistended, nontender, positive bowel sounds. Pitting edema present in the abdominal wall. No guarding or rebound tenderness. Neurologic: Alert and oriented x3, no gross neurological deficit, and patient able to move all 4 extremities. Extremities: Anasarca. 4+ peripheral edema Skin: No rash or ecchymoses. Objective Labs 07/18/24 04:40 07/18/24 04:40 Labs: Laboratory Results - last 24 hr 07/17/24 04:29 WBC 6.4 RBC 2.48 L Hgb 7.0 L Hct 23.3 L MCV 94 MCH 28.2 MCHC 30.0 L RDW Std Deviation 67.7 H Plt Count 74 L Neut % (Auto) 86 H Lymph % (Auto) 9 L [place] % (Auto) 4 Eos % (Auto) 0 Baso % (Auto) 0 Neut # (Auto) 5.6 Lymph # (Auto) 0.6 L [place] # (Auto) 0.3 Eos # (Auto) 0.0 Baso # (Auto) 0.0 Immature Gran # (Auto) 0.03 H Absolute Nucleated RBC 0.08 H Immature Gran % 1 H Nucleated RBC % 1 H APTT 51.0 H Sodium 140 Potassium 4.4 D Chloride 103 Carbon Dioxide 23.4 Anion Gap 14 BUN 61 H Creatinine 1.9 H Estim Creat Clear Calc 29.1 L eGFR 31 L BUN/Creatinine Ratio 32 H Glucose 145 H Calculated Osmolality 299 H Calcium 9.2 Corrected Calcium 9.4 Phosphorus 4.0 Magnesium 1.8 Iron 17 L TIBC 143 L Iron Saturation 11 L Unsat Iron Binding 126 L Total Bilirubin 2.2 H AST 37 H ALT 27 Alkaline Phosphatase 200 H D Total Protein 6.1 Albumin 3.7 Globulin 2.4 Albumin/Globulin Ratio 1.5 Misc Test Result Platelets confirmed ABG Interpretation ABG results: 07/11/24 07/12/24 07/12/24 22:53 01:05 03:33 ABG pH 7.24 L 7.16 L* 7.44 D ABG pCO2 53 H 61 H 34 D ABG pO2 101 64 L D 426 H D ABG HCO3 23 22 24 ABG O2 Saturation 97 84 L 102 H ABG Base Excess -5 L -7 L -1 07/13/24 07/14/24 07/16/24 05:22 04:33 07:35 ABG pH 7.46 H 7.40 7.49 H ABG pCO2 38 37 38 ABG pO2 100 D 58 L* D 106 D ABG HCO3 27 H 23 28 H ABG O2 Saturation 99 H 89 L 100 H ABG Base Excess 3 -2 5 H Quality Measures Quality Measures none Assessment & Plan Assessment Current Active Medications: Generic Name Dose Route Start Last Admin Trade Name Freq PRN Reason Stop Dose Admin Amiodarone HCl 200 mg 07/15/24 09:00 07/17/24 08:28 Amiodarone Hcl 200 Mg Tablet PO 08/14/24 08:59 200 mg BID SAVANNAH Administration Bumetanide 2 mg 07/16/24 14:00 07/17/24 05:30 Bumetanide Inj 0.25 Mg/Ml Vial 4 Ml IVP 08/15/24 13:59 2 mg Q8HR SAVANNAH Administration Dextrose 25 ml 07/11/24 19:55 Dextrose 50%-Water Inj 50 Ml Syringe IV 08/10/24 19:54 Q15MIN PRN BG 50-70 responsive npo pt Dextrose 50 ml 07/11/24 19:55 07/16/24 18:22 Dextrose 50%-Water Inj 50 Ml Syringe IV 08/10/24 19:54 50 ml Q15MIN PRN Administration BG <50 OR BG <70 & pt unresponsive Glucagon 1 mg 07/11/24 19:55 Glucagon Inj 1 Mg Vial IM Q15MIN PRN BG <70, and no IV access Heparin Sodium/Dextrose 25,000 unit in 250 mls @ 6.26 mls/hr 07/11/24 08:45 07/17/24 10:15 Heparin In D5w Ivpb IV 07/25/24 08:44 Not Given .Q24H SAVANNAH Protocol 12 UNITS/KG/HR Dexmedetomidine/Sodium Chloride 400 mcg in 100 mls @ 2.905 mls/hr 07/12/24 10:35 Precedex Ivpb IV 08/11/24 10:34 .Q24H PRN Per PROTOCOL Protocol 0.2 MCG/KG/HR Octreotide Acetate 1,000 mcg/ 252 mls @ 12.6 mls/hr 07/13/24 09:15 07/16/24 18:14 Sodium Chloride IV 08/12/24 09:14 50 mcg/hr .Q20H SAVANNAH 12.6 mls/hr Administration Protocol 50 MCG/HR Norepinephrine/Dextrose 8 mg in 250 mls @ 5.456 mls/hr 07/13/24 16:53 07/17/24 08:30 Levophed In D5w 8mg/250ml IV 08/12/24 16:52 0 mcg/kg/min .Q24H PRN 0 mls/hr PER PROTOCOL Titration Protocol 0.05 MCG/KG/MIN Albumin Human 25 gm in 100 mls @ 100 mls/hr 07/16/24 17:45 07/17/24 08:28 Albuminar-25 Ivpb IV 07/19/24 17:44 100 mls/hr QDAY SAVANNAH Administration Insulin Human Lispro 0 unit 07/12/24 12:00 07/17/24 05:57 Insulin Lispro (Admelog) 1 Unit/0.01 Ml Unit SC 08/11/24 11:59 1 unit Q6HR SAVANNAH Administration Protocol Lactulose 20 gm 07/14/24 15:45 07/17/24 05:30 Lactulose Syrup 20 Gm/30 Ml Udc PO 08/13/24 15:44 20 gm TID SAVANNAH Administration Protocol Metolazone 5 mg 07/16/24 21:00 07/17/24 08:28 Metolazone 2.5 Mg Tablet PO 08/15/24 20:59 5 mg BID SAVANNAH Administration Midodrine 10 mg 07/13/24 14:00 07/17/24 05:30 Midodrine 5 Mg Tablet PO 08/12/24 13:59 10 mg TID SAVANNAH Administration Pantoprazole Sodium 40 mg 07/12/24 09:00 07/17/24 08:28 Pantoprazole Inj 40 Mg Vial IVP 08/11/24 08:59 40 mg QDAY SAVANNAH Administration Plan 53-year-old female with a past medical history of diabetes mellitus type 2, embolic CVA, LV mural thrombus, liver cirrhosis, and amyloidosis, who was brought into the emergency room due to concern for bright red bleeding per rectum. Patient started noted spots of bright red blood when changing the patient's diaper. Daughter reported, patient has become progressively too weak and bedbound following the stroke. They noted some bright red spots when changing the patient's diaper, and when cleaning her noticed bright light blood oozing out of her rectum. Denied having any black stools, or blood mixed with stools. Denied history of diarrhea, vomiting, fever. Patient was initially admitted to the medical floor, but later upgraded to ICU due to concern for hypotension, MAP in the low 60s. There was concern for adrenal insufficiency, patient was started on hydrocortisone with no improvement of blood pressure. Patient had normal cortisol and ACTH level on previous admission. Patient was transferred to [facility] recently for possible ERCP due to choledocholithiasis, pending medical records from [facility], unsure if ERCP was done, but discharge documents show that patient was discharged with Eliquis, empagliflozin, furosemide and metoprolol. GOALS OF CARE: GOALS OF CARE: We had a repeat goals of care discussion today at 11:00 am , the patient is more awake and alert, daughter Rachel is at the bedside. Per Rachel, the patient is more awake and alert, and wants everything done family's initial decision was to transition the patient to full code including chest compressions and intubation. A detailed discussion was done, questions and concerns were answered, in particular, risk of LV thrombus dislodging in the setting of chest compressions was also discussed. Which may put the patient at risk of further strokes as well as LV outflow tract/aortic occlusion which may be detrimental to patient's resuscitation efforts. After weighing and the risk and benefits, daughter Rachel, presented the options to the patient, who agreed with not doing chest compressions. Agreed with reintubation if required, as well as full treatment including hemodialysis. CODE STATUS changed to LIMITED code, no chest compressions. 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 Off sedation, alert and oriented x 2. CVS: #Cardiomyopathy, possibly amyloidosis [facility] medical records show cardiac MRI showing LV severely reduced systolic function with global hypokinesis LVEF 20%, LV hypertrophy, delayed hyperenhancement of myocardium in all chambers, consistent with cardiac amyloidosis. Prominent LV apical thrombus, 22.5 cm. RV systolic function 21%. Moderate TR mild to moderate MR. Urine immunofixation shows no monoclonal antibody pattern, homocystine level 20.4, increased, possibly secondary to vitamin B12/folic acid deficiency, Negative lupus Anticoagulant, #Atrial fibrillation-rate controlled #Left ventricular thrombus EKG shows a flutter with RVR [id number] score 4, 4.8% annualized risk of stroke, LV thrombus now found when pt was transferred to [facility] recently, possibly Post silent myocardial infarction LV thrombus formation. Patient was started on dobutamine for cardiorenal syndrome, but developed tachycardia heart rate in the 140s A-fib RVR, dobutamine was discontinued. ? on IV heparin drip ? Amiodarone 200 mg p.o. twice daily ? Meter Tester Polyphase Dr. Malone on case, appreciate recommendations #Hypotension, Cardiogenic Shock?resolved DDx: Septic shock, Cardiogenic shock, cirrhosis leading to third spacing of fluid Of note patient had a previous echocardiogram, estimated EF more than 55%, no intracardiac thrombus at that time, but now at the bedside echo, findings are concerning for Global hypokinesis, poor RV and LV contractility is evident with an apical LV thrombus, noted IVC at 2.0 cm and no change in size with cardiac contraction, congested portal and hepatic veins with reversal of flow in hepatic veins, VExUS score 3 shows severe congestion. ? Midodrine 15 mg TID ? On Levophed gtt., titrate MAP more than 60 #Type II NSTEMI Minimal troponin elevation 0.2030, currently on heparin drip Resp: # Pulmonary edema In the setting of severely low EF 20% and cardiomyopathy, we discontinued antibiotics as pulmonary imaging and clinical condition shows consolidation and congestion more suggestive of fluid overload than infectious process. ? D/c bumex drip and started Bumex 2mg IV every 8 hours, urine output below goal, added metolazone 5 mg twice daily ? Initiated hemodialysis due to below target response to IV diuresis. ? Currently saturating well on room air #Mechanical Ventilation-discontinued GI: #Concern for lower GI bleed- ruled out Bright red bleeding per rectum, stable hemoglobin at 7 hypotensive on arrival, stool occult was negative in the ER. Patient started on heparin drip due to LV mural thrombus and A-fib and was probably on anticoagulation with Eliquis at home. No per rectal bleed noted during ICU stay ? Cardiology is consulted, currently no evidence of active bleeding, will continue to monitor H&H, consider gastroenterology consult if active GI bleed or drop in hemoglobin ? Type and screen, transfuse if hemoglobin less than 7 #Cirrhosis, Likely secondary to metabolic dysfunction associated steatotic liver disease, MASLD, medical records from [facility], show imaging findings consistent with signs of portal hypertension and cirrhosis Associated hypoalbuminemia, and hepatorenal syndrome, contributing to PHILL and anasarca. - See renal for details #Choledocholithiasis #Hyperbilirubinemia Prior medical history of Choledocholithiasis and transferred to [facility] for possible ERCP, medical records from [facility] were obtained, reported patient had a repeat MRCP at [facility] which showed no stones in the bile duct, possibly passage of stones had already occurred. No ERCP was performed. ? Imaging findings concerning for CBD dilation, but given extensive workup at [facility] no further intervention is indicated at this point ? Continue supportive treatment Renal: #PHILL, hepatorenal syndrome vs cardiorenal syndrome #Anasarca DDx: Hepatorenal syndrome versus cardiorenal syndrome Baseline creatinine seems to be around 1.2, currently serum creatinine 1.8, BUN/creatinine ratio more than 20 Patient also has fluid overload anasarca likely secondary to hypoalbuminemia ? IV Albumin 25 g qday ? on Bumex 2mg IV every 8 hours, added metolazone 5mg BID, vasopressor support to help with renal perfusion. ? Midodrine 15mg TID ? Hemodialysis for ultrafiltration, as urine output below target despite IV diuretics Endo: #Concern for adrenal insufficiency- ruled out #History of diabetes mellitus type 2 ? Sliding scale insulin, A1c level ? Hypoglycemia protocol in place ID: Stable Heme: #Normocytic anemia, likely iron deficiency vs Anemia of chronic disease Hemoglobin stable at 7.0 continue to monitor H&H, pt does have depleted iron stores, and may benefit from iron supplementation transfuse if Hb <7 Differentials include anemia of chronic disease, as normocytic hypochromic RBC on cbc, worsened by nutritional deficiency #Thrombocytopenia on heparin gtt, of note patient's platelets have been on the lower side since June, probably after starting anticoagulation for LV thrombus. continue to monitor Disposition: ICU, extubated possible downgrade in 24 hours DVT prophylaxis: Heparin gtt GI prophylaxis: protonix Diet: Tube feeds Lines: PIV CODE STATUS: DNR Case discussed with attending Dr. João Schwab, Pgy2
--- NOTE | 2024-07-17 11:57 | EVENTNT_ITS ---
Documentation for date of: 07/17/24 Event Note Event Note: GOALS OF CARE: We had a repeat goals of care discussion today at 11:00 am , the patient is more awake and alert, melanie Ramos is at the bedside. Per Rachel, the patient is more awake and alert, and wants everything done family's initial decision was to transition the patient to full code including chest compressions and intubation. A detailed discussion was done, questions and concerns were answered, in particular, risk of LV thrombus dislodging in the setting of chest compressions was also discussed. Which may put the patient at risk of further strokes as well as LV outflow tract/aortic occlusion which may b e detrimental to patient's resuscitation efforts. After weighing and the risk and benefits, melanie Ramos, presented the options to the patient, who agreed with not doing chest compressions. Agreed with reintubation if required, as well as full treatment including hemodialysis. CODE STATUS changed to LIMITED code, no chest compressions. Plan of care discussed with my attending Dr. João Schwab, [id number]
--- NOTE | 2024-07-17 13:27 | PD.RESPRO ---
Documentation for date of: 07/17/24 Subjective Subjective Interval history: Patient is a 53-year-old female with a past medical history of NIDDM, embolic CVA, LV mural thrombus and decompensated cirrhosis with portal hypertension. Patient was BIBA by her daughter who noticed bright red blood per rectum upon changing her diaper. Patient was admitted for workup and management of hypotension and generalized weakness. Last month patient presented to the ED with difficulty standing, slurred speech, facial droop and was diagnosed with an embolic stroke. Incidentally a CBD stone was identified on imaging. Patient was transferred from the ED to [facility] for possible ERCP. Patient also had previous admission to [facility] for hyponatremia and hypotension with ICU stay. Patient's baseline is bedbound, but able to verbalize. ED course: Patient was hypotensive and tachycardic on presentation BP 86/65, MAP 72 HR 102. Labs were significant for normocytic anemia, CR 1.8, BUN 47. Urinalysis was significant for 1+ protein, 3+ blood, LE positive, WBC 358 On imaging Abd US: Fatty liver 12.9 cm Nephrology was consulted for anasarca secondary to likely hepatorenal syndrome. 07/13/2024 Patient seen and examined in ICU this a.m. Patient's sedated, intubated and mechanically ventilated. Patient is on dobutamine, noradrenaline infusion, albumin IV, octreotide infusion. I 1536 cc O 2155 cc Balance -618 cc Recommend Bumex IV. Guarded prognosis 07/14/2024 Patient seen and examined in ICU this a.m. Patient's sedated, intubated and mechanically ventilated. Patient is on dobutamine, noradrenaline infusion, albumin IV, octreotide infusion. I 2397 cc O 980 cc Balance +1417 cc For Goals of care discussion with family today. Guarded prognosis To continue Diuretic Challenge, Can possibly attempt Low flow Dialysis. 07/15/2024 Patient seen and examined in ICU this a.m. Patient is more active today, intubated and mechanically ventilated. Patient is on noradrenaline infusion @ 1ml/hr, octreotide infusion and Bumex Infusion I 1092 cc O 1750 cc Balance -657 cc Rest of patient's family to visit tomorrow 07/16, to decide on comfort vs hospice .Guarded prognosis Blood pressure is improved with MAP in 70's on Norad @ 1ml/hr, can discontinue pressors and continue Midodrine Patient is now producing urine, will hold on dialysis for now 07/16/2024 Patient is seen and examined bedside in the ICU. Patient condition still remained the same. Yesterday the ICU team tried to extubate the patient but unsuccessful and patient is still on mechanical ventilator. The patient was successfully extubated in the afternoon. Goals of care are discussed with the family and patient was on DNR/DNI. Blood pressures are maintained well maintained without I.V vasopressor (LEVOPHED) support. On examination the patient appears to be less swollen from yesterday. Bumex infusion is changed to IV push 2 Mg 8 hourly. As the patient is able to maintain adequate urine output, no need of dialysis as of now. 07/17/2024 Patient is seen and examined bedside. Patient is awake. Successfully extubated yesterday. Able to maintain saturations on oxygen through nasal cannula. Her urine output is significantly decreased from last night. Patient is still having anasarca. BUN trended from 55 to 61 today. Creatinine uptrended to 1.9. Bumex and metolazone were stopped as of today. Will continue to give albumin infusions. Patient needs dialysis today. Will continue to monitor renal functions and strict input output charting Exam Vital Signs Temp Pulse Resp BP Pulse Ox O2 Del Method O2 Flow Rate 98.1 F 107 H 18 69/58 L 96 Mechanical Ventilation 4 07/17/24 08:00 07/17/24 11:15 07/17/24 07:18 07/17/24 11:15 07/17/24 11:15 07/15/24 18:00 07/11/24 23:45 FiO2 25 07/16/24 12:45 Narrative Exam General: Awake and in no acute distress. HEENT: Normocephalic, atraumatic, mucous membranes moist. Heart: Regular rate and rhythm, no murmurs. Lungs: Clear to auscultation with no wheezing or crackles. Abdomen: Soft, nondistended, nontender, positive bowel sounds. ?No guarding or rebound tenderness. Neurologic: Alert and oriented x3, no gross neurological deficit, and patient able to move all 4 extremities. Extremities: Anasarca Skin: No rash or ecchymoses. Objective Labs 07/18/24 18:12 07/18/24 18:12 Labs: Laboratory Results - last 24 hr 07/17/24 04:29 WBC 6.4 RBC 2.48 L Hgb 7.0 L Hct 23.3 L MCV 94 MCH 28.2 MCHC 30.0 L RDW Std Deviation 67.7 H Plt Count 74 L Neut % (Auto) 86 H Lymph % (Auto) 9 L [place] % (Auto) 4 Eos % (Auto) 0 Baso % (Auto) 0 Neut # (Auto) 5.6 Lymph # (Auto) 0.6 L [place] # (Auto) 0.3 Eos # (Auto) 0.0 Baso # (Auto) 0.0 Immature Gran # (Auto) 0.03 H Absolute Nucleated RBC 0.08 H Immature Gran % 1 H Nucleated RBC % 1 H APTT 51.0 H Sodium 140 Potassium 4.4 D Chloride 103 Carbon Dioxide 23.4 Anion Gap 14 BUN 61 H Creatinine 1.9 H Estim Creat Clear Calc 29.1 L eGFR 31 L BUN/Creatinine Ratio 32 H Glucose 145 H Calculated Osmolality 299 H Calcium 9.2 Corrected Calcium 9.4 Phosphorus 4.0 Magnesium 1.8 Iron 17 L TIBC 143 L Iron Saturation 11 L Unsat Iron Binding 126 L Total Bilirubin 2.2 H AST 37 H ALT 27 Alkaline Phosphatase 200 H D Total Protein 6.1 Albumin 3.7 Globulin 2.4 Albumin/Globulin Ratio 1.5 Misc Test Result Platelets confirmed ABG Interpretation ABG results: 07/11/24 07/12/24 07/12/24 22:53 01:05 03:33 ABG pH 7.24 L 7.16 L* 7.44 D ABG pCO2 53 H 61 H 34 D ABG pO2 101 64 L D 426 H D ABG HCO3 23 22 24 ABG O2 Saturation 97 84 L 102 H ABG Base Excess -5 L -7 L -1 07/13/24 07/14/24 07/16/24 05:22 04:33 07:35 ABG pH 7.46 H 7.40 7.49 H ABG pCO2 38 37 38 ABG pO2 100 D 58 L* D 106 D ABG HCO3 27 H 23 28 H ABG O2 Saturation 99 H 89 L 100 H ABG Base Excess 3 -2 5 H Quality Measures Quality Measures none Assessment & Plan Assessment Current Active Medications: Generic Name Dose Route Start Last Admin Trade Name Freq PRN Reason Stop Dose Admin Amiodarone HCl 200 mg 07/15/24 09:00 07/17/24 08:28 Amiodarone Hcl 200 Mg Tablet PO 08/14/24 08:59 200 mg BID SAVANNAH Administration Bumetanide 2 mg 07/16/24 14:00 07/17/24 05:30 Bumetanide Inj 0.25 Mg/Ml Vial 4 Ml IVP 08/15/24 13:59 2 mg Q8HR SAVANNAH Administration Dextrose 25 ml 07/11/24 19:55 Dextrose 50%-Water Inj 50 Ml Syringe IV 08/10/24 19:54 Q15MIN PRN BG 50-70 responsive npo pt Dextrose 50 ml 07/11/24 19:55 07/16/24 18:22 Dextrose 50%-Water Inj 50 Ml Syringe IV 08/10/24 19:54 50 ml Q15MIN PRN Administration BG <50 OR BG <70 & pt unresponsive Epoetin Michael 10,000 unit 07/17/24 13:25 Epoetin Michael-Epbx Inj 10,000 Unit/Ml Vial (Esrd) SC 07/17/24 13:26 X1 ONE Glucagon 1 mg 07/11/24 19:55 Glucagon Inj 1 Mg Vial IM Q15MIN PRN BG <70, and no IV access Heparin Sodium/Dextrose 25,000 unit in 250 mls @ 6.26 mls/hr 07/11/24 08:45 07/17/24 10:15 Heparin In D5w Ivpb IV 07/25/24 08:44 Not Given .Q24H SAVANNAH Protocol 12 UNITS/KG/HR Dexmedetomidine/Sodium Chloride 400 mcg in 100 mls @ 2.905 mls/hr 07/12/24 10:35 Precedex Ivpb IV 08/11/24 10:34 .Q24H PRN Per PROTOCOL Protocol 0.2 MCG/KG/HR Norepinephrine/Dextrose 8 mg in 250 mls @ 5.456 mls/hr 07/13/24 16:53 07/17/24 08:30 Levophed In D5w 8mg/250ml IV 08/12/24 16:52 0 mcg/kg/min .Q24H PRN 0 mls/hr PER PROTOCOL Titration Protocol 0.05 MCG/KG/MIN Albumin Human 25 gm in 100 mls @ 100 mls/hr 07/16/24 17:45 07/17/24 08:28 Albuminar-25 Ivpb IV 07/19/24 17:44 100 mls/hr QDAY SAVANNAH Administration Insulin Human Lispro 0 unit 07/12/24 12:00 07/17/24 12:05 Insulin Lispro (Admelog) 1 Unit/0.01 Ml Unit SC 08/11/24 11:59 Not Given Q6HR SAVANNAH Protocol Lactulose 20 gm 07/14/24 15:45 07/17/24 05:30 Lactulose Syrup 20 Gm/30 Ml Udc PO 08/13/24 15:44 20 gm TID SAVANNAH Administration Protocol Metolazone 5 mg 07/16/24 21:00 07/17/24 08:28 Metolazone 2.5 Mg Tablet PO 08/15/24 20:59 5 mg BID SAVANNAH Administration Midodrine 10 mg 07/13/24 14:00 07/17/24 05:30 Midodrine 5 Mg Tablet PO 08/12/24 13:59 10 mg TID SAVANNAH Administration Pantoprazole Sodium 40 mg 07/12/24 09:00 07/17/24 08:28 Pantoprazole Inj 40 Mg Vial IVP 08/11/24 08:59 40 mg QDAY SAVANNAH Administration Plan Patient is a 53-year-old female with a past medical history of NIDDM, embolic CVA, LV mural thrombus and decompensated cirrhosis with portal hypertension. Patient was BIBA by her daughter who noticed bright red blood per rectum upon changing her diaper. Patient was admitted for workup and management of hypotension and generalized weakness. Nephrology was consulted for anasarca secondary to hepatorenal syndrome. 1. Hepatorenal syndrome Likely type II as patient has diuretic resistant ascites Patient has history of decompensated cirrhosis with ascites. On presentation patient was hypotensive with MAP in low 60s and required upgrade to ICU for vaso pressors Echocardiogram showed ejection fraction 20%- Dr. Yunier Sorto. Patient was started on dobutamine after improvement in urine output Currently BP 95/69 MAP 78 on midodrine Ddx : Cardiorenal syndrome Abdo ultrasound confirms fatty liver 12.9 cm I 1624 cc O 690 cc Plan: - Strict I/O ? Stop Bumex and metolazone as of today ? Continue midodrine 10 mg po TID for blood pressure support - As the urine output is decreased and renal functions declining, patient needs dialysis as of today. ? Continue octreotide infusion for splanchnic vasoconstriction ? Thank you for the opportunity to participate in patient's care. ? Nephrology will closely monitor this case. 2. PHILL Likely prerenal secondary to hypoperfusion Patient was hypotensive on admission with MAP in low 60s [07/12] Cr 1.8 BUN 51 ----> [07/17 K.] Cr 1.9 BUN 61. Plan: ? Blood pressure support to maintain adequate perfusion of kidney -Will do dialysis today in view of low urinary output 3. 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 bili 2.4 Normocytic anemia Thrombocytopenia GI bleed for investigation UTI History of embolic CVA NIDDM LV mural thrombus-on heparin drip. Plan: ? Continue management as per primary team Thank you for allowing us to participate in this patient's care. Plan of care discussed with attending Curb Worker, Dr Caren Mendez, PGY1 Attending Provider Attestation/Addendum Patient seen and examined with resident physician Dr. Velasquez. Note reviewed, agree with findings and recommendations. Patient's urine output is very minimal. Decided to proceed with dialysis. ICU team placed Vas-Cath. Patient currently seen on dialysis. Tolerating dialysis without any problems. Hemodialysis for 2 hours, 2K, ultrafiltration 1-2 L, qb 200, Epogen 6000, no heparin ordered. Plan of care discussed with the dialysis nurse. Please see dialysis flowsheet for further details. Critical care time spent more than 35 minutes regarding plan of care and disease management.
--- NOTE | 2024-07-17 13:35 | XR_ITS ---
Examination: AP chest single view Technique: AP semiupright portable chest single view Exam date and time: July 17, 2024 1342 hrs. Comparison July 16, 2024 Indications: Post insertion temporary dialysis catheter Findings: Mild enlargement cardiac contour Extensive bilateral edema and/or pneumonia Left internal jugular dialysis catheter tip SVC satisfactory position Right internal jugular central line tip SVC satisfactory position No pneumothorax Orogastric tube in the stomach satisfactory position Air distended bowel loop likely colon projects in the lower abdomen Impression: Interval left internal jugular dialysis catheter tip SVC satisfactory position
--- NOTE | 2024-07-17 15:26 | ESPR_ITS ---
Documentation for date of: 07/17/24 Subjective Subjective Interval history: 53-year-old female with a past medical history of diabetes mellitus type 2, embolic CVA, LV mural thrombus, liver cirrhosis, and amyloidosis, who was brought into the emergency room due to concern for bright red bleeding per rectum. Patient started noted spots of bright red blood when changing the patient's diaper. Daughter reported, patient has become progressively too weak and bedbound following the stroke. They noted some bright red spots when changing the patient's diaper, and when cleaning her noticed bright light blood oozing out of her rectum. Denied having any black stools, or blood mixed with stools. Denied history of diarrhea, vomiting, fever. Patient was initially admitted to the medical floor, but later upgraded to ICU due to concern for hypotension, MAP in the low 60s. There was concern for adrenal insufficiency, patient was started on hydrocortisone with no improvement of blood pressure. Patient had normal cortisol and ACTH level on previous admission. Patient was transferred to [facility] recently for possible ERCP due to choledocholithiasis, pending medical records from [facility], unsure if ERCP was done, but discharge documents show that patient was discharged with Eliquis, empagliflozin, furosemide and metoprolol. ED course: Initial labs pertinent for normocytic anemia, mild hyponatremia sodium 132, PHILL, BUN 47, creatinine 1.8, EGFR 33, baseline GFR seems to be around 53, BUN/creatinine ratio more than 20, lactic acid 3.9, T. bili 2.4, AST 40, ALT 36, alk phos 131, ammonia less than 10, mild troponin elevation 0.222, BNP 740, elevated Pro-Justice 7.21, lipase 88. Urinalysis consistent with UTI, stool occult was negative. Imaging studies include chest x-ray which shows bilateral significant pneumonia, EKG shows a flutter with RVR and right bundle branch block, ultrasound abdomen shows cholelithiasis and enlarged common bile duct 0.7, of note patient has no abdominal/right upper quadrant symptoms including pain or tenderness. The patient was admitted to the medical floor, with upgraded to ICU. 07/12/24 Patient evaluated bedside, labs and overnight events as reviewed, overnight patient was hypotensive and central line was placed for IV pressor support, but patient blood pressure improved, Levophed was withheld, patient also developed bradypnea following postprocedural sedation,, received 1 mg IV Dilaudid, respiratory rate decreased to 7/min along with hypoxia, requiring intubation and mechanical ventilation. This a.m. patient noted to be tolerating mechanical ventilation well, saturating at goal on 30% FiO2, PEEP of 5, will plan to continue with ventilation given patient's significant fluid overload, as patient may require reintubation due to significant pulmonary congestion in the setting of hepatorenal/cardiorenal syndrome. We will try to aggressively diurese the patient, last night patient had 1200 mL urine output despite Lasix drip, IV albumin 75 g and octreotide. Nephrology was consulted, nephro recommended switching to Bumex drip at 2 Mg per hour, vasopressor support to help with renal perfusion. Patient was started on dobutamine for inotropic support. Bedside echocardiogram was done which showed apical LV thrombus, global hypokinesis with severely reduced ejection fraction, cardiology recommended continuing heparin drip and continued aggressive IV diuresis. Repeat echocardiogram ordered. 07/13/24 patient evaluated bedside, RASS of -2, sedation was titrated down patient was able to wake up and move both upper limbs spontaneously, but unable to comply with instructions also respiratory rate low, continued on sedation for continued mechanical ventilation, patient not ready for extubation today. Patient was started on dobutamine for cardiorenal syndrome, but developed tachycardia heart rate in the 140s A-fib RVR, dobutamine was discontinued. Started on IV phenylephrine, but due to continued hypotension, vasopressor was changed to Levophed to help with improving blood pressure as well as renal perfusion, as patient is currently on Bumex drip but urine output less than goal 100 cc an hour. IV amiodarone started for A-fib RVR. Family updated about guarded prognosis. 07/14/24 Sedation was turned off, spontaneous breathing trial was done, goals of care discussion with family was done in the setting of end-stage liver disease and severe cardiomyopathy with inadequete urine production. Guarded prognosis of patient, possibility of aggressive intervention with hemodialysis/ultrafiltration, risks of prolonged sedation with intubation and mechanical ventilation, risk of line infections and discomfort, were explained. Their questions and concerns were answered. Family was explained that patient may be able to be weaned off ventilator, but risk of immediate reintubation is high due to end-stage organ failures, and complications of treatment. Patient's daughter Rachel was decided to be the decision-maker by the family, and new POLST form was signed. Patient continues to be DNR status, selective treatment only no chest compressions. Family decided that they would like to wait on their son who was in the and will be here on Friday, before extubation. Family's wishes were respected and patient is resumed on sedation and mechanical ventilation. Family decided against Hemodialysis, Will continue with Bumex drip for continued diuresis as possible, continue with amiodarone for rate control and Levophed to improve cardiac output. 07/15/2024: Patient seen today at the bedside. Vitals significant for BP of 88/58, on mechanical ventilation with a negative fluid balance. Sedation was weaned to off and provided spontaneous breathing trial. Patient became restless and sedation had to be turned back on. Continues on Bumex drip for diuresis as tolerated. Prognosis seems to be very poor. Family decided that they would like to wait on their son who was in the and will be here on Friday, before extubation. Family's wishes were respected and patient is resumed on sedation and mechanical ventilation. 07/16- no acute overnight events, afebrile, has started to make some UOP and is net neg overnight, pt wakes up and follows commands with sedation vacation. 07/17- extubated yesterday to RA and doing well, awake and interactive though not fully oriented. minimal UOP, afebrile, NGT in place , weak cough Critical Care Note Critical care time (min.): 40 Exam Vital Signs Temp Pulse Resp BP Pulse Ox O2 Del Method O2 Flow Rate 97.9 F 106 H 20 99/64 100 Mechanical Ventilation 4 07/17/24 14:00 07/17/24 15:20 07/17/24 14:00 07/17/24 15:20 07/17/24 15:00 07/15/24 18:00 07/11/24 23:45 FiO2 25 07/16/24 12:45 Narrative Exam Gen- NAD, awake and interactive, slightly confused, thin cachectic frail body habitus HEENT- NC/AT, mucosa dry, sclera anicteric, EOMI, bruising around R TLC Chest- LCTAB, HRIR, no increase in WOB Abd- s/nt/bs+, firm, edema of abd wall Ext- edema 2-3+ pitting, moves all 4, gen weakness, pulses palp, no clubbing, no mottling Physical Exam Completion Physical Exam Complete?: Yes Objective - Geospatial Technician Labs 07/17/24 04:29 07/17/24 04:29 Labs: Laboratory Results - last 24 hr 07/17/24 04:29 WBC 6.4 RBC 2.48 L Hgb 7.0 L Hct 23.3 L MCV 94 MCH 28.2 MCHC 30.0 L RDW Std Deviation 67.7 H Plt Count 74 L Neut % (Auto) 86 H Lymph % (Auto) 9 L [place] % (Auto) 4 Eos % (Auto) 0 Baso % (Auto) 0 Neut # (Auto) 5.6 Lymph # (Auto) 0.6 L [place] # (Auto) 0.3 Eos # (Auto) 0.0 Baso # (Auto) 0.0 Immature Gran # (Auto) 0.03 H Absolute Nucleated RBC 0.08 H Immature Gran % 1 H Nucleated RBC % 1 H APTT 51.0 H Sodium 140 Potassium 4.4 D Chloride 103 Carbon Dioxide 23.4 Anion Gap 14 BUN 61 H Creatinine 1.9 H Estim Creat Clear Calc 29.1 L eGFR 31 L BUN/Creatinine Ratio 32 H Glucose 145 H Calculated Osmolality 299 H Calcium 9.2 Corrected Calcium 9.4 Phosphorus 4.0 Magnesium 1.8 Iron 17 L TIBC 143 L Iron Saturation 11 L Unsat Iron Binding 126 L Total Bilirubin 2.2 H AST 37 H ALT 27 Alkaline Phosphatase 200 H D Total Protein 6.1 Albumin 3.7 Globulin 2.4 Albumin/Globulin Ratio 1.5 Misc Test Result Platelets confirmed Assessment & Plan Additional Assessment Additional Assessment: In summary this is a 53yo F admitted to the ICU with acute resp failure and shock along with a h/o liver dz and severe 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 Delerium- pt still appears confused and per family mentation is somewhat better at home CV Shock- unclear if cardiogenic or distributive in nature, has had decreasing levo needs - on midodrine 10mg q8 - EF on echo of 25-30% - this morning levo turned off however needed once more for HD Afib- rate controlled, on AC Cardiomyopathy- unclear etiology - pt with nl EF on 05/19 which dropped to <20% by 07/11 - needs additional workup once stable - cardiology following LV thrombus- currently on heparin gtt - bedside echo done today cont to show LV mass - if pt ever becomes stable ? candidate for resection Resp Acute Hypoxic resp failure- resolved and extubated Renal PHILL- near baseline over past few days - seen by nephrology and suspected to have hepatorenal synd - bumex changed to q8hrs - pt has become virtually anuric overnight - d/w nephrology and family and they are amenable to HD - HD cath placed today and pt for dialysis HypoK- resolved GI GI proph- ppi Liver dz- on lactulose - slight bump in AST today Endo DM- SSI fsq6h Heme DVT proph- on heparin gtt 2/2 thrombus Anemia- slow drift down, - iron panel shows iron def and chronic dz - is on heparin gtt and has bruising around are R IJ insertion site Thrombocytopenia- no active bleeding at this time, monitor, no suspicion of HIT at this time - remains near baseline ID stable case d/w ICU team and nephrology labs, imaging, records reviewed d/w family at bedside regarding GOC and plan for reintubation if needed . family would like to proceed with DNR/DNI status and are ok for extubation today ~40ccmin required for eval, exam, review, intervention, discussion and formulation of POC for this critically ill pt with shock on vasopressor support Provider Notation Provider Notation: Although this document has been carefully reviewed, there may still be some phonetic and other typographical errors. These errors are purely grammatical due to imperfections in the software program and should not be construed in any way to compromise the substance of the patient's medical care during this visit. Thank you for the opportunity and privilege in assisting you with this patient's care and management.
--- NOTE | 2024-07-17 15:42 | PD.INTPROC ---
Procedures Procedure Date / Time 07/17/24 1542 Central Line Placement Left IJ: Indication(s): other (HD cath) Informed consent obtained: obtained from surrogate decision maker Time out done, and the following verified: correct patient, side and site, procedure and patient position Patient placed on monitor/pulse ox: Yes Hand Hygiene: scrub and alcohol-based hand rub Max Sterile Barrier Techniques used: cap, mask, sterile gown, sterile gloves and sterile full body drape Central line prep: Chlorhexidine scrub and sterile drapes applied Local anesthesia used: lidocaine 1% Amount of anesthesia used (mL): 5 Ultrasound used for placement: Yes Sterile Technique if Ultrasound used, including sterile gel: yes Central line lumen inserted: triple Post procedure: sutured in place, good blood return, all ports aspirated, flushed, capped and sterile dressing applied Post procedure x-ray: tip of catheter in good position and no pneumothorax seen Patient tolerated procedure: well and no complications EBL(ml): 8 Complications: none Procedure comment: Triflow placed for HD
[2024-07-17] MEDS: EPOETIN ALFA-EPBX INJ 10,000 UNIT/ML VIAL (ESRD) 10000 UNIT SC (16:05)
[2024-07-17] MEDS: HEPARIN SOD INJ 1000 UNIT/ML VIAL 10 ML 2500 UNIT INDWELLCAT (16:24)
--- NOTE | 2024-07-17 17:12 | ESPR_ITS ---
Documentation for date of: 07/17/24 Subjective Subjective Interval history: Patient seen and examined at the bedside No new cardiac in place. Patient was briefly made DNR/DNI yesterday but now back on full code and left IJ dialysis vascular catheter placed and started on dialysis. During dialysis patient required low-dose Levophed. Otherwise patient is doing well now. Was on IV amiodarone for the atrial fibrillation and now change amiodarone 200 Mg twice daily Check QTc. Keep potassium greater than 4 magnesium greater than 2.0. Exam Vital Signs Temp Pulse Resp BP Pulse Ox O2 Del Method O2 Flow Rate 97.0 F 109 H 20 92/69 100 Mechanical Ventilation 2 07/17/24 16:11 07/17/24 16:29 07/17/24 16:11 07/17/24 16:29 07/17/24 16:11 07/15/24 18:00 07/17/24 16:11 FiO2 25 07/16/24 12:45 Narrative Exam General: On 3L NC. Appears cachectic with significant loss of muscle and even in the temporal areas bilaterally Eyes: PERRLA, EOMI, anicteric sclera HEENT: Atraumatic, normocephalic. No JVD noted. MMM Cardiovascular: Normal S1 and S2. +2 pitting peripheral edema to lower extremities Respiratory: On mechanical ventilation lungs are clear to auscultation bilaterally. No wheezing or crackles heard. Abdomen: Abdomen soft but distended, nontender Skin: No rash. Slightly cold to touch. Neuro: Eyes tracking, nods head to questioning, moves extremities spontaneously Objective Labs 07/18/24 04:40 07/18/24 04:40 Labs: Laboratory Results - last 24 hr 07/17/24 04:29 WBC 6.4 RBC 2.48 L Hgb 7.0 L Hct 23.3 L MCV 94 MCH 28.2 MCHC 30.0 L RDW Std Deviation 67.7 H Plt Count 74 L Neut % (Auto) 86 H Lymph % (Auto) 9 L Mellette % (Auto) 4 Eos % (Auto) 0 Baso % (Auto) 0 Neut # (Auto) 5.6 Lymph # (Auto) 0.6 L Mellette # (Auto) 0.3 Eos # (Auto) 0.0 Baso # (Auto) 0.0 Immature Gran # (Auto) 0.03 H Absolute Nucleated RBC 0.08 H Immature Gran % 1 H Nucleated RBC % 1 H APTT 51.0 H Sodium 140 Potassium 4.4 D Chloride 103 Carbon Dioxide 23.4 Anion Gap 14 BUN 61 H Creatinine 1.9 H Estim Creat Clear Calc 29.1 L eGFR 31 L BUN/Creatinine Ratio 32 H Glucose 145 H Calculated Osmolality 299 H Calcium 9.2 Corrected Calcium 9.4 Phosphorus 4.0 Magnesium 1.8 Iron 17 L TIBC 143 L Iron Saturation 11 L Unsat Iron Binding 126 L Total Bilirubin 2.2 H AST 37 H ALT 27 Alkaline Phosphatase 200 H D Total Protein 6.1 Albumin 3.7 Globulin 2.4 Albumin/Globulin Ratio 1.5 Misc Test Result Platelets confirmed ABG Interpretation ABG results: 07/11/24 07/12/24 07/12/24 22:53 01:05 03:33 ABG pH 7.24 L 7.16 L* 7.44 D ABG pCO2 53 H 61 H 34 D ABG pO2 101 64 L D 426 H D ABG HCO3 23 22 24 ABG O2 Saturation 97 84 L 102 H ABG Base Excess -5 L -7 L -1 07/13/24 07/14/24 07/16/24 05:22 04:33 07:35 ABG pH 7.46 H 7.40 7.49 H ABG pCO2 38 37 38 ABG pO2 100 D 58 L* D 106 D ABG HCO3 27 H 23 28 H ABG O2 Saturation 99 H 89 L 100 H ABG Base Excess 3 -2 5 H Assessment & Plan A&P Narrative A 53-year-old female with a past medical history of recent acute stroke on 06/24/2024 thought to be secondary to embolic stroke from left ventricular mural thrombus diagnosed at 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 Cardiology consulted LV thrombus, possible CHF and elevated troponins. 1. Anasarca-mostly secondary to advanced liver disease and less likely from the CHF. 2. Mildly elevated troponins-NSTEMI type II in the setting of supply/demand mismatch 3. LV thrombus diagnosed at [facility] troponin 2023- 4. Likely secondary to possible bilateral pneumonia from HCAP 5. Acute hypoxic respiratory failure in the setting of pneumonia versus bilateral pleural effusions right greater than left and large 6. Cirrhosis of the liver secondary to CRAWFORD or MASLD 7. History of recent stroke in June 2024 secondary to possible embolic cardiac etiology and thought to be tubular thrombus diagnosed at [facility] 8. Acute kidney injury 9. Elevated lactate 10. Dabetes mellitus, uncontrolled 11. Choledocholithiasis 12. Cachexia with severe recent weight loss Patient presented with questionable blood staining on the diaper as per the daughter and the niece. Stool occult here was negative and hemoglobin appears to be stable at 8.7 on admission. Primary team to call GI for further evaluation as the patient also has hepatorenal syndrome with severe sepsis and possible septic shock. Patient is hypotensive as well as her high lactate and procalcitonin was elevated. Possible sepsis secondary to bilateral pneumonia versus UTI. Patient. To the ICU and further recommendations as per GI as well as ICU team. Patient is anasarca and is mostly secondary to her cirrhosis and liver disease but there could be some diastolic CHF component. Albumin was only 3.1 and HDL below normal. Bili is elevated at 2.4. Recent echocardiogram from May 2024 was reviewed which showed normal LV size and function with an approximate EF-60% and mild to moderate TR with no evidence of any regional wall motion abnormalities. Recommend to start the patient Lasix drip at at least 5 mg/h and continue strict control, daily weights and 2 g odium diet for now. Patient is mildly hypotensive and might need pressor support if required and hence patient transferred to the ICU. Patient troponins were mildly elevated at 0.222 and were flat between 0.25 as well as 0.23. Troponin elevation mostly secondary to supply/demand mismatch and or recommend no further troponins for now. Will check echocardiogram to rule out any kind of regional wall motion abnormalities and reevaluate the EF. EKG showed sinus tachycardia with nonspecific ST changes and frequent PVCs. Patient evidently had LV thrombus that was documented in [facility] and recommend obtaining the report from detail including the SANDIE, cardiac CT and MRI results. Patient should be on heparin drip as the patient also has a history of LV thrombus and there is no evidence of any GI bleed for now. Will need to review all the records and obtain all the records from the outside hospital-[facility]. Recommend to check TSH A1c as well as lipid panel for further cardiac risk stratification. Recommend potassium greater than 4 and magnesium greater than 2.0 at all times. Patient appears to have lost significant weight in the last 8 to 10 months and has significant temporal wasting and overall prognosis appears to be poor and this was explained to the family. Echo performed on 07/12/2024 showed Normal LV size. Global LV systolic function is severely decreased. Estimated EF < 20%. LV mural thrombus is present 2.51 cm x 1.71 cm. Moderate hypertrophy with ground glass appearence - need ot r/o amyloid or other infiltartative diseases. diastolic dysfunction present but unable to grade as there is no E/A. atleast grade 2 and grade 3 RV is normal in size. RV systolic function is severely decreased. Estimated RVSP, 39 mmHg including RAP 15mmHg. Moderately dilated LA and RA. Mild to moderate MR. mild AI and Severe TR. Dilated IVC and moderatre size pleural effusion Explained echocardiogram findings with the family and the severe LV as well as RV dysfunction and possible end-stage heart disease with the presence of LV thrombus to the family in detail. Daughter was at the bedside today and also previously yesterday and were the possibility of infiltrative disease of heart possibly also liver but the patient appears to be end-stage at the present point of time with severe temporal wasting as noted above. Patient is not a good candidate for any advanced heart failure therapies including LVAD given the presence of LV thrombus and is not a transplant candidate. Overall poor prognosis and patient still is continues to be in critical condition at the present point of time. 07/17/2024: Patient was unable to protect airway and was intubated and mechanically ventilated overnight on 07/11/2024. Patient was eventually extubated on 07/15/2024. Dobutamine drip was discontinued after the first couple of days. Patient was also started on diuresis with Bumex drip and patient was also changed to Bumex bolus dosing Patient did not diurese well and family decided that they wanted dialysis. Patient was briefly made DNR/DNI yesterday but now back on full code and left IJ dialysis vascular catheter placed and started on dialysis. During dialysis patient required low-dose Levophed. Otherwise patient is doing well now. Was on IV amiodarone for the atrial fibrillation and now change amiodarone 200 Mg twice daily Check QTc. Keep potassium greater than 4 magnesium greater than 2.0. There is a high probability of sudden, clinically significant or life threatening deterioration in the patient condition which required the highest level of physician preparedness to intervene urgently. I have personally spent 65 minutes of critical care time, exclusive of time spent on any procedures, in evaluation and management of this critically ill patient. Management of rest of the medical conditions as per primary team and other consultants. Thank you for the consult and allowing me to participate in the care of the patient. Cardiology will continue to follow. Lico Malone M.D. Interventional Cardiology Time Spent With Patient Time: Total time spent is greater than 50% in coordination of care (as documented) at patient's floor/unit and/or counseling patient:
[2024-07-18] VITALS (114 sets, daily range): BP systolic 80–109; BP diastolic 51–84; PULSE 82–113; RESP 16–28; TEMP 36.5–37.1; O2SAT 93–99; BMI 24.6
[2024-07-18] MEDS: INSULIN LISPRO (AdmeLOG) 1 UNIT/0.01 ML UNIT SC ×3 (00:30→17:42)
[2024-07-18] MEDS: MIDODRINE 5 MG TABLET 10 MG PO ×3 (05:26→17:42)
[2024-07-18] MEDS: LACTULOSE SYRUP 20 GM/30 ML UDC PO ×2 (05:27→21:35)
[2024-07-18] MEDS: BUMETANIDE INJ 0.25 MG/ML VIAL 4 ML 2 MG IVP ×2 (05:27→14:15)
[2024-07-18 05:45] LABS: Basophils % (Auto) 0 % (0-2.5); Eosinophils % (Auto) 0 % (0-10); Hematocrit 21.7 % (36.0-46.0); Immature Granulocytes % (Auto) 0 % (0-0); Immature Granulocytes Auto 0.01 Thou/mm3 (0.00-0.00); Lymphocytes # (Auto) 0.6 Thou/mm3 (1.0-4.8); Lymphocytes % (Auto) 7 % (10-50); Mean Corpuscular Hemoglobin 28.1 pg (25.0-35.0); Mean Corpuscular Volume 94 fL (80-100); Monocytes # (Auto) 0.4 Thou/mm3 (0.0-0.8); Monocytes % (Auto) 4 % (0-12); Neutrophils % (Auto) 88 % (37-80); Nucleated Red Blood Cell # 0.15 Thou/mm3 (0.00-0.00); Nucleated Red Blood Cell % 2 /100 WBC (0); RDW Standard Deviation 68.7 fL (36.4-46.3); Red Blood Count 2.31 Miln/mm3 (4.00-5.20)
[2024-07-18 05:52] LABS: Platelet Count 64 Thou/mm3 (140-440)
[2024-07-18 05:53] LABS: Hemoglobin 6.5 g/dL (12.0-16.0); Slide Review Platelets confirmed
[2024-07-18 06:17] LABS: Partial Thromboplastin Time 49.8 Seconds (22.0-36.0)
[2024-07-18 06:18] LABS: Alanine Aminotransferase 18 U/L (10-49); Albumin, Serum 3.7 gm/dL (3.5-5.0); Albumin/Globulin Ratio 1.5 (1.2-2.2); Alkaline Phosphatase 179 U/L (46-116); Anion Gap 14 (7-16); Aspartate Amino Transferase < 10 U/L (0-34); BUN/Creatinine Ratio 28 Ratio (12-20); Bilirubin,Total 2.4 mg/dL (0.3-1.2); Blood Urea Nitrogen 47 mg/dL (9-23); Calcium 9.3 mg/dL (8.3-10.6); Calcium (Corrected) 9.5 mg/dL (8.5-10.1); Carbon Dioxide 25.5 mMol/L (20.0-31.0); Chloride 103 mMol/L (98-107); Creatinine (Component) 1.7 mg/dL (0.6-1.3); Globulin 2.5 gm/dL (2.3-3.5); Glucose 155 mg/dL (74-106); Magnesium 1.9 mg/dL (1.6-2.6); Osmolality,Calculated 298 (275-295); Phosphorous 4.4 mg/dL (2.4-5.1); Potassium 2.9 mMol/L (3.4-5.1); Sodium 142 mMol/L (136-145); Total Protein 6.2 gm/dL (5.7-8.2); eGFR 35 See Note
[2024-07-18 07:43] LABS: Hematocrit 22.2 % (36.0-46.0)
[2024-07-18] MEDS: POTASSIUM CHLORIDE 10% 20 MEQ/15 ML UDC 40 MEQ GT (07:51)
[2024-07-18] MEDS: POTASSIUM CHL 10 mEq IVPB 10 MEQ/100 ML BAG 100 MEQ IV ×4 (07:51→10:58)
[2024-07-18 07:58] LABS: Hemoglobin 6.7 g/dL (12.0-16.0)
[2024-07-18] MEDS: PANTOPRAZOLE INJ 40 MG VIAL IVP (08:25)
[2024-07-18] MEDS: AMIODARONE HCL 200 MG TABLET PO ×2 (08:25→21:35)
[2024-07-18] MEDS: ALBUMIN HUMAN 25% IVPB 25 GM/100 ML BTL IV (08:25)
[2024-07-18] MEDS: metOLazone 2.5 MG TABLET 5 MG PO (08:26)
[2024-07-18] MEDS: ferumoxytoL (NON-ESRD) 510 MG in SODIUM CHLORIDE 0.9% 100 ML 234 MG IV (09:48)
--- NOTE | 2024-07-18 10:55 | CHAP ---
Patient was visited by the Spiritual Care Volunteer who prayed for them. (Volunteer was in the hospital from 10:22-10:55).
--- NOTE | 2024-07-18 11:22 | ESCONSULT_ITS ---
HPI Data of Consult Requesting Physician: Lola Moyer MD Primary Care Provider: Chon Longo PA-C Consult Narrative Reason for consult: Melena, posthemorrhagic anemia History of present illness: 53 years old female evaluated in the ICU room 257 for drop in hemoglobin hematocrit as well as dark melanotic stools She is a very complicated patient with multiple medical problems which include Hypertension diabetes mellitus multiple embolic infarcts mural thrombus in the left ventricle anasarca on IV Bumex pleural effusions choledocholithiasis 2 to 3 stones largest one 2 mm in the common hepatic duct and not in the common bile duct pneumonia with urinary retention and mild right hydronephrosis She also has atrial fibrillation for which she has been on Eliquis and amiodarone and metoprolol She has recently been discharged from [facility] I am not sure that an ERCP was done there are not cc:: cc: Lola Moyer MD Review of Systems Review of Systems ROS Unobtainable: unobtainable due to medical condition Past Medical History Surgical History OTHER SURGICAL HX: As in the history of present illness Meds Home Medications and Allergies Home Medications ?Medication ?Instructions ?Recorded ?Confirmed ?Type apixaban 5 mg tablet (Eliquis) 5 mg PO BID 07/11/24 07/11/24 History furosemide 20 mg tablet 20 mg PO BID 07/11/24 07/11/24 History metoprolol succinate 25 mg 25 mg PO DAILY 07/11/24 07/11/24 History tablet,extended release 24 hr Allergies Allergy/AdvReac Type Severity Reaction Status Date / Time No Known Allergies Allergy Verified 06/23/24 18:49 Exam Vital Signs Temp Pulse Resp BP Pulse Ox O2 Del Method O2 Flow Rate 97.9 F 109 H 24 H 96/67 97 Nasal Cannula 1 07/18/24 08:00 07/18/24 10:00 07/18/24 10:00 07/18/24 10:00 07/18/24 10:00 07/18/24 10:00 07/18/24 10:00 FiO2 25 07/16/24 12:45 Constitutional Comments: Chronically ill-appearing Routine Abdominal Exam Comments: Soft nontender Results Labs 07/18/24 18:12 07/18/24 18:12 Labs: Short CBC 07/18/24 07/18/24 Range/Units 04:40 07:05 WBC 8.0 (3.6-11.0) Thou/mm3 Hgb 6.5 L* 6.7 L* (12.0-16.0) g/dL Hct 21.7 L* 22.2 L (36.0-46.0) % Plt Count 64 L (140-440) Thou/mm3 BMP 07/18/24 04:40 Sodium 142 Potassium 2.9 L D Chloride 103 Carbon Dioxide 25.5 BUN 47 H Creatinine 1.7 H Glucose 155 H Calcium 9.3 Liver Function 07/18/24 Range/Units 04:40 Total Bilirubin 2.4 H (0.3-1.2) mg/dL AST < 10 (0-34) U/L ALT 18 (10-49) U/L Alkaline Phosphatase 179 H D (46-116) U/L Albumin 3.7 (3.5-5.0) gm/dL ABG Interpretation ABG results: 07/11/24 07/12/24 07/12/24 22:53 01:05 03:33 ABG pH 7.24 L 7.16 L* 7.44 D ABG pCO2 53 H 61 H 34 D ABG pO2 101 64 L D 426 H D ABG HCO3 23 22 24 ABG O2 Saturation 97 84 L 102 H ABG Base Excess -5 L -7 L -1 07/13/24 07/14/24 07/16/24 05:22 04:33 07:35 ABG pH 7.46 H 7.40 7.49 H ABG pCO2 38 37 38 ABG pO2 100 D 58 L* D 106 D ABG HCO3 27 H 23 28 H ABG O2 Saturation 99 H 89 L 100 H ABG Base Excess 3 -2 5 H Assessment and Plan Additional Assessment & Plan Additional Plan: # Occult GI bleeding with drop in hemoglobin hematocrit # Anasarca most likely related to underlying chronic liver disease of uncertain etiology # Acute posthemorrhagic anemia Plan Patient will need long-term anticoagulation At least upper endoscopy can be done safely at the moment For which the family was in the room I called and informed consent and the procedures been tentatively scheduled for tomorrow Will follow the patient Serial CBC Transfuse if the hemoglobin drops below 7 g Other medical problems include # Chronic renal disease on hemodialysis # Multiple embolic infarcts # Mural thrombus left ventricle # Choledocholithiasis with a total bilirubin of 2.4 # Anasarca being diuresed # Pneumonia # Essential hypertension # Diabetes mellitus type 2 # Chronic atrial fibrillation Thank you very much for the opportunity to participate in the care of this patient
--- NOTE | 2024-07-18 11:30 | PD.INTPROG ---
Documentation for date of: 07/18/24 Subjective Subjective Interval history: 53-year-old female with a past medical history of diabetes mellitus type 2, embolic CVA, LV mural thrombus, liver cirrhosis, and amyloidosis, who was brought into the emergency room due to concern for bright red bleeding per rectum. Patient started noted spots of bright red blood when changing the patient's diaper. Daughter reported, patient has become progressively too weak and bedbound following the stroke. They noted some bright red spots when changing the patient's diaper, and when cleaning her noticed bright light blood oozing out of her rectum. Denied having any black stools, or blood mixed with stools. Denied history of diarrhea, vomiting, fever. Patient was initially admitted to the medical floor, but later upgraded to ICU due to concern for hypotension, MAP in the low 60s. There was concern for adrenal insufficiency, patient was started on hydrocortisone with no improvement of blood pressure. Patient had normal cortisol and ACTH level on previous admission. Patient was transferred to [facility] recently for possible ERCP due to choledocholithiasis, pending medical records from [facility], unsure if ERCP was done, but discharge documents show that patient was discharged with Eliquis, empagliflozin, furosemide and metoprolol. ED course: Initial labs pertinent for normocytic anemia, mild hyponatremia sodium 132, PHILL, BUN 47, creatinine 1.8, EGFR 33, baseline GFR seems to be around 53, BUN/creatinine ratio more than 20, lactic acid 3.9, T. bili 2.4, AST 40, ALT 36, alk phos 131, ammonia less than 10, mild troponin elevation 0.222, BNP 740, elevated Pro-Justice 7.21, lipase 88. Urinalysis consistent with UTI, stool occult was negative. Imaging studies include chest x-ray which shows bilateral significant pneumonia, EKG shows a flutter with RVR and right bundle branch block, ultrasound abdomen shows cholelithiasis and enlarged common bile duct 0.7, of note patient has no abdominal/right upper quadrant symptoms including pain or tenderness. The patient was admitted to the medical floor, with upgraded to ICU. 07/12/24 Patient evaluated bedside, labs and overnight events as reviewed, overnight patient was hypotensive and central line was placed for IV pressor support, but patient blood pressure improved, Levophed was withheld, patient also developed bradypnea following postprocedural sedation,, received 1 mg IV Dilaudid, respiratory rate decreased to 7/min along with hypoxia, requiring intubation and mechanical ventilation. This a.m. patient noted to be tolerating mechanical ventilation well, saturating at goal on 30% FiO2, PEEP of 5, will plan to continue with ventilation given patient's significant fluid overload, as patient may require reintubation due to significant pulmonary congestion in the setting of hepatorenal/cardiorenal syndrome. We will try to aggressively diurese the patient, last night patient had 1200 mL urine output despite Lasix drip, IV albumin 75 g and octreotide. Nephrology was consulted, nephro recommended switching to Bumex drip at 2 Mg per hour, vasopressor support to help with renal perfusion. Patient was started on dobutamine for inotropic support. Bedside echocardiogram was done which showed apical LV thrombus, global hypokinesis with severely reduced ejection fraction, cardiology recommended continuing heparin drip and continued aggressive IV diuresis. Repeat echocardiogram ordered. 07/13/24 patient evaluated bedside, RASS of -2, sedation was titrated down patient was able to wake up and move both upper limbs spontaneously, but unable to comply with instructions also respiratory rate low, continued on sedation for continued mechanical ventilation, patient not ready for extubation today. Patient was started on dobutamine for cardiorenal syndrome, but developed tachycardia heart rate in the 140s A-fib RVR, dobutamine was discontinued. Started on IV phenylephrine, but due to continued hypotension, vasopressor was changed to Levophed to help with improving blood pressure as well as renal perfusion, as patient is currently on Bumex drip but urine output less than goal 100 cc an hour. IV amiodarone started for A-fib RVR. Family updated about guarded prognosis. 07/14/24 Sedation was turned off, spontaneous breathing trial was done, goals of care discussion with family was done in the setting of end-stage liver disease and severe cardiomyopathy with inadequete urine production. Guarded prognosis of patient, possibility of aggressive intervention with hemodialysis/ultrafiltration, risks of prolonged sedation with intubation and mechanical ventilation, risk of line infections and discomfort, were explained. Their questions and concerns were answered. Family was explained that patient may be able to be weaned off ventilator, but risk of immediate reintubation is high due to end-stage organ failures, and complications of treatment. Patient's daughter Rachel was decided to be the decision-maker by the family, and new POLST form was signed. Patient continues to be DNR status, selective treatment only no chest compressions. Family decided that they would like to wait on their son who was in the and will be here on Friday, before extubation. Family's wishes were respected and patient is resumed on sedation and mechanical ventilation. Family decided against Hemodialysis, Will continue with Bumex drip for continued diuresis as possible, continue with amiodarone for rate control and Levophed to improve cardiac output. 07/15/2024: Patient seen today at the bedside. Vitals significant for BP of 88/58, on mechanical ventilation with a negative fluid balance. Sedation was weaned to off and provided spontaneous breathing trial. Patient became restless and sedation had to be turned back on. Continues on Bumex drip for diuresis as tolerated. Prognosis seems to be very poor. Family decided that they would like to wait on their son who was in the and will be here on Friday, before extubation. Family's wishes were respected and patient is resumed on sedation and mechanical ventilation. 07/16- no acute overnight events, afebrile, has started to make some UOP and is net neg overnight, pt wakes up and follows commands with sedation vacation. 07/17- extubated yesterday to RA and doing well, awake and interactive though not fully oriented. minimal UOP, afebrile, NGT in place , weak cough 07/18- no acute overnight events, afebrile, min UOP though better than yesterday, failed swallow eval yesterday Critical Care Note Critical care time (min.): 43 Exam Vital Signs Temp Pulse Resp BP Pulse Ox O2 Del Method O2 Flow Rate 97.9 F 109 H 24 H 96/67 97 Nasal Cannula 1 07/18/24 08:00 07/18/24 10:07/18/24 10:07/18/24 10:07/18/24 10:07/18/24 10:07/18/24 10:00 FiO2 25 07/16/24 12:45 Narrative Exam Gen- NAD, awake and interactive, thin and cachectic in appearence, anasarca HEENT- NC/AT, mucosa hydrated, sclera anicteric, PERRL, EOMI, poor dentition Chest- diminished lung nieves, few crackles at bases, HRIR, no increase in WOB Abd- firm/nt/bs+ , no rebound, no guarding Ext- edema 3+ pitting through out, pulses palp, no clubbing, no mottling, gen weakness Drips levo Physical Exam Completion Physical Exam Complete?: Yes 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5 Anion Gap 14 BUN 47 H Creatinine 1.7 H Estim Creat Clear Calc 34.0 L eGFR 35 L BUN/Creatinine Ratio 28 H Glucose 155 H Calculated Osmolality 298 H Calcium 9.3 Corrected Calcium 9.5 Phosphorus 4.4 Magnesium 1.9 Total Bilirubin 2.4 H AST < 10 ALT 18 Alkaline Phosphatase 179 H D Total Protein 6.2 Albumin 3.7 Globulin 2.5 Albumin/Globulin Ratio 1.5 Misc Test Result Platelets confirmed Blood Type A Positive Antibody Screen NEGATIVE Crossmatch See Detail Blood Bank Wristband ID Yes Assessment & Plan Additional Assessment Additional Assessment: In summary this is a 53yo F admitted to the ICU with acute resp failure and shock along with a h/o liver dz and severe cardiomyopathy a/p [employer]GER ? Delerium- pt still appears confused and per family mentation is somewhat better at home CV Shock- unclear if cardiogenic or distributive in nature, has had decreasing levo needs - on midodrine 10mg q8 - EF on echo of 25-30% - this morning levo turned off however needed once more for HD - on minimal levo today, will increase midodrine to q6 Afib- rate controlled, on AC Cardiomyopathy- unclear etiology - pt with nl EF on 05/19 which dropped to <20% by 07/11 - needs additional workup once stable - cardiology following - will require BB/ACEI or Entresto once BP has improved and stable LV thrombus- currently on heparin gtt - bedside echo done today cont to show LV mass - if pt ever becomes stable ? candidate for resection given her h/o embolic CVA Resp Acute Hypoxic resp failure- resolved and extubated Renal PHILL- near baseline over past few days - seen by nephrology and suspected to have hepatorenal synd - bumex changed to q8hrs - pt with very poor UOP - d/w nephrology and family and they are amenable to HD - HD cath placed today and pt for dialysis - required low dose levo to tolerate HD yesterday - for HD again today HypoK- replete IV and PO today - losses through loose stool most likely GI GI proph- ppi Liver dz- on lactulose-> decreased today given watery stools - slight bump in AST today Endo DM- SSI [id number] Heme DVT proph- on heparin gtt 2/2 thrombus Anemia- slow drift down, - iron panel shows iron def and chronic dz - is on heparin gtt and has bruising around are R IJ insertion site - this AM with drop to 6.7 and therefore given a unit of PRBCs Thrombocytopenia- no active bleeding at this time, monitor, no suspicion of HIT at this time - remains near baseline ID stable case d/w ICU team and nephrology d/w family labs, imaging, records reviewed d/w family at bedside and they would like to cont with DNR no CPR however they do want reintubation if needed as well as tx of any other underlying disorder as possible ~43ccmin required for eval, exam, review, intervention, discussion and formulation of POC for this critically ill pt with shock on vasopressor support Provider Notation Provider Notation: Although this document has been carefully reviewed, there may still be some phonetic and other typographical errors. These errors are purely grammatical due to imperfections in the software program and should not be construed in any way to compromise the substance of the patient's medical care during this visit. Thank you for the opportunity and privilege in assisting you with this patient's care and management.
[2024-07-18 11:58] LABS: Ferritin 67 ng/mL (7.3-270.7)
--- NOTE | 2024-07-18 12:41 | PD.RESPRO ---
Documentation for date of: 07/18/24 Subjective Subjective Interval history: 53-year-old female with a past medical history of diabetes mellitus type 2, embolic CVA, LV mural thrombus, liver cirrhosis, and amyloidosis, who was brought into the emergency room due to concern for bright red bleeding per rectum. Patient started noted spots of bright red blood when changing the patient's diaper. Daughter reported, patient has become progressively too weak and bedbound following the stroke. They noted some bright red spots when changing the patient's diaper, and when cleaning her noticed bright light blood oozing out of her rectum. Denied having any black stools, or blood mixed with stools. Denied history of diarrhea, vomiting, fever. Patient was initially admitted to the medical floor, but later upgraded to ICU due to concern for hypotension, MAP in the low 60s. There was concern for adrenal insufficiency, patient was started on hydrocortisone with no improvement of blood pressure. Patient had normal cortisol and ACTH level on previous admission. Patient was transferred to [facility] recently for possible ERCP due to choledocholithiasis, pending medical records from [facility], unsure if ERCP was done, but discharge documents show that patient was discharged with Eliquis, empagliflozin, furosemide and metoprolol. ED course: Initial labs pertinent for normocytic anemia, mild hyponatremia sodium 132, PHILL, BUN 47, creatinine 1.8, EGFR 33, baseline GFR seems to be around 53, BUN/creatinine ratio more than 20, lactic acid 3.9, T. bili 2.4, AST 40, ALT 36, alk phos 131, ammonia less than 10, mild troponin elevation 0.222, BNP 740, elevated Pro-Justice 7.21, lipase 88. Urinalysis consistent with UTI, stool occult was negative. Imaging studies include chest x-ray which shows bilateral significant pneumonia, EKG shows a flutter with RVR and right bundle branch block, ultrasound abdomen shows cholelithiasis and enlarged common bile duct 0.7, of note patient has no abdominal/right upper quadrant symptoms including pain or tenderness. The patient was admitted to the medical floor, with upgraded to ICU. 07/12/24 Patient evaluated bedside, labs and overnight events as reviewed, overnight patient was hypotensive and central line was placed for IV pressor support, but patient blood pressure improved, Levophed was withheld, patient also developed bradypnea following postprocedural sedation,, received 1 mg IV Dilaudid, respiratory rate decreased to 7/min along with hypoxia, requiring intubation and mechanical ventilation. This a.m. patient noted to be tolerating mechanical ventilation well, saturating at goal on 30% FiO2, PEEP of 5, will plan to continue with ventilation given patient's significant fluid overload, as patient may require reintubation due to significant pulmonary congestion in the setting of hepatorenal/cardiorenal syndrome. We will try to aggressively diurese the patient, last night patient had 1200 mL urine output despite Lasix drip, IV albumin 75 g and octreotide. Nephrology was consulted, nephro recommended switching to Bumex drip at 2 Mg per hour, vasopressor support to help with renal perfusion. Patient was started on dobutamine for inotropic support. Bedside echocardiogram was done which showed apical LV thrombus, global hypokinesis with severely reduced ejection fraction, cardiology recommended continuing heparin drip and continued aggressive IV diuresis. Repeat echocardiogram ordered. 07/13/24 patient evaluated bedside, RASS of -2, sedation was titrated down patient was able to wake up and move both upper limbs spontaneously, but unable to comply with instructions also respiratory rate low, continued on sedation for continued mechanical ventilation, patient not ready for extubation today. Patient was started on dobutamine for cardiorenal syndrome, but developed tachycardia heart rate in the 140s A-fib RVR, dobutamine was discontinued. Started on IV phenylephrine, but due to continued hypotension, vasopressor was changed to Levophed to help with improving blood pressure as well as renal perfusion, as patient is currently on Bumex drip but urine output less than goal 100 cc an hour. IV amiodarone started for A-fib RVR. Family updated about guarded prognosis. 07/14/24 Sedation was turned off, spontaneous breathing trial was done, goals of care discussion with family was done in the setting of end-stage liver disease and severe cardiomyopathy with inadequete urine production. Guarded prognosis of patient, possibility of aggressive intervention with hemodialysis/ultrafiltration, risks of prolonged sedation with intubation and mechanical ventilation, risk of line infections and discomfort, were explained. Their questions and concerns were answered. Family was explained that patient may be able to be weaned off ventilator, but risk of immediate reintubation is high due to end-stage organ failures, and complications of treatment. Patient's daughter Rachel was decided to be the decision-maker by the family, and new POLST form was signed. Patient continues to be DNR status, selective treatment only no chest compressions. Family decided that they would like to wait on their son who was in the and will be here on Friday, before extubation. Family's wishes were respected and patient is resumed on sedation and mechanical ventilation. Family decided against Hemodialysis, Will continue with Bumex drip for continued diuresis as possible, continue with amiodarone for rate control and Levophed to improve cardiac output. 07/15/2024: Patient seen today at the bedside. Vitals significant for BP of 88/58, on mechanical ventilation with a negative fluid balance. Sedation was weaned to off and provided spontaneous breathing trial. Patient became restless and sedation had to be turned back on. Continues on Bumex drip for diuresis as tolerated. Prognosis seems to be very poor. Family decided that they would like to wait on their son who was in the and will be here on Friday, before extubation. Family's wishes were respected and patient is resumed on sedation and mechanical ventilation. 07/16/2024: Patient seen today at the bedside. Vital signs significant for blood pressure 105/70, tachycardia 118 beats per minute, on mechanical ventilation. Patient is meeting's oxygenation and ventilation goals. Plan today is to wean off sedation and provide spontaneous breathing trial and extubate patient, will monitor for adequate toleration. Urine output has remained minimal and not to goal currently on Bumex 2 mg every 8 hours will add metolazone 5 mg twice daily. Plan was discussed with the family and POA and agreed that due to the patient's overall poor prognosis should patient's condition deteriorate we will not pursue reintubation. Patient is DNR/DNI. 07/17/2024: patient evaluated at bedside, off sedation, patient was extubated yesterday, currently AO x 2, she is able to follow simple commands, saturating well on room air, NG tube in place, patient had failed swallow eval , pertinent for hemoglobin 7.0, no active GI bleed noted during ICU stay, labs pertinent for iron deficiency, also noted thrombocytopenia, of note patient's platelets have been on the lower side since June, probably after starting anticoagulation for LV thrombus. BUN 61, creatinine 1.9, after discussion with family, poor response to IV Bumex and metolazone, plan to proceed with hemodialysis. Equipment Operator [employer] Dr Fabian is on board, dialysis catheter placed, hemodialysis initiated. Started on low-dose Levophed as patient blood pressure on the softer side, will titrate to keep MAP more than 60 during hemodialysis. 07/18/2024: Patient evaluated bedside, she continues to be off sedation, alert oriented x 2, following simple commands, saturating well on 2 L nasal cannula O2. Currently on NG tube feedings, pending swallow eval, hemoglobin this a.m. dropped to 6.5, repeat H&H 6.7, ordered 1 PRBC transfusion, posttransfusion H&H ordered. Urine output 620 mL overnight, nephrology plan for short intermittent hemodialysis today. Also noted hypokalemia potassium 2.9, repleted, nephrology aware. Will repeat renal panel in the afternoon after hemodialysis. Ordered ferritin, serial plasmin, copper levels for workup of cirrhosis. GI consult to Dr. Sotelo placed for concern for GI bleed, patient is rectal tube in place noted dark-colored stools. Continued on heparin drip for now, patient is maintaining vitals on low-dose Levophed, continue during hemodialysis Exam Vital Signs Temp Pulse Resp BP Pulse Ox O2 Del Method O2 Flow Rate 98.0 F 108 H 16 91/64 96 Nasal Cannula 1 07/18/24 12:02 07/18/24 12:30 07/18/24 12:02 07/18/24 12:30 07/18/24 12:02 07/18/24 12:00 07/18/24 12:02 FiO2 25 07/16/24 12:45 Narrative Exam General: Alert and awake, oriented x 2. Feeling well. Appears chronically malnourished. Noted temporal wasting HEENT: Normocephalic, atraumatic, mucous membranes moist. Heart: Regular rate and rhythm, no murmurs. Lungs: Clear to auscultation with no wheezing or crackles. Abdomen: Soft, nondistended, nontender, positive bowel sounds. Pitting edema present in the abdominal wall. No guarding or rebound tenderness. Neurologic: Alert and oriented x3, no gross neurological deficit, and patient able to move all 4 extremities. Extremities: 3+ peripheral edema up to mid abdomen Skin: No rash or ecchymoses. Objective Labs 07/18/24 07:05 07/18/24 04:40 Labs: Laboratory Results - last 24 hr 07/18/24 07/18/24 07/18/24 04:40 07:05 11:00 WBC 8.0 RBC 2.31 L Hgb 6.5 L* 6.7 L* Hct 21.7 L* 22.2 L MCV 94 MCH 28.1 MCHC 30.0 L RDW Std Deviation 68.7 H Plt Count 64 L Neut % (Auto) 88 H Lymph % (Auto) 7 L [place] % (Auto) 4 Eos % (Auto) 0 Baso % (Auto) 0 Neut # (Auto) 7.0 Lymph # (Auto) 0.6 L [place] # (Auto) 0.4 Eos # (Auto) 0.0 Baso # (Auto) 0.0 Immature Gran # (Auto) 0.01 H Absolute Nucleated RBC 0.15 H Immature Gran % 0 Nucleated RBC % 2 H APTT 49.8 H Sodium 142 Potassium 2.9 L D Chloride 103 Carbon Dioxide 25.5 Anion Gap 14 BUN 47 H Creatinine 1.7 H Estim Creat Clear Calc 34.0 L eGFR 35 L BUN/Creatinine Ratio 28 H Glucose 155 H Calculated Osmolality 298 H Calcium 9.3 Corrected Calcium 9.5 Phosphorus 4.4 Magnesium 1.9 Ferritin 67 Total Bilirubin 2.4 H AST < 10 ALT 18 Alkaline Phosphatase 179 H D Total Protein 6.2 Albumin 3.7 Globulin 2.5 Albumin/Globulin Ratio 1.5 Misc Test Result Platelets confirmed Blood Type A Positive Antibody Screen NEGATIVE Crossmatch See Detail Blood Bank Wristband ID Yes ABG Interpretation ABG results: 07/11/24 07/12/24 07/12/24 22:53 01:05 03:33 ABG pH 7.24 L 7.16 L* 7.44 D ABG pCO2 53 H 61 H 34 D ABG pO2 101 64 L D 426 H D ABG HCO3 23 22 24 ABG O2 Saturation 97 84 L 102 H ABG Base Excess -5 L -7 L -1 07/13/24 07/14/24 07/16/24 05:22 04:33 07:35 ABG pH 7.46 H 7.40 7.49 H ABG pCO2 38 37 38 ABG pO2 100 D 58 L* D 106 D ABG HCO3 27 H 23 28 H ABG O2 Saturation 99 H 89 L 100 H ABG Base Excess 3 -2 5 H Quality Measures Quality Measures none Assessment & Plan Assessment Current Active Medications: Generic Name Dose Route Start Last Admin Trade Name Freq PRN Reason Stop Dose Admin Amiodarone HCl 200 mg 07/15/24 09:00 07/18/24 08:25 Amiodarone Hcl 200 Mg Tablet PO 08/14/24 08:59 200 mg BID SAVANNAH Administration Bumetanide 2 mg 07/16/24 14:00 07/18/24 05:27 Bumetanide Inj 0.25 Mg/Ml Vial 4 Ml IVP 08/15/24 13:59 2 mg Q8HR SAVANNAH Administration Dextrose 25 ml 07/11/24 19:55 Dextrose 50%-Water Inj 50 Ml Syringe IV 08/10/24 19:54 Q15MIN PRN BG 50-70 responsive npo pt Dextrose 50 ml 07/11/24 19:55 07/16/24 18:22 Dextrose 50%-Water Inj 50 Ml Syringe IV 08/10/24 19:54 50 ml Q15MIN PRN Administration BG <50 OR BG <70 & pt unresponsive Glucagon 1 mg 07/11/24 19:55 Glucagon Inj 1 Mg Vial IM Q15MIN PRN BG <70, and no IV access Heparin Sodium (Porcine) 2,500 unit 07/17/24 15:52 07/17/24 16:24 Heparin Sod Inj 1000 Unit/Ml Vial 10 Ml INDWELLCAT 07/31/24 15:51 2,500 unit PRN PRN Administration DIALYSIS Heparin Sodium/Dextrose 25,000 unit in 250 mls @ 6.26 mls/hr 07/11/24 08:45 07/17/24 17:00 Heparin In D5w Ivpb IV 07/25/24 08:44 3 units/kg/hr .Q24H SAVANNAH 1.565 mls/hr Titration Protocol 12 UNITS/KG/HR Dexmedetomidine/Sodium Chloride 400 mcg in 100 mls @ 2.905 mls/hr 07/12/24 10:35 Precedex Ivpb IV 08/11/24 10:34 .Q24H PRN Per PROTOCOL Protocol 0.2 MCG/KG/HR Norepinephrine/Dextrose 8 mg in 250 mls @ 5.456 mls/hr 07/13/24 16:53 07/18/24 10:00 Levophed In D5w 8mg/250ml IV 08/12/24 16:52 0.03 mcg/kg/min .Q24H PRN 3.274 mls/hr PER PROTOCOL Titration Protocol 0.05 MCG/KG/MIN Albumin Human 25 gm in 100 mls @ 100 mls/hr 07/16/24 17:45 07/18/24 09:39 Albuminar-25 Ivpb IV 07/19/24 17:44 Infused QDAY SAVANNAH Infusion Albumin Human 25 gm in 100 mls @ 100 mls/min 07/17/24 15:52 Albuminar-25 Ivpb IV 07/20/24 15:51 PRN PRN DIALYSIS Insulin Human Lispro 0 unit 07/12/24 12:00 07/18/24 12:33 Insulin Lispro (Admelog) 1 Unit/0.01 Ml Unit SC 08/11/24 11:59 Not Given Q6HR SAVANNAH Protocol Lactulose 20 gm 07/18/24 21:00 Lactulose Syrup 20 Gm/30 Ml Udc PO 08/17/24 20:59 BID SAVANNAH Protocol Midodrine 10 mg 07/18/24 12:00 07/18/24 12:13 Midodrine 5 Mg Tablet PO 08/17/24 11:59 10 mg Q6HR SAVANNAH Administration Pantoprazole Sodium 40 mg 07/12/24 09:00 07/18/24 08:25 Pantoprazole Inj 40 Mg Vial IVP 08/11/24 08:59 40 mg QDAY SAVANNAH Administration Plan 53-year-old female with a past medical history of diabetes mellitus type 2, embolic CVA, LV mural thrombus, liver cirrhosis, and amyloidosis, who was brought into the emergency room due to concern for bright red bleeding per rectum. Patient started noted spots of bright red blood when changing the patient's diaper. Daughter reported, patient has become progressively too weak and bedbound following the stroke. They noted some bright red spots when changing the patient's diaper, and when cleaning her noticed bright light blood oozing out of her rectum. Denied having any black stools, or blood mixed with stools. Denied history of diarrhea, vomiting, fever. Patient was initially admitted to the medical floor, but later upgraded to ICU due to concern for hypotension, MAP in the low 60s. There was concern for adrenal insufficiency, patient was started on hydrocortisone with no improvement of blood pressure. Patient had normal cortisol and ACTH level on previous admission. Patient was transferred to [facility] recently for possible ERCP due to choledocholithiasis, pending medical records from [facility], unsure if ERCP was done, but discharge documents show that patient was discharged with Eliquis, empagliflozin, furosemide and metoprolol. GOALS OF CARE: GOALS OF CARE: We had a repeat goals of care discussion today at 11:00 am , the patient is more awake and alert, melanie Ramos is at the bedside. Per Rachel, the patient is more awake and alert, and wants everything done family's initial decision was to transition the patient to full code including chest compressions and intubation. A detailed discussion was done, questions and concerns were answered, in particular, risk of LV thrombus dislodging in the setting of chest compressions was also discussed. Which may put the patient at risk of further strokes as well as LV outflow tract/aortic occlusion which may be detrimental to patient's resuscitation efforts. After weighing and the risk and benefits, melanie Ramos, presented the options to the patient, who agreed with not doing chest compressions. Agreed with reintubation if required, as well as full treatment including hemodialysis. CODE STATUS changed to LIMITED code, no chest compressions. 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 Off sedation, alert and oriented x 2. CVS: #Cardiomyopathy, possibly amyloidosis [facility] medical records show cardiac MRI showing LV severely reduced systolic function with global hypokinesis LVEF 20%, LV hypertrophy, delayed hyperenhancement of myocardium in all chambers, consistent with cardiac amyloidosis. Prominent LV apical thrombus, 22.5 cm. RV systolic function 21%. Moderate TR mild to moderate MR. ?Urine immunofixation shows no monoclonal antibody pattern, homocystine level 20.4, increased, possibly secondary to vitamin B12/folic acid deficiency, Negative lupus Anticoagulant, #Atrial fibrillation-rate controlled #Left ventricular thrombus EKG showed A-fib, initially with RVR, now rate controlled [id number] score 4, 4.8% annualized risk of stroke, LV thrombus now found when pt was transferred to [facility] recently, possibly Post silent myocardial infarction LV thrombus formation. Patient was started on dobutamine for cardiorenal syndrome, but developed tachycardia heart rate in the 140s A-fib RVR, dobutamine was discontinued. ? on IV heparin drip ? Amiodarone 200 mg p.o. twice daily ? Green Coffee Blender Dr. Malone on case, appreciate recommendations #Hypotension, Cardiogenic Shock?resolved DDx: Septic shock, Cardiogenic shock, cirrhosis leading to third spacing of fluid Of note patient had a previous echocardiogram, estimated EF more than 55%, no intracardiac thrombus at that time, but now at the bedside echo, findings are concerning for Global hypokinesis, poor RV and LV contractility is evident with an apical LV thrombus, noted IVC at 2.0 cm and no change in size with cardiac contraction, congested portal and hepatic veins with reversal of flow in hepatic veins, VExUS score 3 shows severe congestion. ? Midodrine 15 mg TID ? On Levophed gtt., titrate MAP more than 60, Levophed was discontinued initially, but patient required low-dose pressors during hemodialysis. #Type II NSTEMI Minimal troponin elevation 0.2030, currently on heparin drip Resp: # Pulmonary edema In the setting of severely low EF 20% and cardiomyopathy, we discontinued antibiotics as pulmonary imaging and clinical condition shows consolidation and congestion more suggestive of fluid overload than infectious process. ? D/c bumex drip and started Bumex 2mg IV every 8 hours, urine output below goal, added metolazone 5 mg twice daily ? Initiated hemodialysis due to below target response to IV diuresis. ? Currently saturating well on room air #Mechanical Ventilation-discontinued GI: #Concern for lower GI bleed- ruled out Bright red bleeding per rectum, stable hemoglobin at 7 hypotensive on arrival, stool occult was negative in the ER. Patient started on heparin drip due to LV mural thrombus and A-fib and was probably on anticoagulation with Eliquis at home. No per rectal bleed noted during ICU stay, initially but now rectal tube is in place, hemoglobin dropped to 6.5, repeat H&H 6.7, ordered 1 PRBC transfusion, posttransfusion H&H ordered. ? Cardiology is consulted, currently no evidence of active bleeding, will continue to monitor H&H, consider gastroenterology consult if active GI bleed or drop in hemoglobin ? Type and screen, transfuse if hemoglobin less than 7 ? Environmental Services Supervisor Dr. Sotelo's consuled for possible GI bleed in the setting of anticoagulation #Cirrhosis, Likely secondary to metabolic dysfunction associated steatotic liver disease, MASLD, medical records from [facility], show imaging findings consistent with signs of portal hypertension and cirrhosis Associated hypoalbuminemia, and hepatorenal syndrome, contributing to PHILL and anasarca. [facility] medical records do not show any workup for histopathologic diagnosis, no liver biopsy performed to our knowledge. Patient's primary care physician at [facility], per family no knowledge of prior liver disease. - Ordered Ferritin, ceruloplasmin, copper levels. #Choledocholithiasis #Hyperbilirubinemia Prior medical history of Choledocholithiasis and transferred to [facility] for possible ERCP, medical records from [facility] were obtained, reported patient had a repeat MRCP at [facility] which showed no stones in the bile duct, possibly passage of stones had already occurred. No ERCP was performed. ? Imaging findings concerning for CBD dilation, but given extensive workup at [facility] no further intervention is indicated at this point ? Continue supportive treatment Renal: #PHILL, hepatorenal syndrome vs cardiorenal syndrome #Anasarca DDx: Hepatorenal syndrome versus cardiorenal syndrome Baseline creatinine seems to be around 1.2, currently serum creatinine 1.8, BUN/creatinine ratio more than 20 Patient also has fluid overload anasarca likely secondary to hypoalbuminemia ? IV Albumin 25 g qday ? on Bumex 2mg IV every 8 hours, added metolazone 5mg BID, vasopressor support to help with renal perfusion. ? Midodrine 15mg TID ? Hemodialysis for ultrafiltration, as urine output below target despite IV diuretics Endo: #Concern for adrenal insufficiency- ruled out #History of diabetes mellitus type 2 ? Sliding scale insulin, A1c level ? Hypoglycemia protocol in place ID: Stable Heme: #Normocytic anemia, likely iron deficiency vs Anemia of chronic disease Hemoglobin stable at 7.0 continue to monitor H&H, pt does have depleted iron stores, and may benefit from iron supplementation transfuse if Hb <7 Differentials include anemia of chronic disease, as normocytic hypochromic RBC on cbc, worsened by nutritional deficiency ?Total iron deficit 1029, ordered 510 mg elemental iron replacement with Feraheme #Thrombocytopenia on heparin gtt, of note patient's platelets have been on the lower side since June, probably after starting anticoagulation for LV thrombus. continue to monitor Disposition: Possible downgrade to the mariano if patient is able to stay off pressors DVT prophylaxis: Heparin gtt GI prophylaxis: protonix Diet: Tube feeds Lines: PIV CODE STATUS: DNR Case discussed with attending Dr. João Schwab, Pgy2
--- NOTE | 2024-07-18 12:46 | PC.NURSE ---
bp trending down pt denies all s/s of hypotension. Bedside nerse present and increased bp med levo per MD orders, will cont. to monitor.
--- NOTE | 2024-07-18 12:58 | PC.NURSE ---
Addendum entered by Sofia Torres RN 07/18/24 13:09: UF goal increased to account for blood transfusion Original Note: started infusion of 1 unit of PRBC, will monitor
--- NOTE | 2024-07-18 13:09 | PD.RESPRO ---
Documentation for date of: 07/18/24 Subjective Subjective Interval history: Patient is a 53-year-old female with a past medical history of NIDDM, embolic CVA, LV mural thrombus and decompensated cirrhosis with portal hypertension. Patient was BIBA by her daughter who noticed bright red blood per rectum upon changing her diaper. Patient was admitted for workup and management of hypotension and generalized weakness. Last month patient presented to the ED with difficulty standing, slurred speech, facial droop and was diagnosed with an embolic stroke. Incidentally a CBD stone was identified on imaging. Patient was transferred from the ED to [facility] for possible ERCP. Patient also had previous admission to [facility] for hyponatremia and hypotension with ICU stay. Patient's baseline is bedbound, but able to verbalize. ED course: Patient was hypotensive and tachycardic on presentation BP 86/65, MAP 72 HR 102. Labs were significant for normocytic anemia, CR 1.8, BUN 47. Urinalysis was significant for 1+ protein, 3+ blood, LE positive, WBC 358 On imaging Abd US: Fatty liver 12.9 cm Nephrology was consulted for anasarca secondary to likely hepatorenal syndrome. 07/15/2024 Patient seen and examined in ICU this a.m. Patient is more active today, intubated and mechanically ventilated. Patient is on noradrenaline infusion @ 1ml/hr, octreotide infusion and Bumex Infusion I 1092 cc O 1750 cc Balance -657 cc Rest of patient's family to visit tomorrow 07/16, to decide on comfort vs hospice .Guarded prognosis Blood pressure is improved with MAP in 70's on Norad @ 1ml/hr, can discontinue pressors and continue Midodrine Patient is now producing urine, will hold on dialysis for now 07/16/2024 Patient is seen and examined bedside in the ICU. Patient condition still remained the same. Yesterday the ICU team tried to extubate the patient but unsuccessful and patient is still on mechanical ventilator. The patient was successfully extubated in the afternoon. Goals of care are discussed with the family and patient was on DNR/DNI. Blood pressures are maintained well maintained without I.V vasopressor (LEVOPHED) support. On examination the patient appears to be less swollen from yesterday. Bumex infusion is changed to IV push 2 Mg 8 hourly. As the patient is able to maintain adequate urine output, no need of dialysis as of now. 07/17/2024 Patient is seen and examined bedside. Patient is awake. Successfully extubated yesterday. Able to maintain saturations on oxygen through nasal cannula. Her urine output is significantly decreased from last night. Patient is still having anasarca. BUN trended from 55 to 61 today. Creatinine uptrended to 1.9. Bumex and metolazone were stopped as of today. Will continue to give albumin infusions. Patient needs dialysis today. Will continue to monitor renal functions and strict input output charting 07/18/2024 Patient seen and examined in ICU this a.m. Patient is confused, but active today, s/p extubation on 07/16 Patient is on noradrenaline infusion @ 3ml/hr and Albumin 25 g IV daily I 1849 cc O 545 cc Balance +1304 cc Minimal urine output over past 24 hours. For 2 hours of Hemodialysis today with goal of 1.5-2 L Ultrafiltration Exam Vital Signs Temp Pulse Resp BP Pulse Ox O2 Del Method O2 Flow Rate 97.8 F 109 H 18 91/68 96 Nasal Cannula 1 07/18/24 13:08 07/18/24 13:08 07/18/24 13:08 07/18/24 13:08 07/18/24 13:08 07/18/24 12:00 07/18/24 13:08 FiO2 25 07/16/24 12:45 Narrative Exam Constitutional Alert, oriented x 0 and comfortable. NGT insitu HEENT Vision grossly intact. Patent nares. Trachea midline Respiratory Left IJ catheter insitu. Exit site clean. B/L crackles auscultated throughout lung nieves Cardiovascular S1 and S2 audible, RRR. No murmurs carotid bruit. No gross JVD. Abdominal Tense, mildy distended and non tender to palpation in all quadrants. BS + Genitourinary No bladder tenderness, no flank pain. Normal to palpation Musculoskeletal Extremities tone within normal limits. 2+ pitting edema of b/L lower extremities up to knees Neurological CN II - XII grossly intact. Extremity motor and sensation grossly intact. Skin Warm, dry and intact. No apparent lesions. Objective Labs 07/18/24 18:12 07/18/24 18:12 Labs: Laboratory Results - last 24 hr 07/18/24 07/18/24 07/18/24 04:40 07:05 11:00 WBC 8.0 RBC 2.31 L Hgb 6.5 L* 6.7 L* Hct 21.7 L* 22.2 L MCV 94 MCH 28.1 MCHC 30.0 L RDW Std Deviation 68.7 H Plt Count 64 L Neut % (Auto) 88 H Lymph % (Auto) 7 L [place] % (Auto) 4 Eos % (Auto) 0 Baso % (Auto) 0 Neut # (Auto) 7.0 Lymph # (Auto) 0.6 L [place] # (Auto) 0.4 Eos # (Auto) 0.0 Baso # (Auto) 0.0 Immature Gran # (Auto) 0.01 H Absolute Nucleated RBC 0.15 H Immature Gran % 0 Nucleated RBC % 2 H APTT 49.8 H Sodium 142 Potassium 2.9 L D Chloride 103 Carbon Dioxide 25.5 Anion Gap 14 BUN 47 H Creatinine 1.7 H Estim Creat Clear Calc 34.0 L eGFR 35 L BUN/Creatinine Ratio 28 H Glucose 155 H Calculated Osmolality 298 H Calcium 9.3 Corrected Calcium 9.5 Phosphorus 4.4 Magnesium 1.9 Ferritin 67 Total Bilirubin 2.4 H AST < 10 ALT 18 Alkaline Phosphatase 179 H D Total Protein 6.2 Albumin 3.7 Globulin 2.5 Albumin/Globulin Ratio 1.5 Misc Test Result Platelets confirmed Blood Type A Positive Antibody Screen NEGATIVE Crossmatch See Detail Blood Bank Wristband ID Yes ABG Interpretation ABG results: 07/11/24 07/12/24 07/12/24 22:53 01:05 03:33 ABG pH 7.24 L 7.16 L* 7.44 D ABG pCO2 53 H 61 H 34 D ABG pO2 101 64 L D 426 H D ABG HCO3 23 22 24 ABG O2 Saturation 97 84 L 102 H ABG Base Excess -5 L -7 L -1 07/13/24 07/14/24 07/16/24 05:22 04:33 07:35 ABG pH 7.46 H 7.40 7.49 H ABG pCO2 38 37 38 ABG pO2 100 D 58 L* D 106 D ABG HCO3 27 H 23 28 H ABG O2 Saturation 99 H 89 L 100 H ABG Base Excess 3 -2 5 H Quality Measures Quality Measures none Assessment & Plan Assessment Current Active Medications: Generic Name Dose Route Start Last Admin Trade Name Freq PRN Reason Stop Dose Admin Amiodarone HCl 200 mg 07/15/24 09:00 07/18/24 08:25 Amiodarone Hcl 200 Mg Tablet PO 08/14/24 08:59 200 mg BID SAVANNAH Administration Bumetanide 2 mg 07/16/24 14:00 07/18/24 05:27 Bumetanide Inj 0.25 Mg/Ml Vial 4 Ml IVP 08/15/24 13:59 2 mg Q8HR SAVANNAH Administration Dextrose 25 ml 07/11/24 19:55 Dextrose 50%-Water Inj 50 Ml Syringe IV 08/10/24 19:54 Q15MIN PRN BG 50-70 responsive npo pt Dextrose 50 ml 07/11/24 19:55 07/16/24 18:22 Dextrose 50%-Water Inj 50 Ml Syringe IV 08/10/24 19:54 50 ml Q15MIN PRN Administration BG <50 OR BG <70 & pt unresponsive Glucagon 1 mg 07/11/24 19:55 Glucagon Inj 1 Mg Vial IM Q15MIN PRN BG <70, and no IV access Heparin Sodium (Porcine) 2,500 unit 07/17/24 15:52 07/17/24 16:24 Heparin Sod Inj 1000 Unit/Ml Vial 10 Ml INDWELLCAT 07/31/24 15:51 2,500 unit PRN PRN Administration DIALYSIS Heparin Sodium/Dextrose 25,000 unit in 250 mls @ 6.26 mls/hr 07/11/24 08:45 07/17/24 17:00 Heparin In D5w Ivpb IV 07/25/24 08:44 3 units/kg/hr .Q24H SAVANNAH 1.565 mls/hr Titration Protocol 12 UNITS/KG/HR Dexmedetomidine/Sodium Chloride 400 mcg in 100 mls @ 2.905 mls/hr 07/12/24 10:35 Precedex Ivpb IV 08/11/24 10:34 .Q24H PRN Per PROTOCOL Protocol 0.2 MCG/KG/HR Norepinephrine/Dextrose 8 mg in 250 mls @ 5.456 mls/hr 07/13/24 16:53 07/18/24 12:47 Levophed In D5w 8mg/250ml IV 08/12/24 16:52 Infused .Q24H PRN Titration PER PROTOCOL Protocol 0.05 MCG/KG/MIN Albumin Human 25 gm in 100 mls @ 100 mls/hr 07/16/24 17:45 07/18/24 09:39 Albuminar-25 Ivpb IV 07/19/24 17:44 Infused QDAY SAVANNAH Infusion Albumin Human 25 gm in 100 mls @ 100 mls/min 07/17/24 15:52 Albuminar-25 Ivpb IV 07/20/24 15:51 PRN PRN DIALYSIS Insulin Human Lispro 0 unit 07/12/24 12:00 07/18/24 12:33 Insulin Lispro (Admelog) 1 Unit/0.01 Ml Unit SC 08/11/24 11:59 Not Given Q6HR SAVANNAH Protocol Lactulose 20 gm 07/18/24 21:00 Lactulose Syrup 20 Gm/30 Ml Udc PO 08/17/24 20:59 BID SAVANNAH Protocol Midodrine 10 mg 07/18/24 12:00 07/18/24 12:13 Midodrine 5 Mg Tablet PO 08/17/24 11:59 10 mg Q6HR SAVANNAH Administration Pantoprazole Sodium 40 mg 07/12/24 09:00 07/18/24 08:25 Pantoprazole Inj 40 Mg Vial IVP 08/11/24 08:59 40 mg QDAY SAVANNAH Administration Plan Patient is a 53-year-old female with a past medical history of NIDDM, embolic CVA, LV mural thrombus and decompensated cirrhosis with portal hypertension. Patient was BIBA by her daughter who noticed bright red blood per rectum upon changing her diaper. Patient was admitted for workup and management of hypotension and generalized weakness. Nephrology was consulted for anasarca secondary to hepatorenal syndrome. 1. Hepatorenal syndrome Likely type II as patient has diuretic resistant ascites Patient has history of decompensated cirrhosis with ascites. On presentation patient was hypotensive with MAP in low 60s and required upgrade to ICU for vaso pressors Echocardiogram showed ejection fraction 20%- Dr. Yunier Sorto. Patient was started on dobutamine after improvement in urine output Ddx : Cardiorenal syndrome Currently BP 82/61 MAP 68 on Norad @ 3 ml/hr Abdo ultrasound confirms fatty liver 12.9 cm I 1849 cc O 545 cc Balance +1304 cc [07/17] Hemodialysis for 1-2 hours with goal of 1-2 L Ultrafiltration Plan: - Strict I/O ? Continue Norad for Blood pressure support [Terlipressin not available in [place]] - Continue Midodrine for blood pressure support - As the urine output is decreased and renal functions declining, patient needs dialysis as of today. - For 2 hours of Hemodialysis today with goal of 1.5-2 L Ultrafiltration ? Thank you for the opportunity to participate in patient's care. ? Nephrology will closely monitor this case. 2. PHILL - improving Likely prerenal secondary to hypoperfusion Patient was hypotensive on admission with MAP in low 60s [07/12] Cr 1.8 BUN 51 ----> [07/18] Cr 1.7 BUN 47 Plan: ? Blood pressure support to maintain adequate perfusion of kidney 3. 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 bili 2.4 Normocytic anemia Thrombocytopenia GI bleed for investigation UTI History of embolic CVA NIDDM LV mural thrombus-on heparin infusion. Plan: ? Continue management as per primary team Thank you for allowing us to participate in Mrs. Atkins's care. Plan of care discussed with attending Circuit Design Engineer, Dr Caren Egan MD PGY 1 Attending Provider Attestation/Addendum Patient seen and examined with resident physician Dr. Egan. Note reviewed, agree with findings and recommendations. Patient with minimal urinary output. Extubated, alert and awake. Patient currently seen on dialysis. Tolerating dialysis without any problems. Hemodialysis for 2 hours, 3K, ultrafiltration 1-2 L, Epogen 6000, no heparin ordered. Plan of care discussed with the dialysis nurse. Please see dialysis flowsheet for further details. Plan of care discussed with the ICU team. Critical care time spent more than 35 minutes regarding plan of care and disease manage Plan of care discussed with family at bedside.
[2024-07-18] MEDS: Norepinephrine/D5W 8mg/250ml 8 MG/250 ML BAG 5.456 MG IV (14:00)
[2024-07-18] MEDS: Heparin/D5w 25K 250 ML Ivpb 25,000 UNIT/250 ML BAG 1.565 UNIT IV (14:07)
[2024-07-18] MEDS: HEPARIN SOD INJ 1000 UNIT/ML VIAL 10 ML 2500 UNIT INDWELLCAT (14:36)
[2024-07-18 14:59] LABS: Albumin, Serum 4.8 gm/dL (3.5-5.0); Anion Gap 11 (7-16); BUN/Creatinine Ratio 24 Ratio (12-20); Blood Urea Nitrogen 26 mg/dL (9-23); Calcium 9.9 mg/dL (8.3-10.6); Calcium (Corrected) 9.9 mg/dL (8.5-10.1); Carbon Dioxide 26.5 mMol/L (20.0-31.0); Chloride 100 mMol/L (98-107); Creatinine (Component) 1.1 mg/dL (0.6-1.3); Estimated Creatinine Clearance 50.4 mL/min (>60); Glucose 160 mg/dL (74-106); Osmolality,Calculated 281 (275-295); Phosphorous 2.7 mg/dL (2.4-5.1); Potassium 3.6 mMol/L (3.4-5.1); Sodium 137 mMol/L (136-145); eGFR 59 See Note
--- NOTE | 2024-07-18 17:51 | EKG_ITS ---
[facility] Test Date: 2024-07-18 Pat Name: VALENTINE CUMMINGS Department: Room: S257A Gender: Female Nurse Informatics Educator: EMMY : 1970 Requested By: Glendy Schwab Order Number: [id number] Reading MD: Glendy Schwab Measurements Intervals [place] Rate: 108 P: 125 OR: 214 QRS: -90 QRSD: 135 T: 37 QT: 341 QTc: 457 Interpretive Statements SINUS TACHYCARDIA WITH FIRST DEGREE AV BLOCK MARKED LEFT AXIS DEVIATION RIGHT BUNDLE BRANCH BLOCK POSSIBLE ANTERIOR MYOCARDIAL INFARCTION , PROBABLY OLD Compared to ECG 07/13/2024 05:19:18 First degree AV block now present Atrial fibrillation no longer present Ventricular premature complex(es) no longer present Aberrant conduction of supraventricular beat(s) no longer present Myocardial infarct finding still present /store/S0/[id number]/ecg/[id number].pdf
[2024-07-18 18:51] LABS: Hematocrit 27.4 % (36.0-46.0)
[2024-07-18 18:53] LABS: Hemoglobin 8.6 g/dL (12.0-16.0)
[2024-07-18 19:06] LABS: Anion Gap 14 (7-16); BUN/Creatinine Ratio 26 Ratio (12-20); Blood Urea Nitrogen 37 mg/dL (9-23); Calcium 9.5 mg/dL (8.3-10.6); Chloride 102 mMol/L (98-107); Creatinine (Component) 1.4 mg/dL (0.6-1.3); Estimated Creatinine Clearance 39.6 mL/min (>60); Glucose 183 mg/dL (74-106); Magnesium 1.9 mg/dL (1.6-2.6); Osmolality,Calculated 289 (275-295); Phosphorous 3.8 mg/dL (2.4-5.1); Potassium 4.1 mMol/L (3.4-5.1); Sodium 138 mMol/L (136-145); eGFR 44 See Note
[2024-07-18 19:12] LABS: Calcium (Corrected) 9.5 mg/dL (8.5-10.1)
--- NOTE | 2024-07-18 20:00 | ESPR_ITS ---
Documentation for date of: 07/18/24 Subjective Subjective Interval history: Patient seen and examined at the bedside No new cardiac complaints. Patient was briefly made DNR/DNI few days ago but now back on full code and left IJ dialysis vascular catheter placed and started on dialysis. During dialysis patient required low-dose Levophed. We are unable to wean off the Levophed on the patient and patient systolic is around 90s but the MAP is less than 65. Patient still continues to have 3+ edema and anasarca and will need multiple sessions of dialysis and shows minimal improvement. Was on IV amiodarone for the atrial fibrillation and now change amiodarone 200 Mg twice daily Check QTc. Keep potassium greater than 4 magnesium greater than 2.0. Discussed again with both the daughters were at the bedside regarding the overall long-term poor prognosis for the patient. Exam Vital Signs Temp Pulse Resp BP Pulse Ox O2 Del Method O2 Flow Rate 98.8 F 103 H 26 H 89/65 L 95 Nasal Cannula 1 07/18/24 19:00 07/19/24 00:00 07/19/24 00:00 07/19/24 00:00 07/19/24 00:00 07/19/24 00:00 07/19/24 00:00 FiO2 25 07/16/24 12:45 Narrative Exam General: On 3L NC. Appears cachectic with significant loss of muscle and even in the temporal areas bilaterally Eyes: PERRLA, EOMI, anicteric sclera HEENT: Atraumatic, normocephalic. No JVD noted. MMM Cardiovascular: Normal S1 and S2. 3+ pitting peripheral edema to lower extremities Respiratory: On mechanical ventilation lungs are clear to auscultation bilaterally. No wheezing or crackles heard. Abdomen: Abdomen soft but distended, nontender Skin: No rash. Slightly cold to touch. Neuro: Eyes tracking, nods head to questioning, moves extremities spontaneously Objective Labs 07/19/24 10:59 07/19/24 04:48 Labs: Laboratory Results - last 24 hr 07/18/24 07/18/24 07/18/24 04:40 07:05 11:00 WBC 8.0 RBC 2.31 L Hgb 6.5 L* 6.7 L* Hct 21.7 L* 22.2 L MCV 94 MCH 28.1 MCHC 30.0 L RDW Std Deviation 68.7 H Plt Count 64 L Neut % (Auto) 88 H Lymph % (Auto) 7 L [place] % (Auto) 4 Eos % (Auto) 0 Baso % (Auto) 0 Neut # (Auto) 7.0 Lymph # (Auto) 0.6 L [place] # (Auto) 0.4 Eos # (Auto) 0.0 Baso # (Auto) 0.0 Immature Gran # (Auto) 0.01 H Absolute Nucleated RBC 0.15 H Immature Gran % 0 Nucleated RBC % 2 H APTT 49.8 H Sodium 142 Potassium 2.9 L D Chloride 103 Carbon Dioxide 25.5 Anion Gap 14 BUN 47 H Creatinine 1.7 H Estim Creat Clear Calc 34.0 L eGFR 35 L BUN/Creatinine Ratio 28 H Glucose 155 H Calculated Osmolality 298 H Calcium 9.3 Corrected Calcium 9.5 Phosphorus 4.4 Magnesium 1.9 Ferritin 67 Total Bilirubin 2.4 H AST < 10 ALT 18 Alkaline Phosphatase 179 H D Total Protein 6.2 Albumin 3.7 Globulin 2.5 Albumin/Globulin Ratio 1.5 Misc Test Result Platelets confirmed Blood Type A Positive Antibody Screen NEGATIVE Crossmatch See Detail Blood Bank Wristband ID Yes 07/18/24 07/18/24 07/18/24 14:14 18:12 21:09 WBC RBC Hgb 8.6 L D Hct 27.4 L MCV MCH MCHC RDW Std Deviation Plt Count Neut % (Auto) Lymph % (Auto) [place] % (Auto) Eos % (Auto) Baso % (Auto) Neut # (Auto) Lymph # (Auto) [place] # (Auto) Eos # (Auto) Baso # (Auto) Immature Gran # (Auto) Absolute Nucleated RBC Immature Gran % Nucleated RBC % APTT 51.2 H Sodium 137 138 Potassium 3.6 D 4.1 D Chloride 100 102 Carbon Dioxide 26.5 22.0 Anion Gap 11 14 BUN 26 H 37 H Creatinine 1.1 D 1.4 H Estim Creat Clear Calc 50.4 L 39.6 L eGFR 59 L 44 L BUN/Creatinine Ratio 24 H 26 H Glucose 160 H 183 H Calculated Osmolality 281 289 Calcium 9.9 9.5 Corrected Calcium 9.9 9.5 Phosphorus 2.7 3.8 Magnesium 1.9 Ferritin Total Bilirubin AST ALT Alkaline Phosphatase Total Protein Albumin 4.8 D 4.0 D Globulin Albumin/Globulin Ratio Misc Test Result Blood Type Antibody Screen Crossmatch Blood Bank Wristband ID ABG Interpretation ABG results: 07/11/24 07/12/24 07/12/24 22:53 01:05 03:33 ABG pH 7.24 L 7.16 L* 7.44 D ABG pCO2 53 H 61 H 34 D ABG pO2 101 64 L D 426 H D ABG HCO3 23 22 24 ABG O2 Saturation 97 84 L 102 H ABG Base Excess -5 L -7 L -1 07/13/24 07/14/24 07/16/24 05:22 04:33 07:35 ABG pH 7.46 H 7.40 7.49 H ABG pCO2 38 37 38 ABG pO2 100 D 58 L* D 106 D ABG HCO3 27 H 23 28 H ABG O2 Saturation 99 H 89 L 100 H ABG Base Excess 3 -2 5 H Assessment & Plan A&P Narrative A 53-year-old female with a past medical history of recent acute stroke on 06/24/2024 thought to be secondary to embolic stroke from left ventricular mural thrombus diagnosed at [facility] and is on Eliquis, history of choledocholithiasis status post MRCP in June 2024, metabolic dysfunction 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 Cardiology consulted LV thrombus, possible CHF and elevated troponins. 1. Anasarca-mostly secondary to advanced liver disease and less likely from the CHF. 2. Mildly elevated troponins-NSTEMI type II in the setting of supply/demand mismatch 3. LV thrombus diagnosed at [facility] troponin 2023- 4. Likely secondary to possible bilateral pneumonia from HCAP 5. Acute hypoxic respiratory failure in the setting of pneumonia versus bilateral pleural effusions right greater than left and large 6. Cirrhosis of the liver secondary to [place] or MASLD 7. History of recent stroke in June 2024 secondary to possible embolic cardiac etiology and thought to be tubular thrombus diagnosed at [facility] 8. Acute kidney injury 9. Elevated lactate 10. Dabetes mellitus, uncontrolled 11. Choledocholithiasis 12. Cachexia with severe recent weight loss Patient presented with questionable blood staining on the diaper as per the daughter and the niece. Stool occult here was negative and hemoglobin appears to be stable at 8.7 on admission. Primary team to call GI for further evaluation as the patient also has hepatorenal syndrome with severe sepsis and possible septic shock. Patient is hypotensive as well as her high lactate and procalcitonin was elevated. Possible sepsis secondary to bilateral pneumonia versus UTI. Patient. To the ICU and further recommendations as per GI as well as ICU team. Patient is anasarca and is mostly secondary to her cirrhosis and liver disease but there could be some diastolic CHF component. Albumin was only 3.1 and HDL below normal. Bili is elevated at 2.4. Recent echocardiogram from May 2024 was reviewed which showed normal LV size and function with an approximate EF-60% and mild to moderate TR with no evidence of any regional wall motion abnormalities. Recommend to start the patient Lasix drip at at least 5 mg/h and continue strict control, daily weights and 2 g odium diet for now. Patient is mildly hypotensive and might need pressor support if required and hence patient transferred to the ICU. Patient troponins were mildly elevated at 0.222 and were flat between 0.25 as well as 0.23. Troponin elevation mostly secondary to supply/demand mismatch and or recommend no further troponins for now. Will check echocardiogram to rule out any kind of regional wall motion abnormalities and reevaluate the EF. EKG showed sinus tachycardia with nonspecific ST changes and frequent PVCs. Patient evidently had LV thrombus that was documented in [facility] and recommend obtaining the report from detail including the SANDIE, cardiac CT and MRI results. Patient should be on heparin drip as the patient also has a history of LV thrombus and there is no evidence of any GI bleed for now. Will need to review all the records and obtain all the records from the outside hospital-[facility]. Recommend to check TSH A1c as well as lipid panel for further cardiac risk stratification. Recommend potassium greater than 4 and magnesium greater than 2.0 at all times. Patient appears to have lost significant weight in the last 8 to 10 months and has significant temporal wasting and overall prognosis appears to be poor and this was explained to the family. Echo performed on 07/12/2024 showed Normal LV size. Global LV systolic function is severely decreased. Estimated EF < 20%. LV mural thrombus is present 2.51 cm x 1.71 cm. Moderate hypertrophy with ground glass appearence - need ot r/o amyloid or other infiltartative diseases. diastolic dysfunction present but unable to grade as there is no E/A. atleast grade 2 and grade 3 RV is normal in size. RV systolic function is severely decreased. Estimated RVSP, 39 mmHg including RAP 15mmHg. Moderately dilated LA and RA. Mild to moderate MR. mild AI and Severe TR. Dilated IVC and moderatre size pleural effusion Explained echocardiogram findings with the family and the severe LV as well as RV dysfunction and possible end-stage heart disease with the presence of LV thrombus to the family in detail. Daughter was at the bedside today and also previously yesterday and were the possibility of infiltrative disease of heart possibly also liver but the patient appears to be end-stage at the present point of time with severe temporal wasting as noted above. Patient is not a good candidate for any advanced heart failure therapies including LVAD given the presence of LV thrombus and is not a transplant candidate. Overall poor prognosis and patient still is continues to be in critical condition at the present point of time. 07/18/2024: Patient was unable to protect airway and was intubated and mechanically ventilated overnight on 07/11/2024. Patient was eventually extubated on 07/15/2024. Dobutamine drip was discontinued after the first couple of days. Patient was also started on diuresis with Bumex drip and patient was also changed to Bumex bolus dosing Patient did not diurese well and family decided that they wanted dialysis. Patient was briefly made DNR/DNI few days ago but now back on full code and left IJ dialysis vascular catheter placed and started on dialysis. During dialysis patient required low-dose Levophed. We are unable to wean off the Levophed on the patient and patient systolic is around 90s but the MAP is less than 65. Patient still continues to have 3+ edema and anasarca and will need multiple sessions of dialysis and shows minimal improvement. Was on IV amiodarone for the atrial fibrillation and now change amiodarone 200 Mg twice daily Check QTc. Keep potassium greater than 4 magnesium greater than 2.0. Discussed again with both the daughters were at the bedside regarding the overall long-term poor prognosis for the patient. There is a high probability of sudden, clinically significant or life threatening deterioration in the patient condition which required the highest level of physician preparedness to intervene urgently. I have personally spent 65 minutes of critical care time, exclusive of time spent on any procedures, in evaluation and management of this critically ill patient. Management of rest of the medical conditions as per primary team and other consultants. Thank you for the consult and allowing me to participate in the care of the patient. Cardiology will continue to follow. Lico Malone M.D. Interventional Cardiology Time Spent With Patient Time: Total time spent is greater than 50% in coordination of care (as documented) at patient's floor/unit and/or counseling patient:
[2024-07-18 21:58] LABS: Partial Thromboplastin Time 51.2 Seconds (22.0-36.0)
[2024-07-19] VITALS (113 sets, daily range): BP systolic 75–108; BP diastolic 51–83; PULSE 72–128; RESP 14–32; TEMP 36–36.7; O2SAT 91–100; BMI 24.5
[2024-07-19] MEDS: MIDODRINE 5 MG TABLET 10 MG PO ×4 (00:58→17:54)
[2024-07-19 04:23] LABS: Partial Thromboplastin Time 51.6 Seconds (22.0-36.0)
--- NOTE | 2024-07-19 05:00 | XR_ITS ---
Examination: AP chest single view Technique one AP portable semiupright chest single view Exam date and time: July 19, 2024 0537 hrs. Comparison July 17, 2024 Indications: ICU patient with hypoxic respiratory failure sepsis Findings: Significant heart failure Mild to moderate enlargement cardiac contour with prominent vascular congestion and perihilar edema Consider superimposed bilateral pneumonia especially in the right midlung Right internal jugular central line tip right atrium Left internal jugular temporary dialysis catheter right atrium Orogastric tube sidehole is near the GE junction Impression: Significant heart failure with superimposed bilateral pneumonia Advance the orogastric tube 7 cm with follow-up KUB
[2024-07-19 05:20] LABS: Basophils % (Auto) 0 % (0-2.5); Eosinophils % (Auto) 0 % (0-10); Immature Granulocytes % (Auto) 0 % (0-0); Lymphocytes # (Auto) 1.1 Thou/mm3 (1.0-4.8); Lymphocytes % (Auto) 13 % (10-50); Monocytes # (Auto) 0.4 Thou/mm3 (0.0-0.8); Monocytes % (Auto) 5 % (0-12)
[2024-07-19 05:22] LABS: Hematocrit 25.6 % (36.0-46.0); Immature Granulocytes Auto 0.02 Thou/mm3 (0.00-0.00); Mean Corpuscular Hemoglobin 29.3 pg (25.0-35.0); Mean Corpuscular Volume 91 fL (80-100); Neutrophils # (Auto) 6.9 Thou/mm3 (1.8-7.7); Neutrophils % (Auto) 82 % (37-80); Nucleated Red Blood Cell # 0.18 Thou/mm3 (0.00-0.00); Nucleated Red Blood Cell % 2 /100 WBC (0); RDW Standard Deviation 60.5 fL (36.4-46.3); White Blood Count 8.4 Thou/mm3 (3.6-11.0)
[2024-07-19 05:39] LABS: Hemoglobin 8.2 g/dL (12.0-16.0)
[2024-07-19 05:43] LABS: Platelet Count 20 Thou/mm3 (140-440); Slide Review Platelets confirmed
[2024-07-19 06:06] LABS: Alanine Aminotransferase 22 U/L (10-49); Albumin, Serum 3.7 gm/dL (3.5-5.0); Albumin/Globulin Ratio 1.5 (1.2-2.2); Alkaline Phosphatase 205 U/L (46-116); Anion Gap 8 (7-16); Aspartate Amino Transferase 22 U/L (0-34); BUN/Creatinine Ratio 27 Ratio (12-20); Bilirubin,Total 3.6 mg/dL (0.3-1.2); Blood Urea Nitrogen 43 mg/dL (9-23); Calcium 9.5 mg/dL (8.3-10.6); Calcium (Corrected) 9.7 mg/dL (8.5-10.1); Carbon Dioxide 27.9 mMol/L (20.0-31.0); Chloride 104 mMol/L (98-107); Creatinine (Component) 1.6 mg/dL (0.6-1.3); Estimated Creatinine Clearance 34.7 mL/min (>60); Globulin 2.5 gm/dL (2.3-3.5); Glucose 122 mg/dL (74-106); Osmolality,Calculated 291 (275-295); Phosphorous 4.1 mg/dL (2.4-5.1); Potassium 3.2 mMol/L (3.4-5.1); Sodium 140 mMol/L (136-145); Total Protein 6.2 gm/dL (5.7-8.2); eGFR 38 See Note
[2024-07-19 06:51] LABS: Hepatitis A Antibody IgM Non Reactive (Non React); Hepatitis B Core Antibody IgM Non Reactive (Non React); Hepatitis B Surface Antigen Non Reactive (Non React); Hepatitis C Antibody Non Reactive (Non React)
[2024-07-19] MEDS: ALBUMIN HUMAN 25% IVPB 25 GM/100 ML BTL IV (08:26)
--- NOTE | 2024-07-19 09:03 | PC.NURSE ---
on dialysis. BP remains to be low, MAP went down to 61. Albumin 25gm iv infusing. RN Liseth increased Levo to 0.03. Pt awake alert, no complaints. UFR at 880. Will monitor.
--- NOTE | 2024-07-19 09:06 | ESPR_ITS ---
Documentation for date of: 07/19/24 Subjective Subjective Interval history: 07/19/2024: No acute overnight events to report. Patient seen and examined this a.m. in hospital bed with no concerning cardiac symptoms; denies any chest pain/tightness, palpitations or any new dizziness. Current vitals include blood pressure 91/61, heart rate 93, respiratory rate 18, afebrile, satting 98 on 1 L nasal cannula. Pertinent lab findings include hemoglobin 8.2, platelet 20, potassium 3.2, BUN 43, creatinine 1.6, magnesium 2.0. Patient remains volume overloaded on exam with +2 pitting edema on the bilateral lower extremities and will require hemodialysis on 07/19. Exam Vital Signs Temp Pulse Resp BP Pulse Ox O2 Del Method O2 Flow Rate 97.4 F 72 19 83/51 L 98 Nasal Cannula 1 07/19/24 08:07 07/19/24 09:00 07/19/24 08:07 07/19/24 09:00 07/19/24 08:07 07/19/24 07:00 07/19/24 08:07 FiO2 25 07/19/24 08:07 Narrative Exam General: On 1L NC. Appears cachectic with significant loss of muscle and even in the temporal areas bilaterally Eyes: PERRLA, EOMI, anicteric sclera HEENT: Atraumatic, normocephalic. No JVD noted. left IJ vasc cath noted Cardiovascular: Normal S1 and S2. +2 pitting peripheral edema to lower extremities and anasarca Respiratory: lungs auscultation bilaterally.with crackles fine and No wheezing. Abdomen: Abdomen soft but distended, nontender Skin: No rash. Slightly cold to touch. Neuro: AAo x2, slightly confused and no focal deficits Objective Labs 07/20/24 05:55 07/20/24 05:55 Labs: Laboratory Results - last 24 hr 07/18/24 07/18/24 07/18/24 07:05 11:00 14:14 WBC RBC Hgb Hct MCV MCH MCHC RDW Std Deviation Plt Count Neut % (Auto) Lymph % (Auto) [place] % (Auto) Eos % (Auto) Baso % (Auto) Neut # (Auto) Lymph # (Auto) [place] # (Auto) Eos # (Auto) Baso # (Auto) Immature Gran # (Auto) Absolute Nucleated RBC Immature Gran % Nucleated RBC % APTT Sodium 137 Potassium 3.6 D Chloride 100 Carbon Dioxide 26.5 Anion Gap 11 BUN 26 H Creatinine 1.1 D Estim Creat Clear Calc 50.4 L eGFR 59 L BUN/Creatinine Ratio 24 H Glucose 160 H Calculated Osmolality 281 Calcium 9.9 Corrected Calcium 9.9 Phosphorus 2.7 Magnesium Ferritin 67 Total Bilirubin AST ALT Alkaline Phosphatase Total Protein Albumin 4.8 D Globulin Albumin/Globulin Ratio Hepatitis A IgM Ab Hep Bs Antigen Hep B Core IgM Ab Hepatitis C Antibody Misc Test Result Blood Type A Positive Antibody Screen NEGATIVE Crossmatch See Detail Blood Bank Wristband ID Yes 07/18/24 07/18/24 07/19/24 18:12 21:09 02:00 WBC RBC Hgb 8.6 L D Hct 27.4 L MCV MCH MCHC RDW Std Deviation Plt Count Neut % (Auto) Lymph % (Auto) [place] % (Auto) Eos % (Auto) Baso % (Auto) Neut # (Auto) Lymph # (Auto) [place] # (Auto) Eos # (Auto) Baso # (Auto) Immature Gran # (Auto) Absolute Nucleated RBC Immature Gran % Nucleated RBC % APTT 51.2 H 51.6 H Sodium 138 Potassium 4.1 D Chloride 102 Carbon Dioxide 22.0 Anion Gap 14 BUN 37 H Creatinine 1.4 H Estim Creat Clear Calc 39.6 L eGFR 44 L BUN/Creatinine Ratio 26 H Glucose 183 H Calculated Osmolality 289 Calcium 9.5 Corrected Calcium 9.5 Phosphorus 3.8 Magnesium 1.9 Ferritin Total Bilirubin AST ALT Alkaline Phosphatase Total Protein Albumin 4.0 D Globulin Albumin/Globulin Ratio Hepatitis A IgM Ab Hep Bs Antigen Hep B Core IgM Ab Hepatitis C Antibody Misc Test Result Blood Type Antibody Screen Crossmatch Blood Bank Wristband ID 07/19/24 04:48 WBC 8.4 RBC 2.80 L Hgb 8.2 L Hct 25.6 L MCV 91 MCH 29.3 MCHC 32.0 RDW Std Deviation 60.5 H Plt Count 20 L* D Neut % (Auto) 82 H Lymph % (Auto) 13 [place] % (Auto) 5 Eos % (Auto) 0 Baso % (Auto) 0 Neut # (Auto) 6.9 Lymph # (Auto) 1.1 [place] # (Auto) 0.4 Eos # (Auto) 0.0 Baso # (Auto) 0.0 Immature Gran # (Auto) 0.02 H Absolute Nucleated RBC 0.18 H Immature Gran % 0 Nucleated RBC % 2 H APTT Sodium 140 Potassium 3.2 L D Chloride 104 Carbon Dioxide 27.9 Anion Gap 8 BUN 43 H Creatinine 1.6 H Estim Creat Clear Calc 34.7 L eGFR 38 L BUN/Creatinine Ratio 27 H Glucose 122 H D Calculated Osmolality 291 Calcium 9.5 Corrected Calcium 9.7 Phosphorus 4.1 Magnesium 2.0 Ferritin Total Bilirubin 3.6 H D AST 22 ALT 22 Alkaline Phosphatase 205 H D Total Protein 6.2 Albumin 3.7 Globulin 2.5 Albumin/Globulin Ratio 1.5 Hepatitis A IgM Ab Non Reactive Hep Bs Antigen Non Reactive Hep B Core IgM Ab Non Reactive Hepatitis C Antibody Non Reactive Misc Test Result Platelets confirmed Blood Type Antibody Screen Crossmatch Blood Bank Wristband ID ABG Interpretation ABG results: 07/11/24 07/12/24 07/12/24 22:53 01:05 03:33 ABG pH 7.24 L 7.16 L* 7.44 D ABG pCO2 53 H 61 H 34 D ABG pO2 101 64 L D 426 H D ABG HCO3 23 22 24 ABG O2 Saturation 97 84 L 102 H ABG Base Excess -5 L -7 L -1 07/13/24 07/14/24 07/16/24 05:22 04:33 07:35 ABG pH 7.46 H 7.40 7.49 H ABG pCO2 38 37 38 ABG pO2 100 D 58 L* D 106 D ABG HCO3 27 H 23 28 H ABG O2 Saturation 99 H 89 L 100 H ABG Base Excess 3 -2 5 H Quality Measures Quality Measures none Assessment & Plan Assessment Current Active Medications: Generic Name Dose Route Start Last Admin Trade Name Freq PRN Reason Stop Dose Admin Amiodarone HCl 200 mg 07/15/24 09:00 07/18/24 21:35 Amiodarone Hcl 200 Mg Tablet PO 08/14/24 08:59 200 mg BID SAVANNAH Administration Dextrose 25 ml 07/11/24 19:55 Dextrose 50%-Water Inj 50 Ml Syringe IV 08/10/24 19:54 Q15MIN PRN BG 50-70 responsive npo pt Dextrose 50 ml 07/11/24 19:55 07/16/24 18:22 Dextrose 50%-Water Inj 50 Ml Syringe IV 08/10/24 19:54 50 ml Q15MIN PRN Administration BG <50 OR BG <70 & pt unresponsive Glucagon 1 mg 07/11/24 19:55 Glucagon Inj 1 Mg Vial IM Q15MIN PRN BG <70, and no IV access Heparin Sodium (Porcine) 2,500 unit 07/17/24 15:52 07/18/24 14:36 Heparin Sod Inj 1000 Unit/Ml Vial 10 Ml INDWELLCAT 07/31/24 15:51 2,500 unit PRN PRN Administration DIALYSIS Heparin Sodium/Dextrose 25,000 unit in 250 mls @ 6.26 mls/hr 07/11/24 08:45 07/19/24 06:00 Heparin In D5w Ivpb IV 07/25/24 08:44 0 units/kg/hr .Q24H SAVANNAH 0 mls/hr Titration Protocol 12 UNITS/KG/HR Norepinephrine/Dextrose 8 mg in 250 mls @ 5.456 mls/hr 07/13/24 16:53 07/19/24 09:00 Levophed In D5w 8mg/250ml IV 08/12/24 16:52 0.03 mcg/kg/min .Q24H PRN 3.274 mls/hr PER PROTOCOL Titration Protocol 0.05 MCG/KG/MIN Albumin Human 25 gm in 100 mls @ 100 mls/hr 07/16/24 17:45 07/19/24 08:26 Albuminar-25 Ivpb IV 07/19/24 17:44 100 mls/hr QDAY SAVANNAH Administration Albumin Human 25 gm in 100 mls @ 100 mls/min 07/17/24 15:52 Albuminar-25 Ivpb IV 07/20/24 15:51 PRN PRN DIALYSIS Insulin Human Lispro 0 unit 07/12/24 12:00 07/19/24 05:48 Insulin Lispro (Admelog) 1 Unit/0.01 Ml Unit SC 08/11/24 11:59 Not Given Q6HR SAVANNAH Protocol Lactulose 20 gm 07/18/24 21:00 07/18/24 21:35 Lactulose Syrup 20 Gm/30 Ml Udc PO 08/17/24 20:59 20 gm BID SAVANNAH Administration Protocol Midodrine 10 mg 07/18/24 12:00 07/19/24 05:29 Midodrine 5 Mg Tablet PO 08/17/24 11:59 10 mg Q6HR SAVANNAH Administration Pantoprazole Sodium 40 mg 07/12/24 09:00 07/18/24 08:25 Pantoprazole Inj 40 Mg Vial IVP 08/11/24 08:59 40 mg QDAY SAVANNAH Administration Plan 53-year-old female with a past medical history of recent acute stroke on 06/24/2024 thought to be secondary to embolic stroke from left ventricular mural thrombus diagnosed at [facility] and is on Eliquis, history of choledocholithiasis status post MRCP in June 2024, metabolic dysfunction 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 Upgraded to ICU level of care. #Systolic and Diastolic Acute Heart Failure (EF <20%) #Cardiogenic shock versus distributive #Anasarca #Cardiorenal syndrome #NSTEMI type II #Likely infiltrative disease in the setting of supply/demand mismatch Troponins plateaued at 0.2 EKG shows sinus tachycardia with nonspecific ST changes and frequent PVCs Echo from 07/12 shows Normal LV size. Global LV systolic function is severely decreased. Estimated EF < 20%. LV mural Moderate hypertrophy with ground glass appearance of the left ventricular wall RV systolic function is severely decreased. Estimated RVSP, 39 mmHg including RAP 15mmHg. Moderately dilated LA and RA. Mild to moderate MR. mild AI and Severe TR. Dilated IVC Nephrology following, appreciate recommendations Plan: Output 250cc/24 hours and net +2.6 L since admission Hemodialysis planned for 07/19 Strict I's and O's 2 g sodium diet when applicable Continue Levophed and midodrine for pressure support Patient will require beta-brigida and Entresto once blood pressure is more stable Keep potassium greater than 4.0 and magnesium greater than 2.0 at all times. Workup possible amyloidosis versus other infiltrative disease, if patient makes any substantial recovery #Atrial Fibrillation NVR #Hypotensive #QTc prolongation, improving Nonsustained Developed afib when started on Dobutamine for cardiorenal syndrome Dobutamine discontinued Patient on levophed and midodrine for blood pressure support in spite of volume overloaded state Latest EKG shows sinus tachycardia, rate of 108, left axis deviation with right bundle dav block and QTc 450 Plan: Continue to monitor; patient normal sinus rhythm currently Continue amiodarone 200 mg po twice daily Avoid additional QTc prolonging medications Keep potassium greater than 4 magnesium greater than 2.0 #LV thrombus Thrombocytopenia #Possible heparin-induced thrombocytopenia As seen at [facility] Echo confirmed presence of left ventricular thrombus Patient's platelets dropped to 22; initial platelet during admission was 124 Plan: Obtain the study reports Hold heparin drip ICU team has ordered HIT antibody on eliquis 5 mg bid #Acute hypoxic respiratory failure, resolved patient extubated #History of CVA June 2024 secondary to possible embolic cardiac etiology #Cirrhosis of the liver secondary to [place] or MASLD #Acute kidney injury #Type 2 diabetes, [id number] A1c of 5.9 #Choledocholithiasis #Cachexia with severe recent weight loss #Ebony tropicalis in urine #Delirium Rest of medical problems to be managed by the ICU team; cardiology following and will give recommendations. Patient seen and examined with attending Dr. Kira Jacobo, PGY-1 There is a high probability of sudden, clinically significant or life threatening deterioration in the patient condition which required the highest level of physician preparedness to intervene urgently. I have personally spent 40 minutes of critical care time, exclusive of time spent on any procedures, in evaluation and management of this critically ill patient. Attending Provider Attestation/Addendum I have personally seen and examined the patient separately on the above date of service and discussed the plan of care with the resident. I reviewed the resident consultation progress note and agree with the resident findings and plan in the note above and have also edited the documentation to reflect my findings and plan. Lico Malone M.D. Interventional Cardiology
--- NOTE | 2024-07-19 10:04 | PD.RESPRO ---
Documentation for date of: 07/19/24 Subjective Subjective Interval history: Patient is a 53-year-old female with a past medical history of NIDDM, embolic CVA, LV mural thrombus and decompensated cirrhosis with portal hypertension. Patient was BIBA by her daughter who noticed bright red blood per rectum upon changing her diaper. Patient was admitted for workup and management of hypotension and generalized weakness. Last month patient presented to the ED with difficulty standing, slurred speech, facial droop and was diagnosed with an embolic stroke. Incidentally a CBD stone was identified on imaging. Patient was transferred from the ED to [facility] for possible ERCP. Patient also had previous admission to [facility] for hyponatremia and hypotension with ICU stay. Patient's baseline is bedbound, but able to verbalize. ED course: Patient was hypotensive and tachycardic on presentation BP 86/65, MAP 72 HR 102. Labs were significant for normocytic anemia, CR 1.8, BUN 47. Urinalysis was significant for 1+ protein, 3+ blood, LE positive, WBC 358 On imaging Abd US: Fatty liver 12.9 cm Nephrology was consulted for anasarca secondary to likely hepatorenal syndrome. 07/15/2024 Patient seen and examined in ICU this a.m. Patient is more active today, intubated and mechanically ventilated. Patient is on noradrenaline infusion @ 1ml/hr, octreotide infusion and Bumex Infusion I 1092 cc O 1750 cc Balance -657 cc Rest of patient's family to visit tomorrow 07/16, to decide on comfort vs hospice .Guarded prognosis Blood pressure is improved with MAP in 70's on Norad @ 1ml/hr, can discontinue pressors and continue Midodrine Patient is now producing urine, will hold on dialysis for now 07/16/2024 Patient is seen and examined bedside in the ICU. Patient condition still remained the same. Yesterday the ICU team tried to extubate the patient but unsuccessful and patient is still on mechanical ventilator. The patient was successfully extubated in the afternoon. Goals of care are discussed with the family and patient was on DNR/DNI. Blood pressures are maintained well maintained without I.V vasopressor (LEVOPHED) support. On examination the patient appears to be less swollen from yesterday. Bumex infusion is changed to IV push 2 Mg 8 hourly. As the patient is able to maintain adequate urine output, no need of dialysis as of now. 07/17/2024 Patient is seen and examined bedside. Patient is awake. Successfully extubated yesterday. Able to maintain saturations on oxygen through nasal cannula. Her urine output is significantly decreased from last night. Patient is still having anasarca. BUN trended from 55 to 61 today. Creatinine uptrended to 1.9. Bumex and metolazone were stopped as of today. Will continue to give albumin infusions. Patient needs dialysis today. Will continue to monitor renal functions and strict input output charting 07/18/2024 Patient seen and examined in ICU this a.m. Patient is confused, but active today, s/p extubation on 07/16 Patient is on noradrenaline infusion @ 3ml/hr and Albumin 25 g IV daily I 1849 cc O 545 cc Balance +1304 cc Minimal urine output over past 24 hours. For 2 hours of Hemodialysis today with goal of 1.5-2 L Ultrafiltration 07/19/2024: Patient seen and examined in ICU this morning. No acute overnight events. Vitals, labs reviewed. Remains on levophed at this time. Only 275cc/24hrs. Platelets downtrending, 20; Creatinine increasing, 1.6. Continues to have moderate edema. Will plan for dialysis today. Exam Vital Signs Temp Pulse Resp BP Pulse Ox O2 Del Method O2 Flow Rate 97.4 F 92 17 93/65 98 Nasal Cannula 1 07/19/24 08:07 07/19/24 10:00 07/19/24 09:15 07/19/24 10:00 07/19/24 09:15 07/19/24 09:01 07/19/24 09:01 FiO2 25 07/19/24 08:07 Narrative Exam Gen: AAOx2, on NC, appears critically ill HEENT: NCAT, PERRLA, EOMI, MMM, temporal wasting, L IJ noted CVS: normal S1, S2. RRR. No MRG Resp: bilateral crackles appreciated Abd: firm, non tender, mildly distended. BS+ in all 4 quadrants MSK: significant 3+ pitting edema Neuro: following simple commands Objective Labs 07/20/24 05:55 07/20/24 05:55 Labs: Laboratory Results - last 24 hr 07/18/24 07/18/24 07/18/24 07:05 11:00 14:14 WBC RBC Hgb Hct MCV MCH MCHC RDW Std Deviation Plt Count Neut % (Auto) Lymph % (Auto) [place] % (Auto) Eos % (Auto) Baso % (Auto) Neut # (Auto) Lymph # (Auto) [place] # (Auto) Eos # (Auto) Baso # (Auto) Immature Gran # (Auto) Absolute Nucleated RBC Immature Gran % Nucleated RBC % APTT Sodium 137 Potassium 3.6 D Chloride 100 Carbon Dioxide 26.5 Anion Gap 11 BUN 26 H Creatinine 1.1 D Estim Creat Clear Calc 50.4 L eGFR 59 L BUN/Creatinine Ratio 24 H Glucose 160 H Calculated Osmolality 281 Calcium 9.9 Corrected Calcium 9.9 Phosphorus 2.7 Magnesium Ferritin 67 Total Bilirubin AST ALT Alkaline Phosphatase Total Protein Albumin 4.8 D Globulin Albumin/Globulin Ratio Hepatitis A IgM Ab Hep Bs Antigen Hep B Core IgM Ab Hepatitis C Antibody Misc Test Result Blood Type A Positive Antibody Screen NEGATIVE Crossmatch See Detail Blood Bank Wristband ID Yes 07/18/24 07/18/24 07/19/24 18:12 21:09 02:00 WBC RBC Hgb 8.6 L D Hct 27.4 L MCV MCH MCHC RDW Std Deviation Plt Count Neut % (Auto) Lymph % (Auto) [place] % (Auto) Eos % (Auto) Baso % (Auto) Neut # (Auto) Lymph # (Auto) [place] # (Auto) Eos # (Auto) Baso # (Auto) Immature Gran # (Auto) Absolute Nucleated RBC Immature Gran % Nucleated RBC % APTT 51.2 H 51.6 H Sodium 138 Potassium 4.1 D Chloride 102 Carbon Dioxide 22.0 Anion Gap 14 BUN 37 H Creatinine 1.4 H Estim Creat Clear Calc 39.6 L eGFR 44 L BUN/Creatinine Ratio 26 H Glucose 183 H Calculated Osmolality 289 Calcium 9.5 Corrected Calcium 9.5 Phosphorus 3.8 Magnesium 1.9 Ferritin Total Bilirubin AST ALT Alkaline Phosphatase Total Protein Albumin 4.0 D Globulin Albumin/Globulin Ratio Hepatitis A IgM Ab Hep Bs Antigen Hep B Core IgM Ab Hepatitis C Antibody Misc Test Result Blood Type Antibody Screen Crossmatch Blood Bank Wristband ID 07/19/24 04:48 WBC 8.4 RBC 2.80 L Hgb 8.2 L Hct 25.6 L MCV 91 MCH 29.3 MCHC 32.0 RDW Std Deviation 60.5 H Plt Count 20 L* D Neut % (Auto) 82 H Lymph % (Auto) 13 [place] % (Auto) 5 Eos % (Auto) 0 Baso % (Auto) 0 Neut # (Auto) 6.9 Lymph # (Auto) 1.1 [place] # (Auto) 0.4 Eos # (Auto) 0.0 Baso # (Auto) 0.0 Immature Gran # (Auto) 0.02 H Absolute Nucleated RBC 0.18 H Immature Gran % 0 Nucleated RBC % 2 H APTT Sodium 140 Potassium 3.2 L D Chloride 104 Carbon Dioxide 27.9 Anion Gap 8 BUN 43 H Creatinine 1.6 H Estim Creat Clear Calc 34.7 L eGFR 38 L BUN/Creatinine Ratio 27 H Glucose 122 H D Calculated Osmolality 291 Calcium 9.5 Corrected Calcium 9.7 Phosphorus 4.1 Magnesium 2.0 Ferritin Total Bilirubin 3.6 H D AST 22 ALT 22 Alkaline Phosphatase 205 H D Total Protein 6.2 Albumin 3.7 Globulin 2.5 Albumin/Globulin Ratio 1.5 Hepatitis A IgM Ab Non Reactive Hep Bs Antigen Non Reactive Hep B Core IgM Ab Non Reactive Hepatitis C Antibody Non Reactive Misc Test Result Platelets confirmed Blood Type Antibody Screen Crossmatch Blood Bank Wristband ID ABG Interpretation ABG results: 07/11/24 07/12/24 07/12/24 22:53 01:05 03:33 ABG pH 7.24 L 7.16 L* 7.44 D ABG pCO2 53 H 61 H 34 D ABG pO2 101 64 L D 426 H D ABG HCO3 23 22 24 ABG O2 Saturation 97 84 L 102 H ABG Base Excess -5 L -7 L -1 07/13/24 07/14/24 07/16/24 05:22 04:33 07:35 ABG pH 7.46 H 7.40 7.49 H ABG pCO2 38 37 38 ABG pO2 100 D 58 L* D 106 D ABG HCO3 27 H 23 28 H ABG O2 Saturation 99 H 89 L 100 H ABG Base Excess 3 -2 5 H Quality Measures Quality Measures VTE therapy Assessment & Plan Assessment Current Active Medications: Generic Name Dose Route Start Last Admin Trade Name Freq PRN Reason Stop Dose Admin Amiodarone HCl 200 mg 07/15/24 09:00 07/18/24 21:35 Amiodarone Hcl 200 Mg Tablet PO 08/14/24 08:59 200 mg BID SAVANNAH Administration Dextrose 25 ml 07/11/24 19:55 Dextrose 50%-Water Inj 50 Ml Syringe IV 08/10/24 19:54 Q15MIN PRN BG 50-70 responsive npo pt Dextrose 50 ml 07/11/24 19:55 07/16/24 18:22 Dextrose 50%-Water Inj 50 Ml Syringe IV 08/10/24 19:54 50 ml Q15MIN PRN Administration BG <50 OR BG <70 & pt unresponsive Glucagon 1 mg 07/11/24 19:55 Glucagon Inj 1 Mg Vial IM Q15MIN PRN BG <70, and no IV access Heparin Sodium (Porcine) 2,500 unit 07/17/24 15:52 07/18/24 14:36 Heparin Sod Inj 1000 Unit/Ml Vial 10 Ml INDWELLCAT 07/31/24 15:51 2,500 unit PRN PRN Administration DIALYSIS Heparin Sodium/Dextrose 25,000 unit in 250 mls @ 6.26 mls/hr 07/11/24 08:45 07/19/24 06:00 Heparin In D5w Ivpb IV 07/25/24 08:44 0 units/kg/hr .Q24H SAVANNAH 0 mls/hr Titration Protocol 12 UNITS/KG/HR Norepinephrine/Dextrose 8 mg in 250 mls @ 5.456 mls/hr 07/13/24 16:53 07/19/24 09:00 Levophed In D5w 8mg/250ml IV 08/12/24 16:52 0.03 mcg/kg/min .Q24H PRN 3.274 mls/hr PER PROTOCOL Titration Protocol 0.05 MCG/KG/MIN Albumin Human 25 gm in 100 mls @ 100 mls/hr 07/16/24 17:45 07/19/24 08:26 Albuminar-25 Ivpb IV 07/19/24 17:44 100 mls/hr QDAY SAVANNAH Administration Albumin Human 25 gm in 100 mls @ 100 mls/min 07/17/24 15:52 Albuminar-25 Ivpb IV 07/20/24 15:51 PRN PRN DIALYSIS Insulin Human Lispro 0 unit 07/12/24 12:00 07/19/24 05:48 Insulin Lispro (Admelog) 1 Unit/0.01 Ml Unit SC 08/11/24 11:59 Not Given Q6HR SAVANNAH Protocol Lactulose 20 gm 07/18/24 21:00 07/18/24 21:35 Lactulose Syrup 20 Gm/30 Ml Udc PO 08/17/24 20:59 20 gm BID SAVANNAH Administration Protocol Midodrine 10 mg 07/18/24 12:00 07/19/24 05:29 Midodrine 5 Mg Tablet PO 08/17/24 11:59 10 mg Q6HR SAVANNAH Administration Pantoprazole Sodium 40 mg 07/12/24 09:00 07/18/24 08:25 Pantoprazole Inj 40 Mg Vial IVP 08/11/24 08:59 40 mg QDAY SAVANNAH Administration Plan Patient is a 53-year-old female with a past medical history of NIDDM, embolic CVA, LV mural thrombus and decompensated cirrhosis with portal hypertension. Patient was BIBA by her daughter who noticed bright red blood per rectum upon changing her diaper. Patient was admitted for workup and management of hypotension and generalized weakness. Nephrology was consulted for anasarca secondary to hepatorenal syndrome. #Hepatorenal syndrome #PHILL, Cr uptrending Likely type II as patient has diuretic resistant ascites Patient has history of decompensated cirrhosis with ascites. On presentation patient was hypotensive with MAP in low 60s and required upgrade to ICU for vaso pressors Echocardiogram showed ejection fraction 20%- Dr. Yunier Sorto. Abdo ultrasound confirms fatty liver 12.9 cm Ddx: Cardiorenal syndrome Strict I/O; Avoid nephrotoxic agents when possible; Renally dose meds Patient requiring levophed and midodrine to maintain MAP >65 Continue with HD and albumin. Discontinue diuretics due to low urine output #Decompensated cirrhosis secondary to MASH On exam patient has 2 + LE edema On imaging Abd US : fatty liver 12.9 cm MELD score: 29; 27-32% 90-day mortality #Normocytic anemia #Thrombocytopenia #GI bleed for investigation #UTI #History of embolic CVA #NIDDM #LV mural thrombus-on heparin infusion. #Concern for cardiac amyloidosis As per primary team Thank you for allowing us to participate in Mrs. Atkins's care. Patient seen and care discussed with my attending Dr. Fabian. Ana Maria Aguilar MD PGY-3 Attending Provider Attestation/Addendum Patient seen and examined with resident physician Dr. Aguilar. Note reviewed, agree with findings and recommendations. Patient currently seen on dialysis. Tolerating dialysis without any problems. Hemodialysis for 3 hours, 2K, ultrafiltration 2-3 L, Epogen 6000, no heparin ordered. Plan of care discussed with the dialysis nurse. Please see dialysis flowsheet for further details. Plan of care discussed with ICU team
--- NOTE | 2024-07-19 10:54 | ESPR_ITS ---
Documentation for date of: 07/19/24 Subjective Subjective Interval history: 53-year-old female with a past medical history of diabetes mellitus type 2, embolic CVA, LV mural thrombus, liver cirrhosis, and amyloidosis, who was brought into the emergency room due to concern for bright red bleeding per rectum. Patient started noted spots of bright red blood when changing the patient's diaper. Daughter reported, patient has become progressively too weak and bedbound following the stroke. They noted some bright red spots when changing the patient's diaper, and when cleaning her noticed bright light blood oozing out of her rectum. Denied having any black stools, or blood mixed with stools. Denied history of diarrhea, vomiting, fever. Patient was initially admitted to the medical floor, but later upgraded to ICU due to concern for hypotension, MAP in the low 60s. There was concern for adrenal insufficiency, patient was started on hydrocortisone with no improvement of blood pressure. Patient had normal cortisol and ACTH level on previous admission. Patient was transferred to [facility] recently for possible ERCP due to choledocholithiasis, pending medical records from [facility], unsure if ERCP was done, but discharge documents show that patient was discharged with Eliquis, empagliflozin, furosemide and metoprolol. ED course: Initial labs pertinent for normocytic anemia, mild hyponatremia sodium 132, PHILL, BUN 47, creatinine 1.8, EGFR 33, baseline GFR seems to be around 53, BUN/creatinine ratio more than 20, lactic acid 3.9, T. bili 2.4, AST 40, ALT 36, alk phos 131, ammonia less than 10, mild troponin elevation 0.222, BNP 740, elevated Pro-Justice 7.21, lipase 88. Urinalysis consistent with UTI, stool occult was negative. Imaging studies include chest x-ray which shows bilateral significant pneumonia, EKG shows a flutter with RVR and right bundle branch block, ultrasound abdomen shows cholelithiasis and enlarged common bile duct 0.7, of note patient has no abdominal/right upper quadrant symptoms including pain or tenderness. The patient was admitted to the medical floor, with upgraded to ICU. 07/12/24 Patient evaluated bedside, labs and overnight events as reviewed, overnight patient was hypotensive and central line was placed for IV pressor support, but patient blood pressure improved, Levophed was withheld, patient also developed bradypnea following postprocedural sedation,, received 1 mg IV Dilaudid, respiratory rate decreased to 7/min along with hypoxia, requiring intubation and mechanical ventilation. This a.m. patient noted to be tolerating mechanical ventilation well, saturating at goal on 30% FiO2, PEEP of 5, will plan to continue with ventilation given patient's significant fluid overload, as patient may require reintubation due to significant pulmonary congestion in the setting of hepatorenal/cardiorenal syndrome. We will try to aggressively diurese the patient, last night patient had 1200 mL urine output despite Lasix drip, IV albumin 75 g and octreotide. Nephrology was consulted, nephro recommended switching to Bumex drip at 2 Mg per hour, vasopressor support to help with renal perfusion. Patient was started on dobutamine for inotropic support. Bedside echocardiogram was done which showed apical LV thrombus, global hypokinesis with severely reduced ejection fraction, cardiology recommended continuing heparin drip and continued aggressive IV diuresis. Repeat echocardiogram ordered. 07/13/24 patient evaluated bedside, RASS of -2, sedation was titrated down patient was able to wake up and move both upper limbs spontaneously, but unable to comply with instructions also respiratory rate low, continued on sedation for continued mechanical ventilation, patient not ready for extubation today. Patient was started on dobutamine for cardiorenal syndrome, but developed tachycardia heart rate in the 140s A-fib RVR, dobutamine was discontinued. Started on IV phenylephrine, but due to continued hypotension, vasopressor was changed to Levophed to help with improving blood pressure as well as renal perfusion, as patient is currently on Bumex drip but urine output less than goal 100 cc an hour. IV amiodarone started for A-fib RVR. Family updated about guarded prognosis. 07/14/24 Sedation was turned off, spontaneous breathing trial was done, goals of care discussion with family was done in the setting of end-stage liver disease and severe cardiomyopathy with inadequete urine production. Guarded prognosis of patient, possibility of aggressive intervention with hemodialysis/ultrafiltration, risks of prolonged sedation with intubation and mechanical ventilation, risk of line infections and discomfort, were explained. Their questions and concerns were answered. Family was explained that patient may be able to be weaned off ventilator, but risk of immediate reintubation is high due to end-stage organ failures, and complications of treatment. Patient's daughter Rachel was decided to be the decision-maker by the family, and new POLST form was signed. Patient continues to be DNR status, selective treatment only no chest compressions. Family decided that they would like to wait on their son who was in the and will be here on Friday, before extubation. Family's wishes were respected and patient is resumed on sedation and mechanical ventilation. Family decided against Hemodialysis, Will continue with Bumex drip for continued diuresis as possible, continue with amiodarone for rate control and Levophed to improve cardiac output. 07/15/2024: Patient seen today at the bedside. Vitals significant for BP of 88/58, on mechanical ventilation with a negative fluid balance. Sedation was weaned to off and provided spontaneous breathing trial. Patient became restless and sedation had to be turned back on. Continues on Bumex drip for diuresis as tolerated. Prognosis seems to be very poor. Family decided that they would like to wait on their son who was in the and will be here on Friday, before extubation. Family's wishes were respected and patient is resumed on sedation and mechanical ventilation. 07/16- no acute overnight events, afebrile, has started to make some UOP and is net neg overnight, pt wakes up and follows commands with sedation vacation. 07/17- extubated yesterday to RA and doing well, awake and interactive though not fully oriented. minimal UOP, afebrile, NGT in place , weak cough 07/18- no acute overnight events, afebrile, min UOP though better than yesterday, failed swallow eval yesterday 07/19- no acute events, min UOP, awake and interactive but confused, drop in PLT overnight, no brisk bleed noted Critical Care Note Critical care time (min.): 40 Exam Vital Signs Temp Pulse Resp BP Pulse Ox O2 Del Method O2 Flow Rate 97.4 F 93 18 91/61 98 Nasal Cannula 1 07/19/24 08:07 07/19/24 10:45 07/19/24 10:15 07/19/24 10:45 07/19/24 10:15 07/19/24 10:00 07/19/24 10:00 FiO2 25 07/19/24 08:07 Narrative Exam Gen- NAD, chronically ill appearing, cachectic, anasarca, awake alert and interactive but confused HEENT- NC/AT, temp musc wasting noted, sclera anicteric, PERRL, EOMI Chest- LCTAB, diminished at bases, HRRR, no increase in WOB Abd- s/nt/bs+ Ext- edema 3+ pitting , pulses palp, no clubbing, no mottling, gen weakness Physical Exam Completion Physical Exam Complete?: Yes 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 Labs 07/19/24 10:59 07/19/24 04:48 Labs: Laboratory Results - last 24 hr 07/18/24 07/18/24 07/18/24 07:05 11:00 14:14 WBC RBC Hgb Hct MCV MCH MCHC RDW Std Deviation Plt Count Neut % (Auto) Lymph % (Auto) [place] % (Auto) Eos % (Auto) Baso % (Auto) Neut # (Auto) Lymph # (Auto) [place] # (Auto) Eos # (Auto) Baso # (Auto) Immature Gran # (Auto) Absolute Nucleated RBC Immature Gran % Nucleated RBC % APTT Sodium 137 Potassium 3.6 D Chloride 100 Carbon Dioxide 26.5 Anion Gap 11 BUN 26 H Creatinine 1.1 D Estim Creat Clear Calc 50.4 L eGFR 59 L BUN/Creatinine Ratio 24 H Glucose 160 H Calculated Osmolality 281 Calcium 9.9 Corrected Calcium 9.9 Phosphorus 2.7 Magnesium Ferritin 67 Total Bilirubin AST ALT Alkaline Phosphatase Total Protein Albumin 4.8 D Globulin Albumin/Globulin Ratio Hepatitis A IgM Ab Hep Bs Antigen Hep B Core IgM Ab Hepatitis C [place]ody [facility] [place] Blood Type A Positive Antibody Screen NEGATIVE Crossmatch See Detail Blood Bank Wristband ID Yes 07/18/24 07/18/24 07/19/24 18:12 21:09 02:00 WBC RBC Hgb 8.6 L D Hct 27.4 L MCV MCH MCHC RDW Std Deviation Plt Count Neut % (Auto) Lymph % (Auto) [place] % (Auto) Eos % (Auto) Baso % (Auto) Neut # (Auto) Lymph # (Auto) [place] # (Auto) Eos # (Auto) Baso # (Auto) Immature Gran # (Auto) Absolute Nucleated RBC Immature Gran % Nucleated RBC % APTT 51.2 H 51.6 H Sodium 138 Potassium 4.1 D Chloride 102 Carbon Dioxide 22.0 Anion Gap 14 BUN 37 H Creatinine 1.4 H Estim Creat Clear Calc 39.6 L eGFR 44 L BUN/Creatinine Ratio 26 H Glucose 183 H Calculated Osmolality 289 Calcium 9.5 Corrected Calcium 9.5 Phosphorus 3.8 Magnesium 1.9 Ferritin Total Bilirubin AST ALT Alkaline Phosphatase Total Protein Albumin 4.0 D Globulin Albumin/Globulin Ratio Hepatitis A IgM Ab Hep Bs Antigen Hep B Core IgM Ab Hepatitis C Antibody Misc Test Result Blood Type Antibody Screen Crossmatch Blood Bank Wristband ID 07/19/24 04:48 WBC 8.4 RBC 2.80 L Hgb 8.2 L Hct 25.6 L MCV 91 MCH 29.3 MCHC 32.0 RDW Std Deviation 60.5 H Plt Count 20 L* D Neut % (Auto) 82 H Lymph % (Auto) 13 [place] % (Auto) 5 Eos % (Auto) 0 Baso % (Auto) 0 Neut # (Auto) 6.9 Lymph # (Auto) 1.1 [place] # (Auto) 0.4 Eos # (Auto) 0.0 Baso # (Auto) 0.0 Immature Gran # (Auto) 0.02 H Absolute Nucleated RBC 0.18 H Immature Gran % 0 Nucleated RBC % 2 H APTT Sodium 140 Potassium 3.2 L D Chloride 104 Carbon Dioxide 27.9 Anion Gap 8 BUN 43 H Creatinine 1.6 H Estim Creat Clear Calc 34.7 L eGFR 38 L BUN/Creatinine Ratio 27 H Glucose 122 H D Calculated Osmolality 291 Calcium 9.5 Corrected Calcium 9.7 Phosphorus 4.1 Magnesium 2.0 Ferritin Total Bilirubin 3.6 H D AST 22 ALT 22 Alkaline Phosphatase 205 H D Total Protein 6.2 Albumin 3.7 Globulin 2.5 Albumin/Globulin Ratio 1.5 Hepatitis A IgM Ab Non Reactive Hep Bs Antigen Non Reactive Hep B Core IgM Ab Non Reactive Hepatitis C Antibody Non Reactive Misc Test Result Platelets confirmed Blood Type Antibody Screen Crossmatch Blood Bank Wristband ID Assessment & Plan Additional Assessment Additional Assessment: In summary this is a 53yo F admitted to the ICU with acute resp failure and shock along with a h/o liver dz and severe cardiomyopathy a/p [employer] ? Delerium- pt still appears confused and per family mentation is somewhat better at home - mental status seems to fluctuate which is consistent with delirium CV Shock- unclear if cardiogenic or distributive in nature - still on minimal levo - EF on echo of 25-30% - on midodrine 10 q6 - on ceftri - bcx have been NTD Afib- rate controlled, on AC Cardiomyopathy- unclear etiology - pt with nl EF on 05/19 which dropped to <20% by 07/11 - needs additional workup once stable - cardiology following - will require BB/ACEI or Entresto once BP has improved and stable LV thrombus- - bedside echo cont to show LV mass - if pt ever becomes stable ? candidate for resection given her h/o embolic CVA - started on apixaban Resp Acute Hypoxic resp failure- resolved and extubated Renal PHILL- near baseline over past few days - seen by nephrology and suspected to have hepatorenal synd - pt with very poor UOP - HD cath placed for dialysis - for ultrafiltration daily at this point - bumex stopped since there is no response HypoK- improved GI GI proph- ppi Liver dz- on lactulose-> decreased today given watery stools - slight bump in AST today - pts TBr has increased - ? any underlying cholestasis - there is ? of amyloid and labs have been sent - pt underwent EGD today for ? GIB which showed errosive gastritis Endo DM- SSI [id number] Heme DVT proph- on heparin gtt 2/2 thrombus Anemia- slow drift down, - iron panel shows iron def and chronic dz - is on heparin gtt and has bruising around are R IJ insertion site - this AM with drop to 6.7 and therefore given a unit of PRBCs - numbers have remained stable post transfusion Thrombocytopenia- GI oozing suspected - drop from 60 to 20 - suspicion for ALEX -> heparin gtt stopped - started on apixaban for AC - labs sent for ALEX ID stable case d/w ICU team and nephrology d/w family labs, imaging, records reviewed d/w family at bedside and they would like to cont with DNR no CPR however they do want reintubation if needed as well as tx of any other underlying disorder as possible ~40ccmin required for eval, exam, review, intervention, discussion and formulation of POC for this critically ill pt with shock on vasopressor support Provider Notation Provider Notation: Although this document has been carefully reviewed, there may still be some phonetic and other typographical errors. These errors are purely grammatical due to imperfections in the software program and should not be construed in any way to compromise the substance of the patient's medical care during this visit. Thank you for the opportunity and privilege in assisting you with this patient's care and management.
--- NOTE | 2024-07-19 11:04 | ESPR_ITS ---
Documentation for date of: 07/19/24 Subjective Subjective Interval history: 53-year-old female with a past medical history of diabetes mellitus type 2, embolic CVA, LV mural thrombus, liver cirrhosis, and amyloidosis, who was brought into the emergency room due to concern for bright red bleeding per rectum. Patient started noted spots of bright red blood when changing the patient's diaper. Daughter reported, patient has become progressively too weak and bedbound following the stroke. They noted some bright red spots when changing the patient's diaper, and when cleaning her noticed bright light blood oozing out of her rectum. Denied having any black stools, or blood mixed with stools. Denied history of diarrhea, vomiting, fever. Patient was initially admitted to the medical floor, but later upgraded to ICU due to concern for hypotension, MAP in the low 60s. There was concern for adrenal insufficiency, patient was started on hydrocortisone with no improvement of blood pressure. Patient had normal cortisol and ACTH level on previous admission. Patient was transferred to [facility] recently for possible ERCP due to choledocholithiasis, pending medical records from [facility], unsure if ERCP was done, but discharge documents show that patient was discharged with Eliquis, empagliflozin, furosemide and metoprolol. ED course: Initial labs pertinent for normocytic anemia, mild hyponatremia sodium 132, PHILL, BUN 47, creatinine 1.8, EGFR 33, baseline GFR seems to be around 53, BUN/creatinine ratio more than 20, lactic acid 3.9, T. bili 2.4, AST 40, ALT 36, alk phos 131, ammonia less than 10, mild troponin elevation 0.222, BNP 740, elevated Pro-Justice 7.21, lipase 88. Urinalysis consistent with UTI, stool occult was negative. Imaging studies include chest x-ray which shows bilateral significant pneumonia, EKG shows a flutter with RVR and right bundle branch block, ultrasound abdomen shows cholelithiasis and enlarged common bile duct 0.7, of note patient has no abdominal/right upper quadrant symptoms including pain or tenderness. The patient was admitted to the medical floor, with upgraded to ICU. 07/12/24 Patient evaluated bedside, labs and overnight events as reviewed, overnight patient was hypotensive and central line was placed for IV pressor support, but patient blood pressure improved, Levophed was withheld, patient also developed bradypnea following postprocedural sedation,, received 1 mg IV Dilaudid, respiratory rate decreased to 7/min along with hypoxia, requiring intubation and mechanical ventilation. This a.m. patient noted to be tolerating mechanical ventilation well, saturating at goal on 30% FiO2, PEEP of 5, will plan to continue with ventilation given patient's significant fluid overload, as patient may require reintubation due to significant pulmonary congestion in the setting of hepatorenal/cardiorenal syndrome. We will try to aggressively diurese the patient, last night patient had 1200 mL urine output despite Lasix drip, IV albumin 75 g and octreotide. Nephrology was consulted, nephro recommended switching to Bumex drip at 2 Mg per hour, vasopressor support to help with renal perfusion. Patient was started on dobutamine for inotropic support. Bedside echocardiogram was done which showed apical LV thrombus, global hypokinesis with severely reduced ejection fraction, cardiology recommended continuing heparin drip and continued aggressive IV diuresis. Repeat echocardiogram ordered. 07/13/24 patient evaluated bedside, RASS of -2, sedation was titrated down patient was able to wake up and move both upper limbs spontaneously, but unable to comply with instructions also respiratory rate low, continued on sedation for continued mechanical ventilation, patient not ready for extubation today. Patient was started on dobutamine for cardiorenal syndrome, but developed tachycardia heart rate in the 140s A-fib RVR, dobutamine was discontinued. Started on IV phenylephrine, but due to continued hypotension, vasopressor was changed to Levophed to help with improving blood pressure as well as renal perfusion, as patient is currently on Bumex drip but urine output less than goal 100 cc an hour. IV amiodarone started for A-fib RVR. Family updated about guarded prognosis. 07/14/24 Sedation was turned off, spontaneous breathing trial was done, goals of care discussion with family was done in the setting of end-stage liver disease and severe cardiomyopathy with inadequete urine production. Guarded prognosis of patient, possibility of aggressive intervention with hemodialysis/ultrafiltration, risks of prolonged sedation with intubation and mechanical ventilation, risk of line infections and discomfort, were explained. Their questions and concerns were answered. Family was explained that patient may be able to be weaned off ventilator, but risk of immediate reintubation is high due to end-stage organ failures, and complications of treatment. Patient's daughter Rachel was decided to be the decision-maker by the family, and new POLST form was signed. Patient continues to be DNR status, selective treatment only no chest compressions. Family decided that they would like to wait on their son who was in the and will be here on Friday, before extubation. Family's wishes were respected and patient is resumed on sedation and mechanical ventilation. Family decided against Hemodialysis, Will continue with Bumex drip for continued diuresis as possible, continue with amiodarone for rate control and Levophed to improve cardiac output. 07/15/2024: Patient seen today at the bedside. Vitals significant for BP of 88/58, on mechanical ventilation with a negative fluid balance. Sedation was weaned to off and provided spontaneous breathing trial. Patient became restless and sedation had to be turned back on. Continues on Bumex drip for diuresis as tolerated. Prognosis seems to be very poor. Family decided that they would like to wait on their son who was in the and will be here on Friday, before extubation. Family's wishes were respected and patient is resumed on sedation and mechanical ventilation. 07/16/2024: Patient seen today at the bedside. Vital signs significant for blood pressure 105/70, tachycardia 118 beats per minute, on mechanical ventilation. Patient is meeting's oxygenation and ventilation goals. Plan today is to wean off sedation and provide spontaneous breathing trial and extubate patient, will monitor for adequate toleration. Urine output has remained minimal and not to goal currently on Bumex 2 mg every 8 hours will add metolazone 5 mg twice daily. Plan was discussed with the family and POA and agreed that due to the patient's overall poor prognosis should patient's condition deteriorate we will not pursue reintubation. Patient is DNR/DNI. 07/17/2024: patient evaluated at bedside, off sedation, patient was extubated yesterday, currently AO x 2, she is able to follow simple commands, saturating well on room air, NG tube in place, patient had failed swallow eval , pertinent for hemoglobin 7.0, no active GI bleed noted during ICU stay, labs pertinent for iron deficiency, also noted thrombocytopenia, of note patient's platelets have been on the lower side since June, probably after starting anticoagulation for LV thrombus. BUN 61, creatinine 1.9, after discussion with family, poor response to IV Bumex and metolazone, plan to proceed with hemodialysis. Drilling Rig Operator Dr Fabian is on board, dialysis catheter placed, hemodialysis initiated. Started on low-dose Levophed as patient blood pressure on the softer side, will titrate to keep MAP more than 60 during hemodialysis. 07/18/2024: Patient evaluated bedside, she continues to be off sedation, alert oriented x 2, following simple commands, saturating well on 2 L nasal cannula O2. Currently on NG tube feedings, pending swallow eval, hemoglobin this a.m. dropped to 6.5, repeat H&H 6.7, ordered 1 PRBC transfusion, posttransfusion H&H ordered. Urine output 620 mL overnight, nephrology plan for short intermittent hemodialysis today. Also noted hypokalemia potassium 2.9, repleted, nephrology aware. Will repeat renal panel in the afternoon after hemodialysis. Ordered ferritin, serial plasmin, copper levels for workup of cirrhosis. GI consult to Dr. Sotelo placed for concern for GI bleed, patient is rectal tube in place noted dark-colored stools. Continued on heparin drip for now, patient is maintaining vitals on low-dose Levophed, continue during hemodialysis. 07/19/2024 : patient is more awake and alert but disoriented, concern for ICU delirium, but patient is able to follow commands. No acute overnight events, labs this a.m. pertinent for thrombocytopenia, Noted petechial rash on the anterior chest, platelet count decreased more than 50% to 20,000, heparin GTT was withheld, repeat CBC showed little with count 22,000, heme-onc consult to Dr. Chahal was obtained, who recommended starting the patient on Eliquis, sending HIT panel, will follow results. Patient was started on Eliquis 5 mg twice daily for LV thrombus, bleeding risk and risk of stroke as well as other complications were discussed with the family, and family is in agreement with starting Eliquis. Pending EGD today for possible GI bleed. Bumex was discontinued after nephrology consultation, as patient only had 200 mL urine output overnight. Continued with sequential ultrafiltration, target 3 L UF today. Continue Levophed, target MAP more than 60. Exam Vital Signs Temp Pulse Resp BP Pulse Ox O2 Del Method O2 Flow Rate 97.4 F 90 18 93/63 98 Nasal Cannula 1 07/19/24 08:07 07/19/24 11:00 07/19/24 10:15 07/19/24 11:00 07/19/24 10:15 07/19/24 10:00 07/19/24 10:00 FiO2 25 07/19/24 08:07 Narrative Exam General: Alert and awake, oriented x 0. Feeling well. Appears chronically malnourished. Noted temporal wasting HEENT: Normocephalic, atraumatic, mucous membranes moist. Heart: Regular rate and rhythm, no murmurs. Lungs: Clear to auscultation with no wheezing or crackles. Abdomen: Soft, nondistended, nontender, positive bowel sounds. Pitting edema present in the abdominal wall. No guarding or rebound tenderness. Neurologic: Alert but oriented x 0, no gross neurological deficit, and patient able to move all extremities. Extremities: 2+ peripheral edema up to mid abdomen Skin: Noted petechial rash on the anterior chest Objective Labs 07/19/24 10:59 07/19/24 04:48 Labs: Laboratory Results - last 24 hr 07/18/24 07/18/24 07/18/24 07:05 11:00 14:14 WBC RBC Hgb Hct MCV MCH MCHC RDW Std Deviation Plt Count Neut % (Auto) Lymph % (Auto) [place] % (Auto) Eos % (Auto) Baso % (Auto) Neut # (Auto) Lymph # (Auto) [place] # (Auto) Eos # (Auto) Baso # (Auto) Immature Gran # (Auto) Absolute Nucleated RBC Immature Gran % Nucleated RBC % APTT Sodium 137 Potassium 3.6 D Chloride 100 Carbon Dioxide 26.5 Anion Gap 11 BUN 26 H Creatinine 1.1 D Estim Creat Clear Calc 50.4 L eGFR 59 L BUN/Creatinine Ratio 24 H Glucose 160 H Calculated Osmolality 281 Calcium 9.9 Corrected Calcium 9.9 Phosphorus 2.7 Magnesium Ferritin 67 Total Bilirubin AST ALT Alkaline Phosphatase Total Protein Albumin 4.8 D Globulin Albumin/Globulin Ratio Hepatitis A IgM Ab Hep Bs Antigen Hep B Core IgM Ab Hepatitis C Antibody Misc Test Result Blood Type A Positive Antibody Screen NEGATIVE Crossmatch See Detail Blood Bank Wristband ID Yes 07/18/24 07/18/24 07/19/24 18:12 21:09 02:00 WBC RBC Hgb 8.6 L D Hct 27.4 L MCV MCH MCHC RDW Std Deviation Plt Count Neut % (Auto) Lymph % (Auto) [place] % (Auto) Eos % (Auto) Baso % (Auto) Neut # (Auto) Lymph # (Auto) [place] # (Auto) Eos # (Auto) Baso # (Auto) Immature Gran # (Auto) Absolute Nucleated RBC Immature Gran % Nucleated RBC % APTT 51.2 H 51.6 H Sodium 138 Potassium 4.1 D Chloride 102 Carbon Dioxide 22.0 Anion Gap 14 BUN 37 H Creatinine 1.4 H Estim Creat Clear Calc 39.6 L eGFR 44 L BUN/Creatinine Ratio 26 H Glucose 183 H Calculated Osmolality 289 Calcium 9.5 Corrected Calcium 9.5 Phosphorus 3.8 Magnesium 1.9 Ferritin Total Bilirubin AST ALT Alkaline Phosphatase Total Protein Albumin 4.0 D Globulin Albumin/Globulin Ratio Hepatitis A IgM Ab Hep Bs Antigen Hep B Core IgM Ab Hepatitis C Antibody Misc Test Result Blood Type Antibody Screen Crossmatch Blood Bank Wristband ID 07/19/24 04:48 WBC 8.4 RBC 2.80 L Hgb 8.2 L Hct 25.6 L MCV 91 MCH 29.3 MCHC 32.0 RDW Std Deviation 60.5 H Plt Count 20 L* D Neut % (Auto) 82 H Lymph % (Auto) 13 [place] % (Auto) 5 Eos % (Auto) 0 Baso % (Auto) 0 Neut # (Auto) 6.9 Lymph # (Auto) 1.1 [place] # (Auto) 0.4 Eos # (Auto) 0.0 Baso # (Auto) 0.0 Immature Gran # (Auto) 0.02 H Absolute Nucleated RBC 0.18 H Immature Gran % 0 Nucleated RBC % 2 H APTT Sodium 140 Potassium 3.2 L D Chloride 104 Carbon Dioxide 27.9 Anion Gap 8 BUN 43 H Creatinine 1.6 H Estim Creat Clear Calc 34.7 L eGFR 38 L BUN/Creatinine Ratio 27 H Glucose 122 H D Calculated Osmolality 291 Calcium 9.5 Corrected Calcium 9.7 Phosphorus 4.1 Magnesium 2.0 Ferritin Total Bilirubin 3.6 H D AST 22 ALT 22 Alkaline Phosphatase 205 H D Total Protein 6.2 Albumin 3.7 Globulin 2.5 Albumin/Globulin Ratio 1.5 Hepatitis A IgM Ab Non Reactive Hep Bs Antigen Non Reactive Hep B Core IgM Ab Non Reactive Hepatitis C Antibody Non Reactive Misc Test Result Platelets confirmed Blood Type Antibody Screen Crossmatch Blood Bank Wristband ID ABG Interpretation ABG results: 07/11/24 07/12/24 07/12/24 22:53 01:05 03:33 ABG pH 7.24 L 7.16 L* 7.44 D ABG pCO2 53 H 61 H 34 D ABG pO2 101 64 L D 426 H D ABG HCO3 23 22 24 ABG O2 Saturation 97 84 L 102 H ABG Base Excess -5 L -7 L -1 07/13/24 07/14/24 07/16/24 05:22 04:33 07:35 ABG pH 7.46 H 7.40 7.49 H ABG pCO2 38 37 38 ABG pO2 100 D 58 L* D 106 D ABG HCO3 27 H 23 28 H ABG O2 Saturation 99 H 89 L 100 H ABG Base Excess 3 -2 5 H Quality Measures Quality Measures none Assessment & Plan Assessment Current Active Medications: Generic Name Dose Route Start Last Admin Trade Name Freq PRN Reason Stop Dose Admin Amiodarone HCl 200 mg 07/15/24 09:00 07/18/24 21:35 Amiodarone Hcl 200 Mg Tablet PO 08/14/24 08:59 200 mg BID SAVANNAH Administration Dextrose 25 ml 07/11/24 19:55 Dextrose 50%-Water Inj 50 Ml Syringe IV 08/10/24 19:54 Q15MIN PRN BG 50-70 responsive npo pt Dextrose 50 ml 07/11/24 19:55 07/16/24 18:22 Dextrose 50%-Water Inj 50 Ml Syringe IV 08/10/24 19:54 50 ml Q15MIN PRN Administration BG <50 OR BG <70 & pt unresponsive Glucagon 1 mg 07/11/24 19:55 Glucagon Inj 1 Mg Vial IM Q15MIN PRN BG <70, and no IV access Heparin Sodium (Porcine) 2,500 unit 07/17/24 15:52 07/18/24 14:36 Heparin Sod Inj 1000 Unit/Ml Vial 10 Ml INDWELLCAT 07/31/24 15:51 2,500 unit PRN PRN Administration DIALYSIS Heparin Sodium/Dextrose 25,000 unit in 250 mls @ 6.26 mls/hr 07/11/24 08:45 07/19/24 06:00 Heparin In D5w Ivpb IV 07/25/24 08:44 0 units/kg/hr .Q24H SAVANNAH 0 mls/hr Titration Protocol 12 UNITS/KG/HR Norepinephrine/Dextrose 8 mg in 250 mls @ 5.456 mls/hr 07/13/24 16:53 07/19/24 09:00 Levophed In D5w 8mg/250ml IV 08/12/24 16:52 0.03 mcg/kg/min .Q24H PRN 3.274 mls/hr PER PROTOCOL Titration Protocol 0.05 MCG/KG/MIN Albumin Human 25 gm in 100 mls @ 100 mls/hr 07/16/24 17:45 07/19/24 08:26 Albuminar-25 Ivpb IV 07/19/24 17:44 100 mls/hr QDAY SAVANNAH Administration Albumin Human 25 gm in 100 mls @ 100 mls/min 07/17/24 15:52 Albuminar-25 Ivpb IV 07/20/24 15:51 PRN PRN DIALYSIS Ceftriaxone Sodium/Dextrose 50 mls @ 100 mls/hr 07/19/24 10:48 Rocephin/D5w 1gm Iv Premix IV 07/26/24 10:47 QDAY SAVANNAH Insulin Human Lispro 0 unit 07/12/24 12:00 07/19/24 05:48 Insulin Lispro (Admelog) 1 Unit/0.01 Ml Unit SC 08/11/24 11:59 Not Given Q6HR SAVANNAH Protocol Lactulose 20 gm 07/20/24 09:00 Lactulose Syrup 20 Gm/30 Ml Udc PO 08/19/24 08:59 QDAY SAVANNAH Protocol Midodrine 10 mg 07/18/24 12:00 07/19/24 05:29 Midodrine 5 Mg Tablet PO 08/17/24 11:59 10 mg Q6HR SAVANNAH Administration Pantoprazole Sodium 40 mg 07/19/24 11:00 Pantoprazole 40 Mg Tablet PO 08/18/24 10:59 QDAY SAVANNAH Rifaximin 550 mg 07/19/24 10:45 Rifaximin 550 Mg Tablet PO 07/26/24 10:44 BID SAVANNAH Plan 53-year-old female with a past medical history of diabetes mellitus type 2, embolic CVA, LV mural thrombus, liver cirrhosis, and amyloidosis, who was brought into the emergency room due to concern for bright red bleeding per rectum. Patient started noted spots of bright red blood when changing the patient's diaper. Daughter reported, patient has become progressively too weak and bedbound following the stroke. They noted some bright red spots when changing the patient's diaper, and when cleaning her noticed bright light blood oozing out of her rectum. Denied having any black stools, or blood mixed with stools. Denied history of diarrhea, vomiting, fever. Patient was initially admitted to the medical floor, but later upgraded to ICU due to concern for hypotension, MAP in the low 60s. There was concern for adrenal insufficiency, patient was started on hydrocortisone with no improvement of blood pressure. Patient had normal cortisol and ACTH level on previous admission. Patient was transferred to [facility] recently for possible ERCP due to choledocholithiasis, pending medical records from [facility], unsure if ERCP was done, but discharge documents show that patient was discharged with Eliquis, empagliflozin, furosemide and metoprolol. GOALS OF CARE: GOALS OF CARE: We had a repeat goals of care discussion today at 11:00 am , the patient is more awake and alert, melanie Ramos is at the bedside. Per Rachel, the patient is more awake and alert, and wants everything done family's initial decision was to transition the patient to full code including chest compressions and intubation. A detailed discussion was done, questions and concerns were answered, in particular, risk of LV thrombus dislodging in the setting of chest compressions was also discussed. Which may put the patient at risk of further strokes as well as LV outflow tract/aortic occlusion which may be detrimental to patient's resuscitation efforts. After weighing and the risk and benefits, melanie Ramos, presented the options to the patient, who agreed with not doing chest compressions. Agreed with reintubation if required, as well as full treatment including hemodialysis. CODE STATUS changed to LIMITED code, no chest compressions. CLOTH PAINTER: #Encephalopathy resolving Possible hepatic encephalopathy, in the setting of cirrhosis and GI bleed, - ceftriaxone 1gm qday for SBP prophylaxis - Rifixamine 550mg BID - Lactulose Qday, was initially TID dosage but due to liquid stools, decreased to Qday. #History of embolic stroke [facility] medical records show pt had Small acute infarcts right occipital lobe, right posterior frontal lobe, posterior medial right madonna. - continue anticoagulation in the setting of LV thrombus CVS: #Cardiomyopathy, possibly amyloidosis [facility] medical records show cardiac MRI showing LV severely reduced systolic function with global hypokinesis LVEF 20%, LV hypertrophy, delayed hyperenhancement of myocardium in all chambers, consistent with cardiac amyloidosis. Prominent LV apical thrombus, 22.5 cm. RV systolic function 21%. Moderate TR mild to moderate MR. ? Urine immunofixation shows no monoclonal antibody pattern, homocystine level 20.4, increased, possibly secondary to vitamin B12/folic acid deficiency, Negative lupus Anticoagulant, #Atrial fibrillation-rate controlled #Left ventricular thrombus EKG showed A-fib, initially with RVR, now rate controlled [id number] score 4, 4.8% annualized risk of stroke, LV thrombus now found when pt was transferred to [facility] recently, possibly Post silent myocardial infarction LV thrombus formation. Patient was started on dobutamine for cardiorenal syndrome, but developed tachycardia heart rate in the 140s A-fib RVR, dobutamine was discontinued. ? Eliquis 5mg BID ? Amiodarone 200 mg p.o. twice daily ? Crane Engineer Dr. Malone on case, appreciate recommendations #Hypotension, Cardiogenic Shock?resolving DDx: Septic shock, Cardiogenic shock, cirrhosis leading to third spacing of fluid Of note patient had a previous echocardiogram, estimated EF more than 55%, no intracardiac thrombus at that time, but now at the bedside echo, findings are concerning for Global hypokinesis, poor RV and LV contractility is evident with an apical LV thrombus, noted IVC at 2.0 cm and no change in size with cardiac contraction, congested portal and hepatic veins with reversal of flow in hepatic veins, VExUS score 3 shows severe congestion. ? Midodrine 10 mg TID ? On Levophed gtt., titrate MAP more than 60, Levophed was discontinued initially, but patient required low-dose pressors during hemodialysis. #Type II NSTEMI Minimal troponin elevation 0.2030, currently on heparin drip Resp: # Pulmonary edema In the setting of severely low EF 20% and cardiomyopathy, we discontinued antibiotics as pulmonary imaging and clinical condition shows consolidation and congestion more suggestive of fluid overload than infectious process. ? Initiated hemodialysis due to below target response to IV diuresis. ? Currently saturating well on room air #Mechanical Ventilation-discontinued GI: #GI bleed- Gastritis with stigmata of bleeding Bright red bleeding per rectum, stable hemoglobin at 7 hypotensive on arrival, stool occult was negative in the ER. Patient started on heparin drip due to LV mural thrombus and A-fib and was probably on anticoagulation with Eliquis at home. No per rectal bleed noted during ICU stay, initially but now rectal tube is in place, hemoglobin dropped to 6.5, repeat H&H 6.7, ordered 1 PRBC transfusion, posttransfusion H&H ordered. ? Cardiology is consulted, currently no evidence of active bleeding, will continue to monitor H&H, consider gastroenterology consult if active GI bleed or drop in hemoglobin ? Type and screen, transfuse if hemoglobin less than 7 ? Warning Coordination Meteorologist Dr. Sotelo's consuled for possible GI bleed in the setting of anticoagulation ? EGD showed hemorrhagic gastritis, no evidence of varices or peptic ulcer on EGD, per GI okay to continue with anticoagulation. #Cirrhosis, Likely secondary to metabolic dysfunction associated steatotic liver disease, MASLD, medical records from [facility], show imaging findings consistent with signs of portal hypertension and cirrhosis Associated hypoalbuminemia, and hepatorenal syndrome, contributing to PHILL and anasarca. [facility] medical records do not show any workup for histopathologic diagnosis, no liver biopsy performed to our knowledge. Patient's primary care physician at [facility], per family no knowledge of prior liver disease. - Ordered hepatitis panel, Ferritin, ceruloplasmin, copper levels. #Choledocholithiasis #Hyperbilirubinemia Prior medical history of Choledocholithiasis and transferred to [facility] for possible ERCP, medical records from [facility] were obtained, reported patient had a repeat MRCP at [facility] which showed no stones in the bile duct, possibly passage of stones had already occurred. No ERCP was performed. ? Imaging findings concerning for CBD dilation, but given extensive workup at [facility] no further intervention is indicated at this point ? Continue supportive treatment Renal: #PHILL, hepatorenal syndrome vs cardiorenal syndrome #Anasarca DDx: Hepatorenal syndrome versus cardiorenal syndrome Baseline creatinine seems to be around 1.2 Patient also has fluid overload anasarca ? IV Albumin 25 g qday ? Midodrine 10mg TID ? Hemodialysis for ultrafiltration, as urine output below target despite IV diuretics Endo: #Concern for adrenal insufficiency- ruled out #History of diabetes mellitus type 2 ? Sliding scale insulin, A1c level ? Hypoglycemia protocol in place ID: Stable Heme: #Normocytic anemia, likely iron deficiency vs Anemia of chronic disease continue to monitor H&H transfuse if Hb <7 Differentials include anemia of chronic disease, as normocytic hypochromic RBC on cbc, worsened by nutritional deficiency ?Total iron deficit 1029, ordered 510 mg elemental iron replacement with Feraheme #Thrombocytopenia of note patient's platelets have been on the lower side since June, probably after starting anticoagulation for LV thrombus. Plt 20,000 this am 22,000 on repeat labs, concern for Heparin induced thrombocytopenia, Discontinue heparin gtt due to >50% drop in plt count. Hematology consult to Dr Chahal placed, appreciate recommendations Eliquis initiated per heme onc recommendations HIT panel ordered Disposition: Possible downgrade to the [place] if patient is able to stay off pressors DVT prophylaxis: eliquis GI prophylaxis: lansoprazole Diet: Tube feeds Lines: PIV CODE STATUS: Limited code Case discussed with attending Dr. João Schwab, Pgy2
--- NOTE | 2024-07-19 11:08 | PC.SS ---
Update: Patient receiving dialysis today. 3rd session of dialysis. Dr. Fabian is consulting political scientist. Decision pending if dialysis will be service liaison representative mode of treatment.
[2024-07-19] MEDS: HEPARIN SOD INJ 1000 UNIT/ML VIAL 10 ML 2500 UNIT INDWELLCAT (11:12)
[2024-07-19 11:18] LABS: Basophils % (Auto) 0 % (0-2.5); Eosinophils % (Auto) 0 % (0-10); Hematocrit 27.8 % (36.0-46.0); Hemoglobin 8.8 g/dL (12.0-16.0); Immature Granulocytes % (Auto) 0 % (0-0); Immature Granulocytes Auto 0.03 Thou/mm3 (0.00-0.00); Lymphocytes % (Auto) 11 % (10-50); Mean Corpuscular HGB Conc 31.7 g/dl (31.0-37.0); Mean Corpuscular Hemoglobin 28.7 pg (25.0-35.0); Mean Corpuscular Volume 91 fL (80-100); Monocytes # (Auto) 0.3 Thou/mm3 (0.0-0.8); Monocytes % (Auto) 4 % (0-12); Neutrophils # (Auto) 7.5 Thou/mm3 (1.8-7.7); Neutrophils % (Auto) 85 % (37-80); Nucleated Red Blood Cell # 0.16 Thou/mm3 (0.00-0.00); Nucleated Red Blood Cell % 2 /100 WBC (0); RDW Standard Deviation 60.5 fL (36.4-46.3); Red Blood Count 3.07 Miln/mm3 (4.00-5.20); White Blood Count 8.8 Thou/mm3 (3.6-11.0)
[2024-07-19 11:21] LABS: Platelet Count 22 Thou/mm3 (140-440)
[2024-07-19 11:55] LABS: Slide Review Platelets confirmed
--- NOTE | 2024-07-19 12:36 | PC.NURSE ---
Dialysis completed for 4 hrs. Pt awake, no complaints. Able to removed 3000 ml of fluid net. Respirtion even and unlabored. Sating at 99% on O2 at 1L/min via nc. Post tx BP 84/66, MAP 72, HR 95, Temp 96.8. Report given to Liseth THAKKAR.
--- NOTE | 2024-07-19 13:00 | PC.PT ---
unable to see the patient this morning for PT eval. Patient is having dialysis.
[2024-07-19] MEDS: cefTRIAXone/D5w 1gm IV premix 50 ML IV (13:25)
--- NOTE | 2024-07-19 14:38 | XR_ITS ---
Examination: AP chest single view Technique one AP portable sitting chest single view Exam date and time: July 19, 2024 1452 hours Comparison July 16, 2024 INDICATIONS: Status post orogastric tube placement FINDINGS: Orogastric tube tip body of the stomach satisfactory position Significant CHF, enlarged cardiac contour with prominent vascular congestion bilateral pulmonary edema Right internal jugular central line tip right atrium Left internal jugular temporary dialysis catheter tip right atrium IMPRESSION: Orogastric tube satisfactory position
[2024-07-19] MEDS: APIXABAN 2.5 MG TABLET 5 MG PO ×2 (15:19→21:18)
[2024-07-19] MEDS: POTASSIUM CHLORIDE 10% 20 MEQ/15 ML UDC 40 MEQ GT (15:19)
[2024-07-19] MEDS: rifaximin 550 MG TABLET PO ×2 (15:19→21:18)
[2024-07-19] MEDS: AMIODARONE HCL 200 MG TABLET PO ×2 (15:19→21:18)
[2024-07-19] MEDS: LANSOPRAZOLE 30 MG TAB.RAP.DR GT (15:19)
[2024-07-19 18:23] LABS: Protein Total, Random Urine 80 mg/dL (1-14)
[2024-07-20] VITALS (96 sets, daily range): BP systolic 74–102; BP diastolic 48–72; PULSE 69–122; RESP 12–88; TEMP 36.2–37.1; O2SAT 89–99; BMI 23.3
[2024-07-20] MEDS: MIDODRINE 5 MG TABLET 10 MG PO ×2 (00:22→05:20)
[2024-07-20 06:07] LABS: Basophils % (Auto) 0 % (0-2.5); Eosinophils % (Auto) 0 % (0-10); Hematocrit 25.3 % (36.0-46.0); Immature Granulocytes % (Auto) 0 % (0-0); Immature Granulocytes Auto 0.03 Thou/mm3 (0.00-0.00); Lymphocytes % (Auto) 9 % (10-50); Mean Corpuscular Hemoglobin 28.9 pg (25.0-35.0); Mean Corpuscular Volume 90 fL (80-100); Monocytes # (Auto) 0.3 Thou/mm3 (0.0-0.8); Monocytes % (Auto) 3 % (0-12); Neutrophils # (Auto) 9.3 Thou/mm3 (1.8-7.7); Neutrophils % (Auto) 87 % (37-80); Nucleated Red Blood Cell # 0.18 Thou/mm3 (0.00-0.00); Nucleated Red Blood Cell % 2 /100 WBC (0); RDW Standard Deviation 60.3 fL (36.4-46.3); White Blood Count 10.7 Thou/mm3 (3.6-11.0)
[2024-07-20 06:12] LABS: Hemoglobin 8.1 g/dL (12.0-16.0); Platelet Count 37 Thou/mm3 (140-440)
[2024-07-20 06:38] LABS: Alanine Aminotransferase 20 U/L (10-49); Albumin, Serum 3.8 gm/dL (3.5-5.0); Albumin/Globulin Ratio 1.5 (1.2-2.2); Alkaline Phosphatase 185 U/L (46-116); Anion Gap 14 (7-16); Aspartate Amino Transferase < 8 U/L (0-34); BUN/Creatinine Ratio 29 Ratio (12-20); Bilirubin,Total 4.5 mg/dL (0.3-1.2); Blood Urea Nitrogen 56 mg/dL (9-23); Calcium 9.4 mg/dL (8.3-10.6); Calcium (Corrected) 9.6 mg/dL (8.5-10.1); Carbon Dioxide 22.4 mMol/L (20.0-31.0); Chloride 103 mMol/L (98-107); Creatinine (Component) 1.9 mg/dL (0.6-1.3); Estimated Creatinine Clearance 29.1 mL/min (>60); Globulin 2.5 gm/dL (2.3-3.5); Glucose 84 mg/dL (74-106); Magnesium 2.1 mg/dL (1.6-2.6); Osmolality,Calculated 292 (275-295); Phosphorous 5.2 mg/dL (2.4-5.1); Potassium 3.9 mMol/L (3.4-5.1); Sodium 139 mMol/L (136-145); Total Protein 6.3 gm/dL (5.7-8.2); eGFR 31 See Note
--- NOTE | 2024-07-20 07:48 | PD.INTPROG ---
Documentation for date of: 07/20/24 Subjective Subjective Interval history: 53-year-old female with a past medical history of diabetes mellitus type 2, embolic CVA, LV mural thrombus, liver cirrhosis, and amyloidosis, who was brought into the emergency room due to concern for bright red bleeding per rectum. Patient started noted spots of bright red blood when changing the patient's diaper. Daughter reported, patient has become progressively too weak and bedbound following the stroke. They noted some bright red spots when changing the patient's diaper, and when cleaning her noticed bright light blood oozing out of her rectum. Denied having any black stools, or blood mixed with stools. Denied history of diarrhea, vomiting, fever. Patient was initially admitted to the medical floor, but later upgraded to ICU due to concern for hypotension, MAP in the low 60s. There was concern for adrenal insufficiency, patient was started on hydrocortisone with no improvement of blood pressure. Patient had normal cortisol and ACTH level on previous admission. Patient was transferred to [facility] recently for possible ERCP due to choledocholithiasis, pending medical records from [facility], unsure if ERCP was done, but discharge documents show that patient was discharged with Eliquis, empagliflozin, furosemide and metoprolol. ED course: Initial labs pertinent for normocytic anemia, mild hyponatremia sodium 132, PHILL, BUN 47, creatinine 1.8, EGFR 33, baseline GFR seems to be around 53, BUN/creatinine ratio more than 20, lactic acid 3.9, T. bili 2.4, AST 40, ALT 36, alk phos 131, ammonia less than 10, mild troponin elevation 0.222, BNP 740, elevated Pro-Justice 7.21, lipase 88. Urinalysis consistent with UTI, stool occult was negative. Imaging studies include chest x-ray which shows bilateral significant pneumonia, EKG shows a flutter with RVR and right bundle branch block, ultrasound abdomen shows cholelithiasis and enlarged common bile duct 0.7, of note patient has no abdominal/right upper quadrant symptoms including pain or tenderness. The patient was admitted to the medical floor, with upgraded to ICU. 07/12/24 Patient evaluated bedside, labs and overnight events as reviewed, overnight patient was hypotensive and central line was placed for IV pressor support, but patient blood pressure improved, Levophed was withheld, patient also developed bradypnea following postprocedural sedation,, received 1 mg IV Dilaudid, respiratory rate decreased to 7/min along with hypoxia, requiring intubation and mechanical ventilation. This a.m. patient noted to be tolerating mechanical ventilation well, saturating at goal on 30% FiO2, PEEP of 5, will plan to continue with ventilation given patient's significant fluid overload, as patient may require reintubation due to significant pulmonary congestion in the setting of hepatorenal/cardiorenal syndrome. We will try to aggressively diurese the patient, last night patient had 1200 mL urine output despite Lasix drip, IV albumin 75 g and octreotide. Nephrology was consulted, nephro recommended switching to Bumex drip at 2 Mg per hour, vasopressor support to help with renal perfusion. Patient was started on dobutamine for inotropic support. Bedside echocardiogram was done which showed apical LV thrombus, global hypokinesis with severely reduced ejection fraction, cardiology recommended continuing heparin drip and continued aggressive IV diuresis. Repeat echocardiogram ordered. 07/13/24 patient evaluated bedside, RASS of -2, sedation was titrated down patient was able to wake up and move both upper limbs spontaneously, but unable to comply with instructions also respiratory rate low, continued on sedation for continued mechanical ventilation, patient not ready for extubation today. Patient was started on dobutamine for cardiorenal syndrome, but developed tachycardia heart rate in the 140s A-fib RVR, dobutamine was discontinued. Started on IV phenylephrine, but due to continued hypotension, vasopressor was changed to Levophed to help with improving blood pressure as well as renal perfusion, as patient is currently on Bumex drip but urine output less than goal 100 cc an hour. IV amiodarone started for A-fib RVR. Family updated about guarded prognosis. 07/14/24 Sedation was turned off, spontaneous breathing trial was done, goals of care discussion with family was done in the setting of end-stage liver disease and severe cardiomyopathy with inadequete urine production. Guarded prognosis of patient, possibility of aggressive intervention with hemodialysis/ultrafiltration, risks of prolonged sedation with intubation and mechanical ventilation, risk of line infections and discomfort, were explained. Their questions and concerns were answered. Family was explained that patient may be able to be weaned off ventilator, but risk of immediate reintubation is high due to end-stage organ failures, and complications of treatment. Patient's daughter Rachel was decided to be the decision-maker by the family, and new POLST form was signed. Patient continues to be DNR status, selective treatment only no chest compressions. Family decided that they would like to wait on their son who was in the and will be here on Friday, before extubation. Family's wishes were respected and patient is resumed on sedation and mechanical ventilation. Family decided against Hemodialysis, Will continue with Bumex drip for continued diuresis as possible, continue with amiodarone for rate control and Levophed to improve cardiac output. 07/15/2024: Patient seen today at the bedside. Vitals significant for BP of 88/58, on mechanical ventilation with a negative fluid balance. Sedation was weaned to off and provided spontaneous breathing trial. Patient became restless and sedation had to be turned back on. Continues on Bumex drip for diuresis as tolerated. Prognosis seems to be very poor. Family decided that they would like to wait on their son who was in the and will be here on Friday, before extubation. Family's wishes were respected and patient is resumed on sedation and mechanical ventilation. 07/16- no acute overnight events, afebrile, has started to make some UOP and is net neg overnight, pt wakes up and follows commands with sedation vacation. 07/17- extubated yesterday to RA and doing well, awake and interactive though not fully oriented. minimal UOP, afebrile, NGT in place , weak cough 07/18- no acute overnight events, afebrile, min UOP though better than yesterday, failed swallow eval yesterday 07/19- no acute events, min UOP, awake and interactive but confused, drop in PLT overnight, no brisk bleed noted 07/20- no acute overnight events, follows commands but seems to have more trouble speaking today, afebrile, virtually anuric, no active bleeding noted, 1 episode of loose stools overnight Critical Care Note Critical care time (min.): 48 Exam Vital Signs Temp Pulse Resp BP Pulse Ox O2 Del Method O2 Flow Rate 97.4 F 95 23 H 80/56 L 97 Mechanical Ventilation 2 07/20/24 04:00 07/20/24 06:30 07/20/24 06:30 07/20/24 06:30 07/20/24 06:30 07/19/24 18:00 07/20/24 05:45 FiO2 45 07/19/24 18:00 Narrative Exam Gen- NAD, chronically ill appearing, cachectic body habitus with anasarca, temporal musc wasting, generalized weakness HEENT- NC/AT, mucosa dry, poor dentition, sclera anicteric, PERRL Chest- coarse at bases and diminished, HRRR, no increase in WOB Abd- firm, mild discomfort on palp, some petechiae present, no rebound, no guarding Ext- improved edema of UE 2-3+ pitting b/l LE, pulses palp, no mottling, no clubbing, moves all 4 but weak Physical Exam Completion Physical Exam Complete?: Yes 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 Labs 07/21/24 04:54 07/21/24 04:54 Labs: Laboratory Results - last 24 hr 07/19/24 07/19/24 07/20/24 10:59 17:52 05:55 WBC 8.8 10.7 RBC 3.07 L 2.80 L Hgb 8.8 L 8.1 L Hct 27.8 L 25.3 L MCV 91 90 MCH 28.7 28.9 MCHC 31.7 32.0 RDW Std Deviation 60.5 H 60.3 H Plt Count 22 L* 37 L D Neut % (Auto) 85 H 87 H Lymph % (Auto) 11 9 L [place] % (Auto) 4 3 Eos % (Auto) 0 0 Baso % (Auto) 0 0 Neut # (Auto) 7.5 9.3 H Lymph # (Auto) 1.0 1.0 [place] # (Auto) 0.3 0.3 Eos # (Auto) 0.0 0.0 Baso # (Auto) 0.0 0.0 Immature Gran # (Auto) 0.03 H 0.03 H Absolute Nucleated RBC 0.16 H 0.18 H Immature Gran % 0 0 Nucleated RBC % 2 H 2 H Sodium 139 Potassium 3.9 D Chloride 103 Carbon Dioxide 22.4 Anion Gap 14 BUN 56 H Creatinine 1.9 H Estim Creat Clear Calc 29.1 L eGFR 31 L BUN/Creatinine Ratio 29 H Glucose 84 Calculated Osmolality 292 Calcium 9.4 Corrected Calcium 9.6 Phosphorus 5.2 H Magnesium 2.1 Total Bilirubin 4.5 H D AST < 8 ALT 20 Alkaline Phosphatase 185 H D Total Protein 6.3 Albumin 3.8 Globulin 2.5 Albumin/Globulin Ratio 1.5 U Random Total Protein 80 H Misc Test Result Platelets confirmed Assessment & Plan Additional Assessment Additional Assessment: In summary this is a 53yo F admitted to the ICU with acute resp failure and shock along with a h/o liver dz and severe cardiomyopathy a/p RANCH COOK ? Delerium- pt still appears confused and per family mentation is somewhat better at home - mental status seems to fluctuate which is consistent with delirium - no significant improvement CV Shock- unclear if cardiogenic or distributive in nature - EF on echo of 25-30% - on midodrine 10 q6 - on ceftri - bcx have been NTD - able to come off of levo this AM however has a MAP of 60 and anticipate drop with ultrafiltration today Afib- rate controlled, on AC Cardiomyopathy- unclear etiology - pt with nl EF on 05/19 which dropped to <20% by 07/11 - needs additional workup once stable - cardiology following - will require BB/ACEI or Entresto once BP has improved and stable LV thrombus- - bedside echo cont to show LV mass - if pt ever becomes stable ? 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 any underlying cholestasis - there is ? of amyloid and labs have been sent - pt underwent EGD today for ? GIB which showed errosive gastritis Endo DM- SSI fsq6h Heme DVT proph- on heparin gtt 2/2 thrombus Anemia- slow drift down, - iron panel shows iron def and chronic dz - is on heparin gtt and has bruising around are R IJ insertion site - this AM with drop to 6.7 and therefore given a unit of PRBCs - numbers have remained stable post transfusion Thrombocytopenia- GI oozing suspected - drop from 60 to 20 - suspicion for ALEX -> heparin gtt stopped - started on apixaban for AC - labs sent for ALEX - some recovery of PLTs to 37 today ID stable case d/w ICU team and nephrology d/w family labs, imaging, records reviewed pt does not appear to have much improvement will need ongoing GOC d/w family ~48ccmin required for eval, exam, review, intervention, discussion and formulation of POC for this critically ill pt with shock on vasopressor support Provider Notation Provider Notation: Although this document has been carefully reviewed, there may still be some phonetic and other typographical errors. These errors are purely grammatical due to imperfections in the software program and should not be construed in any way to compromise the substance of the patient's medical care during this visit. Thank you for the opportunity and privilege in assisting you with this patient's care and management.
--- NOTE | 2024-07-20 08:18 | PD.RESPRO ---
Documentation for date of: 07/20/24 Subjective Subjective Interval history: 53-year-old female with a past medical history of diabetes mellitus type 2, embolic CVA, LV mural thrombus, liver cirrhosis, and amyloidosis, who was brought into the emergency room due to concern for bright red bleeding per rectum. Patient started noted spots of bright red blood when changing the patient's diaper. Daughter reported, patient has become progressively too weak and bedbound following the stroke. They noted some bright red spots when changing the patient's diaper, and when cleaning her noticed bright light blood oozing out of her rectum. Denied having any black stools, or blood mixed with stools. Denied history of diarrhea, vomiting, fever. Patient was initially admitted to the medical floor, but later upgraded to ICU due to concern for hypotension, MAP in the low 60s. There was concern for adrenal insufficiency, patient was started on hydrocortisone with no improvement of blood pressure. Patient had normal cortisol and ACTH level on previous admission. Patient was transferred to [facility] recently for possible ERCP due to choledocholithiasis, pending medical records from [facility], unsure if ERCP was done, but discharge documents show that patient was discharged with Eliquis, empagliflozin, furosemide and metoprolol. ED course: Initial labs pertinent for normocytic anemia, mild hyponatremia sodium 132, PHILL, BUN 47, creatinine 1.8, EGFR 33, baseline GFR seems to be around 53, BUN/creatinine ratio more than 20, lactic acid 3.9, T. bili 2.4, AST 40, ALT 36, alk phos 131, ammonia less than 10, mild troponin elevation 0.222, BNP 740, elevated Pro-Justice 7.21, lipase 88. Urinalysis consistent with UTI, stool occult was negative. Imaging studies include chest x-ray which shows bilateral significant pneumonia, EKG shows a flutter with RVR and right bundle branch block, ultrasound abdomen shows cholelithiasis and enlarged common bile duct 0.7, of note patient has no abdominal/right upper quadrant symptoms including pain or tenderness. The patient was admitted to the medical floor, with upgraded to ICU. 07/12/24 Patient evaluated bedside, labs and overnight events as reviewed, overnight patient was hypotensive and central line was placed for IV pressor support, but patient blood pressure improved, Levophed was withheld, patient also developed bradypnea following postprocedural sedation,, received 1 mg IV Dilaudid, respiratory rate decreased to 7/min along with hypoxia, requiring intubation and mechanical ventilation. This a.m. patient noted to be tolerating mechanical ventilation well, saturating at goal on 30% FiO2, PEEP of 5, will plan to continue with ventilation given patient's significant fluid overload, as patient may require reintubation due to significant pulmonary congestion in the setting of hepatorenal/cardiorenal syndrome. We will try to aggressively diurese the patient, last night patient had 1200 mL urine output despite Lasix drip, IV albumin 75 g and octreotide. Nephrology was consulted, nephro recommended switching to Bumex drip at 2 Mg per hour, vasopressor support to help with renal perfusion. Patient was started on dobutamine for inotropic support. Bedside echocardiogram was done which showed apical LV thrombus, global hypokinesis with severely reduced ejection fraction, cardiology recommended continuing heparin drip and continued aggressive IV diuresis. Repeat echocardiogram ordered. 07/13/24 patient evaluated bedside, RASS of -2, sedation was titrated down patient was able to wake up and move both upper limbs spontaneously, but unable to comply with instructions also respiratory rate low, continued on sedation for continued mechanical ventilation, patient not ready for extubation today. Patient was started on dobutamine for cardiorenal syndrome, but developed tachycardia heart rate in the 140s A-fib RVR, dobutamine was discontinued. Started on IV phenylephrine, but due to continued hypotension, vasopressor was changed to Levophed to help with improving blood pressure as well as renal perfusion, as patient is currently on Bumex drip but urine output less than goal 100 cc an hour. IV amiodarone started for A-fib RVR. Family updated about guarded prognosis. 07/14/24 Sedation was turned off, spontaneous breathing trial was done, goals of care discussion with family was done in the setting of end-stage liver disease and severe cardiomyopathy with inadequete urine production. Guarded prognosis of patient, possibility of aggressive intervention with hemodialysis/ultrafiltration, risks of prolonged sedation with intubation and mechanical ventilation, risk of line infections and discomfort, were explained. Their questions and concerns were answered. Family was explained that patient may be able to be weaned off ventilator, but risk of immediate reintubation is high due to end-stage organ failures, and complications of treatment. Patient's daughter Archel was decided to be the decision-maker by the family, and new POLST form was signed. Patient continues to be DNR status, selective treatment only no chest compressions. Family decided that they would like to wait on their son who was in the and will be here on Friday, before extubation. Family's wishes were respected and patient is resumed on sedation and mechanical ventilation. Family decided against Hemodialysis, Will continue with Bumex drip for continued diuresis as possible, continue with amiodarone for rate control and Levophed to improve cardiac output. 07/15/2024: Patient seen today at the bedside. Vitals significant for BP of 88/58, on mechanical ventilation with a negative fluid balance. Sedation was weaned to off and provided spontaneous breathing trial. Patient became restless and sedation had to be turned back on. Continues on Bumex drip for diuresis as tolerated. Prognosis seems to be very poor. Family decided that they would like to wait on their son who was in the and will be here on Friday, before extubation. Family's wishes were respected and patient is resumed on sedation and mechanical ventilation. 07/16/2024: Patient seen today at the bedside. Vital signs significant for blood pressure 105/70, tachycardia 118 beats per minute, on mechanical ventilation. Patient is meeting's oxygenation and ventilation goals. Plan today is to wean off sedation and provide spontaneous breathing trial and extubate patient, will monitor for adequate toleration. Urine output has remained minimal and not to goal currently on Bumex 2 mg every 8 hours will add metolazone 5 mg twice daily. Plan was discussed with the family and POA and agreed that due to the patient's overall poor prognosis should patient's condition deteriorate we will not pursue reintubation. Patient is DNR/DNI. 07/17/2024: patient evaluated at bedside, off sedation, patient was extubated yesterday, currently AO x 2, she is able to follow simple commands, saturating well on room air, NG tube in place, patient had failed swallow eval , pertinent for hemoglobin 7.0, no active GI bleed noted during ICU stay, labs pertinent for iron deficiency, also noted thrombocytopenia, of note patient's platelets have been on the lower side since June, probably after starting anticoagulation for LV thrombus. BUN 61, creatinine 1.9, after discussion with family, poor response to IV Bumex and metolazone, plan to proceed with hemodialysis. Gas Technician Dr Fabian is on board, dialysis catheter placed, hemodialysis initiated. Started on low-dose Levophed as patient blood pressure on the softer side, will titrate to keep MAP more than 60 during hemodialysis. 07/18/2024: Patient evaluated bedside, she continues to be off sedation, alert oriented x 2, following simple commands, saturating well on 2 L nasal cannula O2. Currently on NG tube feedings, pending swallow eval, hemoglobin this a.m. dropped to 6.5, repeat H&H 6.7, ordered 1 PRBC transfusion, posttransfusion H&H ordered. Urine output 620 mL overnight, nephrology plan for short intermittent hemodialysis today. Also noted hypokalemia potassium 2.9, repleted, nephrology aware. Will repeat renal panel in the afternoon after hemodialysis. Ordered ferritin, serial plasmin, copper levels for workup of cirrhosis. GI consult to Dr. Sotelo placed for concern for GI bleed, patient is rectal tube in place noted dark-colored stools. Continued on heparin drip for now, patient is maintaining vitals on low-dose Levophed, continue during hemodialysis. 07/19/2024 : patient is more awake and alert but disoriented, concern for ICU delirium, but patient is able to follow commands. No acute overnight events, labs this a.m. pertinent for thrombocytopenia, Noted petechial rash on the anterior chest, platelet count decreased more than 50% to 20,000, heparin GTT was withheld, repeat CBC showed little with count 22,000, heme-onc consult to Dr. Chahal was obtained, who recommended starting the patient on Eliquis, sending HIT panel, will follow results. Patient was started on Eliquis 5 mg twice daily for LV thrombus, bleeding risk and risk of stroke as well as other complications were discussed with the family, and family is in agreement with starting Eliquis. Pending EGD today for possible GI bleed. Bumex was discontinued after nephrology consultation, as patient only had 200 mL urine output overnight. Continued with sequential ultrafiltration, target 3 L UF today. Continue Levophed, target MAP more than 60. 07/20/2024: Patient seen today at the bedside, found awake, alert, able to follow commands but no able to verbalize. Overnight patient was anuric only urinary output was 30ccs, and had 1 loose bowel movement. Vital signs at this time is hypotensive but off pressors currently on Midodrine adjusted to 15mg TID and maintaining MAPs>60 which is at goal, no fever spikes noted overnight, rest of vital signs are unremarkable. Labs significant for slight decrease in Hg 8.8-8.1, Plts improving from 22--37, chemistry at this time unremarkable except worsening in renal fx and increased total bilirubin. Given patients recent sudden drop in Hg and Plts, HIT panel was ordered and ordered direct and indirect bilirubin for possible hemolysis etiology. Patient will have CT-scan of chest with contrast as after aggressive diuresis and dialysis patients x-ray is noted to have consolidation and pleural effusion. Patient will receive dialysis post-CT with contrast, plan is to remove 2-2.5L of fluid. At this point in time plan is to have a goals of care discussion with family tomorrow. Exam Vital Signs Temp Pulse Resp BP Pulse Ox O2 Del Method O2 Flow Rate 97.8 F 88 20 84/49 L 98 Nasal Cannula 1 07/20/24 07:00 07/20/24 08:00 07/20/24 08:00 07/20/24 08:00 07/20/24 08:00 07/20/24 07:00 07/20/24 07:00 FiO2 45 07/19/24 18:00 Narrative Exam Physical Exam: General: AAOx0, non-verbal, cachectic, temporal wasting, able to follow commands HEENT: Atraumatic, mucous membranes moist, Rt IJ CL, NGT in place Heart: Regular rate and rhythm, no murmurs. Lungs: Clear to auscultation x2 with no wheezing or crackles. Abdomen: Soft, nondistended, nontender, bowel sounds-appreciated, pitting edema present in the abdominal wall. No guarding or rebound tenderness. Ext: 3+ peripheral edema up to mid abdomen, LLE with 6 digits noted, no flapping tremors noted Skin: Noted petechial rash on the anterior chest, B/L Upper extremities with bruising noted on the forearms, bruising around Rt IJ CL area Neuro: AAOx 0, no gross neurological deficit, and patient able to move all extremities. Objective Labs 07/20/24 05:55 07/20/24 05:55 Labs: Laboratory Results - last 24 hr 07/19/24 07/19/24 07/20/24 10:59 17:52 05:55 WBC 8.8 10.7 RBC 3.07 L 2.80 L Hgb 8.8 L 8.1 L Hct 27.8 L 25.3 L MCV 91 90 MCH 28.7 28.9 MCHC 31.7 32.0 RDW Std Deviation 60.5 H 60.3 H Plt Count 22 L* 37 L D Neut % (Auto) 85 H 87 H Lymph % (Auto) 11 9 L Wilson % (Auto) 4 3 Eos % (Auto) 0 0 Baso % (Auto) 0 0 Neut # (Auto) 7.5 9.3 H Lymph # (Auto) 1.0 1.0 Wilson # (Auto) 0.3 0.3 Eos # (Auto) 0.0 0.0 Baso # (Auto) 0.0 0.0 Immature Gran # (Auto) 0.03 H 0.03 H Absolute Nucleated RBC 0.16 H 0.18 H Immature Gran % 0 0 Nucleated RBC % 2 H 2 H Sodium 139 Potassium 3.9 D Chloride 103 Carbon Dioxide 22.4 Anion Gap 14 BUN 56 H Creatinine 1.9 H Estim Creat Clear Calc 29.1 L eGFR 31 L BUN/Creatinine Ratio 29 H Glucose 84 Calculated Osmolality 292 Calcium 9.4 Corrected Calcium 9.6 Phosphorus 5.2 H Magnesium 2.1 Total Bilirubin 4.5 H D AST < 8 ALT 20 Alkaline Phosphatase 185 H D Total Protein 6.3 Albumin 3.8 Globulin 2.5 Albumin/Globulin Ratio 1.5 U Random Total Protein 80 H Misc Test Result Platelets confirmed Cancelled ABG Interpretation ABG results: 07/11/24 07/12/24 07/12/24 22:53 01:05 03:33 ABG pH 7.24 L 7.16 L* 7.44 D ABG pCO2 53 H 61 H 34 D ABG pO2 101 64 L D 426 H D ABG HCO3 23 22 24 ABG O2 Saturation 97 84 L 102 H ABG Base Excess -5 L -7 L -1 07/13/24 07/14/24 07/16/24 05:22 04:33 07:35 ABG pH 7.46 H 7.40 7.49 H ABG pCO2 38 37 38 ABG pO2 100 D 58 L* D 106 D ABG HCO3 27 H 23 28 H ABG O2 Saturation 99 H 89 L 100 H ABG Base Excess 3 -2 5 H Quality Measures Quality Measures VTE therapy Assessment & Plan Assessment Current Active Medications: Generic Name Dose Route Start Last Admin Trade Name Freq PRN Reason Stop Dose Admin Amiodarone HCl 200 mg 07/15/24 09:00 07/19/24 21:18 Amiodarone Hcl 200 Mg Tablet PO 08/14/24 08:59 200 mg BID SAVANNAH Administration Apixaban 5 mg 07/19/24 13:30 07/19/24 21:18 Apixaban 2.5 Mg Tablet PO 08/18/24 13:29 5 mg BID SAVANNAH Administration Dextrose 25 ml 07/11/24 19:55 Dextrose 50%-Water Inj 50 Ml Syringe IV 08/10/24 19:54 Q15MIN PRN BG 50-70 responsive npo pt Dextrose 50 ml 07/11/24 19:55 07/16/24 18:22 Dextrose 50%-Water Inj 50 Ml Syringe IV 08/10/24 19:54 50 ml Q15MIN PRN Administration BG <50 OR BG <70 & pt unresponsive Epoetin Michael 10,000 unit 07/20/24 10:00 Epoetin Michael-Epbx Inj 10,000 Unit/Ml Vial (Esrd) SC 07/20/24 10:01 X1 ONE Glucagon 1 mg 07/11/24 19:55 Glucagon Inj 1 Mg Vial IM Q15MIN PRN BG <70, and no IV access Heparin Sodium (Porcine) 2,500 unit 07/17/24 15:52 07/19/24 11:12 Heparin Sod Inj 1000 Unit/Ml Vial 10 Ml INDWELLCAT 07/31/24 15:51 2,500 unit PRN PRN Administration DIALYSIS Heparin Sodium/Dextrose 25,000 unit in 250 mls @ 6.26 mls/hr 07/11/24 08:45 07/19/24 06:00 Heparin In D5w Ivpb IV 07/25/24 08:44 0 units/kg/hr .Q24H SAVANNAH 0 mls/hr Titration Protocol 12 UNITS/KG/HR Albumin Human 25 gm in 100 mls @ 100 mls/min 07/17/24 15:52 Albuminar-25 Ivpb IV 07/20/24 15:51 PRN PRN DIALYSIS Ceftriaxone Sodium/Dextrose 50 mls @ 100 mls/hr 07/19/24 10:48 07/19/24 14:38 Rocephin/D5w 1gm Iv Premix IV 07/26/24 10:47 Infused QDAY SAVANNAH Infusion Norepinephrine/Dextrose 8 mg in 250 mls @ 5.588 mls/hr 07/20/24 06:42 Levophed In D5w 8mg/250ml IV 08/12/24 16:52 .Q24H PRN PER PROTOCOL Protocol 0.05 MCG/KG/MIN Insulin Human Lispro 0 unit 07/12/24 12:00 07/20/24 05:18 Insulin Lispro (Admelog) 1 Unit/0.01 Ml Unit SC 08/11/24 11:59 Not Given Q6HR SAVANNAH Protocol Lactulose 20 gm 07/20/24 09:00 Lactulose Syrup 20 Gm/30 Ml Udc PO 08/19/24 08:59 QDAY SAVANNAH Protocol Lansoprazole 30 mg 07/19/24 13:30 07/19/24 15:19 Lansoprazole 30 Mg Tab.Rap.Dr GOFF 08/18/24 13:29 30 mg QDAY SAVANNAH Administration Midodrine 15 mg 07/20/24 14:00 Midodrine 5 Mg Tablet PO 08/19/24 13:59 TID SAVANNAH Rifaximin 550 mg 07/19/24 10:45 07/19/24 21:18 Rifaximin 550 Mg Tablet PO 07/26/24 10:44 550 mg BID SAVANNAH Administration Plan 53-year-old female with a past medical history of diabetes mellitus type 2, embolic CVA, LV mural thrombus, liver cirrhosis, and amyloidosis, who was brought into the ED due to concern for bright red bleeding per rectum, generalized weakness. Denied history of diarrhea, vomiting, fever. Patient was initially admitted to the medical floor, but later upgraded to ICU due to concern for hypotension, MAP in the low 60s. GOALS OF CARE: GOALS OF CARE: We had a repeat goals of care discussion today at 11:00 am , the patient is more awake and alert, daughter Rachel is at the bedside. Per Rachel, the patient is more awake and alert, and wants everything done family's initial decision was to transition the patient to full code including chest compressions and intubation. A detailed discussion was done, questions and concerns were answered, in particular, risk of LV thrombus dislodging in the setting of chest compressions was also discussed. Which may put the patient at risk of further strokes as well as LV outflow tract/aortic occlusion which may be detrimental to patient's resuscitation efforts. After weighing and the risk and benefits, daughter Rcahel, presented the options to the patient, who agreed with not doing chest compressions. Agreed with reintubation if required, as well as full treatment including hemodialysis. CODE STATUS changed to LIMITED code, no chest compressions. SMASHER HAND: #Encephalopathy-resolving Possible hepatic encephalopathy, in the setting of cirrhosis and GI bleed - Rifixamine 550mg BID - Lactulose qday, was initially TID dosage but due to liquid stools, decreased to Qday. #History of embolic stroke [facility] medical records show pt had Small acute infarcts right occipital lobe, right posterior frontal lobe, posterior medial right madonna. - continue anticoagulation with eliquis in the setting of LV thrombus CVS: #Cardiomyopathy, possibly amyloidosis [facility] medical records show cardiac MRI showing LV severely reduced systolic function with global hypokinesis LVEF 20%, LV hypertrophy, delayed hyperenhancement of myocardium in all chambers, consistent with cardiac amyloidosis. Prominent LV apical thrombus, 22.5 cm. RV systolic function 21%. Moderate TR mild to moderate MR. Echo done here shows: Normal LV size. Global LV systolic function is severely decreased. Estimated EF < 20%. Possible LV mural thrombus is present 2.51 cm x 1.71 cm. Moderate hypertrophy with ground glass appearence - need to r/o amyloid or other infiltartative diseases. diastolic dysfunction present but unable to grade as there is no E/A. atleast grade 2 and grade 3 RV is normal in size. RV systolic function is severely decreased. Estimated RVSP, 39 mmHg including RAP 15mmHg. Moderately dilated LA and RA. Mild to moderate MR. mild AI and Severe TR Dilated IVC and moderatre size pleural effusion. - Urine immunofixation shows no monoclonal antibody pattern, homocystine level 20.4, increased, possibly secondary to vitamin B12/folic acid deficiency, Negative lupus Anticoagulant #Atrial fibrillation-rate controlled #Left ventricular thrombus EKG showed A-fib, initially with RVR, now rate controlled [id number] score 4, 4.8% annualized risk of stroke, LV thrombus now found when pt was transferred to [facility] recently, possibly Post silent myocardial infarction LV thrombus formation. Patient was started on dobutamine for cardiorenal syndrome, but developed tachycardia heart rate in the 140s A-fib RVR, dobutamine was discontinued. ? Eliquis 5mg BID ? Amiodarone 200 mg p.o. twice daily ? Check Services Clerk Dr. Malone on case, appreciate recommendations #Hypotension, Cardiogenic Shock?resolving DDx: Septic shock, Cardiogenic shock, cirrhosis leading to third spacing of fluid Of note patient had a previous echocardiogram, estimated EF more than 55%, no intracardiac thrombus at that time, but now at the bedside echo, findings are concerning for Global hypokinesis, poor RV and LV contractility is evident with an apical LV thrombus, noted IVC at 2.0 cm and no change in size with cardiac contraction, congested portal and hepatic veins with reversal of flow in hepatic veins, VExUS score 3 shows severe congestion. ? Midodrine 15mg TID ? On Levophed gtt., titrate MAP more than 60, Levophed was discontinued, but patient requires low-dose pressors during hemodialysis. #NSTEMI likely type 2 in setting of supply/demand mismatch Minimal troponin elevation 0.2030 - currently on Eliquis Resp: #Pulmonary edema In the setting of severely low EF 20% and cardiomyopathy, we discontinued antibiotics as pulmonary imaging and clinical condition shows consolidation and congestion more suggestive of fluid overload than infectious process. Initiated hemodialysis due to below target response to IV diuresis. CT-scan of the chest was done, final read pending but appears to be some B/L pleural effusions with some consolidations. ? Currently saturating well on room air #Mechanical Ventilation-discontinued GI: #GI bleed- Gastritis with stigmata of bleeding Bright red bleeding per rectum, stable hemoglobin at 7 hypotensive on arrival, stool occult was negative in the ER. Patient started on heparin drip due to LV mural thrombus and A-fib and was probably on anticoagulation with Eliquis at home. No evidence of rectal bleed during ICU stay, initially rectal tube was placed, hemoglobin dropped to 6.5, repeat H&H 6.7, ordered 1 PRBC transfusion, posttransfusion H&H ordered. ? Transfuse if Hg <7 ? Communications Scientist Dr. Sotelo's consuled EGD was done showed hemorrhagic gastritis, no evidence of varices or peptic ulcer on EGD, per GI okay to continue with anticoagulation. #Cirrhosis Likely secondary to metabolic dysfunction associated steatotic liver disease, MASLD, medical records from [facility], show imaging findings consistent with signs of portal hypertension and cirrhosis Associated hypoalbuminemia, and hepatorenal syndrome, contributing to PHILL and anasarca. [facility] medical records do not show any workup for histopathologic diagnosis, no liver biopsy performed to our knowledge. Patient's primary care physician at [facility], per family no knowledge of prior liver disease. Hepatitis panel was ordered found to be negative. - pending Ferritin, ceruloplasmin, copper levels. #Choledocholithiasis #Hyperbilirubinemia Prior medical history of Choledocholithiasis and transferred to [facility] for possible ERCP, medical records from [facility] were obtained, reported patient had a repeat MRCP at [facility] which showed no stones in the bile duct, possibly passage of stones had already occurred. No ERCP was performed. ? Imaging findings concerning for CBD dilation, but given extensive workup at [facility] no further intervention is indicated at this point ? Continue supportive treatment Renal: #PHILL, hepatorenal syndrome vs cardiorenal syndrome #Anasarca DDx: Hepatorenal syndrome versus cardiorenal syndrome Baseline creatinine seems to be around 1.2 Patient also has fluid overload anasarca ? IV Albumin 25 g qday ? Midodrine 15mg TID ? Hemodialysis for ultrafiltration, as urine output below target despite IV diuretics Endo: #Concern for adrenal insufficiency- ruled out #History of diabetes mellitus type 2 ? Sliding scale insulin, A1c level ? Hypoglycemia protocol in place ID: Stable Heme: #Normocytic anemia, likely iron deficiency vs Anemia of chronic disease Differentials include anemia of chronic disease, as normocytic hypochromic RBC on cbc, worsened by nutritional deficiency ? Total iron deficit 1029, ordered 510 mg elemental iron replacement with Ferraheme - Monitor H&H - transfuse if Hb <7 #Thrombocytopenia of note patient's platelets have been on the lower side since June, probably after starting anticoagulation for LV thrombus. Plt 20,000 this am 22,000 on repeat labs, concern for Heparin induced thrombocytopenia, Discontinue heparin gtt due to >50% drop in plt count. - Hematology consult to Dr Chahal placed, appreciate recommendations - Eliquis initiated per Heme/Onc recommendations - HIT panel pending Case discussed with my senior Dr. Schwab PGY-[address] João Pichardo MD PGY-1 Disposition: ICU, goals of care discussion tomorrow DVT prophylaxis: Eliquis GI prophylaxis: Lansoprazole Diet: Tube feeds CODE STATUS: Limited code, NO chest compressions Senior resident attestation: I discussed with and supervised the civil engineering intern physician who took care of this patient. I personally saw and examined the patient and discussed the assessment and plan with the entire medicine team, including my attending Dr. Moyer , I agree with the assessment and plan as documented above. MD Josselin PGY2
--- NOTE | 2024-07-20 08:52 | ESPR_ITS ---
Documentation for date of: 07/20/24 Subjective Subjective Interval history: 07/20/2024: No acute overnight events to report. Patient seen and examined this a.m. in hospital bed with no concerning cardiac symptoms; denies any chest pain/tightness, palpitations or any new dizziness. Current vitals include blood pressure 81/54, heart rate 78, respiratory rate 15, afebrile, satting 96 on nasal cannula O2 flow rate 1, FiO2 45. Pertinent lab findings include WBC 10.7, hemoglobin 8.1, platelets up trended from 22-37 (Dr. Chahal hematology consulted), potassium 3.9, BUN uptrending from 43-56, creatinine uptrending from 1.6-1.9 magnesium 2.1. Patient receiving dialysis today 07/20 with a goal ultrafiltration of 1.5 to 2 L. Patient remains volume overloaded peripherally +3 pitting edema up to thighs bilaterally; patient on minimal pressor requirements Levophed and midodrine increased dosage. ICU team will have goals of care discussion with family again 07/21. Exam Vital Signs Temp Pulse Resp BP Pulse Ox O2 Del Method O2 Flow Rate 97.8 F 88 20 84/49 L 98 Nasal Cannula 1 07/20/24 07:00 07/20/24 08:00 07/20/24 08:00 07/20/24 08:00 07/20/24 08:00 07/20/24 07:00 07/20/24 07:00 FiO2 45 07/19/24 18:00 Narrative Exam General: On 1L NC. Appears cachectic with significant loss of muscle and even in the temporal areas bilaterally Eyes: PERRLA, EOMI, anicteric sclera HEENT: Atraumatic, normocephalic. No JVD noted. left IJ vasc cath noted Cardiovascular: Normal S1 and S2. +2 pitting peripheral edema to lower extremities and anasarca Respiratory: lungs auscultation bilaterally.with crackles fine and No wheezing. Abdomen: Abdomen soft but distended, nontender Skin: No rash. Slightly cold to touch. Neuro: AAo x2, slightly confused and no focal deficits Objective Labs 07/20/24 05:55 07/20/24 05:55 Labs: Laboratory Results - last 24 hr 07/19/24 07/19/24 07/20/24 10:59 17:52 05:55 WBC 8.8 10.7 RBC 3.07 L 2.80 L Hgb 8.8 L 8.1 L Hct 27.8 L 25.3 L MCV 91 90 MCH 28.7 28.9 MCHC 31.7 32.0 RDW Std Deviation 60.5 H 60.3 H Plt Count 22 L* 37 L D Neut % (Auto) 85 H 87 H Lymph % (Auto) 11 9 L [place] % (Auto) 4 3 Eos % (Auto) 0 0 Baso % (Auto) 0 0 Neut # (Auto) 7.5 9.3 H Lymph # (Auto) 1.0 1.0 [place] # (Auto) 0.3 0.3 Eos # (Auto) 0.0 0.0 Baso # (Auto) 0.0 0.0 Immature Gran # (Auto) 0.03 H 0.03 H Absolute Nucleated RBC 0.16 H 0.18 H Immature Gran % 0 0 Nucleated RBC % 2 H 2 H Sodium 139 Potassium 3.9 D Chloride 103 Carbon Dioxide 22.4 Anion Gap 14 BUN 56 H Creatinine 1.9 H Estim Creat Clear Calc 29.1 L eGFR 31 L BUN/Creatinine Ratio 29 H Glucose 84 Calculated Osmolality 292 Calcium 9.4 Corrected Calcium 9.6 Phosphorus 5.2 H Magnesium 2.1 Total Bilirubin 4.5 H D AST < 8 ALT 20 Alkaline Phosphatase 185 H D Total Protein 6.3 Albumin 3.8 Globulin 2.5 Albumin/Globulin Ratio 1.5 U Random Total Protein 80 H Misc Test Result Platelets confirmed Cancelled ABG Interpretation ABG results: 07/11/24 07/12/24 07/12/24 22:53 01:05 03:33 ABG pH 7.24 L 7.16 L* 7.44 D ABG pCO2 53 H 61 H 34 D ABG pO2 101 64 L D 426 H D ABG HCO3 23 22 24 ABG O2 Saturation 97 84 L 102 H ABG Base Excess -5 L -7 L -1 07/13/24 07/14/24 07/16/24 05:22 04:33 07:35 ABG pH 7.46 H 7.40 7.49 H ABG pCO2 38 37 38 ABG pO2 100 D 58 L* D 106 D ABG HCO3 27 H 23 28 H ABG O2 Saturation 99 H 89 L 100 H ABG Base Excess 3 -2 5 H Quality Measures Quality Measures VTE therapy Assessment & Plan Assessment Current Active Medications: Generic Name Dose Route Start Last Admin Trade Name Freq PRN Reason Stop Dose Admin Amiodarone HCl 200 mg 07/15/24 09:00 07/19/24 21:18 Amiodarone Hcl 200 Mg Tablet PO 08/14/24 08:59 200 mg BID SAVANNAH Administration Apixaban 5 mg 07/19/24 13:30 07/19/24 21:18 Apixaban 2.5 Mg Tablet PO 08/18/24 13:29 5 mg BID SAVANNAH Administration Dextrose 25 ml 07/11/24 19:55 Dextrose 50%-Water Inj 50 Ml Syringe IV 08/10/24 19:54 Q15MIN PRN BG 50-70 responsive npo pt Dextrose 50 ml 07/11/24 19:55 07/16/24 18:22 Dextrose 50%-Water Inj 50 Ml Syringe IV 08/10/24 19:54 50 ml Q15MIN PRN Administration BG <50 OR BG <70 & pt unresponsive Epoetin Michael 10,000 unit 07/20/24 10:00 Epoetin Michael-Epbx Inj 10,000 Unit/Ml Vial (Esrd) SC 07/20/24 10:01 X1 ONE Glucagon 1 mg 07/11/24 19:55 Glucagon Inj 1 Mg Vial IM Q15MIN PRN BG <70, and no IV access Heparin Sodium (Porcine) 2,500 unit 07/17/24 15:52 07/19/24 11:12 Heparin Sod Inj 1000 Unit/Ml Vial 10 Ml INDWELLCAT 07/31/24 15:51 2,500 unit PRN PRN Administration DIALYSIS Heparin Sodium/Dextrose 25,000 unit in 250 mls @ 6.26 mls/hr 07/11/24 08:45 07/19/24 06:00 Heparin In D5w Ivpb IV 07/25/24 08:44 0 units/kg/hr .Q24H SAVANNAH 0 mls/hr Titration Protocol 12 UNITS/KG/HR Albumin Human 25 gm in 100 mls @ 100 mls/min 07/17/24 15:52 Albuminar-25 Ivpb IV 07/20/24 15:51 PRN PRN DIALYSIS Ceftriaxone Sodium/Dextrose 50 mls @ 100 mls/hr 07/19/24 10:48 07/19/24 14:38 Rocephin/D5w 1gm Iv Premix IV 07/26/24 10:47 Infused QDAY SAVANNAH Infusion Norepinephrine/Dextrose 8 mg in 250 mls @ 5.588 mls/hr 07/20/24 06:42 Levophed In D5w 8mg/250ml IV 08/12/24 16:52 .Q24H PRN PER PROTOCOL Protocol 0.05 MCG/KG/MIN Insulin Human Lispro 0 unit 07/12/24 12:00 07/20/24 05:18 Insulin Lispro (Admelog) 1 Unit/0.01 Ml Unit SC 08/11/24 11:59 Not Given Q6HR SAVANNAH Protocol Lactulose 20 gm 07/20/24 09:00 Lactulose Syrup 20 Gm/30 Ml Udc PO 08/19/24 08:59 QDAY SAVANNAH Protocol Lansoprazole 30 mg 07/19/24 13:30 07/19/24 15:19 Lansoprazole 30 Mg Tab.Rap. 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 Upgraded to ICU level of care. #Systolic and Diastolic Acute Heart Failure (EF <20%) #Cardiogenic shock versus distributive #Anasarca #Cardiorenal syndrome #NSTEMI type II #Likely infiltrative disease in the setting of supply/demand mismatch Troponins plateaued at 0.2 EKG shows sinus tachycardia with nonspecific ST changes and frequent PVCs Echo from 07/12 shows Normal LV size. Global LV systolic function is severely decreased. Estimated EF < 20%. LV mural Moderate hypertrophy with ground glass appearance of the left ventricular wall RV systolic function is severely decreased. Estimated RVSP, 39 mmHg including RAP 15mmHg. Moderately dilated LA and RA. Mild to moderate MR. mild AI and Severe TR. Dilated IVC Nephrology following, appreciate recommendations Plan: Output 121cc/24 hours and net +2.6 L since admission Hemodialysis planned for 07/20 Strict I's and O's 2 g sodium diet when applicable Continue Levophed and midodrine for pressure support Patient will require beta-brigida and Entresto once blood pressure is more stable Keep potassium greater than 4.0 and magnesium greater than 2.0 at all times. Workup possible amyloidosis versus other infiltrative disease, if patient makes any substantial recovery #Atrial Fibrillation NVR #Hypotensive #QTc prolongation, improving Nonsustained Developed afib when started on Dobutamine for cardiorenal syndrome Dobutamine discontinued Patient on levophed and midodrine for blood pressure support in spite of volume overloaded state Latest EKG shows sinus tachycardia, rate of 108, left axis deviation with right bundle dav block and QTc 450 Plan: Continue to monitor; patient normal sinus rhythm currently Continue amiodarone 200 mg po twice daily Avoid additional QTc prolonging medications Keep potassium greater than 4 magnesium greater than 2.0 #LV thrombus Thrombocytopenia #Possible heparin-induced thrombocytopenia As seen at [facility] Echo confirmed presence of left ventricular thrombus Patient's platelets dropped to 22; initial platelet during admission was [address] Dr. Chahal consulted; appreciate recommendations Plan: Obtain the study reports Can restart heparin drip ICU team has ordered HIT antibody on eliquis 5 mg bid #Acute hypoxic respiratory failure, resolved patient extubated #History of CVA June 2024 secondary to possible embolic cardiac etiology #Cirrhosis of the liver secondary to [place] or MASLD #Acute kidney injury #Type 2 diabetes, [id number] A1c of 5.9 #Choledocholithiasis #Cachexia with severe recent weight loss #Ebony tropicalis in urine #Delirium Rest of medical problems to be managed by the ICU team; cardiology following and will give recommendations. Patient seen and examined with attending Dr. Kira Jacobo, PGY-1 There is a high probability of sudden, clinically significant or life threatening deterioration in the patient condition which required the highest level of physician preparedness to intervene urgently. I have personally spent 40 minutes of critical care time, exclusive of time spent on any procedures, in evaluation and management of this critically ill patient. Attending Provider Attestation/Addendum I have personally seen and examined the patient separately on the above date of service and discussed the plan of care with the resident. I reviewed the resident consultation progress note and agree with the resident findings and plan in the note above and have also edited the documentation to reflect my findings and plan. Lico Malone M.D. Interventional Cardiology
--- NOTE | 2024-07-20 09:00 | XR_ITS ---
Examination: CT chest with intravenous contrast 2-D sagittal and coronal reconstructions Exam date and time: July 20, 2024 0838 hours INDICATIONS: Difficulty breathing congestion this week, prominent left base pneumonia on CT chest 06/23/2024 COMPARISON: 06/23/2024 CTDI:vol (mGy) 6.68 DLP: (mGycm) 200 Technique: Multiple axial sections of the thorax have been obtained. Sections have been obtained, 3 mm slice thickness. Mediastinal and lung density settings have been obtained. Intravenous contrast administered, 30 cc Isovue-300. 2-D sagittal, coronal images obtained. Low dose protocols were performed. One or more of the following dose reduction techniques were used; automated exposure control, adjustment of the mA and/or KV according to patient size, use of iterative reconstruction technique. Findings: No thoracic aortic aneurysm dilatation No pulmonary artery emboli Enlarged cardiac contour with vascular congestion Bibasilar pneumonia and edema Moderate right mild to moderate left pleural fluid No visualized liver or splenic lesion Liver irregular in contour Cholelithiasis IMPRESSION: [id number] heart failure Extensive edema and/or pneumonia at the lung bases with moderate right mild to moderate left pleural fluid Cholelithiasis
--- NOTE | 2024-07-20 09:05 | PC.SS ---
Update: Patient receiving dialysis today.
[2024-07-20 09:09] LABS: Slide Review Platelets confirmed
--- NOTE | 2024-07-20 09:36 | PD.RESPRO ---
Documentation for date of: 07/20/24 Subjective Subjective Interval history: Patient is a 53-year-old female with a past medical history of NIDDM, embolic CVA, LV mural thrombus and decompensated cirrhosis with portal hypertension. Patient was BIBA by her daughter who noticed bright red blood per rectum upon changing her diaper. Patient was admitted for workup and management of hypotension and generalized weakness. Last month patient presented to the ED with difficulty standing, slurred speech, facial droop and was diagnosed with an embolic stroke. Incidentally a CBD stone was identified on imaging. Patient was transferred from the ED to [facility] for possible ERCP. Patient also had previous admission to [facility] for hyponatremia and hypotension with ICU stay. Patient's baseline is bedbound, but able to verbalize. ED course: Patient was hypotensive and tachycardic on presentation BP 86/65, MAP 72 HR 102. Labs were significant for normocytic anemia, CR 1.8, BUN 47. Urinalysis was significant for 1+ protein, 3+ blood, LE positive, WBC 358 On imaging Abd US: Fatty liver 12.9 cm Nephrology was consulted for anasarca secondary to likely hepatorenal syndrome. 07/15/2024 Patient seen and examined in ICU this a.m. Patient is more active today, intubated and mechanically ventilated. Patient is on noradrenaline infusion @ 1ml/hr, octreotide infusion and Bumex Infusion I 1092 cc O 1750 cc Balance -657 cc Rest of patient's family to visit tomorrow 07/16, to decide on comfort vs hospice .Guarded prognosis Blood pressure is improved with MAP in 70's on Norad @ 1ml/hr, can discontinue pressors and continue Midodrine Patient is now producing urine, will hold on dialysis for now 07/16/2024 Patient is seen and examined bedside in the ICU. Patient condition still remained the same. Yesterday the ICU team tried to extubate the patient but unsuccessful and patient is still on mechanical ventilator. The patient was successfully extubated in the afternoon. Goals of care are discussed with the family and patient was on DNR/DNI. Blood pressures are maintained well maintained without I.V vasopressor (LEVOPHED) support. On examination the patient appears to be less swollen from yesterday. Bumex infusion is changed to IV push 2 Mg 8 hourly. As the patient is able to maintain adequate urine output, no need of dialysis as of now. 07/17/2024 Patient is seen and examined bedside. Patient is awake. Successfully extubated yesterday. Able to maintain saturations on oxygen through nasal cannula. Her urine output is significantly decreased from last night. Patient is still having anasarca. BUN trended from 55 to 61 today. Creatinine uptrended to 1.9. Bumex and metolazone were stopped as of today. Will continue to give albumin infusions. Patient needs dialysis today. Will continue to monitor renal functions and strict input output charting 07/18/2024 Patient seen and examined in ICU this a.m. Patient is confused, but active today, s/p extubation on 07/16 Patient is on noradrenaline infusion @ 3ml/hr and Albumin 25 g IV daily I 1849 cc O 545 cc Balance +1304 cc Minimal urine output over past 24 hours. For 2 hours of Hemodialysis today with goal of 1.5-2 L Ultrafiltration 07/19/2024: Patient seen and examined in ICU this morning. No acute overnight events. Vitals, labs reviewed. Remains on levophed at this time. Only 275cc/24hrs. Platelets downtrending, 20; Creatinine increasing, 1.6. Continues to have moderate edema. Will plan for dialysis today. 07/20/2024 Patient seen and examined in ICU this a.m. Patient is confused, but active today, s/p extubation on 07/16 Patient is on noradrenaline infusion @ 3ml/hr and Midodrine 15mg po TID I 95 cc O 160 cc Balance -64 cc Minimal urine output over past 24 hours. For 2 hours of Hemodialysis today with goal of 1.5-2 L Ultrafiltration Exam Vital Signs Temp Pulse Resp BP Pulse Ox O2 Del Method O2 Flow Rate 97.8 F 83 20 91/58 L 94 L Nasal Cannula 1 07/20/24 09:05 07/20/24 09:31 07/20/24 09:05 07/20/24 09:31 07/20/24 09:05 07/20/24 07:00 07/20/24 09:05 FiO2 45 07/20/24 09:05 Narrative Exam Constitutional Alert, oriented x 2 and comfortable. NGT insitu. Scleral Icterus HEENT Vision grossly intact. Patent nares. Trachea midline Respiratory Left IJ catheter insitu. Exit site clean. B/L crackles auscultated throughout lung nieves Cardiovascular S1 and S2 audible, RRR. No murmurs carotid bruit. No gross JVD. Abdominal Tense, mildy distended and non tender to palpation in all quadrants. BS +. Asterixis Genitourinary No bladder tenderness, no flank pain. Normal to palpation Musculoskeletal Extremities tone within normal limits. 2+ pitting edema of b/L lower extremities up to knees Neurological CN II - XII grossly intact. Extremity motor and sensation grossly intact. Skin Warm, dry and intact. No apparent lesions. Objective Labs 07/20/24 05:55 07/20/24 05:55 Labs: Laboratory Results - last 24 hr 07/19/24 07/19/24 07/20/24 10:59 17:52 05:55 WBC 8.8 10.7 RBC 3.07 L 2.80 L Hgb 8.8 L 8.1 L Hct 27.8 L 25.3 L MCV 91 90 MCH 28.7 28.9 MCHC 31.7 32.0 RDW Std Deviation 60.5 H 60.3 H Plt Count 22 L* 37 L D Neut % (Auto) 85 H 87 H Lymph % (Auto) 11 9 L [place] % (Auto) 4 3 Eos % (Auto) 0 0 Baso % (Auto) 0 0 Neut # (Auto) 7.5 9.3 H Lymph # (Auto) 1.0 1.0 [place] # (Auto) 0.3 0.3 Eos # (Auto) 0.0 0.0 Baso # (Auto) 0.0 0.0 Immature Gran # (Auto) 0.03 H 0.03 H Absolute Nucleated RBC 0.16 H 0.18 H Immature Gran % 0 0 Nucleated RBC % 2 H 2 H Sodium 139 Potassium 3.9 D Chloride 103 Carbon Dioxide 22.4 Anion Gap 14 BUN 56 H Creatinine 1.9 H Estim Creat Clear Calc 29.1 L eGFR 31 L BUN/Creatinine Ratio 29 H Glucose 84 Calculated Osmolality 292 Calcium 9.4 Corrected Calcium 9.6 Phosphorus 5.2 H Magnesium 2.1 Total Bilirubin 4.5 H D AST < 8 ALT 20 Alkaline Phosphatase 185 H D Total Protein 6.3 Albumin 3.8 Globulin 2.5 Albumin/Globulin Ratio 1.5 U Random Total Protein 80 H Misc Test Result Platelets confirmed Cancelled Platelets confirmed ABG Interpretation ABG results: 07/11/24 07/12/24 07/12/24 22:53 01:05 03:33 ABG pH 7.24 L 7.16 L* 7.44 D ABG pCO2 53 H 61 H 34 D ABG pO2 101 64 L D 426 H D ABG HCO3 23 22 24 ABG O2 Saturation 97 84 L 102 H ABG Base Excess -5 L -7 L -1 07/13/24 07/14/24 07/16/24 05:22 04:33 07:35 ABG pH 7.46 H 7.40 7.49 H ABG pCO2 38 37 38 ABG pO2 100 D 58 L* D 106 D ABG HCO3 27 H 23 28 H ABG O2 Saturation 99 H 89 L 100 H ABG Base Excess 3 -2 5 H Quality Measures Quality Measures VTE therapy Assessment & Plan Assessment Current Active Medications: Generic Name Dose Route Start Last Admin Trade Name Freq PRN Reason Stop Dose Admin Amiodarone HCl 200 mg 07/15/24 09:00 07/19/24 21:18 Amiodarone Hcl 200 Mg Tablet PO 08/14/24 08:59 200 mg BID SAVANNAH Administration Apixaban 5 mg 07/19/24 13:30 07/19/24 21:18 Apixaban 2.5 Mg Tablet PO 08/18/24 13:29 5 mg BID SAVANNAH Administration Dextrose 25 ml 07/11/24 19:55 Dextrose 50%-Water Inj 50 Ml Syringe IV 08/10/24 19:54 Q15MIN PRN BG 50-70 responsive npo pt Dextrose 50 ml 07/11/24 19:55 07/16/24 18:22 Dextrose 50%-Water Inj 50 Ml Syringe IV 08/10/24 19:54 50 ml Q15MIN PRN Administration BG <50 OR BG <70 & pt unresponsive Epoetin Michael 10,000 unit 07/20/24 10:00 Epoetin Michael-Epbx Inj 10,000 Unit/Ml Vial (Esrd) SC 07/20/24 10:01 X1 ONE Glucagon 1 mg 07/11/24 19:55 Glucagon Inj 1 Mg Vial IM Q15MIN PRN BG <70, and no IV access Heparin Sodium (Porcine) 2,500 unit 07/17/24 15:52 07/19/24 11:12 Heparin Sod Inj 1000 Unit/Ml Vial 10 Ml INDWELLCAT 07/31/24 15:51 2,500 unit PRN PRN Administration DIALYSIS Heparin Sodium/Dextrose 25,000 unit in 250 mls @ 6.26 mls/hr 07/11/24 08:45 07/19/24 06:00 Heparin In D5w Ivpb IV 07/25/24 08:44 0 units/kg/hr .Q24H SAVANNAH 0 mls/hr Titration Protocol 12 UNITS/KG/HR Albumin Human 25 gm in 100 mls @ 100 mls/min 07/17/24 15:52 Albuminar-25 Ivpb IV 07/20/24 15:51 PRN PRN DIALYSIS Ceftriaxone Sodium/Dextrose 50 mls @ 100 mls/hr 07/19/24 10:48 07/19/24 14:38 Rocephin/D5w 1gm Iv Premix IV 07/26/24 10:47 Infused QDAY SAVANNAH Infusion Norepinephrine/Dextrose 8 mg in 250 mls @ 5.588 mls/hr 07/20/24 06:42 Levophed In D5w 8mg/250ml IV 08/12/24 16:52 .Q24H PRN PER PROTOCOL Protocol 0.05 MCG/KG/MIN Insulin Human Lispro 0 unit 07/12/24 12:00 07/20/24 05:18 Insulin Lispro (Admelog) 1 Unit/0.01 Ml Unit SC 08/11/24 11:59 Not Given Q6HR SAVANNAH Protocol Lactulose 20 gm 07/20/24 09:00 Lactulose Syrup 20 Gm/30 Ml Udc PO 08/19/24 08:59 QDAY SAVANNAH Protocol Lansoprazole 30 mg 07/19/24 13:30 07/19/24 15:19 Lansoprazole 30 Mg Tab.Rap.Dr GOFF 08/18/24 13:29 30 mg QDAY SAVANNAH Administration Midodrine 15 mg 07/20/24 14:00 Midodrine 5 Mg Tablet PO 08/19/24 13:59 TID SAVANNAH Rifaximin 550 mg 07/19/24 10:45 07/19/24 21:18 Rifaximin 550 Mg Tablet PO 07/26/24 10:44 550 mg BID SAVANNAH Administration Plan Patient is a 53-year-old female with a past medical history of NIDDM, embolic CVA, LV mural thrombus and decompensated cirrhosis with portal hypertension. Patient was BIBA by her daughter who noticed bright red blood per rectum upon changing her diaper. Patient was admitted for workup and management of hypotension and generalized weakness. Nephrology was consulted for anasarca secondary to hepatorenal syndrome. 1. Hepatorenal syndrome Likely type II as patient has diuretic resistant ascites Patient has history of decompensated cirrhosis with ascites. On presentation patient was hypotensive with MAP in low 60s and required upgrade to ICU for vaso pressors Echocardiogram showed ejection fraction 20%- Dr. Yunier Sorto. Patient was started on dobutamine after improvement in urine output Ddx : Cardiorenal syndrome Currently BP 95/70 MAP 78 on Norad @ 3 ml/hr and Midodrine 15 mg po TID Abdo ultrasound confirms fatty liver 12.9 cm I 95 cc O 160 cc Balance -64 cc [07/17] Hemodialysis for 1-2 hours with goal of 1-2 L Ultrafiltration [07/20] Hemodialysis today for 1-2 hours Plan: - Strict I/O ? Continue Norad for Blood pressure support [Terlipressin not available in [place]] - Continue Midodrine for blood pressure support - As the urine output is decreased and renal functions declining, patient needs dialysis as of today. - For 2 hours of Hemodialysis today with goal of 1.5-2 L Ultrafiltration. Once BP allows ? Thank you for the opportunity to participate in patient's care. ? Nephrology will closely monitor this case. 2. PHILL - Worsening Likely prerenal secondary to hypoperfusion Patient was hypotensive on admission with MAP in low 60s [07/12] Cr 1.8 BUN 51 ----> [07/20] Cr 1.9 BUN 56 Plan: ? Blood pressure support to maintain adequate perfusion of kidney 3. Decompensated cirrhosis secondary to MASH On exam patient has 2 + LE edema On imaging Abd US : fatty liver 12.9 cm MELD score: 29; 27-32% 90-day mortality [07/20] T. bili 4.5 Normocytic anemia Thrombocytopenia GI bleed for investigation UTI History of embolic CVA NIDDM LV mural thrombus-on heparin infusion. Plan: ? Continue management as per primary team Thank you for allowing us to participate in Mrs. Atkins's care. Plan of care discussed with attending Sprinkling System Installer, Dr Caren Egan MD PGY 1 Attending Provider Attestation/Addendum Patient seen and examined with resident physician Dr. Egan. Note reviewed, agree with findings and recommendations. Patient with minimal urinary output. Extubated, alert and awake. Patient currently seen on dialysis. Tolerating dialysis without any problems. Hemodialysis for 2 hours, 3K, ultrafiltration 1-2 L, Epogen 6000, no heparin ordered. Plan of care discussed with the dialysis nurse. Please see dialysis flowsheet for further details. Plan of care discussed with the ICU team. Critical care time spent more than 35 minutes regarding plan of care and disease manage Plan of care discussed with family at bedside.
[2024-07-20] MEDS: ALBUMIN HUMAN 25% IVPB 25 GM/100 ML BTL IV (09:40)
[2024-07-20] MEDS: EPOETIN ALFA-EPBX INJ 10,000 UNIT/ML VIAL (ESRD) 10000 UNIT SC (09:40)
[2024-07-20] MEDS: Norepinephrine/D5W 8mg/250ml 8 MG/250 ML BAG 5.588 MG IV (10:00)
--- NOTE | 2024-07-20 10:01 | PC.NURSE ---
On dialysis. BP trending down 79/55, MAP 63. Carlene brunner started Levo at .05. Albumin 25 gms iv infusing for low bp support. UF off for few minutes until BP is stable. Will monitor
[2024-07-20] MEDS: AMIODARONE HCL 200 MG TABLET PO ×2 (10:17→21:17)
[2024-07-20] MEDS: rifaximin 550 MG TABLET PO ×2 (10:17→21:17)
[2024-07-20] MEDS: APIXABAN 2.5 MG TABLET 5 MG PO ×2 (10:17→21:16)
[2024-07-20] MEDS: LACTULOSE SYRUP 20 GM/30 ML UDC PO (10:17)
[2024-07-20] MEDS: LANSOPRAZOLE 30 MG TAB.RAP.DR GT (10:18)
[2024-07-20 11:01] LABS: Bilirubin,Direct 3.2 mg/dL (0.0-0.3)
--- NOTE | 2024-07-20 11:11 | ESCONSULT_ITS ---
RE: VALENTINE ATKINS : 1970 DATE OF CONSULTATION: 07/19/2024 REFERRING PHYSICIAN: Dr. Schwab REASON FOR CONSULTATION: Heparin-induced thrombocytopenia. HISTORY OF PRESENT ILLNESS: Mrs. 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 She was transferred from [facility] to [facility] on 06/24/2024 for a stroke and ERCP, which was discharged from [facility] on 07/08/2024 on Eliquis along with other medication. She was placed on heparin and then she developed thrombocytopenia and because of this consultation is obtained. At the moment, she is not having any active bleeding, but there was some gastritis pattern was noted per physician. The patient cannot give a lot of information, so most of the information is obtained through the record. PAST MEDICAL HISTORY: As mentioned earlier that she has diabetes mellitus, left ventricular mural thrombus, embolic infarct, metabolic dysfunction, liver cirrhosis. FAMILY HISTORY: No information available at the moment. ALLERGIES: NOT KNOWN. PHYSICAL EXAMINATION: GENERAL: She is responsive. VITAL SIGNS: Blood pressure 95/63, pulse is 111, respirations 32. HEENT: Pupils are reactive to light and accommodation. Sclerae anicteric. NECK: Supple. There is no JVD or palpable mass. LUNGS: There is good air entry bilaterally.On vent Support. They are clear to auscultation. HEART: Irregular. ABDOMEN: Soft. Bowel sounds are present. EXTREMITIES: More than 2+ pitting edema bilaterally. CAMPUS INTERVIEWS INTERN: Sedated on vent support. PLAN AND RECOMMENDATIONS: Agree with your present plan of treatment. Her blood work done today WBC count 8.8, hemoglobin is 8.8, hematocrit 27.8 and platelet count of 22,000. On 07/18/2024, her platelet count was 64,000, earlier it was 20 and then repeat platelet count was 22,000. The resident called me earlier and patient's heparin is on hold and the patient is started on anticoagulant for mural thrombus. I will continue the anticoagulation as advised. Blood is already being sent for the platelet antibodies, though one can use a low molecular weight heparin, the probability of causing heparin-induced thrombocytopenia with low molecular weight is kind of little bit low, but it is reasonable at this stage to continue anticoagulant. I thank you Dr. Schwab for letting me participate in the care of this interesting patient. If you have any questions, please feel free to contact me. DT: 18:47:44 TT: 20:30:00 Ref: [id number] - TID: [id number] MTDD
[2024-07-20] MEDS: HEPARIN SOD INJ 1000 UNIT/ML VIAL 10 ML 2500 UNIT INDWELLCAT (12:03)
--- NOTE | 2024-07-20 12:33 | PC.NURSE ---
Dialysis completed for 3 hrs. Able to removed 2200 ml of fluid net. Post tx BP 95/70, HR 95, Temp 97.1, O2 sat 96% on O2 at 1L/min via nc. Report given to Carlene THAKKAR
--- NOTE | 2024-07-20 13:11 | CHAP ---
10:00 AM Visited by spiritual care volunteer Provided prayer for Patient.
[2024-07-20] MEDS: MIDODRINE 5 MG TABLET 15 MG PO ×2 (14:21→21:17)
--- NOTE | 2024-07-20 14:46 | PC.SS ---
Addendum entered and electronically signed by PAOLO Auguste 07/20/24 15:49: PAOLO updated resident team of goals of care discussion scheduled for 1:00 pm tomorrow. Original Note: PAOLO confirmed with patient's daughter, Gricelda; goals of care discussion scheduled for 01:00 pm tomorrow (07-20-24). [employer] left voicemail for patient's daughter, Rachel Hunter; to provide timeframe for discussion.
--- NOTE | 2024-07-20 17:39 | ESPR_ITS ---
RE: VALENTINE ATKINS : 1970 DATE OF SERVICE: 07/20/2024 SUBJECTIVE: Ms. Atkins is a 53-year-old female with a history of heparin-induced thrombocytopenia and multiple other medical comorbidities. Currently, she is on limited code. She is sedated and she is on vent support. PHYSICAL EXAMINATION: Vital Signs: Her blood pressure is 81/54, pulse is 78, and respirations 15, but she is on vent support. HEENT: Pupils are reactive to light and accommodation. Neck: Supple. Lungs: There is good air entry bilaterally. Heart: Irregular. Abdomen: Soft. Bowel sounds are present. Extremities: There is 2+ pitting edema. Central Nervous System: The patient is sedated and is on vent support. Her blood work today, WBC count of 10.7, hemoglobin is 8.1, hematocrit 25.3, and platelet count 37,000. I was not informed if this patient is having any type of active bleeding, so we will continue the supportive care and patient's long-term prognosis is quite guarded because of the multiple morbidities. I will sign her off at the moment from my service. DT: 17:15:38 TT: 17:37:00 Ref: [id number] - TID: [id number]
--- NOTE | 2024-07-20 21:10 | PD.IMPROG ---
Documentation for date of: 07/20/24 Subjective Subjective Interval history: Colonoscopy canceled as patient multiple other issues with electrolyte abnormalities Continue to monitor CBC Exam Vital Signs Temp Pulse Resp BP Pulse Ox O2 Del Method O2 Flow Rate 97.8 F 73 18 84/50 L 98 Nasal Cannula 1 07/20/24 20:00 07/20/24 20:15 07/20/24 20:15 07/20/24 20:15 07/20/24 20:15 07/20/24 07:00 07/20/24 18:17 FiO2 45 07/20/24 12:25 Routine Abdominal Exam Comments: Soft nontender Objective Labs 07/20/24 05:55 07/20/24 05:55 Labs: Laboratory Results - last 24 hr 07/19/24 07/20/24 17:52 05:55 WBC 10.7 RBC 2.80 L Hgb 8.1 L Hct 25.3 L MCV 90 MCH 28.9 MCHC 32.0 RDW Std Deviation 60.3 H Plt Count 37 L D Neut % (Auto) 87 H Lymph % (Auto) 9 L [place] % (Auto) 3 Eos % (Auto) 0 Baso % (Auto) 0 Neut # (Auto) 9.3 H Lymph # (Auto) 1.0 [place] # (Auto) 0.3 Eos # (Auto) 0.0 Baso # (Auto) 0.0 Immature Gran # (Auto) 0.03 H Absolute Nucleated RBC 0.18 H Immature Gran % 0 Nucleated RBC % 2 H Sodium 139 Potassium 3.9 D Chloride 103 Carbon Dioxide 22.4 Anion Gap 14 BUN 56 H Creatinine 1.9 H Estim Creat Clear Calc 29.1 L eGFR 31 L BUN/Creatinine Ratio 29 H Glucose 84 Calculated Osmolality 292 Calcium 9.4 Corrected Calcium 9.6 Phosphorus 5.2 H Magnesium 2.1 Total Bilirubin 4.5 H D Direct Bilirubin 3.2 H AST < 8 ALT 20 Alkaline Phosphatase 185 H D Total Protein 6.3 Albumin 3.8 Globulin 2.5 Albumin/Globulin Ratio 1.5 Misc Test Result Cancelled Platelets confirmed Impressions Impression: # Acute posthemorrhagic anemia # Hemorrhagic gastritis Continue to monitor CBC Colonoscopy canceled ABG Interpretation ABG results: 07/11/24 07/12/24 07/12/24 22:53 01:05 03:33 ABG pH 7.24 L 7.16 L* 7.44 D ABG pCO2 53 H 61 H 34 D ABG pO2 101 64 L D 426 H D ABG HCO3 23 22 24 ABG O2 Saturation 97 84 L 102 H ABG Base Excess -5 L -7 L -1 07/13/24 07/14/24 07/16/24 05:22 04:33 07:35 ABG pH 7.46 H 7.40 7.49 H ABG pCO2 38 37 38 ABG pO2 100 D 58 L* D 106 D ABG HCO3 27 H 23 28 H ABG O2 Saturation 99 H 89 L 100 H ABG Base Excess 3 -2 5 H Assessment & Plan A&P Narrative A 53-year-old female with a past medical history of recent acute stroke on 06/24/2024 thought to be secondary to embolic stroke from left ventricular mural thrombus diagnosed at [facility] and is on Eliquis, history of choledocholithiasis status post MRCP in June 2024, metabolic dysfunction 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 Cardiology consulted LV thrombus, possible CHF and elevated troponins. 1. Anasarca-mostly secondary to advanced liver disease and less likely from the CHF. 2. Mildly elevated troponins-NSTEMI type II in the setting of supply/demand mismatch 3. LV thrombus diagnosed at [facility] troponin 2023- 4. Likely secondary to possible bilateral pneumonia from HCAP 5. Acute hypoxic respiratory failure in the setting of pneumonia versus bilateral pleural effusions right greater than left and large 6. Cirrhosis of the liver secondary to CRAWFORD or MASLD 7. History of recent stroke in June 2024 secondary to possible embolic cardiac etiology and thought to be tubular thrombus diagnosed at [facility] 8. Acute kidney injury 9. Elevated lactate 10. Dabetes mellitus, uncontrolled 11. Choledocholithiasis 12. Cachexia with severe recent weight loss Patient presented with questionable blood staining on the diaper as per the daughter and the niece. Stool occult here was negative and hemoglobin appears to be stable at 8.7 on admission. Primary team to call GI for further evaluation as the patient also has hepatorenal syndrome with severe sepsis and possible septic shock. Patient is hypotensive as well as her high lactate and procalcitonin was elevated. Possible sepsis secondary to bilateral pneumonia versus UTI. Patient. To the ICU and further recommendations as per GI as well as ICU team. Patient is anasarca and is mostly secondary to her cirrhosis and liver disease but there could be some diastolic CHF component. Albumin was only 3.1 and HDL below normal. Bili is elevated at 2.4. Recent echocardiogram from May 2024 was reviewed which showed normal LV size and function with an approximate EF-60% and mild to moderate TR with no evidence of any regional wall motion abnormalities. Recommend to start the patient Lasix drip at at least 5 mg/h and continue strict control, daily weights and 2 g odium diet for now. Patient is mildly hypotensive and might need pressor support if required and hence patient transferred to the ICU. Patient troponins were mildly elevated at 0.222 and were flat between 0.25 as well as 0.23. Troponin elevation mostly secondary to supply/demand mismatch and or recommend no further troponins for now. Will check echocardiogram to rule out any kind of regional wall motion abnormalities and reevaluate the EF. EKG showed sinus tachycardia with nonspecific ST changes and frequent PVCs. Patient evidently had LV thrombus that was documented in [facility] and recommend obtaining the report from detail including the SANDIE, cardiac CT and MRI results. Patient should be on heparin drip as the patient also has a history of LV thrombus and there is no evidence of any GI bleed for now. Will need to review all the records and obtain all the records from the outside hospital[facility]. Recommend to check TSH A1c as well as lipid panel for further cardiac risk stratification. Recommend potassium greater than 4 and magnesium greater than 2.0 at all times. Patient appears to have lost significant weight in the last 8 to 10 months and has significant temporal wasting and overall prognosis appears to be poor and this was explained to the family. Echo performed on 07/12/2024 showed Normal LV size. Global LV systolic function is severely decreased. Estimated EF < 20%. LV mural thrombus is present 2.51 cm x 1.71 cm. Moderate hypertrophy with ground glass appearence - need ot r/o amyloid or other infiltartative diseases. diastolic dysfunction present but unable to grade as there is no E/A. atleast grade 2 and grade 3 RV is normal in size. RV systolic function is severely decreased. Estimated RVSP, 39 mmHg including RAP 15mmHg. Moderately dilated LA and RA. Mild to moderate MR. mild AI and Severe TR. Dilated IVC and moderatre size pleural effusion Explained echocardiogram findings with the family and the severe LV as well as RV dysfunction and possible end-stage heart disease with the presence of LV thrombus to the family in detail. Daughter was at the bedside today and also previously yesterday and were the possibility of infiltrative disease of heart possibly also liver but the patient appears to be end-stage at the present point of time with severe temporal wasting as noted above. Patient is not a good candidate for any advanced heart failure therapies including LVAD given the presence of LV thrombus and is not a transplant candidate. Overall poor prognosis and patient still is continues to be in critical condition at the present point of time. 07/18/2024: Patient was unable to protect airway and was intubated and mechanically ventilated overnight on 07/11/2024. Patient was eventually extubated on 07/15/2024. Dobutamine drip was discontinued after the first couple of days. Patient was also started on diuresis with Bumex drip and patient was also changed to Bumex bolus dosing Patient did not diurese well and family decided that they wanted dialysis. Patient was briefly made DNR/DNI few days ago but now back on full code and left IJ dialysis vascular catheter placed and started on dialysis. During dialysis patient required low-dose Levophed. We are unable to wean off the Levophed on the patient and patient systolic is around 90s but the MAP is less than 65. Patient still continues to have 3+ edema and anasarca and will need multiple sessions of dialysis and shows minimal improvement. Was on IV amiodarone for the atrial fibrillation and now change amiodarone 200 Mg twice daily Check QTc. Keep potassium greater than 4 magnesium greater than 2.0. Discussed again with both the daughters were at the bedside regarding the overall long-term poor prognosis for the patient. There is a high probability of sudden, clinically significant or life threatening deterioration in the patient condition which required the highest level of physician preparedness to intervene urgently. I have personally spent 65 minutes of critical care time, exclusive of time spent on any procedures, in evaluation and management of this critically ill patient. Management of rest of the medical conditions as per primary team and other consultants. Thank you for the consult and allowing me to participate in the care of the patient. Cardiology will continue to follow. Lico Malone M.D. Interventional Cardiology Time Spent With Patient Time: Total time spent is greater than 50% in coordination of care (as documented) at patient's floor/unit and/or counseling patient:
[2024-07-20 21:57] LABS: Ammonia 24 uMol/L (11-32)
[2024-07-21] VITALS (31 sets, daily range): BP systolic 63–95; BP diastolic 45–65; PULSE 71–102; RESP 11–36; TEMP 36.3–37.3; O2SAT 95–100; BMI 23.3
[2024-07-21 05:42] LABS: Basophils % (Auto) 0 % (0-2.5); Eosinophils % (Auto) 0 % (0-10); Hematocrit 26.2 % (36.0-46.0); Immature Granulocytes % (Auto) 0 % (0-0); Immature Granulocytes Auto 0.02 Thou/mm3 (0.00-0.00); Lymphocytes # (Auto) 0.7 Thou/mm3 (1.0-4.8); Lymphocytes % (Auto) 7 % (10-50); Mean Corpuscular HGB Conc 30.9 g/dl (31.0-37.0); Mean Corpuscular Hemoglobin 28.5 pg (25.0-35.0); Mean Corpuscular Volume 92 fL (80-100); Monocytes # (Auto) 0.2 Thou/mm3 (0.0-0.8); Monocytes % (Auto) 2 % (0-12); Neutrophils # (Auto) 8.8 Thou/mm3 (1.8-7.7); Neutrophils % (Auto) 90 % (37-80); Nucleated Red Blood Cell # 0.13 Thou/mm3 (0.00-0.00); Nucleated Red Blood Cell % 1 /100 WBC (0); RDW Standard Deviation 62.6 fL (36.4-46.3); Red Blood Count 2.84 Miln/mm3 (4.00-5.20); White Blood Count 9.8 Thou/mm3 (3.6-11.0)
[2024-07-21 05:43] LABS: Hemoglobin 8.1 g/dL (12.0-16.0); Platelet Count 42 Thou/mm3 (140-440)
[2024-07-21 06:12] LABS: Alanine Aminotransferase 16 U/L (10-49); Albumin, Serum 3.5 gm/dL (3.5-5.0); Albumin/Globulin Ratio 1.5 (1.2-2.2); Alkaline Phosphatase 149 U/L (46-116); Anion Gap 12 (7-16); Aspartate Amino Transferase < 8 U/L (0-34); BUN/Creatinine Ratio 25 Ratio (12-20); Bilirubin,Total 4.3 mg/dL (0.3-1.2); Blood Urea Nitrogen 40 mg/dL (9-23); Calcium 9.2 mg/dL (8.3-10.6); Calcium (Corrected) 9.6 mg/dL (8.5-10.1); Carbon Dioxide 25.4 mMol/L (20.0-31.0); Chloride 103 mMol/L (98-107); Creatinine (Component) 1.6 mg/dL (0.6-1.3); Estimated Creatinine Clearance 31.4 mL/min (>60); Globulin 2.4 gm/dL (2.3-3.5); Glucose 108 mg/dL (74-106); Osmolality,Calculated 290 (275-295); Phosphorous 4.6 mg/dL (2.4-5.1); Sodium 140 mMol/L (136-145); Total Protein 5.9 gm/dL (5.7-8.2); eGFR 38 See Note
[2024-07-21 06:17] LABS: Potassium 2.7 mMol/L (3.4-5.1)
[2024-07-21] MEDS: MIDODRINE 5 MG TABLET 15 MG PO ×3 (06:18→21:20)
[2024-07-21 06:19] LABS: Slide Review Platelets confirmed
[2024-07-21] MEDS: POTASSIUM CHLORIDE 10% 20 MEQ/15 ML UDC 40 MEQ GT ×2 (07:32→08:40)
[2024-07-21] MEDS: LANSOPRAZOLE 30 MG TAB.RAP.DR GT (09:07)
[2024-07-21] MEDS: AMIODARONE HCL 200 MG TABLET PO ×2 (09:07→21:20)
[2024-07-21] MEDS: rifaximin 550 MG TABLET PO ×2 (09:08→21:20)
[2024-07-21] MEDS: APIXABAN 2.5 MG TABLET 5 MG PO ×2 (09:09→21:20)
[2024-07-21] MEDS: LACTULOSE SYRUP 20 GM/30 ML UDC PO (09:19)
--- NOTE | 2024-07-21 09:20 | PD.RESPRO ---
Documentation for date of: 07/21/24 Subjective Subjective Interval history: 53-year-old female with a past medical history of diabetes mellitus type 2, embolic CVA, LV mural thrombus, liver cirrhosis, and amyloidosis, who was brought into the emergency room due to concern for bright red bleeding per rectum. Patient started noted spots of bright red blood when changing the patient's diaper. Daughter reported, patient has become progressively too weak and bedbound following the stroke. They noted some bright red spots when changing the patient's diaper, and when cleaning her noticed bright light blood oozing out of her rectum. Denied having any black stools, or blood mixed with stools. Denied history of diarrhea, vomiting, fever. Patient was initially admitted to the medical floor, but later upgraded to ICU due to concern for hypotension, MAP in the low 60s. There was concern for adrenal insufficiency, patient was started on hydrocortisone with no improvement of blood pressure. Patient had normal cortisol and ACTH level on previous admission. Patient was transferred to [facility] recently for possible ERCP due to choledocholithiasis, pending medical records from [facility], unsure if ERCP was done, but discharge documents show that patient was discharged with Eliquis, empagliflozin, furosemide and metoprolol. ED course: Initial labs pertinent for normocytic anemia, mild hyponatremia sodium 132, PHILL, BUN 47, creatinine 1.8, EGFR 33, baseline GFR seems to be around 53, BUN/creatinine ratio more than 20, lactic acid 3.9, T. bili 2.4, AST 40, ALT 36, alk phos 131, ammonia less than 10, mild troponin elevation 0.222, BNP 740, elevated Pro-Justice 7.21, lipase 88. Urinalysis consistent with UTI, stool occult was negative. Imaging studies include chest x-ray which shows bilateral significant pneumonia, EKG shows a flutter with RVR and right bundle branch block, ultrasound abdomen shows cholelithiasis and enlarged common bile duct 0.7, of note patient has no abdominal/right upper quadrant symptoms including pain or tenderness. The patient was admitted to the medical floor, with upgraded to ICU. 07/12/24 Patient evaluated bedside, labs and overnight events as reviewed, overnight patient was hypotensive and central line was placed for IV pressor support, but patient blood pressure improved, Levophed was withheld, patient also developed bradypnea following postprocedural sedation,, received 1 mg IV Dilaudid, respiratory rate decreased to 7/min along with hypoxia, requiring intubation and mechanical ventilation. This a.m. patient noted to be tolerating mechanical ventilation well, saturating at goal on 30% FiO2, PEEP of 5, will plan to continue with ventilation given patient's significant fluid overload, as patient may require reintubation due to significant pulmonary congestion in the setting of hepatorenal/cardiorenal syndrome. We will try to aggressively diurese the patient, last night patient had 1200 mL urine output despite Lasix drip, IV albumin 75 g and octreotide. Nephrology was consulted, nephro recommended switching to Bumex drip at 2 Mg per hour, vasopressor support to help with renal perfusion. Patient was started on dobutamine for inotropic support. Bedside echocardiogram was done which showed apical LV thrombus, global hypokinesis with severely reduced ejection fraction, cardiology recommended continuing heparin drip and continued aggressive IV diuresis. Repeat echocardiogram ordered. 07/13/24 patient evaluated bedside, RASS of -2, sedation was titrated down patient was able to wake up and move both upper limbs spontaneously, but unable to comply with instructions also respiratory rate low, continued on sedation for continued mechanical ventilation, patient not ready for extubation today. Patient was started on dobutamine for cardiorenal syndrome, but developed tachycardia heart rate in the 140s A-fib RVR, dobutamine was discontinued. Started on IV phenylephrine, but due to continued hypotension, vasopressor was changed to Levophed to help with improving blood pressure as well as renal perfusion, as patient is currently on Bumex drip but urine output less than goal 100 cc an hour. IV amiodarone started for A-fib RVR. Family updated about guarded prognosis. 07/14/24 Sedation was turned off, spontaneous breathing trial was done, goals of care discussion with family was done in the setting of end-stage liver disease and severe cardiomyopathy with inadequete urine production. Guarded prognosis of patient, possibility of aggressive intervention with hemodialysis/ultrafiltration, risks of prolonged sedation with intubation and mechanical ventilation, risk of line infections and discomfort, were explained. Their questions and concerns were answered. Family was explained that patient may be able to be weaned off ventilator, but risk of immediate reintubation is high due to end-stage organ failures, and complications of treatment. Patient's daughter Rachel was decided to be the decision-maker by the family, and new POLST form was signed. Patient continues to be DNR status, selective treatment only no chest compressions. Family decided that they would like to wait on their son who was in the and will be here on Friday, before extubation. Family's wishes were respected and patient is resumed on sedation and mechanical ventilation. Family decided against Hemodialysis, Will continue with Bumex drip for continued diuresis as possible, continue with amiodarone for rate control and Levophed to improve cardiac output. 07/15/2024: Patient seen today at the bedside. Vitals significant for BP of 88/58, on mechanical ventilation with a negative fluid balance. Sedation was weaned to off and provided spontaneous breathing trial. Patient became restless and sedation had to be turned back on. Continues on Bumex drip for diuresis as tolerated. Prognosis seems to be very poor. Family decided that they would like to wait on their son who was in the and will be here on Friday, before extubation. Family's wishes were respected and patient is resumed on sedation and mechanical ventilation. 07/16/2024: Patient seen today at the bedside. Vital signs significant for blood pressure 105/70, tachycardia 118 beats per minute, on mechanical ventilation. Patient is meeting's oxygenation and ventilation goals. Plan today is to wean off sedation and provide spontaneous breathing trial and extubate patient, will monitor for adequate toleration. Urine output has remained minimal and not to goal currently on Bumex 2 mg every 8 hours will add metolazone 5 mg twice daily. Plan was discussed with the family and POA and agreed that due to the patient's overall poor prognosis should patient's condition deteriorate we will not pursue reintubation. Patient is DNR/DNI. 07/17/2024: patient evaluated at bedside, off sedation, patient was extubated yesterday, currently AO x 2, she is able to follow simple commands, saturating well on room air, NG tube in place, patient had failed swallow eval , pertinent for hemoglobin 7.0, no active GI bleed noted during ICU stay, labs pertinent for iron deficiency, also noted thrombocytopenia, of note patient's platelets have been on the lower side since June, probably after starting anticoagulation for LV thrombus. BUN 61, creatinine 1.9, after discussion with family, poor response to IV Bumex and metolazone, plan to proceed with hemodialysis. Metal Ceiling Hanger Dr Fabian is on board, dialysis catheter placed, hemodialysis initiated. Started on low-dose Levophed as patient blood pressure on the softer side, will titrate to keep MAP more than 60 during hemodialysis. 07/18/2024: Patient evaluated bedside, she continues to be off sedation, alert oriented x 2, following simple commands, saturating well on 2 L nasal cannula O2. Currently on NG tube feedings, pending swallow eval, hemoglobin this a.m. dropped to 6.5, repeat H&H 6.7, ordered 1 PRBC transfusion, posttransfusion H&H ordered. Urine output 620 mL overnight, nephrology plan for short intermittent hemodialysis today. Also noted hypokalemia potassium 2.9, repleted, nephrology aware. Will repeat renal panel in the afternoon after hemodialysis. Ordered ferritin, serial plasmin, copper levels for workup of cirrhosis. GI consult to Dr. Sotelo placed for concern for GI bleed, patient is rectal tube in place noted dark-colored stools. Continued on heparin drip for now, patient is maintaining vitals on low-dose Levophed, continue during hemodialysis. 07/19/2024 : patient is more awake and alert but disoriented, concern for ICU delirium, but patient is able to follow commands. No acute overnight events, labs this a.m. pertinent for thrombocytopenia, Noted petechial rash on the anterior chest, platelet count decreased more than 50% to 20,000, heparin GTT was withheld, repeat CBC showed little with count 22,000, heme-onc consult to Dr. Chahal was obtained, who recommended starting the patient on Eliquis, sending HIT panel, will follow results. Patient was started on Eliquis 5 mg twice daily for LV thrombus, bleeding risk and risk of stroke as well as other complications were discussed with the family, and family is in agreement with starting Eliquis. Pending EGD today for possible GI bleed. Bumex was discontinued after nephrology consultation, as patient only had 200 mL urine output overnight. Continued with sequential ultrafiltration, target 3 L UF today. Continue Levophed, target MAP more than 60. 07/20/2024: Patient seen today at the bedside, found awake, alert, able to follow commands but no able to verbalize. Overnight patient was anuric only urinary output was 30ccs, and had 1 loose bowel movement. Vital signs at this time is hypotensive but off pressors currently on Midodrine adjusted to 15mg TID and maintaining MAPs>60 which is at goal, no fever spikes noted overnight, rest of vital signs are unremarkable. Labs significant for slight decrease in Hg 8.8-8.1, Plts improving from 22--37, chemistry at this time unremarkable except worsening in renal fx and increased total bilirubin. Given patients recent sudden drop in Hg and Plts, HIT panel was ordered and ordered direct and indirect bilirubin for possible hemolysis etiology. Patient will have CT-scan of chest with contrast as after aggressive diuresis and dialysis patients x-ray is noted to have consolidation and pleural effusion. Patient will receive dialysis post-CT with contrast, plan is to remove 2-2.5L of fluid. At this point in time plan is to have a goals of care discussion with family tomorrow. 07/21/2024: Patient seen today at the bedside, found awake, alert, able to follow commands but no able to verbalize. Overnight patient was anuric, and had 1 loose bowel movement with no fever spikes noted. Vital signs patient is hypotensive but off pressors currently on Midodrine 15mg TID and maintaining MAPs>60, rest of vital signs are unremarkable. Labs Hg stable at this time, platelets improving. Chemistry significant for hypokalemia which was repleted. Spoke with Nephrology and will hold off on Hemodialysis until goals of care discussion today in the afternoon. Goals of care discussion was had with family about the patients clinical status and poor prognosis. Patients family's questions and concerns were answered and respecting the family's values and wishes patient was made hospice care. Exam Vital Signs Temp Pulse Resp BP Pulse Ox O2 Del Method O2 Flow Rate 97.4 F 100 14 93/59 L 100 Nasal Cannula 1 07/21/24 04:00 07/21/24 09:07 07/21/24 06:11 07/21/24 09:07 07/21/24 06:11 07/20/24 07:00 07/21/24 06:11 FiO2 45 07/20/24 12:25 Narrative Exam Physical Exam: General: AAOx0, non-verbal, cachectic, temporal wasting, able to follow commands HEENT: Atraumatic, mucous membranes moist, Rt IJ CL, NGT in place Heart: Regular rate and rhythm, no murmurs. Lungs: B/L rhonchi, no wheezing or crackles. Abdomen: Soft, nondistended, nontender, bowel sounds-appreciated, pitting edema present in the abdominal wall. No guarding or rebound tenderness. Ext: 3+ peripheral edema up to mid abdomen, LLE with 6 digits noted, no flapping tremors noted Skin: Noted petechial rash on the anterior chest, B/L Upper extremities with bruising noted on the forearms, bruising around Rt IJ CL area, skin tear in right buttocks Neuro: AAOx 0, no gross neurological deficit, and patient able to move all extremities. Objective Labs 07/22/24 04:51 07/22/24 04:51 Labs: Laboratory Results - last 24 hr 07/20/24 07/20/24 07/21/24 05:55 21:10 04:54 WBC 9.8 RBC 2.84 L Hgb 8.1 L Hct 26.2 L MCV 92 MCH 28.5 MCHC 30.9 L RDW Std Deviation 62.6 H Plt Count 42 L Neut % (Auto) 90 H Lymph % (Auto) 7 L Karnes % (Auto) 2 Eos % (Auto) 0 Baso % (Auto) 0 Neut # (Auto) 8.8 H Lymph # (Auto) 0.7 L Karnes # (Auto) 0.2 Eos # (Auto) 0.0 Baso # (Auto) 0.0 Immature Gran # (Auto) 0.02 H Absolute Nucleated RBC 0.13 H Immature Gran % 0 Nucleated RBC % 1 H Sodium 140 Potassium 2.7 L* D Chloride 103 Carbon Dioxide 25.4 Anion Gap 12 BUN 40 H Creatinine 1.6 H Estim Creat Clear Calc 31.4 L eGFR 38 L BUN/Creatinine Ratio 25 H Glucose 108 H Calculated Osmolality 290 Calcium 9.2 Corrected Calcium 9.6 Phosphorus 4.6 Magnesium 2.0 Total Bilirubin 4.3 H Direct Bilirubin 3.2 H AST < 8 ALT 16 Alkaline Phosphatase 149 H D Ammonia 24 Total Protein 5.9 Albumin 3.5 Globulin 2.4 Albumin/Globulin Ratio 1.5 Misc Test Result Platelets confirmed ABG Interpretation ABG results: 07/11/24 07/12/24 07/12/24 22:53 01:05 03:33 ABG pH 7.24 L 7.16 L* 7.44 D ABG pCO2 53 H 61 H 34 D ABG pO2 101 64 L D 426 H D ABG HCO3 23 22 24 ABG O2 Saturation 97 84 L 102 H ABG Base Excess -5 L -7 L -1 07/13/24 07/14/24 07/16/24 05:22 04:33 07:35 ABG pH 7.46 H 7.40 7.49 H ABG pCO2 38 37 38 ABG pO2 100 D 58 L* D 106 D ABG HCO3 27 H 23 28 H ABG O2 Saturation 99 H 89 L 100 H ABG Base Excess 3 -2 5 H Quality Measures Quality Measures VTE therapy Assessment & Plan Assessment Current Active Medications: Generic Name Dose Route Start Last Admin Trade Name Freq PRN Reason Stop Dose Admin Amiodarone HCl 200 mg 07/15/24 09:00 07/21/24 09:07 Amiodarone Hcl 200 Mg Tablet PO 08/14/24 08:59 200 mg BID SAVANNAH Administration Apixaban 5 mg 07/19/24 13:30 07/21/24 09:09 Apixaban 2.5 Mg Tablet PO 08/18/24 13:29 5 mg BID SAVANNAH Administration Dextrose 25 ml 07/11/24 19:55 Dextrose 50%-Water Inj 50 Ml Syringe IV 08/10/24 19:54 Q15MIN PRN BG 50-70 responsive npo pt Dextrose 50 ml 07/11/24 19:55 07/16/24 18:22 Dextrose 50%-Water Inj 50 Ml Syringe IV 08/10/24 19:54 50 ml Q15MIN PRN Administration BG <50 OR BG <70 & pt unresponsive Glucagon 1 mg 07/11/24 19:55 Glucagon Inj 1 Mg Vial IM Q15MIN PRN BG <70, and no IV access Heparin Sodium (Porcine) 2,500 unit 07/17/24 15:52 07/20/24 12:03 Heparin Sod Inj 1000 Unit/Ml Vial 10 Ml INDWELLCAT 07/31/24 15:51 2,500 unit PRN PRN Administration DIALYSIS Norepinephrine/Dextrose 8 mg in 250 mls @ 5.588 mls/hr 07/20/24 06:42 07/20/24 14:15 Levophed In D5w 8mg/250ml IV 08/12/24 16:52 0 mcg/kg/min .Q24H PRN 0 mls/hr PER PROTOCOL Titration Protocol 0.05 MCG/KG/MIN Insulin Human Lispro 0 unit 07/12/24 12:00 07/21/24 06:12 Insulin Lispro (Admelog) 1 Unit/0.01 Ml Unit SC 08/11/24 11:59 Not Given Q6HR SAVANNAH Protocol Lactulose 20 gm 07/20/24 09:00 07/21/24 09:19 Lactulose Syrup 20 Gm/30 Ml Udc PO 08/19/24 08:59 20 gm QDAY SAVANNAH Administration Protocol Lansoprazole 30 mg 07/19/24 13:30 07/21/24 09:07 Lansoprazole 30 Mg Tab.Merrick.Dr GOFF 08/18/24 13:29 30 mg QDAY SAVANNAH Administration Midodrine 15 mg 07/20/24 14:00 07/21/24 06:18 Midodrine 5 Mg Tablet PO 08/19/24 13:59 15 mg TID SAVANNAH Administration Rifaximin 550 mg 07/19/24 10:45 07/21/24 09:08 Rifaximin 550 Mg Tablet PO 07/26/24 10:44 550 mg BID SAVANNAH Administration Plan 53-year-old female with a past medical history of diabetes mellitus type 2, embolic CVA, LV mural thrombus, liver cirrhosis, and amyloidosis, who was brought into the ED due to concern for bright red bleeding per rectum, generalized weakness. Denied history of diarrhea, vomiting, fever. Patient was initially admitted to the medical floor, but later upgraded to ICU due to concern for hypotension, MAP in the low 60s. 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 #History of embolic stroke [facility] medical records show pt had Small acute infarcts right occipital lobe, right posterior frontal lobe, posterior medial right madonna. - continue anticoagulation with eliquis in the setting of LV thrombus CVS: #Cardiomyopathy, possibly amyloidosis [facility] medical records show cardiac MRI showing LV severely reduced systolic function with global hypokinesis LVEF 20%, LV hypertrophy, delayed hyperenhancement of myocardium in all chambers, consistent with cardiac amyloidosis. Prominent LV apical thrombus, 22.5 cm. RV systolic function 21%. Moderate TR mild to moderate MR. Echo done here shows: Normal LV size. Global LV systolic function is severely decreased. Estimated EF < 20%. Possible LV mural thrombus is present 2.51 cm x 1.71 cm. Moderate hypertrophy with ground glass appearence - need to r/o amyloid or other infiltartative diseases. diastolic dysfunction present but unable to grade as there is no E/A. atleast grade 2 and grade 3 RV is normal in size. RV systolic function is severely decreased. Estimated RVSP, 39 mmHg including RAP 15mmHg. Moderately dilated LA and RA. Mild to moderate MR. mild AI and Severe TR Dilated IVC and moderatre size pleural effusion. - Urine immunofixation shows no monoclonal antibody pattern, homocystine level 20.4, increased, possibly secondary to vitamin B12/folic acid deficiency, Negative lupus Anticoagulant #Atrial fibrillation-rate controlled #Left ventricular thrombus EKG showed A-fib, initially with RVR, now rate controlled [id number] score 4, 4.8% annualized risk of stroke, LV thrombus now found when pt was transferred to [facility] recently, possibly Post silent myocardial infarction LV thrombus formation. Patient was started on dobutamine for cardiorenal syndrome, but developed tachycardia heart rate in the 140s A-fib RVR, dobutamine was discontinued. ? Eliquis 5mg BID ? Amiodarone 200 mg p.o. twice daily ? French Binder Dr. Malone on case, appreciate recommendations #Hypotension, Cardiogenic Shock?resolving DDx: Septic shock, Cardiogenic shock, cirrhosis leading to third spacing of fluid Of note patient had a previous echocardiogram, estimated EF more than 55%, no intracardiac thrombus at that time, but now at the bedside echo, findings are concerning for Global hypokinesis, poor RV and LV contractility is evident with an apical LV thrombus, noted IVC at 2.0 cm and no change in size with cardiac contraction, congested portal and hepatic veins with reversal of flow in hepatic veins, VExUS score 3 shows severe congestion. ? Midodrine 15mg TID ? On Levophed gtt., titrate MAP more than 60, Levophed was discontinued, but patient requires low-dose pressors during hemodialysis. #NSTEMI likely type 2 in setting of supply/demand mismatch Minimal troponin elevation 0.2030 - currently on Eliquis Resp: #Pulmonary edema In the setting of severely low EF 20% and cardiomyopathy, we discontinued antibiotics as pulmonary imaging and clinical condition shows consolidation and congestion more suggestive of fluid overload than infectious process. Initiated hemodialysis due to below target response to IV diuresis. CT-scan of the chest was done, final read pending but appears to be some B/L pleural effusions with some consolidations. ? Currently saturating well on room air #Mechanical Ventilation-discontinued GI: #GI bleed- Gastritis with stigmata of bleeding Bright red bleeding per rectum, stable hemoglobin at 7 hypotensive on arrival, stool occult was negative in the ER. Patient started on heparin drip due to LV mural thrombus and A-fib and was probably on anticoagulation with Eliquis at home. No evidence of rectal bleed during ICU stay, initially rectal tube was placed, hemoglobin dropped to 6.5, repeat H&H 6.7, ordered 1 PRBC transfusion, posttransfusion H&H ordered. ? Transfuse if Hg <7 ? Pharmaceutical Analyst Dr. Sotelo's consuled EGD was done showed hemorrhagic gastritis, no evidence of varices or peptic ulcer on EGD, per GI okay to continue with anticoagulation. #Cirrhosis Likely secondary to metabolic dysfunction associated steatotic liver disease, MASLD, medical records from [facility], show imaging findings consistent with signs of portal hypertension and cirrhosis Associated hypoalbuminemia, and hepatorenal syndrome, contributing to PHILL and anasarca. [facility] medical records do not show any workup for histopathologic diagnosis, no liver biopsy performed to our knowledge. Patient's primary care physician at [facility], per family no knowledge of prior liver disease. Hepatitis panel was ordered found to be negative. - pending Ferritin, ceruloplasmin, copper levels. #Choledocholithiasis #Hyperbilirubinemia Prior medical history of Choledocholithiasis and transferred to [facility] for possible ERCP, medical records from [facility] were obtained, reported patient had a repeat MRCP at [facility] which showed no stones in the bile duct, possibly passage of stones had already occurred. No ERCP was performed. ? Imaging findings concerning for CBD dilation, but given extensive workup at [facility] no further intervention is indicated at this point ? Continue supportive treatment Renal: #PHILL, hepatorenal syndrome vs cardiorenal syndrome #Anasarca DDx: Hepatorenal syndrome versus cardiorenal syndrome Baseline creatinine seems to be around 1.2 Patient also has fluid overload anasarca ? IV Albumin 25 g qday ? Midodrine 15mg TID ? Hemodialysis for ultrafiltration, as urine output below target despite IV diuretics Endo: #Concern for adrenal insufficiency- ruled out #History of diabetes mellitus type 2 ? Sliding scale insulin, A1c level ? Hypoglycemia protocol in place ID: Stable Heme: #Normocytic anemia, likely iron deficiency vs Anemia of chronic disease Differentials include anemia of chronic disease, as normocytic hypochromic RBC on cbc, worsened by nutritional deficiency ? Total iron deficit 1029, ordered 510 mg elemental iron replacement with Ferraheme - Monitor H&H - transfuse if Hb <7 #Thrombocytopenia of note patient's platelets have been on the lower side since June, probably after starting anticoagulation for LV thrombus. Plt 20,000 this am 22,000 on repeat labs, concern for Heparin induced thrombocytopenia, Discontinue heparin gtt due to >50% drop in plt count. - Hematology consult to Dr Fela castro, appreciate recommendations - Eliquis initiated per Heme/Onc recommendations - HIT panel pending Case discussed with my senior Dr. Schwab PGY-[address] João Pichardo MD PGY-1 Disposition: Patient made hospice care DVT prophylaxis: Eliquis GI prophylaxis: Lansoprazole Diet: Tube feeds CODE STATUS: DNR and Senior resident attestation: I discussed with and supervised the internet marketing coordinator physician who took care of this patient. I personally saw and examined the patient and discussed the assessment and plan with the entire medicine team, including my attending Dr. Moyer , I agree with the assessment and plan as documented above. Per goals of care discussion, CODE status changed to DNR , family would opt for Hospice given multiple endorgan failures, end stage Liver, Renal and cardiac failure. Pt unable to tolerate Hemodialysis inpatient, requiring iv pressors, not a candidate for outpt hemodialysis. Respect family/POA wishes, social cand case management will make arrangement for Hospice. MD Josselin PGY2
--- NOTE | 2024-07-21 09:38 | ESPR_ITS ---
Documentation for date of: 07/21/24 Subjective Subjective Interval history: 07/21/2024: No acute overnight events to report. Patient seen and examined off pressors but continues to be on midodrine with very soft blood pressure. Patient remains peripherally volume overloaded; with +2 pitting edema noted up to bilateral hips. ICU team has talked with nephrology and dialysis is being held until ICU team can speak with family regarding goals of care discussions. Patient is long-term prognosis remains very poor; cardiology following and will provide recommendations. Exam Vital Signs Temp Pulse Resp BP Pulse Ox O2 Del Method O2 Flow Rate 97.4 F 100 14 93/59 L 100 Nasal Cannula 1 07/21/24 04:00 07/21/24 09:07 07/21/24 06:11 07/21/24 09:07 07/21/24 06:11 07/20/24 07:00 07/21/24 06:11 FiO2 45 07/20/24 12:25 Narrative Exam General: On 1L NC. Appears cachectic with significant loss of muscle and even in the temporal areas bilaterally Eyes: PERRLA, EOMI, anicteric sclera HEENT: Atraumatic, normocephalic. No JVD noted. left IJ vasc cath noted Cardiovascular: Normal S1 and S2. +2 pitting peripheral edema to lower extremities and anasarca Respiratory: lungs auscultation bilaterally.with crackles fine and No wheezing. Abdomen: Abdomen soft but distended, nontender Skin: No rash. Slightly cold to touch. Neuro: AAo x2, slightly confused and no focal deficits Objective Labs 07/21/24 04:54 07/21/24 04:54 Labs: Laboratory Results - last 24 hr 07/20/24 07/20/24 07/21/24 05:55 21:10 04:54 WBC 9.8 RBC 2.84 L Hgb 8.1 L Hct 26.2 L MCV 92 MCH 28.5 MCHC 30.9 L RDW Std Deviation 62.6 H Plt Count 42 L Neut % (Auto) 90 H Lymph % (Auto) 7 L [place] % (Auto) 2 Eos % (Auto) 0 Baso % (Auto) 0 Neut # (Auto) 8.8 H Lymph # (Auto) 0.7 L [place] # (Auto) 0.2 Eos # (Auto) 0.0 Baso # (Auto) 0.0 Immature Gran # (Auto) 0.02 H Absolute Nucleated RBC 0.13 H Immature Gran % 0 Nucleated RBC % 1 H Sodium 140 Potassium 2.7 L* D Chloride 103 Carbon Dioxide 25.4 Anion Gap 12 BUN 40 H Creatinine 1.6 H Estim Creat Clear Calc 31.4 L eGFR 38 L BUN/Creatinine Ratio 25 H Glucose 108 H Calculated Osmolality 290 Calcium 9.2 Corrected Calcium 9.6 Phosphorus 4.6 Magnesium 2.0 Total Bilirubin 4.3 H Direct Bilirubin 3.2 H AST < 8 ALT 16 Alkaline Phosphatase 149 H D Ammonia 24 Total Protein 5.9 Albumin 3.5 Globulin 2.4 Albumin/Globulin Ratio 1.5 Misc Test Result Platelets confirmed ABG Interpretation ABG results: 07/11/24 07/12/24 07/12/24 22:53 01:05 03:33 ABG pH 7.24 L 7.16 L* 7.44 D ABG pCO2 53 H 61 H 34 D ABG pO2 101 64 L D 426 H D ABG HCO3 23 22 24 ABG O2 Saturation 97 84 L 102 H ABG Base Excess -5 L -7 L -1 07/13/24 07/14/24 07/16/24 05:22 04:33 07:35 ABG pH 7.46 H 7.40 7.49 H ABG pCO2 38 37 38 ABG pO2 100 D 58 L* D 106 D ABG HCO3 27 H 23 28 H ABG O2 Saturation 99 H 89 L 100 H ABG Base Excess 3 -2 5 H Quality Measures Quality Measures VTE therapy Assessment & Plan Assessment Current Active Medications: Generic Name Dose Route Start Last Admin Trade Name Ciarra PRN Reason Stop Dose Admin Amiodarone HCl 200 mg 07/15/24 09:00 07/21/24 09:07 Amiodarone Hcl 200 Mg Tablet PO 08/14/24 08:59 200 mg BID SAVANNAH Administration Apixaban 5 mg 07/19/24 13:30 07/21/24 09:09 Apixaban 2.5 Mg Tablet PO 08/18/24 13:29 5 mg BID SAVANNAH Administration Dextrose 25 ml 07/11/24 19:55 Dextrose 50%-Water Inj 50 Ml Syringe IV 08/10/24 19:54 Q15MIN PRN BG 50-70 responsive npo pt Dextrose 50 ml 07/11/24 19:55 07/16/24 18:22 Dextrose 50%-Water Inj 50 Ml Syringe IV 08/10/24 19:54 50 ml Q15MIN PRN Administration BG <50 OR BG <70 & pt unresponsive Glucagon 1 mg 07/11/24 19:55 Glucagon Inj 1 Mg Vial IM Q15MIN PRN BG <70, and no IV access Heparin Sodium (Porcine) 2,500 unit 07/17/24 15:52 07/20/24 12:03 Heparin Sod Inj 1000 Unit/Ml Vial 10 Ml INDWELLCAT 07/31/24 15:51 2,500 unit PRN PRN Administration DIALYSIS Norepinephrine/Dextrose 8 mg in 250 mls @ 5.588 mls/hr 07/20/24 06:42 07/20/24 14:15 Levophed In D5w 8mg/250ml IV 08/12/24 16:52 0 mcg/kg/min .Q24H PRN 0 mls/hr PER PROTOCOL Titration Protocol 0.05 MCG/KG/MIN Insulin Human Lispro 0 unit 07/12/24 12:00 07/21/24 06:12 Insulin Lispro (Admelog) 1 Unit/0.01 Ml Unit SC 08/11/24 11:59 Not Given Q6HR SAVANNAH Protocol Lactulose 20 gm 07/20/24 09:00 07/21/24 09:19 Lactulose Syrup 20 Gm/30 Ml Udc PO 08/19/24 08:59 20 gm QDAY SAVANNAH Administration Protocol Lansoprazole 30 mg 07/19/24 13:30 07/21/24 09:07 Lansoprazole 30 Mg Tab.Rap.Dr GOFF 08/18/24 13:29 30 mg QDAY SAVANNAH Administration Midodrine 15 mg 07/20/24 14:00 07/21/24 06:18 Midodrine 5 Mg Tablet PO 08/19/24 13:59 15 mg TID SAVANNAH Administration Rifaximin 550 mg 07/19/24 10:45 07/21/24 09:08 Rifaximin 550 Mg Tablet PO 07/26/24 10:44 550 mg BID SAVANNAH Administration Plan 53-year-old female with a past medical history of recent acute stroke on 06/24/2024 thought to be secondary to embolic stroke from left ventricular mural thrombus diagnosed at [facility] and is on Eliquis, history of choledocholithiasis status post MRCP in June 2024, metabolic dysfunction 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 Upgraded to ICU level of care. #Systolic and Diastolic Acute Heart Failure (EF <20%) #Cardiogenic shock versus distributive #Anasarca #Cardiorenal syndrome #NSTEMI type II #Likely infiltrative disease in the setting of supply/demand mismatch Troponins plateaued at 0.2 EKG shows sinus tachycardia with nonspecific ST changes and frequent PVCs Echo from 07/12 shows Normal LV size. Global LV systolic function is severely decreased. Estimated EF < 20%. LV mural Moderate hypertrophy with ground glass appearance of the left ventricular wall RV systolic function is severely decreased. Estimated RVSP, 39 mmHg including RAP 15mmHg. Moderately dilated LA and RA. Mild to moderate MR. mild AI and Severe TR. Dilated IVC Nephrology following, appreciate recommendations Off Levophed, MAP greater than 60 Plan: Hemodialysis held on 07/21: ICU team having goals of care discussion Strict I's and O's 2 g sodium diet when applicable Continue midodrine for pressure support Patient will require beta-brigida and Entresto once blood pressure is more stable Keep potassium greater than 4.0 and magnesium greater than 2.0 at all times. Workup possible amyloidosis versus other infiltrative disease, if patient makes any substantial recovery #Atrial Fibrillation NVR #Hypotensive #QTc prolongation, improving Nonsustained Developed afib when started on Dobutamine for cardiorenal syndrome Dobutamine discontinued Patient on levophed and midodrine for blood pressure support in spite of volume overloaded state Latest EKG shows sinus tachycardia, rate of 108, left axis deviation with right bundle dav block and QTc 450 Plan: Continue to monitor; patient normal sinus rhythm currently Continue amiodarone 200 mg po twice daily Avoid additional QTc prolonging medications Keep potassium greater than 4 magnesium greater than 2.0 #LV thrombus Thrombocytopenia #Possible heparin-induced thrombocytopenia As seen at [facility] Echo confirmed presence of left ventricular thrombus Patient's platelets dropped to 22; initial platelet during admission was [address] Dr. Chahal consulted; appreciate recommendations Plan: Obtain the study reports Can restart heparin drip ICU team has ordered HIT antibody on eliquis 5 mg bid #Acute hypoxic respiratory failure, resolved patient extubated #History of CVA June 2024 secondary to possible embolic cardiac etiology #Cirrhosis of the liver secondary to [place] or MASLD #Acute kidney injury #Type 2 diabetes, [id number] A1c of 5.9 #Choledocholithiasis #Cachexia with severe recent weight loss #Ebony tropicalis in urine #Delirium Rest of medical problems to be managed by the ICU team; cardiology following and will give recommendations. Patient seen and examined with attending Dr. Kira Jacobo, PGY-1 There is a high probability of sudden, clinically significant or life threatening deterioration in the patient condition which required the highest level of physician preparedness to intervene urgently. I have personally spent 40 minutes of critical care time, exclusive of time spent on any procedures, in evaluation and management of this critically ill patient. Attending Provider Attestation/Addendum I have discussed the plan of care with the resident. I reviewed the resident consultation progress note and agree with the resident findings and plan in the note above and have also edited the documentation to reflect my findings and plan. Lico Malone M.D. Interventional Cardiology
--- NOTE | 2024-07-21 10:13 | PC.DIETICIAN ---
Nutrition prescription (updated) 1. Nepro at 38 ml/hr x 24 hrs via NG tube by pump (goal). If no IV fluids, water flushes of 20 ml/hr (or per MD). 2. ProStat 1 pkt (30ml) BID via NG tube.
--- NOTE | 2024-07-21 11:22 | PD.INTPROG ---
Documentation for date of: 07/21/24 Subjective Subjective Interval history: 53-year-old female with a past medical history of diabetes mellitus type 2, embolic CVA, LV mural thrombus, liver cirrhosis, and amyloidosis, who was brought into the emergency room due to concern for bright red bleeding per rectum. Patient started noted spots of bright red blood when changing the patient's diaper. Daughter reported, patient has become progressively too weak and bedbound following the stroke. They noted some bright red spots when changing the patient's diaper, and when cleaning her noticed bright light blood oozing out of her rectum. Denied having any black stools, or blood mixed with stools. Denied history of diarrhea, vomiting, fever. Patient was initially admitted to the medical floor, but later upgraded to ICU due to concern for hypotension, MAP in the low 60s. There was concern for adrenal insufficiency, patient was started on hydrocortisone with no improvement of blood pressure. Patient had normal cortisol and ACTH level on previous admission. Patient was transferred to [facility] recently for possible ERCP due to choledocholithiasis, pending medical records from [facility], unsure if ERCP was done, but discharge documents show that patient was discharged with Eliquis, empagliflozin, furosemide and metoprolol. ED course: Initial labs pertinent for normocytic anemia, mild hyponatremia sodium 132, PHILL, BUN 47, creatinine 1.8, EGFR 33, baseline GFR seems to be around 53, BUN/creatinine ratio more than 20, lactic acid 3.9, T. bili 2.4, AST 40, ALT 36, alk phos 131, ammonia less than 10, mild troponin elevation 0.222, BNP 740, elevated Pro-Justice 7.21, lipase 88. Urinalysis consistent with UTI, stool occult was negative. Imaging studies include chest x-ray which shows bilateral significant pneumonia, EKG shows a flutter with RVR and right bundle branch block, ultrasound abdomen shows cholelithiasis and enlarged common bile duct 0.7, of note patient has no abdominal/right upper quadrant symptoms including pain or tenderness. The patient was admitted to the medical floor, with upgraded to ICU. 07/12/24 Patient evaluated bedside, labs and overnight events as reviewed, overnight patient was hypotensive and central line was placed for IV pressor support, but patient blood pressure improved, Levophed was withheld, patient also developed bradypnea following postprocedural sedation,, received 1 mg IV Dilaudid, respiratory rate decreased to 7/min along with hypoxia, requiring intubation and mechanical ventilation. This a.m. patient noted to be tolerating mechanical ventilation well, saturating at goal on 30% FiO2, PEEP of 5, will plan to continue with ventilation given patient's significant fluid overload, as patient may require reintubation due to significant pulmonary congestion in the setting of hepatorenal/cardiorenal syndrome. We will try to aggressively diurese the patient, last night patient had 1200 mL urine output despite Lasix drip, IV albumin 75 g and octreotide. Nephrology was consulted, nephro recommended switching to Bumex drip at 2 Mg per hour, vasopressor support to help with renal perfusion. Patient was started on dobutamine for inotropic support. Bedside echocardiogram was done which showed apical LV thrombus, global hypokinesis with severely reduced ejection fraction, cardiology recommended continuing heparin drip and continued aggressive IV diuresis. Repeat echocardiogram ordered. 07/13/24 patient evaluated bedside, RASS of -2, sedation was titrated down patient was able to wake up and move both upper limbs spontaneously, but unable to comply with instructions also respiratory rate low, continued on sedation for continued mechanical ventilation, patient not ready for extubation today. Patient was started on dobutamine for cardiorenal syndrome, but developed tachycardia heart rate in the 140s A-fib RVR, dobutamine was discontinued. Started on IV phenylephrine, but due to continued hypotension, vasopressor was changed to Levophed to help with improving blood pressure as well as renal perfusion, as patient is currently on Bumex drip but urine output less than goal 100 cc an hour. IV amiodarone started for A-fib RVR. Family updated about guarded prognosis. 07/14/24 Sedation was turned off, spontaneous breathing trial was done, goals of care discussion with family was done in the setting of end-stage liver disease and severe cardiomyopathy with inadequete urine production. Guarded prognosis of patient, possibility of aggressive intervention with hemodialysis/ultrafiltration, risks of prolonged sedation with intubation and mechanical ventilation, risk of line infections and discomfort, were explained. Their questions and concerns were answered. Family was explained that patient may be able to be weaned off ventilator, but risk of immediate reintubation is high due to end-stage organ failures, and complications of treatment. Patient's daughter Rachel was decided to be the decision-maker by the family, and new POLST form was signed. Patient continues to be DNR status, selective treatment only no chest compressions. Family decided that they would like to wait on their son who was in the and will be here on Friday, before extubation. Family's wishes were respected and patient is resumed on sedation and mechanical ventilation. Family decided against Hemodialysis, Will continue with Bumex drip for continued diuresis as possible, continue with amiodarone for rate control and Levophed to improve cardiac output. 07/15/2024: Patient seen today at the bedside. Vitals significant for BP of 88/58, on mechanical ventilation with a negative fluid balance. Sedation was weaned to off and provided spontaneous breathing trial. Patient became restless and sedation had to be turned back on. Continues on Bumex drip for diuresis as tolerated. Prognosis seems to be very poor. Family decided that they would like to wait on their son who was in the and will be here on Friday, before extubation. Family's wishes were respected and patient is resumed on sedation and mechanical ventilation. 07/16- no acute overnight events, afebrile, has started to make some UOP and is net neg overnight, pt wakes up and follows commands with sedation vacation. 07/17- extubated yesterday to RA and doing well, awake and interactive though not fully oriented. minimal UOP, afebrile, NGT in place , weak cough 07/18- no acute overnight events, afebrile, min UOP though better than yesterday, failed swallow eval yesterday 07/19- no acute events, min UOP, awake and interactive but confused, drop in PLT overnight, no brisk bleed noted 07/20- no acute overnight events, follows commands but seems to have more trouble speaking today, afebrile, virtually anuric, no active bleeding noted, 1 episode of loose stools overnight 07/21- no significant changes in overall status, able to ween down on levo however cont to require vasopressor support in order to tolerate dialysis. no c/o pain or SOB , afebrile, virtually anuric Critical Care Note Critical care time (min.): 48 Exam Vital Signs Temp Pulse Resp BP Pulse Ox O2 Del Method O2 Flow Rate 98.2 F 99 16 91/65 99 Nasal Cannula 1 07/21/24 08:00 07/21/24 11:00 07/21/24 11:00 07/21/24 11:00 07/21/24 11:00 07/21/24 08:00 07/21/24 08:00 FiO2 45 07/20/24 12:25 Narrative Exam Gen- NAD, ill appearing, thin and cachectic but with some improvement in anasarca HEENT- NC/AT, mucosa dry, sclera icteric, EOMI, poor dentition Chest- diminished few scattered crackles at base, HRRR, no increase in WOB Abd- s/nt/bs diminished Ext- improvement in edema of upper and lower extremitites, no mottling, no clubbing, very thin with musc wasting, gen weakness Physical Exam Completion Physical Exam Complete?: Yes Objective - Veterinary Assistant Labs 07/22/24 04:51 07/22/24 04:51 Labs: Laboratory Results - last 24 hr 07/20/24 07/21/24 21:10 04:54 WBC 9.8 RBC 2.84 L Hgb 8.1 L Hct 26.2 L MCV 92 MCH 28.5 MCHC 30.9 L RDW Std Deviation 62.6 H Plt Count 42 L Neut % (Auto) 90 H Lymph % (Auto) 7 L [place] % (Auto) 2 Eos % (Auto) 0 Baso % (Auto) 0 Neut # (Auto) 8.8 H Lymph # (Auto) 0.7 L [place] # (Auto) 0.2 Eos # (Auto) 0.0 Baso # (Auto) 0.0 Immature Gran # (Auto) 0.02 H Absolute Nucleated RBC 0.13 H Immature Gran % 0 Nucleated RBC % 1 H Sodium 140 Potassium 2.7 L* D Chloride 103 Carbon Dioxide 25.4 Anion Gap 12 BUN 40 H Creatinine 1.6 H Estim Creat Clear Calc 31.4 L eGFR 38 L BUN/Creatinine Ratio 25 H Glucose 108 H Calculated Osmolality 290 Calcium 9.2 Corrected Calcium 9.6 Phosphorus 4.6 Magnesium 2.0 Total Bilirubin 4.3 H AST < 8 ALT 16 Alkaline Phosphatase 149 H D Ammonia 24 Total Protein 5.9 Albumin 3.5 Globulin 2.4 Albumin/Globulin Ratio 1.5 Misc Test Result Platelets confirmed Assessment & Plan Additional Assessment Additional Assessment: In summary this is a 53yo F admitted to the ICU with acute resp failure and shock along with a h/o liver dz and severe cardiomyopathy a/p [employer]ATOR ? Delerium- pt still appears confused and per family mentation is somewhat better at home - mental status seems to fluctuate which is consistent with delirium - no significant improvement - able to follow commands however has trouble with speech at this time CV Shock- improved - at this point her persistent intermittent hypotension is likely related to her liver cirrhosis and NO - remains on midodrine 15mg Afib- rate controlled, on AC Cardiomyopathy- unclear etiology - pt with nl EF on 05/19 which dropped to <20% by 07/11 - needs additional workup once stable - cardiology following - will require BB/ACEI or Entresto once BP has improved and stable - no significant change LV thrombus- - bedside echo cont to show LV mass - if pt ever becomes stable ? candidate for resection given her h/o embolic CVA - started on apixaban 07/19 given new suspicion for HIT Resp Acute Hypoxic resp failure- resolved and extubated Renal PHILL- near baseline over past few days - seen by nephrology and suspected to have hepatorenal synd - pt with very poor UOP - HD cath placed for dialysis - for ultrafiltration daily at this point - bumex stopped since there is no response - i/os inaccurate given that HD volume is not calculated - recorded weights have decreased - does appear to be overall less volume overloaded with less anasarca - unable to tolerated HD without levophed HypoK- replete IV and PO today GI GI proph- ppi Liver dz- on lactulose-> decreased today given watery stools - AST/ALT wnl - pts TBr has increased daily - ? any underlying cholestasis - there is ? of amyloid and labs have been sent - pt underwent EGD today for ? GIB which showed errosive gastritis Endo DM- SSI fsq6h Heme DVT proph- on heparin gtt 2/2 thrombus Anemia- slow drift down, - iron panel shows iron def and chronic dz - is on heparin gtt and has bruising around are R IJ insertion site - this AM with drop to 6.7 and therefore given a unit of PRBCs - numbers have remained stable post transfusion Thrombocytopenia- GI oozing suspected - drop from 60 to 20 - suspicion for ALEX -> heparin gtt stopped - started on apixaban for AC - labs sent for ALEX - continued improvement of PLTs ID stable case d/w ICU team and nephrology d/w family in [facility] and they would like to proceed with hospice at this point in time. labs, imaging, records reviewed pt does not appear to have much improvement will need ongoing [facility] d/w family ~48ccmin required for eval, exam, review, intervention, discussion and formulation of POC for this critically ill pt with shock on vasopressor support Provider Notation Provider Notation: Although this document has been carefully reviewed, there may still be some phonetic and other typographical errors. These errors are purely grammatical due to imperfections in the software program and should not be construed in any way to compromise the substance of the patient's medical care during this visit. Thank you for the opportunity and privilege in assisting you with this patient's care and management.
[2024-07-21] MEDS: POLY TOP ×2 (11:41→21:25)
[2024-07-21] MEDS: BAC TOP ×2 (11:41→21:25)
[2024-07-21] MEDS: NEO TOP ×2 (11:41→21:25)
[2024-07-21] MEDS: INSULIN LISPRO (AdmeLOG) 1 UNIT/0.01 ML UNIT SC ×2 (12:49→17:53)
--- NOTE | 2024-07-21 15:14 | PD.RESCONSUL ---
HPI Data of Consult Requesting Physician: Lola Moyer MD Admitting Provider: Slade Raymond MD Attending Provider: Lola Moyer MD Primary Care Provider: Chon Longo PA-C Consult Narrative cc:: cc: Lola Moyer MD Exam Vital Signs Temp Pulse Resp BP Pulse Ox O2 Del Method O2 Flow Rate 98.6 F 95 20 86/59 L 96 Nasal Cannula 1 07/21/24 12:00 07/21/24 15:00 07/21/24 15:00 07/21/24 15:00 07/21/24 15:00 07/21/24 12:00 07/21/24 12:00 FiO2 45 07/20/24 12:25 Results Labs 07/21/24 04:54 07/21/24 04:54 Labs: Short CBC 07/21/24 Range/Units 04:54 WBC 9.8 (3.6-11.0) Thou/mm3 Hgb 8.1 L (12.0-16.0) g/dL Hct 26.2 L (36.0-46.0) % Plt Count 42 L (140-440) Thou/mm3 BMP 07/21/24 04:54 Sodium 140 Potassium 2.7 L* D Chloride 103 Carbon Dioxide 25.4 BUN 40 H Creatinine 1.6 H Glucose 108 H Calcium 9.2 Liver Function 07/21/24 Range/Units 04:54 Total Bilirubin 4.3 H (0.3-1.2) mg/dL AST < 8 (0-34) U/L ALT 16 (10-49) U/L Alkaline Phosphatase 149 H D (46-116) U/L Albumin 3.5 (3.5-5.0) gm/dL ABG Interpretation ABG results: 07/11/24 07/12/24 07/12/24 22:53 01:05 03:33 ABG pH 7.24 L 7.16 L* 7.44 D ABG pCO2 53 H 61 H 34 D ABG pO2 101 64 L D 426 H D ABG HCO3 23 22 24 ABG O2 Saturation 97 84 L 102 H ABG Base Excess -5 L -7 L -1 07/13/24 07/14/24 07/16/24 05:22 04:33 07:35 ABG pH 7.46 H 7.40 7.49 H ABG pCO2 38 37 38 ABG pO2 100 D 58 L* D 106 D ABG HCO3 27 H 23 28 H ABG O2 Saturation 99 H 89 L 100 H ABG Base Excess 3 -2 5 H Quality Measures Quality Measures VTE therapy Medications Home Medications and Allergies Home Medications ?Medication ?Instructions ?Recorded ?Confirmed ?Type apixaban 5 mg tablet (Eliquis) 5 mg PO BID 07/11/24 07/11/24 History furosemide 20 mg tablet 20 mg PO BID 07/11/24 07/11/24 History metoprolol succinate 25 mg 25 mg PO DAILY 07/11/24 07/11/24 History tablet,extended release 24 hr Allergies Allergy/AdvReac Type Severity Reaction Status Date / Time No Known Allergies Allergy Verified 06/23/24 18:49 Visit Medications Amiodarone HCl (Amiodarone Hcl 200 Mg Tablet) 200 mg PO BID [facility] Stop: 08/14/24 08:59 Last Admin: 07/21/24 09:07 Dose: 200 mg Apixaban (Apixaban 2.5 Mg Tablet) 5 mg PO BID [facility] Stop: 08/18/24 13:29 Last Admin: 07/21/24 09:09 Dose: 5 mg Dextrose (Dextrose 50%-Water Inj 50 Ml Syringe) 25 ml IV Q15MIN PRN PRN Reason: BG 50-70 responsive npo pt Stop: 08/10/24 19:54 Dextrose (Dextrose 50%-Water Inj 50 Ml Syringe) 50 ml IV Q15MIN PRN PRN Reason: BG <50 OR BG <70 & pt unresponsive Stop: 08/10/24 19:54 Last Admin: 07/16/24 18:22 Dose: 50 ml Glucagon (Glucagon Inj 1 Mg Vial) 1 mg IM Q15MIN PRN PRN Reason: BG <70, and no IV access Heparin Sodium (Porcine) (Heparin Sod Inj 1000 Unit/Ml Vial 10 Ml) 2,500 unit INDWELLCAT PRN PRN PRN Reason: DIALYSIS Stop: 07/31/24 15:51 Last Admin: 07/20/24 12:03 Dose: 2,500 unit Norepinephrine/Dextrose (Levophed In D5w 8mg/250ml) 8 mg in 250 mls @ 5.588 mls/hr IV .Q24H PRN; Protocol PRN Reason: PER PROTOCOL Stop: 08/12/24 16:52 Last Titration: 07/20/24 14:15 Dose: 0 mcg/kg/min, 0 mls/hr Insulin Human Lispro (Insulin Lispro (Admelog) 1 Unit/0.01 Ml Unit) 0 unit SC Q6HR [facility]; Protocol Stop: 08/11/24 11:59 Last Admin: 07/21/24 12:49 Dose: 1 unit Lactulose (Lactulose Syrup 20 Gm/30 Ml Udc) 20 gm PO QDAY [facility]; Protocol Stop: 08/19/24 08:59 Last Admin: 07/21/24 09:19 Dose: 20 gm Lansoprazole (Lansoprazole 30 Mg Tab.Rap.Dr) 30 mg GT QDAY [facility] Stop: 08/18/24 13:29 Last Admin: 07/21/24 09:07 Dose: 30 mg Midodrine (Midodrine 5 Mg Tablet) 15 mg PO TID [facility] Stop: 08/19/24 13:59 Last Admin: 07/21/24 14:33 Dose: 15 mg Neomycin/Polymyxin/Bacitracin (Angelo/Poly/Aman (Neosporin) Oint 0.9 Gm Packet) 0 gm TOP BID [facility] Stop: 07/28/24 11:06 Last Admin: 07/21/24 11:41 Dose: 0.9 gm Rifaximin (Rifaximin 550 Mg Tablet) 550 mg PO BID [facility] Stop: 07/26/24 10:44 Last Admin: 07/21/24 09:08 Dose: 550 mg Discontinued Medications Albuterol/Ipratropium (Albuterol/Ipratropium (Duoneb) Rt [place] 3 Ml Nebu) 3 ml INH Q4HRRT PRN PRN Reason: sob Stop: 08/10/24 02:59 Bumetanide (Bumetanide Inj 0.25 Mg/Ml Vial 4 Ml) 2 mg IVP X1 ONE Stop: 07/12/24 08:59 Last Admin: 07/12/24 10:15 Dose: 2 mg Bumetanide (Bumetanide Inj 0.25 Mg/Ml Vial 4 Ml) 1 mg IVP BID [facility] Stop: 08/12/24 20:59 Bumetanide (Bumetanide Inj 0.25 Mg/Ml Vial 4 Ml) 2 mg IVP QDAY [facility] Stop: 08/12/24 10:29 Last Admin: 07/13/24 10:45 Dose: Not Given Bumetanide (Bumetanide Inj 0.25 Mg/Ml Vial 4 Ml) 2 mg IVP BID [facility] Stop: 08/14/24 20:59 Last Admin: 07/16/24 08:32 Dose: 2 mg Bumetanide (Bumetanide Inj 0.25 Mg/Ml Vial 4 Ml) 2 mg IVP Q8H [facility] Stop: 08/15/24 09:44 Last Admin: 07/16/24 09:38 Dose: Not Given Bumetanide (Bumetanide Inj 0.25 Mg/Ml Vial 4 Ml) 2 mg IVP Q8HR [facility] Stop: 08/15/24 13:59 Last Admin: 07/18/24 14:15 Dose: 2 mg Epoetin Michael (Epoetin Michael-Epbx Inj 10,000 Unit/Ml Vial (Esrd)) 10,000 unit SC X1 ONE Stop: 07/17/24 13:26 Last Admin: 07/17/24 16:05 Dose: 10,000 unit Epoetin Michael (Epoetin Michael-Epbx Inj 10,000 Unit/Ml Vial (Esrd)) 10,000 unit SC X1 ONE Stop: 07/20/24 10:01 Last Admin: 07/20/24 09:40 Dose: 10,000 unit Etomidate (Etomidate Inj 2 Mg/Ml Vial 10 Ml) 20 mg IVP X1 ONE Stop: 07/12/24 01:59 Last Admin: 07/12/24 01:50 Dose: 20 mg Furosemide (Furosemide Inj 10 Mg/Ml Vial 2 Ml) 20 mg IVP QDAY [facility] Stop: 08/10/24 08:59 Heparin Sodium (Porcine) (Heparin Sod Inj 5000 Unit/Ml Vial) 2,100 unit 40 unit/kg (2100 unit) IV X1 ONE; Protocol Stop: 07/11/24 08:38 Last Admin: 07/11/24 09:41 Dose: Not Given Heparin Sodium (Porcine) (Heparin Sod Inj 5000 Unit/Ml Vial) 1,550 unit 30 unit/kg (1550 unit) IV X1 ONE; Protocol Stop: 07/11/24 08:40 Last Admin: 07/11/24 09:10 Dose: 1,550 unit Heparin Sodium (Porcine) (Heparin Sod Inj 5000 Unit/Ml Vial) 1,900 unit IVP X1 ONE Stop: 07/16/24 06:58 Last Admin: 07/16/24 07:48 Dose: 1,900 unit Hydrocortisone Sodium Succinate (Hydrocortisone Sod Succ Inj 100 Mg Vial) 100 mg IV Q8H [facility] Stop: 08/10/24 08:44 Last Admin: 07/12/24 08:52 Dose: 100 mg Hydrocortisone Sodium Succinate (Hydrocortisone Sod Succ Inj 100 Mg Vial) 50 mg IV Q6HR [facility] Stop: 08/11/24 11:59 Hydromorphone HCl (Hydromorphone Inj 2 Mg/Ml Vial) 1 mg IVP X1 ONE Stop: 07/11/24 21:11 Last Admin: 07/11/24 21:34 Dose: 1 mg Lactated Ringer's (Lactated Ringers) 500 mls @ 250 mls/hr IV .Q2H ONE Stop: 07/10/24 23:50 Last Infusion: 07/10/24 23:37 Dose: 0 mls/hr Vancomycin/Sodium Chloride (Vancomycin/Ns 1 Gm Ivpb) 200 mls @ 120 mls/hr IV X1 ONE Stop: 07/11/24 01:06 Last Infusion: 07/11/24 01:44 Dose: Infused Piperacillin/Tazobactam/Dextrose (Zosyn) 3.375 gm in 50 mls @ 100 mls/hr IV X1 ONE Stop: 07/10/24 23:56 Last Infusion: 07/11/24 00:24 Dose: Infused Piperacillin Sod/Tazobactam (Sod 2.25 gm/ Sodium Chloride) 50 mls @ 100 mls/hr IV Q6HR [facility] Stop: 07/17/24 23:34 Last Admin: 07/11/24 06:25 Dose: Not Given Piperacillin/Tazobactam/Dextrose (Zosyn) 50 mls @ 12.5 mls/hr IV Q8HR [facility]; Protocol Stop: 07/18/24 06:29 Last Admin: 07/13/24 06:40 Dose: 12.5 mls/hr Vancomycin/Sodium Chloride (Vancomycin/Ns 750 Mg Ivpb) 750 mg in 150 mls @ 120 mls/hr IV QPM@2200 [facility]; Protocol Stop: 07/18/24 21:59 Last Admin: 07/12/24 00:19 Dose: 120 mls/hr Azithromycin 500 mg/ Sodium (Chloride) 250 mls @ 250 mls/hr IV QD@2000 [facility] Stop: 07/19/24 19:59 Heparin Sodium/Dextrose (Heparin In D5w Ivpb) 25,000 unit in 250 mls @ 6.26 mls/hr IV .Q24H [facility]; Protocol Stop: 07/25/24 08:44 Last Titration: 07/19/24 06:00 Dose: 0 units/kg/hr, 0 mls/hr Furosemide 200 mg/ Sodium (Chloride) 100 mls @ 5 mls/hr IV .Q20H [facility] Stop: 08/11/24 08:59 Octreotide Acetate 1,000 mcg/ (Sodium Chloride) 252 mls @ 12.6 mls/hr IV .Q20H [facility]; Protocol Stop: 08/11/24 08:59 Last Admin: 07/13/24 09:20 Dose: Not Given Furosemide 200 mg/ Sodium (Chloride) 100 mls @ 5 mls/hr IV .Q20H [facility] Stop: 07/12/24 08:59 Last Infusion: 07/12/24 09:04 Dose: 0 mls/hr Octreotide Acetate 1,000 mcg/ (Sodium Chloride) 252 mls @ 12.6 mls/hr IV .Q20H [facility]; Protocol Stop: 07/12/24 08:59 Last Admin: 07/11/24 16:16 Dose: 50 mcg/hr, 12.6 mls/hr Albumin Human (Albuminar-25 Ivpb) 25 gm in 100 mls @ 100 mls/hr IV TID [facility] Stop: 07/14/24 18:44 Last Infusion: 07/15/24 09:46 Dose: Infused Azithromycin 500 mg/ Sodium (Chloride) 250 mls @ 250 mls/hr IV X1 ONE Stop: 07/11/24 19:44 Last Admin: 07/11/24 20:06 Dose: 250 mls/hr Fentanyl Citrate (Sublimaze Inj 2,500 Mcg/250 Ml Bag) 2,500 mcg in 250 mls @ 2.5 mls/hr IV .Q24H PRN; Protocol PRN Reason: PER PROTOCOL Stop: 07/17/24 01:56 Last Titration: 07/16/24 13:00 Dose: 0 mcg/hr, 0 mls/hr Propofol (Diprivan Ivpb) 1,000 mg in 100 mls @ 1.565 mls/hr IV .Q24H PRN; Protocol PRN Reason: PER PROTOCOL Stop: 08/11/24 01:56 Last Titration: 07/16/24 08:22 Dose: 0 mcg/kg/min, 0 mls/hr Norepinephrine Bitartrate (Levophed In Ns 16mg/250ml) 16 mg in 250 mls @ 2.445 mls/hr IV .Q24H PRN; Protocol PRN Reason: PER protocol Stop: 08/11/24 03:50 Albumin Human (Albuminar-25 Ivpb) 12.5 gm in 50 mls @ 50 mls/hr IV X1 ONE Stop: 07/12/24 08:47 Last Admin: 07/12/24 08:52 Dose: 50 mls/hr Bumetanide 20 mg/ IV (Miscellaneous Supplies) 80 mls @ 8 mls/hr IV .Q10H [facility] Stop: 07/13/24 04:59 Last Admin: 07/12/24 17:24 Dose: 2 mg/hr, 8 mls/hr Vasopressin/Sodium Chloride (Vasostrict/Ns Ivpb) 20 unit in 100 mls @ 9 mls/hr IV .Q11H7M PRN; Protocol PRN Reason: PER PROTOCOL Stop: 08/11/24 09:01 Dobutamine HCl/Dextrose (Dobutrex/D5w Ivpb) 500 mg in 250 mls @ 1.743 mls/hr IV .Q24H PRN; Protocol PRN Reason: PER PROTOCOL Stop: 08/11/24 09:32 Dobutamine HCl/Dextrose (Dobutrex/D5w Ivpb) 500 mg in 250 mls @ 1.743 mls/hr IV .Q24H PRN; Protocol PRN Reason: PER PROTOCOL Stop: 08/11/24 09:32 Dobutamine HCl/Dextrose (Dobutrex/D5w Ivpb) 500 mg in 250 mls @ 4.358 mls/hr IV .Q24H PRN; Protocol PRN Reason: PER PROTOCOL Stop: 08/11/24 09:32 Last Titration: 07/13/24 15:00 Dose: 0 mcg/kg/min, 0 mls/hr Dexmedetomidine/Sodium Chloride (Precedex Ivpb) 400 mcg in 100 mls @ 2.905 mls/hr IV .Q24H PRN; Protocol PRN Reason: Per PROTOCOL Stop: 08/11/24 10:34 Potassium Chloride (Kcl Ivpb) 20 meq in 100 mls @ 50 mls/hr IV Q2H [facility] Stop: 07/13/24 10:30 Last Admin: 07/13/24 06:52 Dose: 50 mls/hr Potassium Chloride (Kcl Ivpb) 10 meq in 100 mls @ 100 mls/hr IV Q1H [facility] Stop: 07/13/24 11:13 Last Admin: 07/13/24 08:26 Dose: Not Given Potassium Chloride (Kcl Ivpb) 20 meq in 100 mls @ 100 mls/hr IV Q2H [facility] Stop: 07/13/24 08:18 Last Admin: 07/13/24 08:14 Dose: 100 mls/hr Potassium Chloride (Kcl Ivpb) 20 meq in 100 mls @ 50 mls/hr IV Q2H [facility] Stop: 07/13/24 12:29 Last Admin: 07/13/24 10:48 Dose: 50 mls/hr Octreotide Acetate 1,000 mcg/ (Sodium Chloride) 252 mls @ 12.6 mls/hr IV .Q20H [facility]; Protocol Stop: 08/12/24 09:14 Last Infusion: 07/18/24 09:17 Dose: Infused Amiodarone HCl/Dextrose (Nexterone Ivpb) 150 mg in 100 mls @ 600 mls/hr IV .Q10M ONE Stop: 07/13/24 10:39 Last Admin: 07/13/24 10:48 Dose: 600 mls/hr Amiodarone HCl/Dextrose (Nexterone Ivpb) 360 mg in 200 mls @ 33.333 mls/hr IV .Q6H ONE Stop: 07/13/24 16:39 Last Admin: 07/13/24 11:00 Dose: 33.333 mls/hr Amiodarone HCl/Dextrose (Nexterone Ivpb) 360 mg in 200 mls @ 16.667 mls/hr IV .Q12H [facility] Stop: 07/14/24 16:39 Last Infusion: 07/15/24 09:46 Dose: Infused Bumetanide 10 mg/ IV (Miscellaneous Supplies) 40 mls @ 2 mls/hr IV .Q20H [facility] Stop: 07/14/24 06:59 Last Admin: 07/13/24 11:37 Dose: 0.5 mg/hr, 2 mls/hr Phenylephrine HCl 50 mg/ (Sodium Chloride) 250 mls @ 1.746 mls/hr IV .Q24H PRN; Protocol PRN Reason: Per Cardiogenic Protocol Stop: 08/12/24 14:53 Last Titration: 07/13/24 17:45 Dose: 0 mcg/kg/min, 0 mls/hr Bumetanide 10 mg/ IV (Miscellaneous Supplies) 40 mls @ 4 mls/hr IV .Q10H [facility] Stop: 07/14/24 01:27 Last Admin: 07/13/24 16:09 Dose: Not Given Bumetanide 10 mg/ IV (Miscellaneous Supplies) 40 mls @ 4 mls/hr IV .Q10H [facility] Stop: 07/14/24 03:59 Last Admin: 07/13/24 17:37 Dose: 1 mg/hr, 4 mls/hr Norepinephrine/Dextrose (Levophed In D5w 8mg/250ml) 8 mg in 250 mls @ 5.456 mls/hr IV .Q24H PRN; Protocol PRN Reason: PER PROTOCOL Stop: 08/12/24 16:52 Last Titration: 07/20/24 05:00 Dose: 0 mcg/kg/min, 0 mls/hr Bumetanide 10 mg/ IV (Miscellaneous Supplies) 40 mls @ 2 mls/hr IV .Q20H [facility] Stop: 07/15/24 00:20 Last Infusion: 07/15/24 09:46 Dose: Infused Bumetanide 10 mg/ IV (Miscellaneous Supplies) 40 mls @ 2 mls/hr IV .Q20H [facility] Stop: 07/15/24 22:07 Last Infusion: 07/15/24 17:29 Dose: 0 mg/hr, 0 mls/hr Potassium Chloride (Kcl Ivpb) 10 meq in 100 mls @ 100 mls/hr IV Q1H [facility] Stop: 07/15/24 13:44 Last Infusion: 07/15/24 15:24 Dose: Infused Potassium Chloride (Kcl Ivpb) 10 meq in 100 mls @ 100 mls/hr IV Q1H [facility] Stop: 07/16/24 11:44 Potassium Chloride (Kcl Ivpb) 20 meq in 100 mls @ 50 mls/hr IV Q2H [facility] Stop: 07/16/24 11:42 Last Admin: 07/16/24 10:16 Dose: 50 mls/hr Albumin Human (Albuminar-25 Ivpb) 25 gm in 100 mls @ 100 mls/hr IV QDAY [facility] Stop: 07/19/24 17:44 Last Infusion: 07/19/24 13:17 Dose: Infused Albumin Human (Albuminar-25 Ivpb) 25 gm in 100 mls @ 100 mls/min IV PRN PRN PRN Reason: DIALYSIS Stop: 07/20/24 15:51 Last Admin: 07/20/24 09:40 Dose: 100 mls/min Potassium Chloride (Kcl Ivpb) 10 meq in 100 mls @ 100 mls/hr IV Q1H [facility] Stop: 07/18/24 11:15 Last Infusion: 07/18/24 12:48 Dose: Infused Ferumoxytol 510 mg/ Sodium (Chloride) 117 mls @ 234 mls/hr IV X1 ONE Stop: 07/18/24 07:21 Last Infusion: 07/18/24 12:48 Dose: Infused Ceftriaxone Sodium/Dextrose (Rocephin/D5w 1gm Iv Premix) 50 mls @ 100 mls/hr IV QDAY [facility] Stop: 07/26/24 10:47 Last Admin: 07/20/24 10:28 Dose: Not Given Insulin Human Lispro (Insulin Lispro (Admelog) 1 Unit/0.01 Ml Unit) 0 unit SC ACHS [facility]; Protocol Stop: 08/10/24 20:59 Last Admin: 07/12/24 12:58 Dose: Not Given Lactulose (Lactulose Syrup 20 Gm/30 Ml Udc) 20 gm PO TID [facility]; Protocol Stop: 08/13/24 15:44 Last Admin: 07/18/24 05:27 Dose: 20 gm Lactulose (Lactulose Syrup 20 Gm/30 Ml Udc) 20 gm PO BID [facility]; Protocol Stop: 08/17/24 20:59 Last Admin: 07/19/24 13:16 Dose: Not Given Metolazone (Metolazone 2.5 Mg Tablet) 5 mg PO BID [facility] Stop: 08/15/24 20:59 Last Admin: 07/18/24 08:26 Dose: 5 mg Midazolam HCl (Midazolam Inj 1 Mg/Ml Vial 2 Ml) 2 mg IV Q1HR PRN PRN Reason: AGITATION OR ANXIETY Stop: 07/17/24 12:02 Last Admin: 07/13/24 15:31 Dose: 2 mg Midazolam HCl (Midazolam Inj 1 Mg/Ml Vial 2 Ml) 1 mg IV Q2M PRN PRN Reason: MODERATE SEDATION Stop: 07/19/24 15:48 Midodrine (Midodrine 5 Mg Tablet) 10 mg PO TID [facility] Stop: 08/10/24 05:59 Last Admin: 07/11/24 06:06 Dose: 10 mg Midodrine (Midodrine 5 Mg Tablet) 15 mg PO TID [facility] Stop: 08/10/24 18:59 Last Admin: 07/13/24 06:40 Dose: 15 mg Midodrine (Midodrine 5 Mg Tablet) 10 mg PO TID [facility] Stop: 08/12/24 13:59 Last Admin: 07/18/24 05:26 Dose: 10 mg Midodrine (Midodrine 5 Mg Tablet) 10 mg PO Q6HR [facility] Stop: 08/17/24 11:59 Last Admin: 07/20/24 05:20 Dose: 10 mg Pantoprazole Sodium (Pantoprazole 20 Mg Tablet) 20 mg PO QDAY [facility] Stop: 08/10/24 18:44 Last Admin: 07/11/24 19:01 Dose: 20 mg Pantoprazole Sodium (Pantoprazole Inj 40 Mg Vial) 40 mg IVP QDAY [facility] Stop: 08/11/24 08:59 Last Admin: 07/19/24 15:11 Dose: Not Given Pantoprazole Sodium (Pantoprazole 40 Mg Tablet) 40 mg PO QDAY [facility] Stop: 08/18/24 10:59 Last Admin: 07/19/24 15:11 Dose: Not Given Pharmacy Consult (Pharmacy To Dose Vancomycin) 1 each IV QDAY PRN PRN Reason: PROTOCOL Stop: 08/10/24 08:59 Polyethylene Glycol/Electrolytes (Na Duran/Nahco3/Tristen/Peg (Golytely) 4,000 Ml Btl) 4,000 ml PO X1 ONE Stop: 07/19/24 14:18 Last Admin: 07/19/24 16:09 Dose: Not Given Potassium Chloride (Potassium Chloride 10% 20 Meq/15 Ml Udc) 40 meq GT X1 ONE Stop: 07/13/24 07:11 Last Admin: 07/13/24 08:15 Dose: 40 meq Potassium Chloride (Potassium Chloride 10% 20 Meq/15 Ml Udc) 40 meq GT X1 ONE Stop: 07/15/24 11:39 Last Admin: 07/15/24 12:14 Dose: 40 meq Potassium Chloride (Potassium Chloride 10% 20 Meq/15 Ml Udc) 40 meq GT X1 ONE Stop: 07/16/24 07:36 Last Admin: 07/16/24 07:48 Dose: 40 meq Potassium Chloride (Potassium Chloride 10% 20 Meq/15 Ml Udc) 40 meq GT X1 ONE Stop: 07/18/24 07:17 Last Admin: 07/18/24 07:51 Dose: 40 meq Potassium Chloride (Potassium Chloride 10% 20 Meq/15 Ml Udc) 40 meq GT X1 ONE Stop: 07/19/24 07:32 Last Admin: 07/19/24 15:11 Dose: Not Given Potassium Chloride (Potassium Chloride 10% 20 Meq/15 Ml Udc) 40 meq GT X1 ONE Stop: 07/19/24 15:11 Last Admin: 07/19/24 15:19 Dose: 40 meq Potassium Chloride (Potassium Chloride 10% 20 Meq/15 Ml Udc) 40 meq GT X1 ONE Stop: 07/21/24 06:50 Last Admin: 07/21/24 07:32 Dose: 40 meq Potassium Chloride (Potassium Chloride 10% 20 Meq/15 Ml Udc) 40 meq GT X1 ONE Stop: 07/21/24 07:52 Last Admin: 07/21/24 08:40 Dose: 40 meq Rocuronium [place] (Rocuronium Inj 10 Mg/Ml Vial 10 Ml) 25 mg IVP X1 ONE Stop: 07/12/24 01:59 Last Admin: 07/12/24 01:51 Dose: 25 mg Sodium Chloride (Sodium Chloride Rt 10% 15 Ml Nebu) 5 ml INH X1 ONE Stop: 07/20/24 09:46 Last Admin: 07/20/24 14:09 Dose: Not Given
--- NOTE | 2024-07-21 15:23 | PD.RESPRO ---
Documentation for date of: 07/21/24 Subjective Subjective Interval history: Patient is a 53-year-old female with a past medical history of NIDDM, embolic CVA, LV mural thrombus and decompensated cirrhosis with portal hypertension. Patient was BIBA by her daughter who noticed bright red blood per rectum upon changing her diaper. Patient was admitted for workup and management of hypotension and generalized weakness. Last month patient presented to the ED with difficulty standing, slurred speech, facial droop and was diagnosed with an embolic stroke. Incidentally a CBD stone was identified on imaging. Patient was transferred from the ED to [facility] for possible ERCP. Patient also had previous admission to [facility] for hyponatremia and hypotension with ICU stay. Patient's baseline is bedbound, but able to verbalize. ED course: Patient was hypotensive and tachycardic on presentation BP 86/65, MAP 72 HR 102. Labs were significant for normocytic anemia, CR 1.8, BUN 47. Urinalysis was significant for 1+ protein, 3+ blood, LE positive, WBC 358 On imaging Abd US: Fatty liver 12.9 cm Nephrology was consulted for anasarca secondary to likely hepatorenal syndrome. 07/15/2024 Patient seen and examined in ICU this a.m. Patient is more active today, intubated and mechanically ventilated. Patient is on noradrenaline infusion @ 1ml/hr, octreotide infusion and Bumex Infusion I 1092 cc O 1750 cc Balance -657 cc Rest of patient's family to visit tomorrow 07/16, to decide on comfort vs hospice .Guarded prognosis Blood pressure is improved with MAP in 70's on Norad @ 1ml/hr, can discontinue pressors and continue Midodrine Patient is now producing urine, will hold on dialysis for now 07/16/2024 Patient is seen and examined bedside in the ICU. Patient condition still remained the same. Yesterday the ICU team tried to extubate the patient but unsuccessful and patient is still on mechanical ventilator. The patient was successfully extubated in the afternoon. Goals of care are discussed with the family and patient was on DNR/DNI. Blood pressures are maintained well maintained without I.V vasopressor (LEVOPHED) support. On examination the patient appears to be less swollen from yesterday. Bumex infusion is changed to IV push 2 Mg 8 hourly. As the patient is able to maintain adequate urine output, no need of dialysis as of now. 07/17/2024 Patient is seen and examined bedside. Patient is awake. Successfully extubated yesterday. Able to maintain saturations on oxygen through nasal cannula. Her urine output is significantly decreased from last night. Patient is still having anasarca. BUN trended from 55 to 61 today. Creatinine uptrended to 1.9. Bumex and metolazone were stopped as of today. Will continue to give albumin infusions. Patient needs dialysis today. Will continue to monitor renal functions and strict input output charting 07/18/2024 Patient seen and examined in ICU this a.m. Patient is confused, but active today, s/p extubation on 07/16 Patient is on noradrenaline infusion @ 3ml/hr and Albumin 25 g IV daily I 1849 cc O 545 cc Balance +1304 cc Minimal urine output over past 24 hours. For 2 hours of Hemodialysis today with goal of 1.5-2 L Ultrafiltration 07/19/2024: Patient seen and examined in ICU this morning. No acute overnight events. Vitals, labs reviewed. Remains on levophed at this time. Only 275cc/24hrs. Platelets downtrending, 20; Creatinine increasing, 1.6. Continues to have moderate edema. Will plan for dialysis today. 07/20/2024 Patient seen and examined in ICU this a.m. Patient is confused, but active today, s/p extubation on 07/16 Patient is on noradrenaline infusion @ 3ml/hr and Midodrine 15mg po TID I 95 cc O 160 cc Balance -64 cc Minimal urine output over past 24 hours. For 2 hours of Hemodialysis today with goal of 1.5-2 L Ultrafiltration 07/21/2024 Patient seen and examined in ICU this a.m. Patient is still confused, but active today, s/p extubation on 07/16 Patient is on noradrenaline infusion @ 1ml/hr and Midodrine 15mg po TID I 431 cc O 69 cc Balance 362 cc Minimal urine output over past 24 hours. No hemodialysis today. Patient clinically appears euvolemic Exam Vital Signs Temp Pulse Resp BP Pulse Ox O2 Del Method O2 Flow Rate 98.6 F 95 20 86/59 L 96 Nasal Cannula 1 07/21/24 12:00 07/21/24 15:00 07/21/24 15:00 07/21/24 15:00 07/21/24 15:00 07/21/24 12:00 07/21/24 12:00 FiO2 45 07/20/24 12:25 Narrative Exam Constitutional Alert, oriented x 2 [Person & place] and comfortable. NGT insitu. Scleral Icterus HEENT Vision grossly intact. Patent nares. Trachea midline Respiratory Left IJ catheter insitu. Exit site clean. B/L crackles & ronchi auscultated throughout lung nieves Cardiovascular S1 and S2 audible, RRR. No murmurs carotid bruit. No gross JVD. Abdominal Tense, mildy distended and non tender to palpation in all quadrants. BS +. Asterixis Genitourinary No bladder tenderness, no flank pain. Normal to palpation Musculoskeletal Extremities tone within normal limits. 1+ pitting edema of b/L lower extremities up to knees Neurological CN II - XII grossly intact. Extremity motor and sensation grossly intact. Skin Warm, dry and intact. No apparent lesions. Objective Labs 07/21/24 04:54 07/21/24 04:54 Labs: Laboratory Results - last 24 hr 07/20/24 07/21/24 21:10 04:54 WBC 9.8 RBC 2.84 L Hgb 8.1 L Hct 26.2 L MCV 92 MCH 28.5 MCHC 30.9 L RDW Std Deviation 62.6 H Plt Count 42 L Neut % (Auto) 90 H Lymph % (Auto) 7 L [place] % (Auto) 2 Eos % (Auto) 0 Baso % (Auto) 0 Neut # (Auto) 8.8 H Lymph # (Auto) 0.7 L [place] # (Auto) 0.2 Eos # (Auto) 0.0 Baso # (Auto) 0.0 Immature Gran # (Auto) 0.02 H Absolute Nucleated RBC 0.13 H Immature Gran % 0 Nucleated RBC % 1 H Sodium 140 Potassium 2.7 L* D Chloride 103 Carbon Dioxide 25.4 Anion Gap 12 BUN 40 H Creatinine 1.6 H Estim Creat Clear Calc 31.4 L eGFR 38 L BUN/Creatinine Ratio 25 H Glucose 108 H Calculated Osmolality 290 Calcium 9.2 Corrected Calcium 9.6 Phosphorus 4.6 Magnesium 2.0 Total Bilirubin 4.3 H AST < 8 ALT 16 Alkaline Phosphatase 149 H D Ammonia 24 Total Protein 5.9 Albumin 3.5 Globulin 2.4 Albumin/Globulin Ratio 1.5 Misc Test Result Platelets confirmed ABG Interpretation ABG results: 07/11/24 07/12/24 07/12/24 22:53 01:05 03:33 ABG pH 7.24 L 7.16 L* 7.44 D ABG pCO2 53 H 61 H 34 D ABG pO2 101 64 L D 426 H D ABG HCO3 23 22 24 ABG O2 Saturation 97 84 L 102 H ABG Base Excess -5 L -7 L -1 07/13/24 07/14/24 07/16/24 05:22 04:33 07:35 ABG pH 7.46 H 7.40 7.49 H ABG pCO2 38 37 38 ABG pO2 100 D 58 L* D 106 D ABG HCO3 27 H 23 28 H ABG O2 Saturation 99 H 89 L 100 H ABG Base Excess 3 -2 5 H Quality Measures Quality Measures VTE therapy Assessment & Plan Assessment Current Active Medications: Generic Name Dose Route Start Last Admin Trade Name Freq PRN Reason Stop Dose Admin Amiodarone HCl 200 mg 07/15/24 09:00 07/21/24 09:07 Amiodarone Hcl 200 Mg Tablet PO 08/14/24 08:59 200 mg BID SAVANNAH Administration Apixaban 5 mg 07/19/24 13:30 07/21/24 09:09 Apixaban 2.5 Mg Tablet PO 08/18/24 13:29 5 mg BID SAVANNAH Administration Dextrose 25 ml 07/11/24 19:55 Dextrose 50%-Water Inj 50 Ml Syringe IV 08/10/24 19:54 Q15MIN PRN BG 50-70 responsive npo pt Dextrose 50 ml 07/11/24 19:55 07/16/24 18:22 Dextrose 50%-Water Inj 50 Ml Syringe IV 08/10/24 19:54 50 ml Q15MIN PRN Administration BG <50 OR BG <70 & pt unresponsive Glucagon 1 mg 07/11/24 19:55 Glucagon Inj 1 Mg Vial IM Q15MIN PRN BG <70, and no IV access Heparin Sodium (Porcine) 2,500 unit 07/17/24 15:52 07/20/24 12:03 Heparin Sod Inj 1000 Unit/Ml Vial 10 Ml INDWELLCAT 07/31/24 15:51 2,500 unit PRN PRN Administration DIALYSIS Norepinephrine/Dextrose 8 mg in 250 mls @ 5.588 mls/hr 07/20/24 06:42 07/20/24 14:15 Levophed In D5w 8mg/250ml IV 08/12/24 16:52 0 mcg/kg/min .Q24H PRN 0 mls/hr PER PROTOCOL Titration Protocol 0.05 MCG/KG/MIN Insulin Human Lispro 0 unit 07/12/24 12:00 07/21/24 12:49 Insulin Lispro (Admelog) 1 Unit/0.01 Ml Unit SC 08/11/24 11:59 1 unit Q6HR SAVANNAH Administration Protocol Lactulose 20 gm 07/20/24 09:00 07/21/24 09:19 Lactulose Syrup 20 Gm/30 Ml Udc PO 08/19/24 08:59 20 gm QDAY SAVANNAH Administration Protocol Lansoprazole 30 mg 07/19/24 13:30 07/21/24 09:07 Lansoprazole 30 Mg Tab.Rap.Dr GOFF 08/18/24 13:29 30 mg QDAY SAVANNAH Administration Midodrine 15 mg 07/20/24 14:00 07/21/24 14:33 Midodrine 5 Mg Tablet PO 08/19/24 13:59 15 mg TID SAVANNAH Administration Neomycin/Polymyxin/Bacitracin 0 gm 07/21/24 11:07 07/21/24 11:41 Angelo/Poly/Aman (Neosporin) Oint 0.9 Gm Packet TOP 07/28/24 11:06 0.9 gm BID SAVANNAH Administration Rifaximin 550 mg 07/19/24 10:45 07/21/24 09:08 Rifaximin 550 Mg Tablet PO 07/26/24 10:44 550 mg BID SAVANNAH Administration Plan Patient is a 53-year-old female with a past medical history of NIDDM, embolic CVA, LV mural thrombus and decompensated cirrhosis with portal hypertension. Patient was BIBA by her daughter who noticed bright red blood per rectum upon changing her diaper. Patient was admitted for workup and management of hypotension and generalized weakness. Nephrology was consulted for anasarca secondary to hepatorenal syndrome. 1. Hepatorenal syndrome Likely type II as patient has diuretic resistant ascites Patient has history of decompensated cirrhosis with ascites. On presentation patient was hypotensive with MAP in low 60s and required upgrade to ICU for vaso pressors Echocardiogram showed ejection fraction 20%- Dr. Yunier Sorto. Patient was started on dobutamine after improvement in urine output Ddx : Cardiorenal syndrome Currently BP 86/59 MAP 68 on Norad @ 1 ml/hr and Midodrine 15 mg po TID Currently on exam patient appears less edematous after dialysis yesterday Abdo ultrasound confirms fatty liver 12.9 cm I 431 cc O 69 cc Balance 362 cc [07/17] Hemodialysis for 2 hours, 3K, ultrafiltration 1-2 L, Epogen 6000, no heparin ordered. [07/20] Hemodialysis for 2 hours, 3K, ultrafiltration 1-2 L, Epogen 6000, no heparin ordered. Plan: - Strict I/O ? Continue Norad for Blood pressure support [Terlipressin not available in [place]] - Continue Midodrine for blood pressure support - No need for Hemodialysis today ? Thank you for the opportunity to participate in patient's care. ? Nephrology will closely monitor this case. 2. PHILL - improving Likely prerenal secondary to hypoperfusion Patient was hypotensive on admission with MAP in low 60s [07/12] Cr 1.8 BUN 51 ----> [07/21] Cr 1.6 BUN 40 Plan: ? Blood pressure support to maintain adequate perfusion of kidney 3. 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 bili 4.3 Normocytic anemia Thrombocytopenia GI bleed for investigation UTI History of embolic CVA NIDDM LV mural thrombus-on heparin infusion. Plan: ? Continue management as per primary team Thank you for allowing us to participate in Mrs. Atkins's care. Plan of care discussed with attending Regional Production Manager, Dr Caren Egan MD PGY 1 Attending Provider Attestation/Addendum Patient seen and examined with resident physician Dr Egan. Note reviewed, agree with findings and recommendations. Spoke to ICU team-at 1 PM they had family meeting and family agreed on hospice/comfort care. At this point we will sign off. Thank you for the consult.
--- NOTE | 2024-07-21 16:13 | PC.SS ---
Addendum entered by PAOLO Jorgensen 07/21/24 16:28: Updated ICU staff on discharge plan as bed side nurse not available. Patient will need ambulance transport home at time of discharge. Original Note: PAOLO met with patient's daughter Rachel Hunter, patient's spouse Michael Ayala and family regarding hospice services. Family is agreeable with home hospice services. No preferred agency. Hospice referral sent to [facility] as they are on todays rotation. Family is requesting the following DME: hospital bed and oxygen including bed paddings. Updated Elizabeth at [facility], she indicates she will be contacting patient's daughter Rachel to arrange DME delivery. DME to be delivered to the home prior to patient discharging. Family agreeable with discharge for tomorrow 07/22/24.
[2024-07-21] MEDS: KETOROLAC INJ 30 MG/ML VIAL 15 MG IVP (16:42)
[2024-07-21] MEDS: ACETAMINOPHEN SOL 325 MG/10 ML UDC PO (17:43)
--- NOTE | 2024-07-21 17:45 | PC.NURSE ---
Family meeting complete with Dr. Moyer, Dr. Roman, Dr. Pastor and Dr. Schwab and pts family, pt to stay in the ICU per Dr. Schwab, and Dr. Roman, until ready to go home tomorrow on hospice
--- NOTE | 2024-07-21 18:05 | PC.NURSE ---
patient has been moaning, when asked about her discomfort she stated that she has a headache. Toradol IV was given without much help to her discomfort. New order for tylenol was ordered and pt was very agitated asking for coffee, Dr. Roman okayed for pt to have swabs of coffee.
--- NOTE | 2024-07-21 18:34 | PD.IMPROG ---
Documentation for date of: 07/21/24 Subjective Subjective Interval history: Hemoglobin hematocrit 8.1 and 26.2 Exam Vital Signs Temp Pulse Resp BP Pulse Ox O2 Del Method O2 Flow Rate 99.1 F 93 32 H 76/58 L 95 Nasal Cannula 1 07/21/24 16:00 07/21/24 18:00 07/21/24 18:00 07/21/24 18:00 07/21/24 18:00 07/21/24 12:00 07/21/24 12:00 FiO2 45 07/20/24 12:25 Objective Labs 07/21/24 04:54 07/21/24 04:54 Labs: Laboratory Results - last 24 hr 07/20/24 07/21/24 21:10 04:54 WBC 9.8 RBC 2.84 L Hgb 8.1 L Hct 26.2 L MCV 92 MCH 28.5 MCHC 30.9 L RDW Std Deviation 62.6 H Plt Count 42 L Neut % (Auto) 90 H Lymph % (Auto) 7 L [place] % (Auto) 2 Eos % (Auto) 0 Baso % (Auto) 0 Neut # (Auto) 8.8 H Lymph # (Auto) 0.7 L [place] # (Auto) 0.2 Eos # (Auto) 0.0 Baso # (Auto) 0.0 Immature Gran # (Auto) 0.02 H Absolute Nucleated RBC 0.13 H Immature Gran % 0 Nucleated RBC % 1 H Sodium 140 Potassium 2.7 L* D Chloride 103 Carbon Dioxide 25.4 Anion Gap 12 BUN 40 H Creatinine 1.6 H Estim Creat Clear Calc 31.4 L eGFR 38 L BUN/Creatinine Ratio 25 H Glucose 108 H Calculated Osmolality 290 Calcium 9.2 Corrected Calcium 9.6 Phosphorus 4.6 Magnesium 2.0 Total Bilirubin 4.3 H AST < 8 ALT 16 Alkaline Phosphatase 149 H D Ammonia 24 Total Protein 5.9 Albumin 3.5 Globulin 2.4 Albumin/Globulin Ratio 1.5 Misc Test Result Platelets confirmed Impressions Impression: # Occult GI bleeding # Gastritis # Esophagitis Continue to follow CBC ABG Interpretation ABG results: 07/11/24 07/12/24 07/12/24 22:53 01:05 03:33 ABG pH 7.24 L 7.16 L* 7.44 D ABG pCO2 53 H 61 H 34 D ABG pO2 101 64 L D 426 H D ABG HCO3 23 22 24 ABG O2 Saturation 97 84 L 102 H ABG Base Excess -5 L -7 L -1 07/13/24 07/14/24 07/16/24 05:22 04:33 07:35 ABG pH 7.46 H 7.40 7.49 H ABG pCO2 38 37 38 ABG pO2 100 D 58 L* D 106 D ABG HCO3 27 H 23 28 H ABG O2 Saturation 99 H 89 L 100 H ABG Base Excess 3 -2 5 H Assessment & Plan A&P Narrative A 53-year-old female with a past medical history of recent acute stroke on 06/24/2024 thought to be secondary to embolic stroke from left ventricular mural thrombus diagnosed at [facility] and is on Eliquis, history of choledocholithiasis status post MRCP in June 2024, metabolic dysfunction 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 Cardiology consulted LV thrombus, possible CHF and elevated troponins. 1. Anasarca-mostly secondary to advanced liver disease and less likely from the CHF. 2. Mildly elevated troponins-NSTEMI type II in the setting of supply/demand mismatch 3. LV thrombus diagnosed at [facility] troponin 2023- 4. Likely secondary to possible bilateral pneumonia from HCAP 5. Acute hypoxic respiratory failure in the setting of pneumonia versus bilateral pleural effusions right greater than left and large 6. Cirrhosis of the liver secondary to CRAWFORD or MASLD 7. History of recent stroke in June 2024 secondary to possible embolic cardiac etiology and thought to be tubular thrombus diagnosed at [facility] 8. Acute kidney injury 9. Elevated lactate 10. Dabetes mellitus, uncontrolled 11. Choledocholithiasis 12. Cachexia with severe recent weight loss Patient presented with questionable blood staining on the diaper as per the daughter and the niece. Stool occult here was negative and hemoglobin appears to be stable at 8.7 on admission. Primary team to call GI for further evaluation as the patient also has hepatorenal syndrome with severe sepsis and possible septic shock. Patient is hypotensive as well as her high lactate and procalcitonin was elevated. Possible sepsis secondary to bilateral pneumonia versus UTI. Patient. To the ICU and further recommendations as per GI as well as ICU team. Patient is anasarca and is mostly secondary to her cirrhosis and liver disease but there could be some diastolic CHF component. Albumin was only 3.1 and HDL below normal. Bili is elevated at 2.4. Recent echocardiogram from May 2024 was reviewed which showed normal LV size and function with an approximate EF-60% and mild to moderate TR with no evidence of any regional wall motion abnormalities. Recommend to start the patient Lasix drip at at least 5 mg/h and continue strict control, daily weights and 2 g odium diet for now. Patient is mildly hypotensive and might need pressor support if required and hence patient transferred to the ICU. Patient troponins were mildly elevated at 0.222 and were flat between 0.25 as well as 0.23. Troponin elevation mostly secondary to supply/demand mismatch and or recommend no further troponins for now. Will check echocardiogram to rule out any kind of regional wall motion abnormalities and reevaluate the EF. EKG showed sinus tachycardia with nonspecific ST changes and frequent PVCs. Patient evidently had LV thrombus that was documented in [facility] and recommend obtaining the report from detail including the SANDIE, cardiac CT and MRI results. Patient should be on heparin drip as the patient also has a history of LV thrombus and there is no evidence of any GI bleed for now. Will need to review all the records and obtain all the records from the outside hospital-[facility]. Recommend to check TSH A1c as well as lipid panel for further cardiac risk stratification. Recommend potassium greater than 4 and magnesium greater than 2.0 at all times. Patient appears to have lost significant weight in the last 8 to 10 months and has significant temporal wasting and overall prognosis appears to be poor and this was explained to the family. Echo performed on 07/12/2024 showed Normal LV size. Global LV systolic function is severely decreased. Estimated EF < 20%. LV mural thrombus is present 2.51 cm x 1.71 cm. Moderate hypertrophy with ground glass appearence - need ot r/o amyloid or other infiltartative diseases. diastolic dysfunction present but unable to grade as there is no E/A. atleast grade 2 and grade 3 RV is normal in size. RV systolic function is severely decreased. Estimated RVSP, 39 mmHg including RAP 15mmHg. Moderately dilated LA and RA. Mild to moderate MR. mild AI and Severe TR. Dilated IVC and moderatre size pleural effusion Explained echocardiogram findings with the family and the severe LV as well as RV dysfunction and possible end-stage heart disease with the presence of LV thrombus to the family in detail. Daughter was at the bedside today and also previously yesterday and were the possibility of infiltrative disease of heart possibly also liver but the patient appears to be end-stage at the present point of time with severe temporal wasting as noted above. Patient is not a good candidate for any advanced heart failure therapies including LVAD given the presence of LV thrombus and is not a transplant candidate. Overall poor prognosis and patient still is continues to be in critical condition at the present point of time. 07/18/2024: Patient was unable to protect airway and was intubated and mechanically ventilated overnight on 07/11/2024. Patient was eventually extubated on 07/15/2024. Dobutamine drip was discontinued after the first couple of days. Patient was also started on diuresis with Bumex drip and patient was also changed to Bumex bolus dosing Patient did not diurese well and family decided that they wanted dialysis. Patient was briefly made DNR/DNI few days ago but now back on full code and left IJ dialysis vascular catheter placed and started on dialysis. During dialysis patient required low-dose Levophed. We are unable to wean off the Levophed on the patient and patient systolic is around 90s but the MAP is less than 65. Patient still continues to have 3+ edema and anasarca and will need multiple sessions of dialysis and shows minimal improvement. Was on IV amiodarone for the atrial fibrillation and now change amiodarone 200 Mg twice daily Check QTc. Keep potassium greater than 4 magnesium greater than 2.0. Discussed again with both the daughters were at the bedside regarding the overall long-term poor prognosis for the patient. There is a high probability of sudden, clinically significant or life threatening deterioration in the patient condition which required the highest level of physician preparedness to intervene urgently. I have personally spent 65 minutes of critical care time, exclusive of time spent on any procedures, in evaluation and management of this critically ill patient. Management of rest of the medical conditions as per primary team and other consultants. Thank you for the consult and allowing me to participate in the care of the patient. Cardiology will continue to follow. Lico Malone M.D. Interventional Cardiology Time Spent With Patient Time: Total time spent is greater than 50% in coordination of care (as documented) at patient's floor/unit and/or counseling patient:
[2024-07-21] MEDS: MELATONIN 3 MG TABLET PO (21:21)
--- NOTE | 2024-07-21 22:00 | PC.NURSE ---
sbp 70s map [address] clarified [address] Dr Garay per MD ocampo for spb of 70s as long as map 60s
[2024-07-22] VITALS (35 sets, daily range): BP systolic 58–90; BP diastolic 39–64; PULSE 71–98; RESP 16–41; TEMP 36.4–37.2; O2SAT 92–98
[2024-07-22] MEDS: INSULIN LISPRO (AdmeLOG) 1 UNIT/0.01 ML UNIT SC ×2 (00:34→06:06)
[2024-07-22] MEDS: DiphenhydrAMINE INJ 50 MG/ML VIAL 12.5 MG IV (00:50)
[2024-07-22] MEDS: ALBUMIN HUMAN 25% IVPB 25 GM/100 ML BTL IV (03:15)
[2024-07-22 05:24] LABS: Basophils % (Auto) 0 % (0-2.5); Eosinophils % (Auto) 0 % (0-10); Hematocrit 23.1 % (36.0-46.0); Immature Granulocytes % (Auto) 0 % (0-0); Immature Granulocytes Auto 0.01 Thou/mm3 (0.00-0.00); Lymphocytes # (Auto) 0.9 Thou/mm3 (1.0-4.8); Lymphocytes % (Auto) 11 % (10-50); Mean Corpuscular HGB Conc 31.6 g/dl (31.0-37.0); Mean Corpuscular Hemoglobin 29.2 pg (25.0-35.0); Mean Corpuscular Volume 92 fL (80-100); Monocytes # (Auto) 0.2 Thou/mm3 (0.0-0.8); Monocytes % (Auto) 2 % (0-12); Neutrophils # (Auto) 7.2 Thou/mm3 (1.8-7.7); Neutrophils % (Auto) 87 % (37-80); Nucleated Red Blood Cell # 0.35 Thou/mm3 (0.00-0.00); Nucleated Red Blood Cell % 4 /100 WBC (0); RDW Standard Deviation 61.6 fL (36.4-46.3); White Blood Count 8.3 Thou/mm3 (3.6-11.0)
[2024-07-22 05:28] LABS: Hemoglobin 7.3 g/dL (12.0-16.0); Platelet Count 43 Thou/mm3 (140-440); Slide Review Platelets confirmed
[2024-07-22] MEDS: MIDODRINE 5 MG TABLET 15 MG PO ×2 (06:05→14:05)
[2024-07-22 06:41] LABS: Heparin-Induced PLT AB POSITIVE (NEGATIVE)
[2024-07-22 06:55] LABS: Alanine Aminotransferase 18 U/L (10-49); Albumin, Serum 3.8 gm/dL (3.5-5.0); Albumin/Globulin Ratio 1.7 (1.2-2.2); Alkaline Phosphatase 228 U/L (46-116); Anion Gap 11 (7-16); Aspartate Amino Transferase 24 U/L (0-34); BUN/Creatinine Ratio 26 Ratio (12-20); Bilirubin,Total 3.1 mg/dL (0.3-1.2); Blood Urea Nitrogen 54 mg/dL (9-23); Calcium 9.8 mg/dL (8.3-10.6); Carbon Dioxide 24.4 mMol/L (20.0-31.0); Chloride 103 mMol/L (98-107); Creatinine (Component) 2.1 mg/dL (0.6-1.3); Globulin 2.3 gm/dL (2.3-3.5); Glucose 130 mg/dL (74-106); Magnesium 2.1 mg/dL (1.6-2.6); Osmolality,Calculated 292 (275-295); Potassium 2.9 mMol/L (3.4-5.1); Sodium 138 mMol/L (136-145); Total Protein 6.1 gm/dL (5.7-8.2); eGFR 27 See Note
--- NOTE | 2024-07-22 08:34 | PD.INTPROG ---
Documentation for date of: 07/22/24 Subjective Subjective Interval history: 53-year-old female with a past medical history of diabetes mellitus type 2, embolic CVA, LV mural thrombus, liver cirrhosis, and amyloidosis, who was brought into the emergency room due to concern for bright red bleeding per rectum. Patient started noted spots of bright red blood when changing the patient's diaper. Daughter reported, patient has become progressively too weak and bedbound following the stroke. They noted some bright red spots when changing the patient's diaper, and when cleaning her noticed bright light blood oozing out of her rectum. Denied having any black stools, or blood mixed with stools. Denied history of diarrhea, vomiting, fever. Patient was initially admitted to the medical floor, but later upgraded to ICU due to concern for hypotension, MAP in the low 60s. There was concern for adrenal insufficiency, patient was started on hydrocortisone with no improvement of blood pressure. Patient had normal cortisol and ACTH level on previous admission. Patient was transferred to [facility] recently for possible ERCP due to choledocholithiasis, pending medical records from [facility], unsure if ERCP was done, but discharge documents show that patient was discharged with Eliquis, empagliflozin, furosemide and metoprolol. ED course: Initial labs pertinent for normocytic anemia, mild hyponatremia sodium 132, PHILL, BUN 47, creatinine 1.8, EGFR 33, baseline GFR seems to be around 53, BUN/creatinine ratio more than 20, lactic acid 3.9, T. bili 2.4, AST 40, ALT 36, alk phos 131, ammonia less than 10, mild troponin elevation 0.222, BNP 740, elevated Pro-Justice 7.21, lipase 88. Urinalysis consistent with UTI, stool occult was negative. Imaging studies include chest x-ray which shows bilateral significant pneumonia, EKG shows a flutter with RVR and right bundle branch block, ultrasound abdomen shows cholelithiasis and enlarged common bile duct 0.7, of note patient has no abdominal/right upper quadrant symptoms including pain or tenderness. The patient was admitted to the medical floor, with upgraded to ICU. 07/12/24 Patient evaluated bedside, labs and overnight events as reviewed, overnight patient was hypotensive and central line was placed for IV pressor support, but patient blood pressure improved, Levophed was withheld, patient also developed bradypnea following postprocedural sedation,, received 1 mg IV Dilaudid, respiratory rate decreased to 7/min along with hypoxia, requiring intubation and mechanical ventilation. This a.m. patient noted to be tolerating mechanical ventilation well, saturating at goal on 30% FiO2, PEEP of 5, will plan to continue with ventilation given patient's significant fluid overload, as patient may require reintubation due to significant pulmonary congestion in the setting of hepatorenal/cardiorenal syndrome. We will try to aggressively diurese the patient, last night patient had 1200 mL urine output despite Lasix drip, IV albumin 75 g and octreotide. Nephrology was consulted, nephro recommended switching to Bumex drip at 2 Mg per hour, vasopressor support to help with renal perfusion. Patient was started on dobutamine for inotropic support. Bedside echocardiogram was done which showed apical LV thrombus, global hypokinesis with severely reduced ejection fraction, cardiology recommended continuing heparin drip and continued aggressive IV diuresis. Repeat echocardiogram ordered. 07/13/24 patient evaluated bedside, RASS of -2, sedation was titrated down patient was able to wake up and move both upper limbs spontaneously, but unable to comply with instructions also respiratory rate low, continued on sedation for continued mechanical ventilation, patient not ready for extubation today. Patient was started on dobutamine for cardiorenal syndrome, but developed tachycardia heart rate in the 140s A-fib RVR, dobutamine was discontinued. Started on IV phenylephrine, but due to continued hypotension, vasopressor was changed to Levophed to help with improving blood pressure as well as renal perfusion, as patient is currently on Bumex drip but urine output less than goal 100 cc an hour. IV amiodarone started for A-fib RVR. Family updated about guarded prognosis. 07/14/24 Sedation was turned off, spontaneous breathing trial was done, goals of care discussion with family was done in the setting of end-stage liver disease and severe cardiomyopathy with inadequete urine production. Guarded prognosis of patient, possibility of aggressive intervention with hemodialysis/ultrafiltration, risks of prolonged sedation with intubation and mechanical ventilation, risk of line infections and discomfort, were explained. Their questions and concerns were answered. Family was explained that patient may be able to be weaned off ventilator, but risk of immediate reintubation is high due to end-stage organ failures, and complications of treatment. Patient's daughter Rachel was decided to be the decision-maker by the family, and new POLST form was signed. Patient continues to be DNR status, selective treatment only no chest compressions. Family decided that they would like to wait on their son who was in the and will be here on Friday, before extubation. Family's wishes were respected and patient is resumed on sedation and mechanical ventilation. Family decided against Hemodialysis, Will continue with Bumex drip for continued diuresis as possible, continue with amiodarone for rate control and Levophed to improve cardiac output. 07/15/2024: Patient seen today at the bedside. Vitals significant for BP of 88/58, on mechanical ventilation with a negative fluid balance. Sedation was weaned to off and provided spontaneous breathing trial. Patient became restless and sedation had to be turned back on. Continues on Bumex drip for diuresis as tolerated. Prognosis seems to be very poor. Family decided that they would like to wait on their son who was in the and will be here on Friday, before extubation. Family's wishes were respected and patient is resumed on sedation and mechanical ventilation. 07/16- no acute overnight events, afebrile, has started to make some UOP and is net neg overnight, pt wakes up and follows commands with sedation vacation. 07/17- extubated yesterday to RA and doing well, awake and interactive though not fully oriented. minimal UOP, afebrile, NGT in place , weak cough 07/18- no acute overnight events, afebrile, min UOP though better than yesterday, failed swallow eval yesterday 07/19- no acute events, min UOP, awake and interactive but confused, drop in PLT overnight, no brisk bleed noted 07/20- no acute overnight events, follows commands but seems to have more trouble speaking today, afebrile, virtually anuric, no active bleeding noted, 1 episode of loose stools overnight 07/21- no significant changes in overall status, able to ween down on levo however cont to require vasopressor support in order to tolerate dialysis. no c/o pain or SOB , afebrile, virtually anuric 07/22-discussion held with family yesterday regarding hospice. They would like to transition to home hospice. This morning patient does not complain of pain, she is awake and interactive. Critical Care Note Critical care time (min.): 0 Exam Vital Signs Temp Pulse Resp BP Pulse Ox O2 Del Method O2 Flow Rate 97.6 F 71 17 72/55 L 98 Nasal Cannula 2 07/22/24 04:00 07/22/24 06:49 07/22/24 06:49 07/22/24 06:05 07/22/24 06:49 07/22/24 04:00 07/22/24 06:49 FiO2 45 07/20/24 12:25 Constitutional Comments: General-chronically ill-appearing, thin frail and cachectic, awake and interactive, unable to vocalize HEENT-normocephalic, atraumatic, sclera icteric, EOMI, oral mucosa is dry Chest-diminished at bases few scattered crackles, heart rate regular rhythmic, no increased work of breathing Abdomen-firm, nontender, bowel sounds diminished Extremities-improving edema of bilateral lower extremities, pulses palpable, extremities are thin with evidence of significant muscle wasting, generalized weakness Physical Exam Completion Physical Exam Complete?: Yes Objective - Civil Attorney Labs 07/22/24 04:51 07/22/24 04:51 Labs: Laboratory Results - last 24 hr 07/19/24 07/22/24 10:59 04:51 WBC 8.3 RBC 2.50 L Hgb 7.3 L Hct 23.1 L MCV 92 MCH 29.2 MCHC 31.6 RDW Std Deviation 61.6 H Plt Count 43 L Neut % (Auto) 87 H Lymph % (Auto) 11 [place] % (Auto) 2 Eos % (Auto) 0 Baso % (Auto) 0 Neut # (Auto) 7.2 Lymph # (Auto) 0.9 L [place] # (Auto) 0.2 Eos # (Auto) 0.0 Baso # (Auto) 0.0 Immature Gran # (Auto) 0.01 H Absolute Nucleated RBC 0.35 H Immature Gran % 0 Nucleated RBC % 4 H Sodium 138 Potassium 2.9 L Chloride 103 Carbon Dioxide 24.4 Anion Gap 11 BUN 54 H Creatinine 2.1 H D Estim Creat Clear Calc 26.0 L eGFR 27 L BUN/Creatinine Ratio 26 H Glucose 130 H Calculated Osmolality 292 Calcium 9.8 Corrected Calcium 10.0 Magnesium 2.1 Total Bilirubin 3.1 H D AST 24 ALT 18 Alkaline Phosphatase 228 H D Total Protein 6.1 Albumin 3.8 Globulin 2.3 Albumin/Globulin Ratio 1.7 Heparin-Ind Plt Ab Scrn POSITIVE A Heparin Dep Plt Ab OD 2.405 Misc Test Result Platelets confirmed Assessment & Plan Additional Assessment Additional Assessment: In summary this is a 53yo F admitted to the ICU with acute resp failure and shock along with a h/o liver dz and severe cardiomyopathy a/p Extensive conversation held yesterday with patient's family members. At this point in time the patient is unable to tolerate dialysis without Levophed. They recognize her overall continuing deterioration. They stated they would like to take her home with home hospice. This was discussed with case management and social work yesterday and arrangements have been made for the patient to return home today with hospice. Currently she appears to be pain-free. We will DC the patient's dialysis line and central lines along with NG tube prior to discharge. case d/w ICU team and nephrology d/w family in [facility] and they would like to proceed with hospice at this point in time. labs, imaging, records reviewed ~35min required for eval, exam, review, intervention, discussion and formulation of POC for this critically ill pt with shock on vasopressor support Provider Notation Provider Notation: Although this document has been carefully reviewed, there may still be some phonetic and other typographical errors. These errors are purely grammatical due to imperfections in the software program and should not be construed in any way to compromise the substance of the patient's medical care during this visit. Thank you for the opportunity and privilege in assisting you with this patient's care and management.
[2024-07-22] MEDS: POTASSIUM CHLORIDE 10% 20 MEQ/15 ML UDC 40 MEQ GT (08:41)
--- NOTE | 2024-07-22 09:12 | PD.RESPRO ---
Documentation for date of: 07/22/24 Subjective Subjective Interval history: 07/22/2024: No acute overnight events to report. Patient seen and examined in hospital bed remains in the similar peripherally volume overloaded status. ICU team had discussions with family on 07/21 regarding patient's long-term prognosis. Family decided to shift patient to home hospice care careful consideration. Cardiology will sign out on the patient. Exam Vital Signs Temp Pulse Resp BP Pulse Ox O2 Del Method O2 Flow Rate 97.6 F 71 17 72/55 L 98 Nasal Cannula 2 07/22/24 04:00 07/22/24 06:49 07/22/24 06:49 07/22/24 06:05 07/22/24 06:49 07/22/24 04:00 07/22/24 06:49 FiO2 45 07/20/24 12:25 Narrative Exam General: On 1L NC. Appears cachectic with significant loss of muscle and even in the temporal areas bilaterally Eyes: PERRLA, EOMI, anicteric sclera HEENT: Atraumatic, normocephalic. No JVD noted. left IJ vasc cath noted Cardiovascular: Normal S1 and S2. +2 pitting peripheral edema to lower extremities and anasarca Respiratory: lungs auscultation bilaterally.with crackles fine and No wheezing. Abdomen: Abdomen soft but distended, nontender Skin: No rash. Slightly cold to touch. Neuro: AAo x2, slightly confused and no focal deficits Objective Labs 07/22/24 04:51 07/22/24 04:51 Labs: Laboratory Results - last 24 hr 07/19/24 07/22/24 10:59 04:51 WBC 8.3 RBC 2.50 L Hgb 7.3 L Hct 23.1 L MCV 92 MCH 29.2 MCHC 31.6 RDW Std Deviation 61.6 H Plt Count 43 L Neut % (Auto) 87 H Lymph % (Auto) 11 [place] % (Auto) 2 Eos % (Auto) 0 Baso % (Auto) 0 Neut # (Auto) 7.2 Lymph # (Auto) 0.9 L [place] # (Auto) 0.2 Eos # (Auto) 0.0 Baso # (Auto) 0.0 Immature Gran # (Auto) 0.01 H Absolute Nucleated RBC 0.35 H Immature Gran % 0 Nucleated RBC % 4 H Sodium 138 Potassium 2.9 L Chloride 103 Carbon Dioxide 24.4 Anion Gap 11 BUN 54 H Creatinine 2.1 H D Estim Creat Clear Calc 26.0 L eGFR 27 L BUN/Creatinine Ratio 26 H Glucose 130 H Calculated Osmolality 292 Calcium 9.8 Corrected Calcium 10.0 Magnesium 2.1 Total Bilirubin 3.1 H D AST 24 ALT 18 Alkaline Phosphatase 228 H D Total Protein 6.1 Albumin 3.8 Globulin 2.3 Albumin/Globulin Ratio 1.7 Heparin-Ind Plt Ab Scrn POSITIVE A Heparin Dep Plt Ab OD 2.405 Misc Test Result Platelets confirmed ABG Interpretation ABG results: 07/11/24 07/12/24 07/12/24 22:53 01:05 03:33 ABG pH 7.24 L 7.16 L* 7.44 D ABG pCO2 53 H 61 H 34 D ABG pO2 101 64 L D 426 H D ABG HCO3 23 22 24 ABG O2 Saturation 97 84 L 102 H ABG Base Excess -5 L -7 L -1 07/13/24 07/14/24 07/16/24 05:22 04:33 07:35 ABG pH 7.46 H 7.40 7.49 H ABG pCO2 38 37 38 ABG pO2 100 D 58 L* D 106 D ABG HCO3 27 H 23 28 H ABG O2 Saturation 99 H 89 L 100 H ABG Base Excess 3 -2 5 H Quality Measures Quality Measures VTE therapy Assessment & Plan Assessment Current Active Medications: Generic Name Dose Route Start Last Admin Trade Name Freq PRN Reason Stop Dose Admin Acetaminophen 650 mg 07/21/24 18:16 Acetaminophen Dorcas 325 Mg/10 Ml Udc PO 08/20/24 18:15 Q4HR PRN PAIN RATED 1-3 OR FEVER > 101 Amiodarone HCl 200 mg 07/15/24 09:00 07/21/24 21:20 Amiodarone Hcl 200 Mg Tablet PO 08/14/24 08:59 200 mg BID SAVANNAH Administration Apixaban 5 mg 07/19/24 13:30 07/21/24 21:20 Apixaban 2.5 Mg Tablet PO 08/18/24 13:29 5 mg BID SAVANNAH Administration Dextrose 25 ml 07/11/24 19:55 Dextrose 50%-Water Inj 50 Ml Syringe IV 08/10/24 19:54 Q15MIN PRN BG 50-70 responsive npo pt Dextrose 50 ml 07/11/24 19:55 07/16/24 18:22 Dextrose 50%-Water Inj 50 Ml Syringe IV 08/10/24 19:54 50 ml Q15MIN PRN Administration BG <50 OR BG <70 & pt unresponsive Diphenhydramine HCl 12.5 mg 07/22/24 00:32 07/22/24 00:50 Diphenhydramine Inj 50 Mg/Ml Vial IV 08/21/24 00:31 12.5 mg Q2HR PRN Administration ITCHING Glucagon 1 mg 07/11/24 19:55 Glucagon Inj 1 Mg Vial IM Q15MIN PRN BG <70, and no IV access Heparin Sodium (Porcine) 2,500 unit 07/17/24 15:52 07/20/24 12:03 Heparin Sod Inj 1000 Unit/Ml Vial 10 Ml INDWELLCAT 07/31/24 15:51 2,500 unit PRN PRN Administration DIALYSIS Norepinephrine/Dextrose 8 mg in 250 mls @ 5.588 mls/hr 07/20/24 06:42 07/20/24 14:15 Levophed In D5w 8mg/250ml IV 08/12/24 16:52 0 mcg/kg/min .Q24H PRN 0 mls/hr PER PROTOCOL Titration Protocol 0.05 MCG/KG/MIN Insulin Human Lispro 0 unit 07/12/24 12:00 07/22/24 06:06 Insulin Lispro (Admelog) 1 Unit/0.01 Ml Unit SC 08/11/24 11:59 1 unit Q6HR SAVANNAH Administration Protocol Lactulose 20 gm 07/20/24 09:00 07/21/24 09:19 Lactulose Syrup 20 Gm/30 Ml Udc PO 08/19/24 08:59 20 gm QDAY SAVANNAH Administration Protocol Lansoprazole 30 mg 07/19/24 13:30 07/21/24 09:07 Lansoprazole 30 Mg Tab.Rap.Dr GOFF 08/18/24 13:29 30 mg QDAY SAVANNAH Administration Melatonin 3 mg 07/21/24 21:20 07/21/24 21:21 Melatonin 3 Mg Tablet PO 08/20/24 21:19 3 mg HS SAVANNAH Administration Midodrine 15 mg 07/20/24 14:00 07/22/24 06:05 Midodrine 5 Mg Tablet PO 08/19/24 13:59 15 mg TID SAVANNAH Administration Neomycin/Polymyxin/Bacitracin 0 gm 07/21/24 11:07 07/21/24 21:25 Angelo/Poly/Aman (Neosporin) Oint 0.9 Gm Packet TOP 07/28/24 11:06 0.9 gm BID SAVANNAH Administration Rifaximin 550 mg 07/19/24 10:45 07/21/24 21:20 Rifaximin 550 Mg Tablet PO 07/26/24 10:44 550 mg BID SAVANNAH Administration Plan 53-year-old female with a past medical history of recent acute stroke on 06/24/2024 thought to be secondary to embolic stroke from left ventricular mural thrombus diagnosed at [facility] and is on Eliquis, history of choledocholithiasis status post MRCP in June 2024, metabolic dysfunction 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 Upgraded to ICU level of care. #Systolic and Diastolic Acute Heart Failure (EF <20%) #Cardiogenic shock versus distributive #Anasarca #Cardiorenal syndrome #NSTEMI type II #Likely infiltrative disease in the setting of supply/demand mismatch Troponins plateaued at 0.2 EKG shows sinus tachycardia with nonspecific ST changes and frequent PVCs Echo from 07/12 shows Normal LV size. Global LV systolic function is severely decreased. Estimated EF < 20%. LV mural Moderate hypertrophy with ground glass appearance of the left ventricular wall RV systolic function is severely decreased. Estimated RVSP, 39 mmHg including RAP 15mmHg. Moderately dilated LA and RA. Mild to moderate MR. mild AI and Severe TR. Dilated IVC Nephrology following, appreciate recommendations Off Levophed, MAP greater than 60 Plan: Strict I's and O's 2 g sodium diet when applicable Continue midodrine for pressure support Patient will require beta-brigida and Entresto once blood pressure is more stable Keep potassium greater than 4.0 and magnesium greater than 2.0 at all times. Workup possible amyloidosis versus other infiltrative disease, if patient makes any substantial recovery #Atrial Fibrillation NVR #Hypotensive #QTc prolongation, improving Nonsustained Developed afib when started on Dobutamine for cardiorenal syndrome Dobutamine discontinued Patient on levophed and midodrine for blood pressure support in spite of volume overloaded state Latest EKG shows sinus tachycardia, rate of 108, left axis deviation with right bundle dav block and QTc 450 Plan: Continue to monitor; patient normal sinus rhythm currently Continue amiodarone 200 mg po twice daily Avoid additional QTc prolonging medications Keep potassium greater than 4 magnesium greater than 2.0 #LV thrombus Thrombocytopenia #Possible heparin-induced thrombocytopenia As seen at [facility] Echo confirmed presence of left ventricular thrombus Patient's platelets dropped to 22; initial platelet during admission was 124 Dr. Chahal consulted; appreciate recommendations Plan: Obtain the study reports Can restart heparin drip ICU team has ordered HIT antibody on eliquis 5 mg bid #Acute hypoxic respiratory failure, resolved patient extubated #History of CVA June 2024 secondary to possible embolic cardiac etiology #Cirrhosis of the liver secondary to [place] or MASLD #Acute kidney injury #Type 2 diabetes, [id number] A1c of 5.9 #Choledocholithiasis #Cachexia with severe recent weight loss #Ebony tropicalis in urine #Delirium Rest of medical problems to be managed by the ICU team; cardiology will sign off Patient seen and examined with attending Dr. Kira Jacobo, PGY-1 Attending Provider Attestation/Addendum I have personally seen and examined the patient separately on the above date of service and discussed the plan of care with the resident. I reviewed the resident consultation progress note and agree with the resident findings and plan in the note above and have also edited the documentation to reflect my findings and plan. Lico Malone M.D. Interventional Cardiology
--- NOTE | 2024-07-22 09:27 | PC.PT ---
Hold PT services 2/2 pt being referred to hospice care.
[2024-07-22] MEDS: LANSOPRAZOLE 30 MG TAB.RAP.DR GT (10:03)
[2024-07-22] MEDS: NEO TOP (10:04)
[2024-07-22] MEDS: POLY TOP (10:04)
[2024-07-22] MEDS: BAC TOP (10:04)
--- NOTE | 2024-07-22 10:06 | PC.SS ---
ACCREDITATION COORDINATOR confirmed that patient's NG tube and central line will be removed prior to discharge. Discharge plan is home with [facility].
--- NOTE | 2024-07-22 10:07 | PC.SS ---
ROLLER MILL TENDER confirmed with patient's daughter, Rachel; that DME has been delivered to the patient's residence. Home residence: [address] [facility] [address].
--- NOTE | 2024-07-22 10:41 | PD.RESDS ---
Planned Discharge Date 07/22/24 DS: Providers Provider Date of admission: 07/10/24 23:29 Primary care physician: Chon Longo PA-C Admitting Provider: Slade Raymond MD Attending Provider on Admission: Lola Moyer MD Consults: 07/10/24 23:32 Consult to Cardiology Routine Comment: LV thrombus, INR 2.9, continue eliquis? Consulting Provider: Lico Malone 07/11/24 12:11 Consult to Pulmonology Technician Routine Comment: Consulting Provider: Khanh Wall 07/12/24 07:49 Consult to Nephrology Stat Comment: Consulting Provider: Mary Fabian 07/16/24 14:01 Referral Speech Therapy Routine Comment: 07/16/24 16:12 Referral Physical Therapy Routine Comment: Physician Instructions: 07/18/24 10:05 Consult to Gastroenterology Stat Comment: ? GI Bleed Consulting Provider: Alessio Sotelo 07/19/24 11:26 Consult to Hematology Stat Comment: thrombocytopenia, possible HIT Consulting Provider: Snehal Chahal 07/21/24 14:26 Referral Hospice Stat Comment: Attending Provider on DC: Lola Moyer MD Discharging Provider: Stewart Pichardo MD Anticipated date of discharge: 07/22/24 DS: Diagnosis Problem List Completed Was Problem List Reviewed/Reconciled?: Yes Hospital Course Hospital Course Hospital course: 53-year-old female with a past medical history of diabetes mellitus type 2, embolic CVA, LV mural thrombus, liver cirrhosis, and amyloidosis, who was brought into the emergency room due to concern for bright red bleeding per rectum. Patient started noted spots of bright red blood when changing the patient's diaper. Daughter reported, patient has become progressively too weak and bedbound following the stroke. They noted some bright red spots when changing the patient's diaper, and when cleaning her noticed bright light blood oozing out of her rectum. Denied having any black stools, or blood mixed with stools. Denied history of diarrhea, vomiting, fever. Patient was initially admitted to the medical floor, but later upgraded to ICU due to concern for hypotension, MAP in the low 60s. During ICU stay patient required to be on vasopressors for hemodynamic support for which central line was placed. Patient also developed decreased respiratory rate and hypoxia for which patient required to be intubated. Patient was extubated but continued to be fluid overloaded. Patient had significant pulmonary congestion in the setting of hepatorenal/cardiorenal syndrome. We gave aggressive diuresis with drips and pushes but patient continue to remained anasarctic. Bedside echocardiogram was done which showed apical LV thrombus, global hypokinesis with severely reduced ejection fraction, Cardiology recommended continuing heparin drip and continued aggressive IV diuresis. Patient after being on Heparin drip began to have drop in platelet count and Hematology Dr. Chahal was consulted and recommended to switch to Eliquis. Nephrology recommended hemodialysis to remove fluid, however patient was not able to tolerate dialysis without the use of vasopressors for hemodynamic support. Goals of care discussion was had with the family and respecting the family's values and wishes, family decided to have the patient on home hospice. Problem list: #Encephalopathy #History of embolic stroke #Cardiomyopathy, possibly amyloidosis #Atrial fibrillation-rate controlled #Left ventricular thrombus #Hypotension #Cardiogenic Shock #NSTEMI #Pulmonary edema #Mechanical Ventilation #GI bleed- Gastritis with stigmata of bleeding #Cirrhosis #Choledocholithiasis #Hyperbilirubinemia #PHILL #Hepatorenal syndrome #Cardiorenal syndrome #Anasarca #Concern for adrenal insufficiency #History of diabetes mellitus type 2 #Normocytic anemia #Thrombocytopenia Case discussed with my senior Dr. Schwab PGY-[address] João Pichardo MD PGY-1 Senior resident attestation: I discussed with and supervised the purchasing intern physician who took care of this patient. I personally saw and examined the patient and discussed the assessment and plan with the entire medicine team, including my attending Dr. Moyer , I agree with the assessment and plan as documented above. MD Josselin PGY2 Status at Discharge Functional status at discharge: bed bound Overall status at discharge: patient is not back to baseline Time Spent with Patient Time attestation: Total time spent providing and/or coordinating discharge services: Time spent: Greater than 30 minutes Exam Vital Signs Temp Pulse Resp BP Pulse Ox O2 Del Method O2 Flow Rate 97.6 F 71 17 72/55 L 98 Nasal Cannula 2 07/22/24 04:00 07/22/24 06:49 07/22/24 06:49 07/22/24 06:05 07/22/24 06:49 07/22/24 04:00 07/22/24 06:49 FiO2 45 07/20/24 12:25 Narrative Exam Physical Exam: General: AAOx0, non-verbal, cachectic, temporal wasting, able to follow commands HEENT: Atraumatic, mucous membranes moist Heart: Regular rate and rhythm, no murmurs. Lungs: B/L rhonchi, no wheezing or crackles. Abdomen: Soft, nondistended, nontender, bowel sounds-appreciated, pitting edema present in the abdominal wall. No guarding or rebound tenderness. Ext: 2+ peripheral edema up to mid abdomen, LLE with 6 digits noted, no flapping tremors noted Skin: Noted petechial rash on the anterior chest, B/L Upper extremities with bruising noted on the forearms, skin tear in right buttocks Neuro: AAOx 0, no gross neurological deficit, and patient able to move all extremities. Discharge Plan Plan Patient Disposition: Home w/HOSPICE Disposition Comment: Stable Prescriptions/Referrals Prescriptions/Med Rec: No Action (DME) blood-glucose meter Kit See Rx Instructions .Route Qty: 1 0RF Rx Instructions: Use once daily (DME) lancets 21 gauge misc See Rx Instructions .Route Qty: 100 2RF Rx Instructions: Use once daily (DME) Blood Glucose Test Strip See Rx Instructions .Route Qty: 50 2RF Rx Instructions: Use once daily midodrine 10 mg tablet 10 mg PO TID Qty: 10 0RF Rx Instructions: do not give last dose of day after 6PM or within 4 hrs of bedtime methylprednisolone [Medrol (Sim)] 4 mg tablets,dose pack 4 mg PO QDAY Qty: 21 0RF Rx Instructions: Take as directed furosemide 20 mg tablet 20 mg PO BID Patient Comments: TOME 1 TABLETA POR V A ORAL DOS VECES AL D A DIURETICS metoprolol succinate 25 mg tablet extended release 24 hr 25 mg PO DAILY Patient Comments: TAKE 1 TABLET (25 MG TOTAL) BY MOUTH DAILY. Eliquis 5 mg tablet 5 mg PO BID Patient Comments: TOME 1 TABLETA POR V A ORAL DOS VECES AL D A Referrals: Chon Longo PA-C [Primary Care Provider] - Patient/Caregiver Discharge Instructions Other Discharge Activity Instructions:: remove pressure dressing from Right neck on 07/24/2024 Print Language: Slovak Stand Alone Forms: Laura Award Info., Patient Portal Info Letter Discharge Order Discharge Orders: Discharge (Routine); Ordered 07/22/24 Ordered By: Stewart Pichardo Quality Discharge Quality Measures VTE prophylaxis
--- NOTE | 2024-07-22 10:53 | PC.SS ---
Ambulance transport scheduled for 01:00 pm today. [employer] notified charge nurse, bedside nurse, patient's family and [facility].
--- NOTE | 2024-07-22 11:50 | PC.SS ---
Addendum entered and electronically signed by PAOLO Auguste 07/22/24 11:51: [facility] confirmed with [facility] staff that Tri-Flow can remain in place upon discharge. [employer] [employer] re-scheduled ambulance transport for 03:00 pm. [facility] notified [facility], patient's family and bedside nurse. Original Note: [employer] informed by bedside to confirm if patient can discharge with Tri-Flow in place. Patient will need platelets, requesting transport time to be revised for 03:00 pm.
--- NOTE | 2024-07-22 12:00 | PC.NURSE ---
Patient is to go home with hospice care. Per Dr. Moyer remove central line and tri-flow before pt is transported. Dr. Schwab and Dr. Pastor removed central line, I held pressure to right IJ for a total of 1hr and 30 minutes do to patient bleeding significantly, surgicel applied, I called over Dr. Moyer to report findings which she wants a unit of platelets if hemostasis was not reached. Fortunately after an 1hr and 30 minutes bleeding stopped, no need for platelets per Dr. Moyer. Pressure dressing applied to site. Family aware of transport was pushed back due to bleeding issue.
--- NOTE | 2024-07-22 15:35 | PC.NURSE ---
Addendum entered by Rachel Brooks RN 07/22/24 15:46: at 1455 trif[address] catheter left in place at discharge because of bleeding precautions per Dr. Moyer, triflow catheter reinforced with tegarderm, instructions given to lena Gricelda and Rachel, ambulance personnel at bedside given report for transport to home Addendum entered by Rachel Brooks RN 07/22/24 15:43: pt lena Ramos and Gricelda at bedside received discharge instructions, verbalized understanding. Original Note: pt discharged to home with hospice care via ambulance, pt family at the bedside received instructions and to remove pressure dressing at right neck on 07/24/2024, pt NG removed, central line removed and PIV removed tolerated well hemostasis acheived, all belongings gathered and patients family agreeable, all questions answered
[2024-07-23 22:05] LABS: Albumin 4.2 g/dL (3.8-4.8); Alpha-1-Globulin 0.3 g/dL (0.2-0.3); Alpha-2-Globulin 0.3 g/dL (0.5-0.9); Beta-1-Globulin 0.2 g/dL (0.4-0.6); Beta-2-globulin 0.4 g/dL (0.2-0.5); Gamma Globulin 1.1 g/dL (0.8-1.7)
[2024-07-24 03:05] LABS: Albumin, Random Urine 100 %; Alpha 1 Globulin, Random Urine 0 %; Alpha 2 Globulin, Random Urine 0 %; Beta Globulin, Random Urine 0 %; Gamma Globulin, Random Urine 0 %; Protein,Total,Random Urine 73 mg/dL (5-24); Protein/Creatinine Ratio 2829 mg/g creat (24-184)
[2024-07-26 06:57] LABS: Heparin, Anti-Xa* 0.56 IU/mL
[2024-07-26 07:00] LABS: Kappa Light Chain, Free 240.1 mg/L (3.3-19.4); Protein, total, serum 6.5 g/dL (6.1-8.1)
[2024-07-26 07:07] LABS: Creatinine, Random Urine 26 mg/dL (20-275); Protein/Creatinine Ratio mg/mg 2.829 (0.024-0.184)
[2024-08-02 06:37] LABS: Ceruloplasmin* 19 mg/dL (14-48); Copper* 82 mcg/dL (70-175)
== END 2024-07-22 14:57 | disposition hospice, home (50) | DRG 130 ==
LOC: SERX 23:17 → SERHOLD 23:53 → S2SX 07-12 07:50 → SERHOLD 07-13 14:02
PROVIDERS: Internal Medicine; Nurse Practitioner Family; Student in an Organized Health Care Education/Training Program; Admitting Provider Internal Medicine; Emergency Provider Emergency Medicine; PCP Family Medicine; Visit Provider Internal Medicine
DX: J18.9 Pneumonia, unspecified organism (principal); E11.9 Type 2 diabetes mellitus without complications; E87.1 Hypo-osmolality and hyponatremia; E87.20 Acidosis, unspecified; I11.0 Hypertensive heart disease with heart failure; I48.92 Unspecified atrial flutter; K74.60 Unspecified cirrhosis of liver; Z74.01 Bed confinement status; N39.0 Urinary tract infection, site not specified; Y95 Nosocomial condition; I51.3 Intracardiac thrombosis, not elsewhere classified; N17.9 Acute kidney failure, unspecified; G93.40 Encephalopathy, unspecified; K80.70 Calculus of gallbladder and bile duct without cholecystitis without obstruction; J96.01 Acute respiratory failure with hypoxia; K75.81 Nonalcoholic steatohepatitis (NASH); D69.6 Thrombocytopenia, unspecified; I21.A1 Myocardial infarction type 2; R57.0 Cardiogenic shock; Z66 Do not resuscitate; K76.7 Hepatorenal syndrome; K72.10 Chronic hepatic failure without coma; I48.91 Unspecified atrial fibrillation; I50.41 Acute combined systolic (congestive) and diastolic (congestive) heart failure; I42.8 Other cardiomyopathies; Z51.5 Encounter for palliative care; D62 Acute posthemorrhagic anemia; K20.90 Esophagitis, unspecified without bleeding; K31.89 Other diseases of stomach and duodenum; K29.71 Gastritis, unspecified, with bleeding; E87.6 Hypokalemia; Z86.73 Personal history of transient ischemic attack (TIA), and cerebral infarction without residual deficits; R64 Cachexia
CPT/HCPCS: 36415; 36600; 71045; 71260; 76700; 80048; 80053; 80069; 80074; 80202; 81001; 82140; 82248; 82270; 82390; 82525; 82530; 82570; 82728; 82803; 83036; 83540; 83550; 83605; 83615; 83690; 83735; 83880; 83883; 84100; 84145; 84155; 84156; 84165; 84166; 84484; 85014; 85018; 85025; 85520; 85610; 85730; 86022; 86850; 86900; 86901; 86923; 86965; 87040; 87081; 87086; 87106; 87205; 87811; 92526; 92610; 93005; 93306; 94002; 94003; 94667; 96361; 96365; 96366; 96367; 97161; 99285; A4649; J0283; J0456; J0696; J1200; J1250; J1643; J1644; J1720; J1815; J1885; J1940; J2250; J2354; J2371; J2470; J2543; J2704; J3010; J3370; J3480; J3490; J7050; J7120; P9016; P9047; Q0138; Q5105; Q9967; A9270